=== PATIENT | female | born 1950 | race Caucasian/White ===

== ENCOUNTER 2016-12-27 08:58 | Inpatient (IN) | payer MEDICARE, BC ==
[2016-12-27] MEDS ORDERED: Tuberculin, PPD 5 Units/0.1 ML 1 ML MDV IDERM ONE (14:04)
[2016-12-27] MEDS ORDERED: Albuterol 8 GM Inhaler INH PRN (16:19)
[2016-12-27] MEDS ORDERED: Glucagon,Human Recombinant 1 MG Vial SUBCUT PRN (16:19)
[2016-12-27] MEDS ORDERED: ONDANSETRON 4 MG PO PRN (16:19)
[2016-12-27] MEDS ORDERED: Nitroglycerin 0.4 MG Tab.SL SL PRN (16:19)
[2016-12-27] MEDS ORDERED: Metoclopramide 10 MG Tab PO PRN (16:19)
[2016-12-27] MEDS ORDERED: Nystatin Crm 30 GM Tube TOP PRN (16:19)
[2016-12-27] MEDS ORDERED: Diclofenac Sodium 1% Gel 100 GM Tube TOP PRN (16:19)
[2016-12-27] MEDS ORDERED: DARBEPOETIN ALFA IN POLYSORBAT 100 MCG SUBCUT SCH (16:30)
[2016-12-27] MEDS ORDERED: Lidocaine/Prilocaine 2.5-2.5% Crm 5 GM Kit TOP SCH (16:30)
[2016-12-27] MEDS ORDERED: Ondansetron 4 MG Tab.DIS PO PRN (16:45)
[2016-12-27] MEDS ORDERED: LORazepam 0.5 MG Tab ONE (17:11)
[2016-12-27] MEDS: LORazepam 0.5 MG Tab PO SCH ×2 (17:12→20:32)
[2016-12-27] MEDS: Acetaminophen 500 MG Tab PO PRN (17:12)
[2016-12-27] MEDS: Ferrous Sulfate 325 MG Tab PO SCH (17:13)
[2016-12-27] MEDS: Insulin Aspart 100 Units/ML 3 ML Pen SUBCUT SCH (17:17)
[2016-12-27] MEDS ORDERED: HALOPERIDOL PO SCH (20:00)
[2016-12-27] MEDS ORDERED: Metoprolol Tartrate 50 MG Tab PO SCH (20:00)
[2016-12-27] MEDS: Metoprolol Tartrate 25 MG Tab PO SCH (20:31)
[2016-12-27] MEDS: atorvaSTATin 40 MG Tab PO SCH (20:32)
[2016-12-27] MEDS: cloNIDine 0.1 MG Tab PO SCH (20:33)
[2016-12-27] MEDS: Haloperidol 1 MG Tab PO SCH (20:33)
[2016-12-27] MEDS: traZODone 100 MG Tab PO SCH (20:33)
[2016-12-27] MEDS ORDERED: Haloperidol 1 MG Tab ONE (20:40)
[2016-12-27] MEDS: Insulin Glargine,Human Rec. Analog 100 Units/ML 3 ML Pen SUBCUT SCH (20:51)
[2016-12-27] MEDS: Magnesium Hydroxide 400 MG/5 ML Susp 30 ML Cup PO SCH (21:25)
[2016-12-27] MEDS: SODIUM BICARBONATE 650 MG PO SCH (21:26)
[2016-12-28] MEDS: Levothyroxine 100 MCG Tab PO SCH (07:46)
[2016-12-28] MEDS: LORazepam 0.5 MG Tab PO SCH ×3 (08:52→20:25)
[2016-12-28] MEDS: Diltiazem 240 MG Cap.CD PO SCH (08:53)
[2016-12-28] MEDS: Amiodarone 200 MG Tab PO SCH (08:54)
[2016-12-28] MEDS: cloNIDine 0.1 MG Tab PO SCH ×2 (08:54→20:26)
[2016-12-28] MEDS: SODIUM BICARBONATE 650 MG PO SCH ×2 (08:55→20:30)
[2016-12-28] MEDS: Ferrous Sulfate 325 MG Tab PO SCH ×2 (08:55→17:38)
[2016-12-28] MEDS: Metoprolol Tartrate 25 MG Tab PO SCH ×2 (08:55→20:26)
[2016-12-28] MEDS: Fish Oil/Omega-3 Fatty Acids 1 Gm Cap PO SCH (08:55)
[2016-12-28] MEDS: Aspirin 81 MG Tab.EC PO SCH (08:55)
[2016-12-28] MEDS: Insulin Glargine,Human Rec. Analog 100 Units/ML 3 ML Pen SUBCUT SCH ×2 (09:00→20:49)
[2016-12-28] MEDS ORDERED: Gabapentin 300 MG Cap ONE (09:03)
[2016-12-28] MEDS: Gabapentin 300 MG Cap PO SCH (09:05)
[2016-12-28] MEDS: Insulin Aspart 100 Units/ML 3 ML Pen SUBCUT SCH ×2 (09:15→17:32)
[2016-12-28] MEDS: Haloperidol 1 MG Tab PO SCH (20:26)
[2016-12-28] MEDS: Magnesium Hydroxide 400 MG/5 ML Susp 30 ML Cup PO SCH (20:27)
[2016-12-28] MEDS: traZODone 100 MG Tab PO SCH (20:28)
[2016-12-28] MEDS: atorvaSTATin 40 MG Tab PO SCH (20:28)
[2016-12-29] MEDS: Levothyroxine 100 MCG Tab PO SCH (07:18)
[2016-12-29] MEDS: SODIUM BICARBONATE 650 MG PO SCH ×2 (08:00→20:43)
[2016-12-29] MEDS: Gabapentin 300 MG Cap PO SCH (08:20)
[2016-12-29] MEDS: Ferrous Sulfate 325 MG Tab PO SCH ×2 (09:00→20:39)
[2016-12-29] MEDS: Aspirin 81 MG Tab.EC PO SCH (09:01)
[2016-12-29] MEDS: Fish Oil/Omega-3 Fatty Acids 1 Gm Cap PO SCH (09:02)
[2016-12-29] MEDS: cloNIDine 0.1 MG Tab PO SCH ×2 (09:02→20:37)
[2016-12-29] MEDS: Metoprolol Tartrate 25 MG Tab PO SCH ×2 (09:03→20:38)
[2016-12-29] MEDS: Amiodarone 200 MG Tab PO SCH (09:03)
[2016-12-29] MEDS: LORazepam 0.5 MG Tab PO SCH ×3 (09:04→20:39)
[2016-12-29] MEDS: Diltiazem 240 MG Cap.CD PO SCH (09:04)
[2016-12-29] MEDS: Insulin Aspart 100 Units/ML 3 ML Pen SUBCUT SCH ×2 (09:05→17:30)
[2016-12-29] MEDS: Insulin Glargine,Human Rec. Analog 100 Units/ML 3 ML Pen SUBCUT SCH ×2 (09:06→21:37)
[2016-12-29] MEDS: Acetaminophen 500 MG Tab PO PRN (18:04)
[2016-12-29] MEDS: traZODone 100 MG Tab PO SCH (20:36)
[2016-12-29] MEDS: Haloperidol 1 MG Tab PO SCH (20:36)
[2016-12-29] MEDS: atorvaSTATin 40 MG Tab PO SCH (20:37)
[2016-12-29] MEDS: Magnesium Hydroxide 400 MG/5 ML Susp 30 ML Cup PO SCH (20:41)
[2016-12-30] MEDS: cloNIDine 0.1 MG Tab PO SCH ×2 (07:29→20:23)
[2016-12-30] MEDS: Fish Oil/Omega-3 Fatty Acids 1 Gm Cap PO SCH (07:29)
[2016-12-30] MEDS: Ferrous Sulfate 325 MG Tab PO SCH ×2 (07:33→18:01)
[2016-12-30] MEDS: Amiodarone 200 MG Tab PO SCH (07:33)
[2016-12-30] MEDS: Levothyroxine 100 MCG Tab PO SCH (07:34)
[2016-12-30] MEDS: LORazepam 0.5 MG Tab PO SCH ×3 (07:34→20:22)
[2016-12-30] MEDS: Diltiazem 240 MG Cap.CD PO SCH (07:35)
[2016-12-30] MEDS: Insulin Aspart 100 Units/ML 3 ML Pen SUBCUT SCH ×2 (07:38→17:57)
[2016-12-30] MEDS: Insulin Glargine,Human Rec. Analog 100 Units/ML 3 ML Pen SUBCUT SCH ×2 (07:41→20:11)
[2016-12-30] MEDS: Metoprolol Tartrate 25 MG Tab PO SCH ×2 (08:00→20:23)
[2016-12-30] MEDS: Aspirin 81 MG Tab.EC PO SCH (08:00)
[2016-12-30] MEDS: SODIUM BICARBONATE 650 MG PO SCH ×2 (08:00→20:24)
[2016-12-30] MEDS: Gabapentin 300 MG Cap PO SCH (08:00)
[2016-12-30] MEDS: Acetaminophen 500 MG Tab PO PRN (12:42)
[2016-12-30] MEDS ORDERED: Acetaminophen/HYDROcodone 325-10 MG Tab ONE (16:42)
[2016-12-30] MEDS: Ergocalciferol (Vitamin D2) 50,000 Unit Cap PO SCH (18:01)
[2016-12-30] MEDS: CALCITRIOL 0.5 MCG PO SCH (18:01)
[2016-12-30] MEDS: Haloperidol 1 MG Tab PO SCH (20:21)
[2016-12-30] MEDS: traZODone 100 MG Tab PO SCH (20:21)
[2016-12-30] MEDS: atorvaSTATin 40 MG Tab PO SCH (20:22)
[2016-12-30] MEDS: Magnesium Hydroxide 400 MG/5 ML Susp 30 ML Cup PO SCH (20:24)
[2016-12-30] MEDS: Acetaminophen/HYDROcodone 325-10 MG Tab PO PRN (21:27)
[2016-12-31] MEDS: Acetaminophen/HYDROcodone 325-10 MG Tab PO PRN ×4 (04:09→21:55)
[2016-12-31] MEDS: Levothyroxine 100 MCG Tab PO SCH (06:13)
[2016-12-31] MEDS: Insulin Aspart 100 Units/ML 3 ML Pen SUBCUT SCH ×2 (11:33→17:29)
[2016-12-31] MEDS: Insulin Glargine,Human Rec. Analog 100 Units/ML 3 ML Pen SUBCUT SCH ×2 (11:38→20:47)
[2016-12-31] MEDS: LORazepam 0.5 MG Tab PO SCH ×3 (11:46→20:37)
[2016-12-31] MEDS: Metoprolol Tartrate 25 MG Tab PO SCH ×2 (11:47→20:39)
[2016-12-31] MEDS: Aspirin 81 MG Tab.EC PO SCH (11:50)
[2016-12-31] MEDS: cloNIDine 0.1 MG Tab PO SCH ×2 (11:50→20:38)
[2016-12-31] MEDS: Amiodarone 200 MG Tab PO SCH (11:51)
[2016-12-31] MEDS: Fish Oil/Omega-3 Fatty Acids 1 Gm Cap PO SCH (11:51)
[2016-12-31] MEDS: Gabapentin 300 MG Cap PO SCH (11:52)
[2016-12-31] MEDS: Ferrous Sulfate 325 MG Tab PO SCH ×2 (11:52→17:25)
[2016-12-31] MEDS: Diltiazem 240 MG Cap.CD PO SCH (11:52)
[2016-12-31] MEDS: SODIUM BICARBONATE 650 MG PO SCH ×2 (11:52→20:41)
[2016-12-31] MEDS ORDERED: Acetaminophen/HYDROcodone 325-10 MG Tab ONE (12:42)
[2016-12-31] MEDS: traZODone 100 MG Tab PO SCH (20:36)
[2016-12-31] MEDS: Haloperidol 1 MG Tab PO SCH (20:36)
[2016-12-31] MEDS: Magnesium Hydroxide 400 MG/5 ML Susp 30 ML Cup PO SCH (20:39)
[2016-12-31] MEDS: atorvaSTATin 40 MG Tab PO SCH (20:40)
[2017-01-01] MEDS: Acetaminophen/HYDROcodone 325-10 MG Tab PO PRN ×2 (02:35→14:42)
[2017-01-01] MEDS: Levothyroxine 100 MCG Tab PO SCH (06:49)
[2017-01-01] MEDS: Insulin Aspart 100 Units/ML 3 ML Pen SUBCUT SCH ×2 (07:50→17:33)
[2017-01-01] MEDS: Aspirin 81 MG Tab.EC PO SCH (07:53)
[2017-01-01] MEDS: LORazepam 0.5 MG Tab PO SCH ×3 (07:54→19:46)
[2017-01-01] MEDS: Ferrous Sulfate 325 MG Tab PO SCH ×2 (07:54→19:41)
[2017-01-01] MEDS: Diltiazem 240 MG Cap.CD PO SCH (07:58)
[2017-01-01] MEDS: Fish Oil/Omega-3 Fatty Acids 1 Gm Cap PO SCH (08:00)
[2017-01-01] MEDS: SODIUM BICARBONATE 650 MG PO SCH ×2 (08:00→20:00)
[2017-01-01] MEDS: Insulin Glargine,Human Rec. Analog 100 Units/ML 3 ML Pen SUBCUT SCH ×2 (08:04→20:08)
[2017-01-01] MEDS: cloNIDine 0.1 MG Tab PO SCH ×2 (10:26→19:51)
[2017-01-01] MEDS: Metoprolol Tartrate 25 MG Tab PO SCH ×2 (10:27→19:49)
[2017-01-01] MEDS: Amiodarone 200 MG Tab PO SCH (10:27)
[2017-01-01] MEDS: Gabapentin 300 MG Cap PO SCH (13:16)
[2017-01-01] MEDS: atorvaSTATin 40 MG Tab PO SCH (19:45)
[2017-01-01] MEDS: Haloperidol 1 MG Tab PO SCH (19:46)
[2017-01-01] MEDS: traZODone 100 MG Tab PO SCH (19:46)
[2017-01-01] MEDS: Magnesium Hydroxide 400 MG/5 ML Susp 30 ML Cup PO SCH (19:47)
[2017-01-02] MEDS: Acetaminophen/HYDROcodone 325-10 MG Tab PO PRN ×4 (02:17→20:02)
[2017-01-02] MEDS: Levothyroxine 100 MCG Tab PO SCH (06:15)
[2017-01-02] MEDS: Insulin Glargine,Human Rec. Analog 100 Units/ML 3 ML Pen SUBCUT SCH ×2 (08:33→20:13)
[2017-01-02] MEDS: Insulin Aspart 100 Units/ML 3 ML Pen SUBCUT SCH ×2 (08:34→17:07)
[2017-01-02] MEDS: Aspirin 81 MG Tab.EC PO SCH (08:50)
[2017-01-02] MEDS: Ferrous Sulfate 325 MG Tab PO SCH ×2 (08:50→17:07)
[2017-01-02] MEDS: Fish Oil/Omega-3 Fatty Acids 1 Gm Cap PO SCH (08:50)
[2017-01-02] MEDS: LORazepam 0.5 MG Tab PO SCH ×3 (08:50→20:02)
[2017-01-02] MEDS: Amiodarone 200 MG Tab PO SCH (08:51)
[2017-01-02] MEDS: SODIUM BICARBONATE 650 MG PO SCH ×2 (08:52→20:13)
[2017-01-02] MEDS: Diltiazem 240 MG Cap.CD PO SCH (08:53)
[2017-01-02] MEDS: cloNIDine 0.1 MG Tab PO SCH ×2 (08:54→20:03)
[2017-01-02] MEDS: Metoprolol Tartrate 25 MG Tab PO SCH ×2 (08:54→20:03)
[2017-01-02] MEDS: Gabapentin 300 MG Cap PO SCH (09:00)
--- NOTE | 2017-01-02 09:30 | PCM.HP ---
H&P History of Present Illness - General Date of Service: 12/27/16 Admit Problem/Dx: Admission Diagnosis/Problem Admission Diagnosis/Problem Pain management Source of Information: Patient, Old records, Provider, RN notes reviewed History Limitations: Reports: No limitations - History of Present Illness Initial Comments - Free Text/Narative: This is a 66yo F who was recently admitted for severe generalized weakness and UTI. She was started on CIpro IV per renal protocol and iv fluid for hydration. Pt was having her hemodialysis done daily. Dr. Zamarripa took over patient care on Monday, when Pt was almost obtunded, responsive, but unable to move in her bed. Only physical movement was wiggling in the bed. She could not move her extremities against gravity. Pt had sever clonus of all four extremities. Pt has CT head. Which did show questionable calcification or bleed in left basal ganglia. At this point Dr. Zamarripa did call [facility] adn discuss patient with Dr. Davin Joy, who had admitted this patient with similar episode in the past. 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 So he did start to taper per regime. Patient did recover from wiggling extremities, to moving the arms and raising her arm to sitting and now she is even able to stand up and walk few steps with physical therapy. Dr. Zamarripa discussed about her chronic elevation of the creatinine around [address] Gillespie, who recommends to continue daily hemodialysis. he does agree with decreasing neurontin to 300mg daily at bedtime. On 12/27/16 pt is alert awake able to stand and walk few step. doing better. labs are reassuring. At that point she needs to get stronger and be able to ambulate and do her routine ADLS. Hence she needs Occupational and physical Rehab. hence Dr. Zamarripa planned to place her on swing bed today. Dr. Zamarripa discussed this with her and her , who does agree with the plan. Onset of Symptoms: Reports: gradual Duration of Symptoms: Reports: Chronic Location: Reports: generalized Associated Symptoms: Reports: loss of appetite, weakness Bilateral Generalized Pain Score (Numeric/FACES): 7 - Related Data Allergies/Adverse Reactions: Allergies Allergy/AdvReac Type Severity Reaction Status Date / Time peanut Allergy Mild Other Verified 11/04/16 09:14 codeine Allergy Hives Verified 11/04/16 09:14 erythromycin lactobionate Allergy Hives Verified 11/04/16 09:14 [From Erythrocin] metformin AdvReac Other Verified 11/04/16 09:14 Home Medications: Home Meds Diclofenac Sodium [Voltaren 1% Gel] 1 percent TOP QID PRN 02/03/16 [History] Glucagon,Human Recombinant [Glucagen] 1 mg SUBCUT ASDIRECTED PRN 02/03/16 [ History] Metoprolol Tartrate 0.5 tab PO BID 02/03/16 [History] atorvaSTATin [Lipitor] 40 mg PO BEDTIME 02/03/16 [History] Albuterol [Proventil HFA] 2 puff INH Q6H PRN 04/25/16 [History] traZODone 100 mg PO BEDTIME 04/25/16 [History] Acetaminophen [Tylenol Extra Strength] 1,000 mg PO Q4H PRN 09/30/16 [History] Aspirin [Ecotrin] 81 mg PO DAILY 09/30/16 [History] Calcitriol [Rocaltrol] 0.5 mcg PO ASDIRECTED 09/30/16 [History] Darbepoetin Jerel in Polysorbat [Aranesp] 0 - 150 mcg SUBCUT ASDIRECTED 09/30/16 [History] Ergocalciferol (Vitamin D2) [Drisdol] 50,000 unit PO ASDIRECTED 09/30/16 [ History] Haloperidol [Haldol] 4 mg PO BEDTIME 09/30/16 [History] Lidocaine/Prilocaine [EMLA Crm] 1 applic TOP ASDIRECTED 09/30/16 [History] Metoclopramide HCl [Reglan] 10 mg PO QID PRN 09/30/16 [History] Nitroglycerin [Nitrostat] 0.4 mg SL ASDIRECTED PRN 09/30/16 [History] Nystatin [Nystatin Crm] 1 applic TOP BID PRN 09/30/16 [History] Ondansetron [Zofran] 4 mg PO Q4H PRN 09/30/16 [History] Sodium Bicarbonate 650 mg PO BID 09/30/16 [History] Allopurinol [Zyloprim] 100 mg PO DAILY tablet 12/27/16 [Rx] Amiodarone [Cordarone] 200 mg PO DAILY tablet 12/27/16 [Rx] Diltiazem [Cardizem CD] 240 mg PO DAILY cap.cd 12/27/16 [Rx] Ferrous Sulfate 325 mg PO BIDMEALS tablet 12/27/16 [Rx] Fish Oil/[place]-3 Fatty Acids [Fish Oil 1,000 MG] 1 gm PO DAILY cap 12/27/16 [Rx ] Insulin Aspart [NovoLOG] 45 unit SUBCUT BIDMEALS pen 12/27/16 [Rx] Insulin Glarg,Human.Rec.Analog [Lantus Solostar] 50 units SUBCUT BID pen [Rx] LORazepam [Ativan] 0.5 mg PO TID tablet 12/27/16 [Rx] Levothyroxine [Synthroid] 200 mcg PO ACBREAKFAST tablet 12/27/16 [Rx] Magnesium Hydroxide [Milk of Magnesia] 30 ml PO BEDTIME cup 12/27/16 [Rx] cloNIDine [Catapres] 0.1 mg PO Q12HR 12/27/16 [History] Past Medical History HEENT History: Reports: Epistaxis, Impaired vision, Other (see below) Other HEENT History: photosensitive, ringing in ears- chronic, cracking in ears currently Cardiovascular History: Reports: High cholesterol, Hypertension, [place] Respiratory History: Reports: Asthma, Sleep apnea, SOB, Other (see below) Other Respiratory History: doesn't use CPAP because of mask doesn't work - one cased scab on nose, one cased claustraphobia Gastrointestinal History: Reports: Chronic diarrhea, GERD, Hemorrhoids Genitourinary History: Reports: Dialysis, Diabetic nephropathy, Renal disease, Other (see below) Other Genitourinary History: home dialysis 2.5 hr 6 days per week [employer] History: Reports: Musculoskeletal History: Reports: Arthritis, Back pain, chronic, Gout, Neck pain , chronic, Other (see below) Other Musculoskeletal History: chronic shoulder pain, arthritis all over Neurological History: Reports: Migraines, Vertigo Psychiatric History: Reports: Anxiety, Depression, PTSD Endocrine/Metabolic History: Reports: Diabetes, type II, Hypothyroidism Hematologic History: Reports: Anemia, B12 deficiency, Idiopathic thrombocytopenia Immunologic History: Reports: Immunosuppression Oncologic (Cancer) History: Reports: None Dermatologic History: Reports: None - Infectious Disease History Infectious Disease History: Reports: Chicken pox, Measles, Mumps - Past Surgical History Head Surgeries/Procedures: Reports: Shunt HEENT Surgical History: Reports: Cataract surgery, Other (see below) Other HEENT Surgeries/Procedures: surgery to nostril for nose bleeds but they are still happening Cardiovascular Surgical History: Reports: Other (see below) Other Cardiovascular Surgeries/Procedures: cabg triple vessel bypass 2009, had stress test in 2016- negative, tried inhaler no help GI Surgical History: Reports: Appendectomy, Cholecystectomy, Other (see below) Other GI Surgeries/Procedures: Dr. Gorman removed them in 1972 Female Surgical History: Reports: Tubal ligation Social & Family History - Family History Family Medical History: Noncontributory - Tobacco Use Smoking Status *Q: Never Smoker Years of Tobacco use: 25 Packs/Tins Daily: 1 Used Tobacco, but Quit: Yes Month Tobacco Last Used: March 1990 Second Hand Smoke Exposure: No - Caffeine Use Caffeine Use: Reports: Coffee - Recreational Drug Use Recreational Drug Use: No H&P Review of Systems - Review of Systems: Review Of Systems: ROS reveals no pertinent complaints other than HPI. Exam - Exam Exam: See Below - Vital Signs Vital Signs: Last Vital Signs Temp 37.2 C 01/02/17 08:00 Pulse 72 01/02/17 08:54 Resp 20 01/02/17 08:00 BP 92/49 L 01/02/17 08:54 Pulse Ox 97 01/02/17 08:00 Weight: 121.109 kg - Exam General: alert, oriented, cooperative HEENT: PERRLA, Conjunctiva clear Neck: supple, trachea midline Lungs: Normal respiratory effort, Rhonchi Cardiovascular: regular rate, irregular rhythm, systolic murmur Abdomen: soft, hypoactive bowel sounds Back Exam: normal inspection Extremities: edema (1+) Peripheral Pulses: 2+: dorsalis pedis (L), dorsalis pedis (R) Skin: warm, dry, intact Neurological: cranial nerves intact, reflexes equal bilateral Neuro Extensive - Mental Status: alert, oriented x3, normal mood/affect Psychiatric: alert, normal affect, normal mood - Patient Data Lab Results last 24 hrs: Laboratory Results - last 24 hr 01/01/17 01/02/17 Range/Units 16:33 07:10 POC Glucose 378 H 316 H (74-110) mg/dL *Q Meaningful Use (ADM) - VTE *Q VTE Criteria *Q: - Stroke *Q Stroke Criteria *Q: - AMI *Q AMI Criteria *Q: - Problem List (1) Weakness SNOMED Code(s): 29548820 ICD Code: R53.1 - WEAKNESS Status: Chronic Priority: High Current Visit : Yes (2) Atrial fibrillation with rapid ventricular response SNOMED Code(s): 326602829051356 ICD Code: I48.91 - UNSPECIFIED ATRIAL FIBRILLATION Status: Chronic Priority: Medium Current Visit: Yes (3) CHF (congestive heart failure) SNOMED Code(s): 20065359 ICD Code: I50.9 - HEART FAILURE, UNSPECIFIED Status: Chronic Priority: High Current Visit: Yes Qualifiers: Congestive heart failure type: systolic Congestive heart failure chronicity : unspecified congestive heart failure chronicity Qualified Code(s): I50.20 - Unspecified systolic (congestive) heart failure (4) Chronic kidney disease (CKD) stage G5/A1, glomerular filtration rate (GFR) less than or equal to 15 mL/min/1.73 square meter and albuminuria creatinine ratio less than 30 mg/g SNOMED Code(s): 632802173, 505773721 ICD Code: N18.5 - CHRONIC KIDNEY DISEASE, STAGE 5 Status: Chronic Priority: High Current Visit: Yes (5) Clonus SNOMED Code(s): 39767523 ICD Code: R25.8 - OTHER ABNORMAL INVOLUNTARY MOVEMENTS Status: Resolved Current Visit: No Problem List Initiated/Reviewed/Updated: Yes Orders Last 24hrs: Medication Orders Acetaminophen (Tylenol Extra Strength) 1,000 mg PO Q4H PRN PRN Reason: Pain Last Admin: 12/30/16 12:42 Dose: 1,000 mg Admin: 12/29/16 18:04 Dose: 1,000 mg Admin: 12/27/16 17:12 Dose: 1,000 mg Acetaminophen/Hydrocodone Bitart ([place] 325-10 Mg) 1 tab PO Q4H PRN PRN Reason: Pain (moderate 4-6) Last Admin: 01/02/17 08:49 Dose: 1 tab Admin: 01/02/17 02:17 Dose: 1 tab Admin: 01/01/17 14:42 Dose: 1 tab Admin: 01/01/17 02:35 Dose: 1 tab Admin: 12/31/16 21:55 Dose: 1 tab Admin: 12/31/16 17:24 Dose: 1 tab Admin: 12/31/16 13:07 Dose: 1 tab Admin: 12/31/16 04:09 Dose: 1 tab Admin: 12/30/16 21:27 Dose: 1 tab Albuterol (Ventolin Hfa) 1 - 2 gm INH Q6H PRN PRN Reason: Shortness of Breath Allopurinol (Zyloprim) 100 mg PO DAILY [facility] Amiodarone HCl (Cordarone) 200 mg PO DAILY [facility] Last Admin: 01/02/17 08:51 Dose: 200 mg Admin: 01/01/17 10:27 Dose: Not Given Admin: 12/31/16 11:51 Dose: 200 mg Admin: 12/30/16 07:33 Dose: 200 mg Admin: 12/29/16 09:03 Dose: 200 mg Admin: 12/28/16 08:54 Dose: 200 mg Aspirin (Halfprin) 81 mg PO DAILY [facility] Last Admin: 01/02/17 08:50 Dose: 81 mg Admin: 01/01/17 07:53 Dose: 81 mg Admin: 12/31/16 11:50 Dose: 81 mg Admin: 12/30/16 08:00 Dose: 81 mg Admin: 12/29/16 09:01 Dose: 81 mg Admin: 12/28/16 08:55 Dose: 81 mg Atorvastatin Calcium (Lipitor) 40 mg PO BEDTIME [facility] Last Admin: 01/01/17 19:45 Dose: 40 mg Admin: 12/31/16 20:40 Dose: 40 mg Admin: 12/30/16 20:22 Dose: 40 mg Admin: 12/29/16 20:37 Dose: 40 mg Admin: 12/28/16 20:28 Dose: 40 mg Admin: 12/27/16 20:32 Dose: 40 mg Clonidine HCl (Catapres) 0.1 mg PO Q12HR [facility] Last Admin: 01/02/17 08:54 Dose: Not Given Admin: 01/01/17 19:51 Dose: 0.1 mg Admin: 01/01/17 10:26 Dose: Not Given Admin: 12/31/16 20:38 Dose: Admin: 12/31/16 11:50 Dose: 0.1 mg Admin: 12/30/16 20:23 Dose: 0.1 mg Admin: 12/30/16 07:29 Dose: 0.1 mg Admin: 12/29/16 20:37 Dose: 0.1 mg Admin: 12/29/16 09:02 Dose: 0.1 mg Admin: 12/28/16 20:26 Dose: 0.1 mg Admin: 12/28/16 08:54 Dose: 0.1 mg Admin: 12/27/16 20:33 Dose: 0.1 mg Diclofenac Sodium (Voltaren 1% Gel) 1 gm TOP QID PRN PRN Reason: Pain Diltiazem HCl (Cardizem Cd) 240 mg PO DAILY [facility] Last Admin: 01/02/17 08:53 Dose: Not Given Admin: 01/01/17 07:58 Dose: Not Given Admin: 12/31/16 11:52 Dose: 240 mg Admin: 12/30/16 07:35 Dose: 240 mg Admin: 12/29/16 09:04 Dose: 240 mg Admin: 12/28/16 08:53 Dose: 240 mg Ergocalciferol (Vitamin D2) 50,000 units PO Fr [facility] Last Admin: 12/30/16 18:01 Dose: 50,000 units Ferrous Sulfate (Ferrous Sulfate) 325 mg PO BIDMEALS [facility] Last Admin: 01/02/17 08:50 Dose: 325 mg Admin: 01/01/17 19:41 Dose: Not Given Admin: 01/01/17 07:54 Dose: 325 mg Admin: 12/31/16 17:25 Dose: 325 mg Admin: 12/31/16 11:52 Dose: 325 mg Admin: 12/30/16 18:01 Dose: 325 mg Admin: 12/30/16 07:33 Dose: 325 mg Admin: 12/29/16 20:39 Dose: 325 mg Admin: 12/29/16 09:00 Dose: 325 mg Admin: 12/28/16 17:38 Dose: 325 mg Admin: 12/28/16 08:55 Dose: 325 mg Admin: 12/27/16 17:13 Dose: 325 mg Fish Oil (Fish Oil) 1 gm PO DAILY [facility] Last Admin: 01/02/17 08:50 Dose: 1 gm Admin: 01/01/17 08:00 Dose: 1 gm Admin: 12/31/16 11:51 Dose: 1 gm Admin: 12/30/16 07:29 Dose: 1 gm Admin: 12/29/16 09:02 Dose: 1 gm Admin: 12/28/16 08:55 Dose: 1 gm Gabapentin (Neurontin) 300 mg PO QD [facility] Last Admin: 01/02/17 09:00 Dose: 300 mg Admin: 01/01/17 13:16 Dose: 300 mg Admin: 12/31/16 11:52 Dose: 300 mg Admin: 12/30/16 08:00 Dose: 300 mg Admin: 12/29/16 08:20 Dose: 300 mg Admin: 12/28/16 09:05 Dose: 300 mg Glucagon (Glucagen) 1 mg SUBCUT ASDIRECTED PRN PRN Reason: Hypoglycemia Haloperidol (Haldol) 4 mg PO BEDTIME [facility] Last Admin: 01/01/17 19:46 Dose: 4 mg Admin: 12/31/16 20:36 Dose: 4 mg Admin: 12/30/16 20:21 Dose: 4 mg Admin: 12/29/16 20:36 Dose: 4 mg Admin: 12/28/16 20:26 Dose: 4 mg Admin: 12/27/16 20:33 Dose: 4 mg Insulin Aspart (Novolog) 45 unit SUBCUT BIDMEALS [facility] Last Admin: 01/02/17 08:34 Dose: 45 units Admin: 01/01/17 17:33 Dose: 45 units Admin: 01/01/17 07:50 Dose: 45 units Admin: 12/31/16 17:29 Dose: 45 units Admin: 12/31/16 11:33 Dose: 45 units Admin: 12/30/16 17:57 Dose: 45 units Admin: 12/30/16 07:38 Dose: 45 units Admin: 12/29/16 17:30 Dose: 45 units Admin: 12/29/16 09:05 Dose: 45 units Admin: 12/28/16 17:32 Dose: 45 units Admin: 12/28/16 09:15 Dose: 45 units Admin: 12/27/16 17:17 Dose: 45 units Insulin Glargine (Lantus Solostar) 50 units SUBCUT BID [facility] Last Admin: 01/02/17 08:33 Dose: 50 units Admin: 01/01/17 20:08 Dose: 50 units Admin: 01/01/17 08:04 Dose: 50 units Admin: 12/31/16 20:47 Dose: 50 units Admin: 12/31/16 11:38 Dose: 50 units Admin: 12/30/16 20:11 Dose: 50 units Admin: 12/30/16 07:41 Dose: 50 units Admin: 12/29/16 21:37 Dose: 50 units Admin: 12/29/16 09:06 Dose: 50 units Admin: 12/28/16 20:49 Dose: 50 units Admin: 12/28/16 09:00 Dose: 50 units Admin: 12/27/16 20:51 Dose: 50 units Levothyroxine Sodium (Synthroid) 200 mcg PO ACBREAKFAST [facility] Last Admin: 01/02/17 06:15 Dose: 200 mcg Admin: 01/01/17 06:49 Dose: 200 mcg Admin: 12/31/16 06:13 Dose: 200 mcg Admin: 12/30/16 07:34 Dose: 200 mcg Admin: 12/29/16 07:18 Dose: 200 mcg Admin: 12/28/16 07:46 Dose: 200 mcg Lidocaine/Prilocaine (Emla Crm) 1 gm TOP ASDIRECTED [facility] Lorazepam (Ativan) 0.5 mg PO TID [facility] Last Admin: 01/02/17 08:50 Dose: 0.5 mg Admin: 01/01/17 19:46 Dose: 0.5 mg Admin: 01/01/17 14:44 Dose: Not Given Admin: 01/01/17 07:54 Dose: 0.5 mg Admin: 12/31/16 20:37 Dose: 0.5 mg Admin: 12/31/16 19:02 Dose: Admin: 12/31/16 11:46 Dose: 0.5 mg Admin: 12/30/16 20:22 Dose: 0.5 mg Admin: 12/30/16 13:22 Dose: 0.5 mg Admin: 12/30/16 07:34 Dose: 0.5 mg Admin: 12/29/16 20:39 Dose: 0.5 mg Admin: 12/29/16 09:04 Dose: 0.5 mg Admin: 12/28/16 20:25 Dose: 0.5 mg Admin: 12/28/16 14:15 Dose: Admin: 12/28/16 08:52 Dose: 0.5 mg Admin: 12/27/16 20:32 Dose: 0.5 mg Admin: 12/27/16 17:12 Dose: 0.5 mg Magnesium Hydroxide (Milk Of Magnesia) 30 ml PO BEDTIME [facility] Last Admin: 01/01/17 19:47 Dose: 30 ml Admin: 12/31/16 20:39 Dose: Not Given Admin: 12/30/16 20:24 Dose: Not Given Admin: 12/29/16 20:41 Dose: Admin: 12/28/16 20:27 Dose: Admin: 12/27/16 21:25 Dose: Not Given Metoclopramide HCl (Reglan) 10 mg PO QID PRN PRN Reason: Nausea Metoprolol Tartrate (Lopressor) 25 mg PO BID [facility] Last Admin: 01/02/17 08:54 Dose: Not Given Admin: 01/01/17 19:49 Dose: 25 mg Admin: 01/01/17 10:27 Dose: Not Given Admin: 12/31/16 20:39 Dose: Admin: 12/31/16 11:47 Dose: 25 mg Admin: 12/30/16 20:23 Dose: 25 mg Admin: 12/30/16 08:00 Dose: 25 mg Admin: 12/29/16 20:38 Dose: 25 mg Admin: 12/29/16 09:03 Dose: 25 mg Admin: 12/28/16 20:26 Dose: 25 mg Admin: 12/28/16 08:55 Dose: 25 mg Admin: 12/27/16 20:31 Dose: 25 mg Nitroglycerin (Nitrostat) 0.4 mg SL ASDIRECTED PRN PRN Reason: Chest Pain Non-Formulary Medication (Calcitriol [Rocaltrol]) 0.5 mcg PO MoFr [facility] Last Admin: 12/30/16 18:01 Dose: 0.5 mcg Non-Formulary Medication (Darbepoetin Jerel In Polysorbat [Aranesp]) 0 - 150 mcg SUBCUT ASDIRECTED [facility] Sodium Bicarbonate] (650 Mg)) 650 mg PO BID [facility] Last Admin: 01/02/17 08:52 Dose: 650 mg Admin: 01/01/17 20:00 Dose: 650 mg Admin: 01/01/17 08:00 Dose: 650 mg Admin: 12/31/16 20:41 Dose: 650 mg Admin: 12/31/16 11:52 Dose: 650 mg Admin: 12/30/16 20:24 Dose: 650 mg Admin: 12/30/16 08:00 Dose: 650 mg Admin: 12/29/16 20:43 Dose: 650 mg Admin: 12/29/16 08:00 Dose: 650 mg Admin: 12/28/16 20:30 Dose: 650 mg Admin: 12/28/16 08:55 Dose: 650 mg Admin: 12/27/16 21:26 Dose: 650 mg Nystatin (Nystatin Crm) 1 gm TOP BID PRN PRN Reason: Rash Last Admin: 01/01/17 14:41 Dose: 1 unit Ondansetron HCl (Zofran Odt) 4 mg PO Q4H PRN PRN Reason: NAUSEA Trazodone HCl (Trazodone) 100 mg PO BEDTIME [facility] Last Admin: 01/01/17 19:46 Dose: 100 mg Admin: 12/31/16 20:36 Dose: 100 mg Admin: 12/30/16 20:21 Dose: 100 mg Admin: 12/29/16 20:36 Dose: 100 mg Admin: 12/28/16 20:28 Dose: 100 mg Admin: 12/27/16 20:33 Dose: 100 mg Assessment/Plan Comment:: Patient to continue with PT/OT. Discussed plan of care with and patient and they agree with plan of care. We will continue to monitor for clonus and appetite.
--- NOTE | 2017-01-02 09:45 | PCM.PN ---
- General Info Date of Service: 01/02/17 (') Functional Status: Reports: tolerating diet, ambulating - Review of Systems General: Reports: weakness HEENT: Reports: no symptoms Pulmonary: Reports: no symptoms Cardiovascular: Reports: no symptoms Gastrointestinal: Reports: No symptoms Genitourinary: Reports: no symptoms Musculoskeletal: Reports: no symptoms Skin: Reports: no symptoms Neurological: Reports: weakness Psychiatric: Reports: no symptoms - Patient Data Vitals - most recent: Last Vital Signs Temp 37.2 C 01/02/17 08:00 Pulse 72 01/02/17 08:54 Resp 20 01/02/17 08:00 BP 92/49 L 01/02/17 08:54 Pulse Ox 97 01/02/17 08:00 Weight - most recent: 121.109 kg I&O - last 24 hours: Intake & Output 01/01/17 01/02/17 01/02/17 22:59 06:59 14:59 Intake Total 800 300 Output Total 0 0 Balance 800 300 Lab Results last 24 hrs: Laboratory Results - last 24 hr 01/01/17 01/02/17 Range/Units 16:33 07:10 POC Glucose 378 H 316 H (74-110) mg/dL Med Orders - Current: Current Medications Acetaminophen (Tylenol Extra Strength) 1,000 mg PO Q4H PRN PRN Reason: Pain Last Admin: 12/30/16 12:42 Dose: 1,000 mg Acetaminophen/Hydrocodone Bitart (Dora 325-10 Mg) 1 tab PO Q4H PRN PRN Reason: Pain (moderate 4-6) Last Admin: 01/02/17 08:49 Dose: 1 tab Albuterol (Ventolin Hfa) 1 - 2 gm INH Q6H PRN PRN Reason: Shortness of Breath Allopurinol (Zyloprim) 100 mg PO DAILY [facility] Amiodarone HCl (Cordarone) 200 mg PO DAILY [facility] Last Admin: 01/02/17 08:51 Dose: 200 mg Aspirin (Halfprin) 81 mg PO DAILY [facility] Last Admin: 01/02/17 08:50 Dose: 81 mg Atorvastatin Calcium (Lipitor) 40 mg PO BEDTIME [facility] Last Admin: 01/01/17 19:45 Dose: 40 mg Clonidine HCl (Catapres) 0.1 mg PO Q12HR [facility] Last Admin: 01/02/17 08:54 Dose: Not Given Diclofenac Sodium (Voltaren 1% Gel) 1 gm TOP QID PRN PRN Reason: Pain Diltiazem HCl (Cardizem Cd) 240 mg PO DAILY [facility] Last Admin: 01/02/17 08:53 Dose: Not Given Ergocalciferol (Vitamin D2) 50,000 units PO Fr [facility] Last Admin: 12/30/16 18:01 Dose: 50,000 units Ferrous Sulfate (Ferrous Sulfate) 325 mg PO BIDMEALS [facility] Last Admin: 01/02/17 08:50 Dose: 325 mg Fish Oil (Fish Oil) 1 gm PO DAILY [facility] Last Admin: 01/02/17 08:50 Dose: 1 gm Gabapentin (Neurontin) 300 mg PO QD [facility] Last Admin: 01/02/17 09:00 Dose: 300 mg Glucagon (Glucagen) 1 mg SUBCUT ASDIRECTED PRN PRN Reason: Hypoglycemia Haloperidol (Haldol) 4 mg PO BEDTIME [facility] Last Admin: 01/01/17 19:46 Dose: 4 mg Insulin Aspart (Novolog) 45 unit SUBCUT BIDMEALS [facility] Last Admin: 01/02/17 08:34 Dose: 45 units Insulin Glargine (Lantus Solostar) 50 units SUBCUT BID [facility] Last Admin: 01/02/17 08:33 Dose: 50 units Levothyroxine Sodium (Synthroid) 200 mcg PO ACBREAKFAST [facility] Last Admin: 01/02/17 06:15 Dose: 200 mcg Lidocaine/Prilocaine (Emla Crm) 1 gm TOP ASDIRECTED [facility] Lorazepam (Ativan) 0.5 mg PO TID [facility] Last Admin: 01/02/17 08:50 Dose: 0.5 mg Magnesium Hydroxide (Milk Of Magnesia) 30 ml PO BEDTIME [facility] Last Admin: 01/01/17 19:47 Dose: 30 ml Metoclopramide HCl (Reglan) 10 mg PO QID PRN PRN Reason: Nausea Metoprolol Tartrate (Lopressor) 25 mg PO BID [facility] Last Admin: 01/02/17 08:54 Dose: Not Given Nitroglycerin (Nitrostat) 0.4 mg SL ASDIRECTED PRN PRN Reason: Chest Pain Non-Formulary Medication (Calcitriol [Rocaltrol]) 0.5 mcg PO MoFr [facility] Last Admin: 12/30/16 18:01 Dose: 0.5 mcg Non-Formulary Medication (Darbepoetin Jerel In Polysorbat [Aranesp]) 0 - 150 mcg SUBCUT ASDIRECTED [facility] Sodium Bicarbonate] (650 Mg)) 650 mg PO BID [facility] Last Admin: 01/02/17 08:52 Dose: 650 mg Nystatin (Nystatin Crm) 1 gm TOP BID PRN PRN Reason: Rash Last Admin: 01/01/17 14:41 Dose: 1 unit Ondansetron HCl (Zofran Odt) 4 mg PO Q4H PRN PRN Reason: NAUSEA Trazodone HCl (Trazodone) 100 mg PO BEDTIME [facility] Last Admin: 01/01/17 19:46 Dose: 100 mg Discontinued Medications Acetaminophen/Hydrocodone Bitart (Dora 325-10 Mg) Confirm Administered Dose 1 tab .ROUTE .STK-MED ONE Stop: 12/30/16 16:43 Last Admin: 12/30/16 17:23 Dose: 1 tab Acetaminophen/Hydrocodone Bitart (Dora 325-10 Mg) Confirm Administered Dose 1 tab .ROUTE .STK-MED ONE Stop: 12/31/16 12:43 Last Admin: 12/31/16 17:15 Dose: Not Given Gabapentin (Neurontin) Confirm Administered Dose 300 mg .ROUTE .STK-MED ONE Stop: 12/28/16 09:04 Last Admin: 12/28/16 09:08 Dose: Not Given Haloperidol (Haldol) Confirm Administered Dose 1 mg .ROUTE .STK-MED ONE Stop: 12/27/16 20:41 Last Admin: 12/27/16 21:27 Dose: Not Given Lorazepam (Ativan) Confirm Administered Dose 0.5 mg .ROUTE .STK-MED ONE Stop: 12/27/16 17:12 Tuberculin PPD (Aplisol) 5 unit IDERM ONETIME ONE Stop: 12/27/16 14:05 Last Admin: 12/27/16 17:50 Dose: 0.1 unit - Exam General: alert, oriented, cooperative HEENT: Pupils equal, Pupils reactive, EOMI Neck: supple Lungs: Clear to auscultation, Normal respiratory effort Cardiovascular: regular rate, irregular rhythm Abdomen: bowel sounds present, soft, no tenderness Extremities: edema (1+) Peripheral Pulses: 2+: dorsalis pedis (L), dorsalis pedis (R) Skin: warm, dry, intact Psy/Mental Status: alert, normal affect, normal mood - Problem List & Annotations (1) Weakness SNOMED Code(s): 27208296 Code(s): R53.1 - WEAKNESS Status: Chronic Priority: High Current Visit : Yes (2) Atrial fibrillation with rapid ventricular response SNOMED Code(s): 135010343625458 Code(s): I48.91 - UNSPECIFIED ATRIAL FIBRILLATION Status: Chronic Priority: Medium Current Visit: Yes (3) CHF (congestive heart failure) SNOMED Code(s): 64023014 Code(s): I50.9 - HEART FAILURE, UNSPECIFIED Status: Chronic Priority: High Current Visit: Yes Qualifiers: Congestive heart failure type: systolic Congestive heart failure chronicity : unspecified congestive heart failure chronicity Qualified Code(s): I50.20 - Unspecified systolic (congestive) heart failure (4) Chronic kidney disease (CKD) stage G5/A1, glomerular filtration rate (GFR) less than or equal to 15 mL/min/1.73 square meter and albuminuria creatinine ratio less than 30 mg/g SNOMED Code(s): 462912274, 288279090 Code(s): N18.5 - CHRONIC KIDNEY DISEASE, STAGE 5 Status: Chronic Priority : High Current Visit: Yes (5) Clonus SNOMED Code(s): 00015891 Code(s): R25.8 - OTHER ABNORMAL INVOLUNTARY MOVEMENTS Status: Resolved Current Visit: No - Problem List Review Problem List Initiated/Reviewed/Updated: Yes - Plan Plan:: Patient to continue with PT/OT. Discussed plan of care with and patient and they agree with plan of care. We will continue to monitor for clonus and appetite. 01/02 - continue with PT/OT. Placement planning. to continue with Dialysis. We will monitor labs periodically. Monitoring BP - due to hypotension from dialysis. BP meds held with parameters.
[2017-01-02] MEDS: CALCITRIOL 0.5 MCG PO SCH (16:42)
[2017-01-02] MEDS: Haloperidol 1 MG Tab PO SCH (20:02)
[2017-01-02] MEDS: Magnesium Hydroxide 400 MG/5 ML Susp 30 ML Cup PO SCH (20:03)
[2017-01-02] MEDS: traZODone 100 MG Tab PO SCH (20:03)
[2017-01-02] MEDS: atorvaSTATin 40 MG Tab PO SCH (20:13)
[2017-01-03] MEDS: Acetaminophen/HYDROcodone 325-10 MG Tab PO PRN ×4 (00:56→20:21)
[2017-01-03] MEDS: Diltiazem 240 MG Cap.CD PO SCH (08:18)
[2017-01-03] MEDS: LORazepam 0.5 MG Tab PO SCH ×3 (08:19→20:24)
[2017-01-03] MEDS: Levothyroxine 100 MCG Tab PO SCH (08:19)
[2017-01-03] MEDS: Amiodarone 200 MG Tab PO SCH (08:21)
[2017-01-03] MEDS: Ferrous Sulfate 325 MG Tab PO SCH ×2 (08:21→17:31)
[2017-01-03] MEDS: cloNIDine 0.1 MG Tab PO SCH ×2 (08:21→20:22)
[2017-01-03] MEDS: Aspirin 81 MG Tab.EC PO SCH (08:22)
[2017-01-03] MEDS: Fish Oil/Omega-3 Fatty Acids 1 Gm Cap PO SCH (08:22)
[2017-01-03] MEDS: Metoprolol Tartrate 25 MG Tab PO SCH ×2 (08:22→20:24)
[2017-01-03] MEDS: Insulin Aspart 100 Units/ML 3 ML Pen SUBCUT SCH ×3 (08:37→17:32)
[2017-01-03] MEDS: Insulin Glargine,Human Rec. Analog 100 Units/ML 3 ML Pen SUBCUT SCH ×2 (08:41→20:25)
[2017-01-03] MEDS: SODIUM BICARBONATE 650 MG PO SCH (08:43)
[2017-01-03] MEDS: DARBEPOETIN ALFA IN POLYSORBAT 100 MCG SUBCUT SCH ×2 (13:08→13:51)
[2017-01-03] MEDS: Gabapentin 300 MG Cap PO SCH (17:31)
[2017-01-03] MEDS: Haloperidol 1 MG Tab PO SCH (20:21)
[2017-01-03] MEDS: atorvaSTATin 40 MG Tab PO SCH (20:21)
[2017-01-03] MEDS: traZODone 100 MG Tab PO SCH (20:24)
[2017-01-04] MEDS: Acetaminophen/HYDROcodone 325-10 MG Tab PO PRN ×4 (00:37→23:09)
[2017-01-04] MEDS: Magnesium Hydroxide 400 MG/5 ML Susp 30 ML Cup PO SCH ×2 (00:38→22:11)
[2017-01-04] MEDS: SODIUM BICARBONATE 650 MG PO SCH ×3 (00:38→23:09)
[2017-01-04] MEDS: Levothyroxine 100 MCG Tab PO SCH (08:02)
[2017-01-04] MEDS: LORazepam 0.5 MG Tab PO SCH ×3 (08:14→20:43)
[2017-01-04] MEDS: Ferrous Sulfate 325 MG Tab PO SCH ×2 (08:15→17:17)
[2017-01-04] MEDS: Metoprolol Tartrate 25 MG Tab PO SCH ×2 (08:15→20:44)
[2017-01-04] MEDS: Insulin Aspart 100 Units/ML 3 ML Pen SUBCUT SCH ×2 (08:16→17:16)
[2017-01-04] MEDS: Diltiazem 240 MG Cap.CD PO SCH (08:18)
[2017-01-04] MEDS: Fish Oil/Omega-3 Fatty Acids 1 Gm Cap PO SCH (08:20)
[2017-01-04] MEDS: Aspirin 81 MG Tab.EC PO SCH (08:21)
[2017-01-04] MEDS: cloNIDine 0.1 MG Tab PO SCH ×2 (08:21→20:43)
[2017-01-04] MEDS: Insulin Glargine,Human Rec. Analog 100 Units/ML 3 ML Pen SUBCUT SCH ×2 (08:21→20:44)
[2017-01-04] MEDS: Gabapentin 300 MG Cap PO SCH (13:37)
[2017-01-04] MEDS: Amiodarone 200 MG Tab PO SCH ×2 (13:37→14:41)
[2017-01-04] MEDS: atorvaSTATin 40 MG Tab PO SCH (20:42)
[2017-01-04] MEDS: Haloperidol 1 MG Tab PO SCH (20:42)
[2017-01-04] MEDS: traZODone 100 MG Tab PO SCH (20:43)
[2017-01-05] MEDS: Acetaminophen/HYDROcodone 325-10 MG Tab PO PRN ×4 (04:52→23:23)
[2017-01-05] MEDS: Levothyroxine 100 MCG Tab PO SCH (06:38)
[2017-01-05] MEDS: Insulin Aspart 100 Units/ML 3 ML Pen SUBCUT SCH ×2 (08:32→17:21)
[2017-01-05] MEDS: Insulin Glargine,Human Rec. Analog 100 Units/ML 3 ML Pen SUBCUT SCH ×2 (08:32→19:26)
[2017-01-05] MEDS: Ferrous Sulfate 325 MG Tab PO SCH ×2 (08:36→17:27)
[2017-01-05] MEDS: Diltiazem 240 MG Cap.CD PO SCH (08:37)
[2017-01-05] MEDS: LORazepam 0.5 MG Tab PO SCH ×3 (08:37→19:23)
[2017-01-05] MEDS: cloNIDine 0.1 MG Tab PO SCH ×2 (08:41→19:22)
[2017-01-05] MEDS: Fish Oil/Omega-3 Fatty Acids 1 Gm Cap PO SCH (08:42)
[2017-01-05] MEDS: Aspirin 81 MG Tab.EC PO SCH (08:42)
[2017-01-05] MEDS: Metoprolol Tartrate 25 MG Tab PO SCH ×2 (08:42→19:25)
[2017-01-05] MEDS: SODIUM BICARBONATE 650 MG PO SCH ×2 (08:43→19:26)
[2017-01-05] MEDS: Amiodarone 200 MG Tab PO SCH (08:44)
[2017-01-05] MEDS: Gabapentin 300 MG Cap PO SCH (08:46)
[2017-01-05] MEDS ORDERED: Levothyroxine 100 MCG Tab PO SCH (13:42)
[2017-01-05] MEDS ORDERED: Levothyroxine 50 MCG Tab ONE (13:49)
[2017-01-05] MEDS: Magnesium Hydroxide 400 MG/5 ML Susp 30 ML Cup PO SCH (19:19)
[2017-01-05] MEDS: traZODone 100 MG Tab PO SCH (19:21)
[2017-01-05] MEDS: Haloperidol 1 MG Tab PO SCH (19:22)
[2017-01-05] MEDS: atorvaSTATin 40 MG Tab PO SCH (19:24)
[2017-01-06] MEDS: Levothyroxine 100 MCG Tab PO SCH (06:47)
[2017-01-06] MEDS: Levothyroxine 25 MCG Tab PO SCH (06:48)
[2017-01-06] MEDS: LORazepam 0.5 MG Tab PO SCH ×3 (07:56→19:26)
[2017-01-06] MEDS: Ferrous Sulfate 325 MG Tab PO SCH ×2 (07:57→16:28)
[2017-01-06] MEDS: cloNIDine 0.1 MG Tab PO SCH ×2 (07:57→19:23)
[2017-01-06] MEDS: Aspirin 81 MG Tab.EC PO SCH (07:59)
[2017-01-06] MEDS: Amiodarone 200 MG Tab PO SCH (07:59)
[2017-01-06] MEDS: Diltiazem 240 MG Cap.CD PO SCH (07:59)
[2017-01-06] MEDS: Metoprolol Tartrate 25 MG Tab PO SCH ×2 (08:00→19:22)
[2017-01-06] MEDS: SODIUM BICARBONATE 650 MG PO SCH ×2 (08:01→19:27)
[2017-01-06] MEDS: Insulin Aspart 100 Units/ML 3 ML Pen SUBCUT SCH ×2 (08:01→16:59)
[2017-01-06] MEDS: Insulin Glargine,Human Rec. Analog 100 Units/ML 3 ML Pen SUBCUT SCH ×2 (08:03→20:28)
[2017-01-06] MEDS: Gabapentin 300 MG Cap PO SCH (08:24)
[2017-01-06] MEDS: Acetaminophen/HYDROcodone 325-10 MG Tab PO PRN ×3 (08:25→21:00)
[2017-01-06] MEDS: Fish Oil/Omega-3 Fatty Acids 1 Gm Cap PO SCH (08:26)
[2017-01-06] MEDS: Ergocalciferol (Vitamin D2) 50,000 Unit Cap PO SCH (16:27)
[2017-01-06] MEDS: CALCITRIOL 0.5 MCG PO SCH (16:28)
[2017-01-06] MEDS: traZODone 100 MG Tab PO SCH (19:21)
[2017-01-06] MEDS: atorvaSTATin 40 MG Tab PO SCH (19:22)
[2017-01-06] MEDS: Haloperidol 1 MG Tab PO SCH (19:25)
[2017-01-06] MEDS: Magnesium Hydroxide 400 MG/5 ML Susp 30 ML Cup PO SCH (19:39)
[2017-01-07] MEDS: Acetaminophen/HYDROcodone 325-10 MG Tab PO PRN ×3 (02:27→22:40)
[2017-01-07] MEDS: Levothyroxine 25 MCG Tab PO SCH (06:59)
[2017-01-07] MEDS: Levothyroxine 100 MCG Tab PO SCH (07:00)
[2017-01-07] MEDS: Amiodarone 200 MG Tab PO SCH (09:21)
[2017-01-07] MEDS: Ferrous Sulfate 325 MG Tab PO SCH ×2 (09:21→16:52)
[2017-01-07] MEDS: Aspirin 81 MG Tab.EC PO SCH (09:21)
[2017-01-07] MEDS: Metoprolol Tartrate 25 MG Tab PO SCH ×2 (09:22→19:26)
[2017-01-07] MEDS: cloNIDine 0.1 MG Tab PO SCH ×2 (09:22→19:25)
[2017-01-07] MEDS: LORazepam 0.5 MG Tab PO SCH ×3 (09:22→19:25)
[2017-01-07] MEDS: Diltiazem 240 MG Cap.CD PO SCH (09:23)
[2017-01-07] MEDS: Fish Oil/Omega-3 Fatty Acids 1 Gm Cap PO SCH (09:23)
[2017-01-07] MEDS: SODIUM BICARBONATE 650 MG PO SCH ×2 (09:24→19:26)
[2017-01-07] MEDS: Gabapentin 300 MG Cap PO SCH (09:26)
[2017-01-07] MEDS: Insulin Aspart 100 Units/ML 3 ML Pen SUBCUT SCH ×2 (09:31→16:52)
[2017-01-07] MEDS: Insulin Glargine,Human Rec. Analog 100 Units/ML 3 ML Pen SUBCUT SCH ×2 (09:32→19:41)
[2017-01-07] MEDS: Haloperidol 1 MG Tab PO SCH (19:24)
[2017-01-07] MEDS: atorvaSTATin 40 MG Tab PO SCH (19:25)
[2017-01-07] MEDS: traZODone 100 MG Tab PO SCH (19:25)
[2017-01-07] MEDS: Magnesium Hydroxide 400 MG/5 ML Susp 30 ML Cup PO SCH (19:41)
[2017-01-08] MEDS: Levothyroxine 100 MCG Tab PO SCH (06:15)
[2017-01-08] MEDS: Levothyroxine 25 MCG Tab PO SCH (06:16)
[2017-01-08] MEDS: Acetaminophen/HYDROcodone 325-10 MG Tab PO PRN ×3 (08:19→20:36)
[2017-01-08] MEDS: Fish Oil/Omega-3 Fatty Acids 1 Gm Cap PO SCH (08:19)
[2017-01-08] MEDS: LORazepam 0.5 MG Tab PO SCH ×3 (08:19→20:34)
[2017-01-08] MEDS: Ferrous Sulfate 325 MG Tab PO SCH ×2 (08:19→16:41)
[2017-01-08] MEDS: Amiodarone 200 MG Tab PO SCH (08:20)
[2017-01-08] MEDS: Aspirin 81 MG Tab.EC PO SCH (08:20)
[2017-01-08] MEDS: Diltiazem 240 MG Cap.CD PO SCH (08:22)
[2017-01-08] MEDS: cloNIDine 0.1 MG Tab PO SCH ×2 (08:22→20:14)
[2017-01-08] MEDS: SODIUM BICARBONATE 650 MG PO SCH ×2 (08:23→20:35)
[2017-01-08] MEDS: Insulin Aspart 100 Units/ML 3 ML Pen SUBCUT SCH ×2 (08:24→17:02)
[2017-01-08] MEDS: Insulin Glargine,Human Rec. Analog 100 Units/ML 3 ML Pen SUBCUT SCH ×2 (08:24→20:56)
[2017-01-08] MEDS: Metoprolol Tartrate 25 MG Tab PO SCH ×2 (08:26→20:31)
[2017-01-08] MEDS: Gabapentin 300 MG Cap PO SCH (11:18)
[2017-01-08] MEDS: Haloperidol 1 MG Tab PO SCH (20:14)
[2017-01-08] MEDS: traZODone 100 MG Tab PO SCH (20:15)
[2017-01-08] MEDS: atorvaSTATin 40 MG Tab PO SCH (20:15)
[2017-01-08] MEDS: Zolpidem 5 MG Tab PO PRN (20:35)
[2017-01-09] MEDS: Levothyroxine 100 MCG Tab PO SCH (06:00)
[2017-01-09] MEDS: Levothyroxine 25 MCG Tab PO SCH (06:01)
[2017-01-09] MEDS: Metoprolol Tartrate 25 MG Tab PO SCH ×2 (08:20→19:48)
[2017-01-09] MEDS: Fish Oil/Omega-3 Fatty Acids 1 Gm Cap PO SCH (08:22)
[2017-01-09] MEDS: Amiodarone 200 MG Tab PO SCH (08:22)
[2017-01-09] MEDS: Aspirin 81 MG Tab.EC PO SCH (08:22)
[2017-01-09] MEDS: LORazepam 0.5 MG Tab PO SCH ×3 (08:23→19:37)
[2017-01-09] MEDS: Diltiazem 240 MG Cap.CD PO SCH (08:24)
[2017-01-09] MEDS: cloNIDine 0.1 MG Tab PO SCH ×2 (08:24→19:42)
[2017-01-09] MEDS: Ferrous Sulfate 325 MG Tab PO SCH ×2 (08:25→17:52)
[2017-01-09] MEDS: SODIUM BICARBONATE 650 MG PO SCH ×2 (08:26→19:49)
[2017-01-09] MEDS: Insulin Aspart 100 Units/ML 3 ML Pen SUBCUT SCH ×2 (08:27→17:15)
[2017-01-09] MEDS: Insulin Glargine,Human Rec. Analog 100 Units/ML 3 ML Pen SUBCUT SCH ×2 (08:29→19:53)
[2017-01-09] MEDS: Gabapentin 300 MG Cap PO SCH (08:42)
--- NOTE | 2017-01-09 11:39 | PCM.PN ---
- General Info Date of Service: 01/09/17 Functional Status: Reports: pain controlled, tolerating diet, other (feeling weak but continuing with Pt/OT) - Review of Systems General: Reports: weakness HEENT: Reports: no symptoms Pulmonary: Reports: no symptoms Cardiovascular: Reports: no symptoms Gastrointestinal: Reports: No symptoms Genitourinary: Reports: no symptoms Musculoskeletal: Reports: back pain Skin: Reports: no symptoms Neurological: Reports: weakness Psychiatric: Reports: no symptoms - Patient Data Vitals - most recent: Last Vital Signs Temp 36.8 C 01/09/17 08:00 Pulse 56 L 01/09/17 08:24 Resp 18 01/08/17 20:00 BP 98/55 L 01/09/17 08:24 Pulse Ox 97 01/08/17 20:00 Weight - most recent: 119.068 kg I&O - last 24 hours: Intake & Output 01/08/17 01/09/17 01/09/17 22:59 06:59 14:59 Intake Total 600 560 Output Total 75 0 Balance 525 560 Lab Results last 24 hrs: Laboratory Results - last 24 hr 01/08/17 01/08/17 Range/Units 15:56 19:54 POC Glucose 343 H 332 H (74-110) mg/dL [facility] Results last 24 hrs: Microbiology 01/05/17 13:42 Urine Culture - Final Urine, Voided Streptococcus Anginosus Med Orders - Current: Current Medications Acetaminophen (Tylenol Extra Strength) 1,000 mg PO Q4H PRN PRN Reason: Pain Last Admin: 12/30/16 12:42 Dose: 1,000 mg Acetaminophen/Hydrocodone Bitart (Norcatur 325-10 Mg) 1 tab PO Q4H PRN PRN Reason: Pain (moderate 4-6) Last Admin: 01/08/17 20:36 Dose: 1 tab Albuterol (Ventolin Hfa) 1 - 2 gm INH Q6H PRN PRN Reason: Shortness of Breath Allopurinol (Zyloprim) 100 mg PO DAILY [facility] Amiodarone HCl (Cordarone) 200 mg PO DAILY [facility] Last Admin: 01/09/17 08:22 Dose: 200 mg Aspirin (Halfprin) 81 mg PO DAILY [facility] Last Admin: 01/09/17 08:22 Dose: 81 mg Atorvastatin Calcium (Lipitor) 40 mg PO BEDTIME [facility] Last Admin: 01/08/17 20:15 Dose: 40 mg Clonidine HCl (Catapres) 0.1 mg PO Q12HR [facility] Last Admin: 01/09/17 08:24 Dose: 0.1 mg Diclofenac Sodium (Voltaren 1% Gel) 1 gm TOP QID PRN PRN Reason: Pain Diltiazem HCl (Cardizem Cd) 240 mg PO DAILY [facility] Last Admin: 01/09/17 08:24 Dose: 240 mg Diphenhydramine HCl (Benadryl) 25 mg PO Q6H PRN PRN Reason: insomnia Ergocalciferol (Vitamin D2) 50,000 units PO Fr [facility] Last Admin: 01/06/17 16:27 Dose: 50,000 units Ferrous Sulfate (Ferrous Sulfate) 325 mg PO BIDMEALS [facility] Last Admin: 01/09/17 08:25 Dose: 325 mg Fish Oil (Fish Oil) 1 gm PO DAILY [facility] Last Admin: 01/09/17 08:22 Dose: 1 gm Gabapentin (Neurontin) 300 mg PO QD [facility] Last Admin: 01/09/17 08:42 Dose: 300 mg Glucagon (Glucagen) 1 mg SUBCUT ASDIRECTED PRN PRN Reason: Hypoglycemia Haloperidol (Haldol) 4 mg PO BEDTIME [facility] Last Admin: 01/08/17 20:14 Dose: 4 mg Insulin Aspart (Novolog) 45 unit SUBCUT BIDMEALS [facility] Last Admin: 01/09/17 08:27 Dose: 45 units Insulin Glargine (Lantus Solostar) 50 units SUBCUT BID [facility] Last Admin: 01/09/17 08:29 Dose: 50 units Levothyroxine Sodium (Levothyroxine) 25 mcg PO ACBREAKFAST [facility] Last Admin: 01/09/17 06:01 Dose: 25 mcg Levothyroxine Sodium (Synthroid) 200 mcg PO ACBREAKFAST [facility] Last Admin: 01/09/17 06:00 Dose: 200 mcg Lidocaine/Prilocaine (Emla Crm) 1 gm TOP ASDIRECTED [facility] Lorazepam (Ativan) 0.5 mg PO TID [facility] Last Admin: 01/09/17 08:23 Dose: 0.5 mg Magnesium Hydroxide (Milk Of Magnesia) 30 ml PO BEDTIME [facility] Last Admin: 01/07/17 19:41 Dose: Not Given Metoclopramide HCl (Reglan) 10 mg PO QID PRN PRN Reason: Nausea Metoprolol Tartrate (Lopressor) 25 mg PO BID [facility] Last Admin: 01/09/17 08:20 Dose: 25 mg Nitroglycerin (Nitrostat) 0.4 mg SL ASDIRECTED PRN PRN Reason: Chest Pain Non-Formulary Medication (Calcitriol [Rocaltrol]) 0.5 mcg PO MoFr [facility] Last Admin: 01/06/17 16:28 Dose: 0.5 mcg Sodium Bicarbonate] (650 Mg)) 650 mg PO BID [facility] Last Admin: 01/09/17 08:26 Dose: 650 mg Non-Formulary Medication (Darbepoetin Jerel In Polysorbat [Aranesp]) 100 mcg SUBCUT Tu [facility] Last Admin: 01/03/17 13:51 Dose: 100 mcg Nystatin (Nystatin Crm) 1 gm TOP BID PRN PRN Reason: Rash Last Admin: 01/01/17 14:41 Dose: 1 unit Ondansetron HCl (Zofran Odt) 4 mg PO Q4H PRN PRN Reason: NAUSEA Trazodone HCl (Trazodone) 100 mg PO BEDTIME [facility] Last Admin: 01/08/17 20:15 Dose: 100 mg Zolpidem Tartrate (Ambien) 10 mg PO ONETIME PRN PRN Reason: Insomnia Last Admin: 01/08/17 20:35 Dose: 10 mg Discontinued Medications Acetaminophen/Hydrocodone Bitart (Norcatur 325-10 Mg) Confirm Administered Dose 1 tab .ROUTE .STK-MED ONE Stop: 12/30/16 16:43 Last Admin: 12/30/16 17:23 Dose: 1 tab Acetaminophen/Hydrocodone Bitart (Norcatur 325-10 Mg) Confirm Administered Dose 1 tab .ROUTE .STK-MED ONE Stop: 12/31/16 12:43 Last Admin: 12/31/16 17:15 Dose: Not Given Gabapentin (Neurontin) Confirm Administered Dose 300 mg .ROUTE .STK-MED ONE Stop: 12/28/16 09:04 Last Admin: 12/28/16 09:08 Dose: Not Given Haloperidol (Haldol) Confirm Administered Dose 1 mg .ROUTE .STK-MED ONE Stop: 12/27/16 20:41 Last Admin: 12/27/16 21:27 Dose: Not Given Levothyroxine Sodium (Synthroid) 200 mcg PO ACBREAKFAST [facility] Last Admin: 01/05/17 06:38 Dose: 200 mcg Levothyroxine Sodium (Synthroid) 225 mcg PO ACBREAKFAST [facility] Levothyroxine Sodium (Synthroid) Confirm Administered Dose 50 mcg .ROUTE .STK- MED ONE Stop: 01/05/17 13:50 Last Admin: 01/05/17 14:20 Dose: 25 mcg Lorazepam (Ativan) Confirm Administered Dose 0.5 mg .ROUTE .STK-MED ONE Stop: 12/27/16 17:12 Non-Formulary Medication (Darbepoetin Jerel In Polysorbat [Aranesp]) 100 mcg SUBCUT ASDIRECTED [facility] Tuberculin PPD (Aplisol) 5 unit IDERM ONETIME ONE Stop: 12/27/16 14:05 Last Admin: 12/27/16 17:50 Dose: 0.1 unit - Exam General: alert, oriented, cooperative, no acute distress HEENT: Pupils equal, Pupils reactive, EOMI Neck: supple Lungs: Clear to auscultation, Normal respiratory effort Cardiovascular: regular rate, regular rhythm Abdomen: bowel sounds present, soft, no tenderness Extremities: edema (2+) Skin: warm, dry, intact Neurological: no new focal deficit Psy/Mental Status: alert, normal affect, normal mood - Problem List & Annotations (1) Weakness SNOMED Code(s): 30572488 Code(s): R53.1 - WEAKNESS Status: Chronic Priority: High Current Visit : Yes (2) Atrial fibrillation with rapid ventricular response SNOMED Code(s): 715861770429343 Code(s): I48.91 - UNSPECIFIED ATRIAL FIBRILLATION Status: Chronic Priority: Medium Current Visit: Yes (3) CHF (congestive heart failure) SNOMED Code(s): 04051073 Code(s): I50.9 - HEART FAILURE, UNSPECIFIED Status: Chronic Priority: High Current Visit: Yes Qualifiers: Congestive heart failure type: systolic Congestive heart failure chronicity : unspecified congestive heart failure chronicity Qualified Code(s): I50.20 - Unspecified systolic (congestive) heart failure (4) Chronic kidney disease (CKD) stage G5/A1, glomerular filtration rate (GFR) less than or equal to 15 mL/min/1.73 square meter and albuminuria creatinine ratio less than 30 mg/g SNOMED Code(s): 334862426, 240948475 Code(s): N18.5 - CHRONIC KIDNEY DISEASE, STAGE 5 Status: Chronic Priority : High Current Visit: Yes (5) Clonus SNOMED Code(s): 70963633 Code(s): R25.8 - OTHER ABNORMAL INVOLUNTARY MOVEMENTS Status: Resolved Current Visit: No - Problem List Review Problem List Initiated/Reviewed/Updated: Yes - My Orders Last 24 Hours: My Active Orders 01/08/17 17:43 Zolpidem [Ambien] 10 mg PO ONETIME PRN 01/08/17 17:45 diphenhydrAMINE [Benadryl] 25 mg PO Q6H PRN - Plan Plan:: Patient to continue with PT/OT. Discussed plan of care with and patient and they agree with plan of care. We will continue to monitor for clonus and appetite. 01/02 - continue with PT/OT. Placement planning. to continue with Dialysis. We will monitor labs periodically. Monitoring BP - due to hypotension from dialysis. BP meds held with parameters. 01/09/17 Continue PT/OT. Patient does not appear motivated. Urine culture was done - although greater than 100,000 it is a colonizing bacteria and patient is not having symptoms at this time - we will continue monitor and treat only if symptoms develop. Continue current management and f/u PT/OT
[2017-01-09] MEDS: CALCITRIOL 0.5 MCG PO SCH (17:52)
[2017-01-09] MEDS: Magnesium Hydroxide 400 MG/5 ML Susp 30 ML Cup PO SCH ×2 (17:52→22:39)
[2017-01-09] MEDS: Haloperidol 1 MG Tab PO SCH (19:41)
[2017-01-09] MEDS: atorvaSTATin 40 MG Tab PO SCH (19:41)
[2017-01-09] MEDS: traZODone 100 MG Tab PO SCH (19:42)
[2017-01-09] MEDS: Zolpidem 5 MG Tab PO PRN (20:07)
[2017-01-09] MEDS ORDERED: Zolpidem 5 MG Tab ONE (20:07)
[2017-01-10] MEDS: Acetaminophen/HYDROcodone 325-10 MG Tab PO PRN ×2 (05:52→18:17)
[2017-01-10] MEDS: Levothyroxine 100 MCG Tab PO SCH (07:11)
[2017-01-10] MEDS: Levothyroxine 25 MCG Tab PO SCH (07:11)
[2017-01-10] MEDS: LORazepam 0.5 MG Tab PO SCH ×3 (07:45→19:47)
[2017-01-10] MEDS: Diltiazem 240 MG Cap.CD PO SCH (07:45)
[2017-01-10] MEDS: cloNIDine 0.1 MG Tab PO SCH ×2 (07:46→19:47)
[2017-01-10] MEDS: Ferrous Sulfate 325 MG Tab PO SCH ×2 (07:47→17:31)
[2017-01-10] MEDS: Insulin Glargine,Human Rec. Analog 100 Units/ML 3 ML Pen SUBCUT SCH ×2 (07:47→19:59)
[2017-01-10] MEDS: Amiodarone 200 MG Tab PO SCH (07:47)
[2017-01-10] MEDS: Aspirin 81 MG Tab.EC PO SCH (07:47)
[2017-01-10] MEDS: Insulin Aspart 100 Units/ML 3 ML Pen SUBCUT SCH ×2 (07:47→17:31)
[2017-01-10] MEDS: Fish Oil/Omega-3 Fatty Acids 1 Gm Cap PO SCH (07:47)
[2017-01-10] MEDS: SODIUM BICARBONATE 650 MG PO SCH ×2 (07:48→19:51)
[2017-01-10] MEDS: Gabapentin 300 MG Cap PO SCH (07:50)
[2017-01-10] MEDS: Metoprolol Tartrate 25 MG Tab PO SCH (09:08)
[2017-01-10] MEDS ORDERED: Tuberculin, PPD 5 Units/0.1 ML 1 ML MDV IDERM ONE (10:00)
[2017-01-10] MEDS: Allopurinol 100 MG Tab PO SCH (13:56)
[2017-01-10] MEDS: DARBEPOETIN ALFA IN POLYSORBAT 100 MCG SUBCUT SCH (13:59)
[2017-01-10] MEDS: atorvaSTATin 40 MG Tab PO SCH (19:46)
[2017-01-10] MEDS: Haloperidol 1 MG Tab PO SCH (19:46)
[2017-01-10] MEDS: traZODone 100 MG Tab PO SCH (19:46)
[2017-01-10] MEDS: Magnesium Hydroxide 400 MG/5 ML Susp 30 ML Cup PO SCH (19:51)
[2017-01-11] MEDS: Acetaminophen/HYDROcodone 325-10 MG Tab PO PRN ×2 (00:50→19:58)
[2017-01-11] MEDS: Levothyroxine 25 MCG Tab PO SCH (08:00)
[2017-01-11] MEDS: Levothyroxine 100 MCG Tab PO SCH (08:00)
[2017-01-11] MEDS: Insulin Aspart 100 Units/ML 3 ML Pen SUBCUT SCH ×2 (08:28→17:27)
[2017-01-11] MEDS: Diltiazem 240 MG Cap.CD PO SCH (08:44)
[2017-01-11] MEDS: cloNIDine 0.1 MG Tab PO SCH ×2 (08:45→19:51)
[2017-01-11] MEDS: LORazepam 0.5 MG Tab PO SCH ×3 (08:45→19:52)
[2017-01-11] MEDS: Ferrous Sulfate 325 MG Tab PO SCH ×2 (08:45→17:29)
[2017-01-11] MEDS: Amiodarone 200 MG Tab PO SCH (08:46)
[2017-01-11] MEDS: Allopurinol 100 MG Tab PO SCH (08:47)
[2017-01-11] MEDS: Fish Oil/Omega-3 Fatty Acids 1 Gm Cap PO SCH (08:47)
[2017-01-11] MEDS: Aspirin 81 MG Tab.EC PO SCH (08:47)
[2017-01-11] MEDS: Insulin Glargine,Human Rec. Analog 100 Units/ML 3 ML Pen SUBCUT SCH ×2 (08:48→19:42)
[2017-01-11] MEDS: SODIUM BICARBONATE 650 MG PO SCH ×2 (08:48→19:52)
[2017-01-11] MEDS: Gabapentin 300 MG Cap PO SCH (08:48)
[2017-01-11] MEDS: Haloperidol 1 MG Tab PO SCH (19:50)
[2017-01-11] MEDS: atorvaSTATin 40 MG Tab PO SCH (19:52)
[2017-01-11] MEDS: traZODone 100 MG Tab PO SCH (19:52)
[2017-01-11] MEDS: Magnesium Hydroxide 400 MG/5 ML Susp 30 ML Cup PO SCH (19:53)
[2017-01-12] MEDS: Levothyroxine 25 MCG Tab PO SCH (07:09)
[2017-01-12] MEDS: Levothyroxine 100 MCG Tab PO SCH (07:09)
[2017-01-12] MEDS: Allopurinol 100 MG Tab PO SCH ×2 (08:46→08:47)
[2017-01-12] MEDS: Aspirin 81 MG Tab.EC PO SCH (08:46)
[2017-01-12] MEDS: Ferrous Sulfate 325 MG Tab PO SCH ×2 (08:46→17:07)
[2017-01-12] MEDS: Diltiazem 240 MG Cap.CD PO SCH (08:47)
[2017-01-12] MEDS: Amiodarone 200 MG Tab PO SCH (08:48)
[2017-01-12] MEDS: LORazepam 0.5 MG Tab PO SCH ×3 (08:49→20:02)
[2017-01-12] MEDS: Fish Oil/Omega-3 Fatty Acids 1 Gm Cap PO SCH (08:49)
[2017-01-12] MEDS: cloNIDine 0.1 MG Tab PO SCH ×2 (08:49→20:00)
[2017-01-12] MEDS: SODIUM BICARBONATE 650 MG PO SCH ×2 (08:55→20:01)
[2017-01-12] MEDS: Gabapentin 300 MG Cap PO SCH (08:55)
[2017-01-12] MEDS ORDERED: Gabapentin 300 MG Cap ONE (08:55)
[2017-01-12] MEDS: Insulin Aspart 100 Units/ML 3 ML Pen SUBCUT SCH ×2 (08:56→17:08)
[2017-01-12] MEDS: Insulin Glargine,Human Rec. Analog 100 Units/ML 3 ML Pen SUBCUT SCH ×2 (08:58→20:00)
[2017-01-12] MEDS ORDERED: Insulin Glargine,Human Rec. Analog 100 Units/ML 3 ML Pen ONE (09:03)
[2017-01-12] MEDS ORDERED: Ondansetron 4 MG Tab.DIS PO STA (14:06)
[2017-01-12] MEDS: atorvaSTATin 40 MG Tab PO SCH (20:00)
[2017-01-12] MEDS: traZODone 100 MG Tab PO SCH (20:00)
[2017-01-12] MEDS: Magnesium Hydroxide 400 MG/5 ML Susp 30 ML Cup PO SCH (20:00)
[2017-01-12] MEDS: Haloperidol 1 MG Tab PO SCH (20:00)
[2017-01-12] MEDS ORDERED: Acetaminophen/HYDROcodone 325-10 MG Tab ONE (20:54)
[2017-01-13] MEDS: Levothyroxine 100 MCG Tab PO SCH (07:05)
[2017-01-13] MEDS: Levothyroxine 25 MCG Tab PO SCH (07:05)
[2017-01-13] MEDS: Aspirin 81 MG Tab.EC PO SCH (07:38)
[2017-01-13] MEDS: Ferrous Sulfate 325 MG Tab PO SCH ×2 (07:38→17:45)
[2017-01-13] MEDS: cloNIDine 0.1 MG Tab PO SCH ×2 (07:39→19:20)
[2017-01-13] MEDS: LORazepam 0.5 MG Tab PO SCH ×3 (07:39→19:20)
[2017-01-13] MEDS: Amiodarone 200 MG Tab PO SCH (07:39)
[2017-01-13] MEDS: Allopurinol 100 MG Tab PO SCH (07:39)
[2017-01-13] MEDS: Fish Oil/Omega-3 Fatty Acids 1 Gm Cap PO SCH (07:39)
[2017-01-13] MEDS: Insulin Glargine,Human Rec. Analog 100 Units/ML 3 ML Pen SUBCUT SCH ×2 (07:40→19:17)
[2017-01-13] MEDS: Insulin Aspart 100 Units/ML 3 ML Pen SUBCUT SCH ×2 (07:43→17:54)
[2017-01-13] MEDS: SODIUM BICARBONATE 650 MG PO SCH ×2 (07:47→19:23)
[2017-01-13] MEDS: Gabapentin 300 MG Cap PO SCH (08:30)
[2017-01-13] MEDS: Diltiazem 240 MG Cap.CD PO SCH (08:30)
[2017-01-13] MEDS: CALCITRIOL 0.5 MCG PO SCH (16:30)
[2017-01-13] MEDS: Ergocalciferol (Vitamin D2) 50,000 Unit Cap PO SCH (17:52)
[2017-01-13] MEDS: Haloperidol 1 MG Tab PO SCH (19:19)
[2017-01-13] MEDS: atorvaSTATin 40 MG Tab PO SCH (19:20)
[2017-01-13] MEDS: traZODone 100 MG Tab PO SCH (19:22)
[2017-01-13] MEDS: Magnesium Hydroxide 400 MG/5 ML Susp 30 ML Cup PO SCH (19:23)
[2017-01-13] MEDS: Acetaminophen/HYDROcodone 325-10 MG Tab PO PRN (21:02)
[2017-01-14] MEDS: Levothyroxine 25 MCG Tab PO SCH (07:00)
[2017-01-14] MEDS: Levothyroxine 100 MCG Tab PO SCH (07:00)
[2017-01-14] MEDS: Fish Oil/Omega-3 Fatty Acids 1 Gm Cap PO SCH (08:15)
[2017-01-14] MEDS: Amiodarone 200 MG Tab PO SCH (08:16)
[2017-01-14] MEDS: Aspirin 81 MG Tab.EC PO SCH (08:16)
[2017-01-14] MEDS: cloNIDine 0.1 MG Tab PO SCH ×2 (08:17→19:35)
[2017-01-14] MEDS: Ferrous Sulfate 325 MG Tab PO SCH ×2 (08:18→19:33)
[2017-01-14] MEDS: Diltiazem 240 MG Cap.CD PO SCH (08:19)
[2017-01-14] MEDS: Allopurinol 100 MG Tab PO SCH (08:20)
[2017-01-14] MEDS: SODIUM BICARBONATE 650 MG PO SCH ×2 (08:26→19:44)
[2017-01-14] MEDS: LORazepam 0.5 MG Tab PO SCH ×3 (08:26→19:36)
[2017-01-14] MEDS: Insulin Glargine,Human Rec. Analog 100 Units/ML 3 ML Pen SUBCUT SCH ×2 (08:34→19:39)
[2017-01-14] MEDS: Insulin Aspart 100 Units/ML 3 ML Pen SUBCUT SCH ×2 (08:36→17:54)
[2017-01-14] MEDS: Gabapentin 300 MG Cap PO SCH (08:56)
[2017-01-14] MEDS: Acetaminophen/HYDROcodone 325-10 MG Tab PO PRN (17:50)
[2017-01-14] MEDS ORDERED: Haloperidol 1 MG Tab ONE ×2 (19:22→19:42)
[2017-01-14] MEDS: atorvaSTATin 40 MG Tab PO SCH (19:33)
[2017-01-14] MEDS: Haloperidol 1 MG Tab PO SCH (19:34)
[2017-01-14] MEDS: traZODone 100 MG Tab PO SCH (19:35)
[2017-01-14] MEDS: Magnesium Hydroxide 400 MG/5 ML Susp 30 ML Cup PO SCH (19:46)
[2017-01-15] MEDS: Acetaminophen/HYDROcodone 325-10 MG Tab PO PRN ×2 (04:12→19:34)
[2017-01-15] MEDS: cloNIDine 0.1 MG Tab PO SCH ×2 (09:04→19:29)
[2017-01-15] MEDS: Diltiazem 240 MG Cap.CD PO SCH (09:05)
[2017-01-15] MEDS: Allopurinol 100 MG Tab PO SCH (09:05)
[2017-01-15] MEDS: Amiodarone 200 MG Tab PO SCH (09:05)
[2017-01-15] MEDS: Aspirin 81 MG Tab.EC PO SCH (09:06)
[2017-01-15] MEDS: Ferrous Sulfate 325 MG Tab PO SCH ×2 (09:06→17:53)
[2017-01-15] MEDS: Levothyroxine 100 MCG Tab PO SCH (09:07)
[2017-01-15] MEDS: Levothyroxine 25 MCG Tab PO SCH (09:07)
[2017-01-15] MEDS: SODIUM BICARBONATE 650 MG PO SCH ×2 (09:16→19:23)
[2017-01-15] MEDS: Insulin Aspart 100 Units/ML 3 ML Pen SUBCUT SCH ×2 (09:19→17:48)
[2017-01-15] MEDS: Insulin Glargine,Human Rec. Analog 100 Units/ML 3 ML Pen SUBCUT SCH ×2 (09:20→19:30)
[2017-01-15] MEDS: LORazepam 0.5 MG Tab PO SCH ×2 (09:26→19:28)
[2017-01-15] MEDS: Fish Oil/Omega-3 Fatty Acids 1 Gm Cap PO SCH (10:12)
[2017-01-15] MEDS: Gabapentin 300 MG Cap PO SCH (10:12)
[2017-01-15] MEDS ORDERED: LORazepam 0.5 MG Tab ONE (17:54)
[2017-01-15] MEDS ORDERED: Haloperidol 0.5 MG Tab ONE (19:19)
[2017-01-15] MEDS: Haloperidol 1 MG Tab PO SCH (19:26)
[2017-01-15] MEDS: atorvaSTATin 40 MG Tab PO SCH (19:27)
[2017-01-15] MEDS: traZODone 100 MG Tab PO SCH (19:29)
[2017-01-15] MEDS: Magnesium Hydroxide 400 MG/5 ML Susp 30 ML Cup PO SCH (19:31)
[2017-01-16] MEDS: Acetaminophen/HYDROcodone 325-10 MG Tab PO PRN ×2 (00:08→19:15)
[2017-01-16] MEDS: LORazepam 0.5 MG Tab PO SCH ×4 (00:08→20:45)
[2017-01-16] MEDS: Levothyroxine 25 MCG Tab PO SCH (07:10)
[2017-01-16] MEDS: Levothyroxine 100 MCG Tab PO SCH (07:12)
[2017-01-16] MEDS: Amiodarone 200 MG Tab PO SCH (08:34)
[2017-01-16] MEDS: Diltiazem 240 MG Cap.CD PO SCH (08:35)
[2017-01-16] MEDS: cloNIDine 0.1 MG Tab PO SCH ×2 (08:35→20:45)
[2017-01-16] MEDS: Aspirin 81 MG Tab.EC PO SCH (08:36)
[2017-01-16] MEDS: Ferrous Sulfate 325 MG Tab PO SCH ×2 (08:36→17:20)
[2017-01-16] MEDS: Allopurinol 100 MG Tab PO SCH (08:37)
[2017-01-16] MEDS: SODIUM BICARBONATE 650 MG PO SCH ×2 (08:39→20:34)
[2017-01-16] MEDS: Gabapentin 300 MG Cap PO SCH (08:44)
[2017-01-16] MEDS: Fish Oil/Omega-3 Fatty Acids 1 Gm Cap PO SCH (08:45)
[2017-01-16] MEDS: Insulin Glargine,Human Rec. Analog 100 Units/ML 3 ML Pen SUBCUT SCH ×2 (08:46→21:08)
[2017-01-16] MEDS: Insulin Aspart 100 Units/ML 3 ML Pen SUBCUT SCH ×2 (08:47→17:27)
[2017-01-16] MEDS: CALCITRIOL 0.5 MCG PO SCH (17:20)
[2017-01-16] MEDS: Haloperidol 1 MG Tab PO SCH (20:34)
[2017-01-16] MEDS: atorvaSTATin 40 MG Tab PO SCH (20:47)
[2017-01-16] MEDS: traZODone 100 MG Tab PO SCH (20:47)
[2017-01-16] MEDS: Magnesium Hydroxide 400 MG/5 ML Susp 30 ML Cup PO SCH (20:48)
[2017-01-17] MEDS: Acetaminophen/HYDROcodone 325-10 MG Tab PO PRN ×2 (00:25→16:37)
[2017-01-17] MEDS: Levothyroxine 25 MCG Tab PO SCH (07:20)
[2017-01-17] MEDS: Levothyroxine 100 MCG Tab PO SCH (07:20)
--- NOTE | 2017-01-17 08:30 | PCM.PN ---
- General Info Date of Service: 01/17/17 Subjective Update: This is a 66yo F with no current changes to status. Patient continues with PT/ OT with no concerns. She has chronic pain controlled with current medications. Denies any concerns today. Functional Status: Reports: pain controlled, tolerating diet - Review of Systems General: Reports: Weakness HEENT: Reports: no symptoms Pulmonary: Reports: no symptoms Cardiovascular: Reports: No Symptoms Gastrointestinal: Reports: No symptoms Genitourinary: Reports: no symptoms Musculoskeletal: Reports: joint pain Skin: Reports: no symptoms Neurological: Reports: Difficulty Walking, Weakness - Patient Data Vitals - most recent: Last Vital Signs Temp 36.8 C 01/16/17 12:30 Pulse 84 01/16/17 12:30 Resp 16 01/16/17 12:30 BP 118/70 01/16/17 20:45 Pulse Ox 96 01/16/17 12:30 Weight - most recent: 116.176 kg I&O - last 24 hours: Intake & Output 01/16/17 01/17/17 01/17/17 22:59 06:59 14:59 Intake Total 700 180 Output Total 0 0 Balance 700 180 Lab Results last 24 hrs: Laboratory Results - last 24 hr 01/16/17 01/16/17 Range/Units 16:03 19:59 POC Glucose 219 H 231 H (74-110) mg/dL Med Orders - Current: Current Medications Acetaminophen (Tylenol Extra Strength) 1,000 mg PO Q4H PRN PRN Reason: Pain Last Admin: 12/30/16 12:42 Dose: 1,000 mg Acetaminophen/Hydrocodone Bitart (Lampe 325-10 Mg) 1 tab PO Q4H PRN PRN Reason: Pain (moderate 4-6) Last Admin: 01/17/17 00:25 Dose: 1 tab Albuterol (Ventolin Hfa) 1 - 2 gm INH Q6H PRN PRN Reason: Shortness of Breath Allopurinol (Zyloprim) 100 mg PO DAILY [facility] Last Admin: 01/16/17 08:37 Dose: 100 mg Amiodarone HCl (Cordarone) 200 mg PO DAILY [facility] Last Admin: 01/16/17 08:34 Dose: 200 mg Aspirin (Halfprin) 81 mg PO DAILY [facility] Last Admin: 01/16/17 08:36 Dose: 81 mg Atorvastatin Calcium (Lipitor) 40 mg PO BEDTIME [facility] Last Admin: 01/16/17 20:47 Dose: 40 mg Clonidine HCl (Catapres) 0.1 mg PO Q12HR [facility] Last Admin: 01/16/17 20:45 Dose: 0.1 mg Diclofenac Sodium (Voltaren 1% Gel) 1 gm TOP QID PRN PRN Reason: Pain Diltiazem HCl (Cardizem Cd) 240 mg PO DAILY [facility] Last Admin: 01/16/17 08:35 Dose: Not Given Diphenhydramine HCl (Benadryl) 25 mg PO Q6H PRN PRN Reason: insomnia Ergocalciferol (Vitamin D2) 50,000 units PO Fr [facility] Last Admin: 01/13/17 17:52 Dose: 50,000 units Ferrous Sulfate (Ferrous Sulfate) 325 mg PO BIDMEALS [facility] Last Admin: 01/16/17 17:20 Dose: 325 mg Fish Oil (Fish Oil) 1 gm PO DAILY [facility] Last Admin: 01/16/17 08:45 Dose: 1 gm Gabapentin (Neurontin) 300 mg PO QD [facility] Last Admin: 01/16/17 08:44 Dose: 300 mg Glucagon (Glucagen) 1 mg SUBCUT ASDIRECTED PRN PRN Reason: Hypoglycemia Haloperidol (Haldol) 4 mg PO BEDTIME [facility] Last Admin: 01/16/17 20:34 Dose: 4 mg Insulin Aspart (Novolog) 45 unit SUBCUT BIDMEALS [facility] Last Admin: 01/16/17 17:27 Dose: 45 units Insulin Glargine (Lantus Solostar) 70 units SUBCUT BID [facility] Last Admin: 01/16/17 21:08 Dose: 70 units Levothyroxine Sodium (Levothyroxine) 25 mcg PO ACBREAKFAST [facility] Last Admin: 01/17/17 07:20 Dose: 25 mcg Levothyroxine Sodium (Synthroid) 200 mcg PO ACBREAKFAST [facility] Last Admin: 01/17/17 07:20 Dose: 200 mcg Lidocaine/Prilocaine (Emla Crm) 1 gm TOP ASDIRECTED [facility] Lorazepam (Ativan) 0.5 mg PO TID [facility] Last Admin: 01/16/17 20:45 Dose: 0.5 mg Magnesium Hydroxide (Milk Of Magnesia) 30 ml PO BEDTIME [facility] Last Admin: 01/16/17 20:48 Dose: Not Given Metoclopramide HCl (Reglan) 10 mg PO QID PRN PRN Reason: Nausea Metoprolol Tartrate (Lopressor) 25 mg PO BID [facility] Last Admin: 01/10/17 09:08 Dose: Not Given Nitroglycerin (Nitrostat) 0.4 mg SL ASDIRECTED PRN PRN Reason: Chest Pain Non-Formulary Medication (Calcitriol [Rocaltrol]) 0.5 mcg PO MoFr [facility] Last Admin: 01/16/17 17:20 Dose: 0.5 mcg Sodium Bicarbonate] (650 Mg)) 650 mg PO BID [facility] Last Admin: 01/16/17 20:34 Dose: 650 mg Non-Formulary Medication (Darbepoetin Jerel In Polysorbat [Aranesp]) 100 mcg SUBCUT Tu [facility] Last Admin: 01/10/17 13:59 Dose: Not Given Nystatin (Nystatin Crm) 1 gm TOP BID PRN PRN Reason: Rash Last Admin: 01/01/17 14:41 Dose: 1 unit Trazodone HCl (Trazodone) 100 mg PO BEDTIME [facility] Last Admin: 01/16/17 20:47 Dose: 100 mg Discontinued Medications Acetaminophen/Hydrocodone Bitart (Lampe 325-10 Mg) Confirm Administered Dose 1 tab .ROUTE .STK-MED ONE Stop: 12/30/16 16:43 Last Admin: 12/30/16 17:23 Dose: 1 tab Acetaminophen/Hydrocodone Bitart (Lampe 325-10 Mg) Confirm Administered Dose 1 tab .ROUTE .STK-MED ONE Stop: 12/31/16 12:43 Last Admin: 12/31/16 17:15 Dose: Not Given Acetaminophen/Hydrocodone Bitart (Lampe 325-10 Mg) Confirm Administered Dose 1 tab .ROUTE .STK-MED ONE Stop: 01/12/17 20:55 Last Admin: 01/12/17 21:03 Dose: 1 tab Gabapentin (Neurontin) Confirm Administered Dose 300 mg .ROUTE .STK-MED ONE Stop: 12/28/16 09:04 Last Admin: 12/28/16 09:08 Dose: Not Given Gabapentin (Neurontin) Confirm Administered Dose 300 mg .ROUTE .STK-MED ONE Stop: 01/12/17 08:56 Last Admin: 01/12/17 09:09 Dose: Not Given Haloperidol (Haldol) Confirm Administered Dose 1 mg .ROUTE .STK-MED ONE Stop: 12/27/16 20:41 Last Admin: 12/27/16 21:27 Dose: Not Given Haloperidol (Haldol) Confirm Administered Dose 1 mg .ROUTE .STK-MED ONE Stop: 01/14/17 19:23 Last Admin: 01/14/17 19:33 Dose: Not Given Haloperidol (Haldol) Confirm Administered Dose 2 mg .ROUTE .STK-MED ONE Stop: 01/14/17 19:43 Haloperidol (Haldol) Confirm Administered Dose 4 mg .ROUTE .STK-MED ONE Stop: 01/15/17 19:20 Last Admin: 01/15/17 19:25 Dose: 4 mg Insulin Glargine (Lantus Solostar) 50 units SUBCUT BID [facility] Last Admin: 01/10/17 07:47 Dose: 50 units Insulin Glargine (Lantus Solostar) Confirm Administered Dose 300 units .ROUTE .STK-MED ONE Stop: 01/12/17 09:04 Last Admin: 01/12/17 11:45 Dose: Not Given Levothyroxine Sodium (Synthroid) 200 mcg PO ACBREAKFAST [facility] Last Admin: 01/05/17 06:38 Dose: 200 mcg Levothyroxine Sodium (Synthroid) 225 mcg PO ACBREAKFAST INGRID Levothyroxine Sodium (Synthroid) Confirm Administered Dose 50 mcg .ROUTE .STK- MED ONE Stop: 01/05/17 13:50 Last Admin: 01/05/17 14:20 Dose: 25 mcg Lorazepam (Ativan) Confirm Administered Dose 0.5 mg .ROUTE .STK-MED ONE Stop: 12/27/16 17:12 Lorazepam (Ativan) Confirm Administered Dose 0.5 mg .ROUTE .STK-MED ONE Stop: 01/15/17 17:55 Last Admin: 01/15/17 19:30 Dose: Not Given Non-Formulary Medication (Darbepoetin Jerel In Polysorbat [Aranesp]) 100 mcg SUBCUT ASDIRECTED INGRID Ondansetron HCl (Zofran Odt) 4 mg PO Q4H PRN PRN Reason: NAUSEA Last Admin: 01/12/17 12:09 Dose: 4 mg Ondansetron HCl (Zofran Odt) 4 mg PO ONETIME ST[facility] Stop: 01/12/17 14:07 Last Admin: 01/12/17 15:29 Dose: Not Given Tuberculin PPD (Aplisol) 5 unit IDERM ONETIME ONE Stop: 12/27/16 14:05 Last Admin: 12/27/16 17:50 Dose: 0.1 unit Tuberculin PPD (Aplisol) 5 unit IDERM ONETIME ONE Stop: 01/10/17 10:01 Last Admin: 01/10/17 13:57 Dose: 5 unit Zolpidem Tartrate (Ambien) 10 mg PO ONETIME PRN PRN Reason: Insomnia Last Admin: 01/09/17 20:07 Dose: 5 mg Zolpidem Tartrate (Ambien) Confirm Administered Dose 5 mg .ROUTE .STK-MED ONE Stop: 01/09/17 20:08 Last Admin: 01/09/17 22:32 Dose: Not Given - Exam General: alert, oriented, cooperative HEENT: Pupils equal, Pupils reactive, EOMI Neck: supple Lungs: Clear to auscultation, Normal respiratory effort Cardiovascular: Regular Rate, Regular Rhythm Abdomen: bowel sounds present, soft, no tenderness Extremities: edema (1+) Peripheral Pulses: 2+: dorsalis pedis (L), dorsalis pedis (R) Skin: warm, dry, intact Neurological: no new focal deficit Psy/Mental Status: alert - Problem List & Annotations (1) Weakness SNOMED Code(s): 59528639 Code(s): R53.1 - WEAKNESS Status: Chronic Priority: High Current Visit : Yes (2) Atrial fibrillation with rapid ventricular response SNOMED Code(s): 960535917056703 Code(s): I48.91 - UNSPECIFIED ATRIAL FIBRILLATION Status: Chronic Priority: Medium Current Visit: Yes (3) CHF (congestive heart failure) SNOMED Code(s): 53359733 Code(s): I50.9 - HEART FAILURE, UNSPECIFIED Status: Chronic Priority: High Current Visit: Yes Qualifiers: Congestive heart failure type: systolic Congestive heart failure chronicity : unspecified congestive heart failure chronicity Qualified Code(s): I50.20 - Unspecified systolic (congestive) heart failure (4) Chronic kidney disease (CKD) stage G5/A1, glomerular filtration rate (GFR) less than or equal to 15 mL/min/1.73 square meter and albuminuria creatinine ratio less than 30 mg/g SNOMED Code(s): 648557476, 245227788 Code(s): N18.5 - CHRONIC KIDNEY DISEASE, STAGE 5 Status: Chronic Priority : High Current Visit: Yes (5) Clonus SNOMED Code(s): 86986063 Code(s): R25.8 - OTHER ABNORMAL INVOLUNTARY MOVEMENTS Status: Resolved Current Visit: No - Problem List Review Problem List Initiated/Reviewed/Updated: Yes - Plan Plan:: Patient to continue with PT/OT. Discussed plan of care with and patient and they agree with plan of care. We will continue to monitor for clonus and appetite. 01/02 - continue with PT/OT. Placement planning. to continue with Dialysis. We will monitor labs periodically. Monitoring BP - due to hypotension from dialysis. BP meds held with parameters. 01/09/17 Continue PT/OT. Patient does not appear motivated. Urine culture was done - although greater than 100,000 it is a colonizing bacteria and patient is not having symptoms at this time - we will continue monitor and treat only if symptoms develop. Continue current management and f/u PT/OT 01/16/17 Counseled on increased activity and motivation. Patient verbalizes understanding. Discussed weakness and deconditioning and the need for active involvement with PT/OT and ambulation. Patient verbalizes understanding again. We will continue to monitor BP especially after her dialyzes. We will continue with hold parameters with BP meds.
[2017-01-17] MEDS: LORazepam 0.5 MG Tab PO SCH ×3 (08:58→20:45)
[2017-01-17] MEDS: Allopurinol 100 MG Tab PO SCH (08:59)
[2017-01-17] MEDS: Aspirin 81 MG Tab.EC PO SCH (08:59)
[2017-01-17] MEDS: Fish Oil/Omega-3 Fatty Acids 1 Gm Cap PO SCH (08:59)
[2017-01-17] MEDS: Ferrous Sulfate 325 MG Tab PO SCH ×2 (08:59→16:37)
[2017-01-17] MEDS: Amiodarone 200 MG Tab PO SCH (09:00)
[2017-01-17] MEDS: Diltiazem 240 MG Cap.CD PO SCH (09:00)
[2017-01-17] MEDS: SODIUM BICARBONATE 650 MG PO SCH ×2 (09:00→20:45)
[2017-01-17] MEDS: cloNIDine 0.1 MG Tab PO SCH ×2 (09:00→20:44)
[2017-01-17] MEDS: Insulin Aspart 100 Units/ML 3 ML Pen SUBCUT SCH ×2 (09:04→17:29)
[2017-01-17] MEDS: Insulin Glargine,Human Rec. Analog 100 Units/ML 3 ML Pen SUBCUT SCH ×2 (09:04→21:08)
[2017-01-17] MEDS: Gabapentin 300 MG Cap PO SCH (09:05)
[2017-01-17] MEDS: DARBEPOETIN ALFA IN POLYSORBAT 100 MCG SUBCUT SCH (14:43)
[2017-01-17] MEDS: Haloperidol 1 MG Tab PO SCH (20:43)
[2017-01-17] MEDS: traZODone 100 MG Tab PO SCH (20:44)
[2017-01-17] MEDS: atorvaSTATin 40 MG Tab PO SCH (20:44)
[2017-01-17] MEDS: Magnesium Hydroxide 400 MG/5 ML Susp 30 ML Cup PO SCH (20:46)
[2017-01-17] MEDS: diphenhydrAMINE 25 MG Cap PO PRN (20:47)
[2017-01-18] MEDS: cloNIDine 0.1 MG Tab PO SCH ×2 (08:53→20:01)
[2017-01-18] MEDS: Diltiazem 240 MG Cap.CD PO SCH (08:56)
[2017-01-18] MEDS: Levothyroxine 25 MCG Tab PO SCH (08:57)
[2017-01-18] MEDS: LORazepam 0.5 MG Tab PO SCH ×3 (08:57→20:01)
[2017-01-18] MEDS: Ferrous Sulfate 325 MG Tab PO SCH ×2 (08:57→17:24)
[2017-01-18] MEDS: Amiodarone 200 MG Tab PO SCH (08:58)
[2017-01-18] MEDS: Fish Oil/Omega-3 Fatty Acids 1 Gm Cap PO SCH (08:58)
[2017-01-18] MEDS: Levothyroxine 100 MCG Tab PO SCH (08:58)
[2017-01-18] MEDS: Aspirin 81 MG Tab.EC PO SCH (08:59)
[2017-01-18] MEDS: Allopurinol 100 MG Tab PO SCH (08:59)
[2017-01-18] MEDS: SODIUM BICARBONATE 650 MG PO SCH ×2 (09:00→20:02)
[2017-01-18] MEDS: Insulin Glargine,Human Rec. Analog 100 Units/ML 3 ML Pen SUBCUT SCH ×2 (09:01→20:09)
[2017-01-18] MEDS: Insulin Aspart 100 Units/ML 3 ML Pen SUBCUT SCH ×2 (09:02→17:29)
[2017-01-18] MEDS: Gabapentin 300 MG Cap PO SCH (09:05)
[2017-01-18] MEDS: Acetaminophen/HYDROcodone 325-10 MG Tab PO PRN ×2 (09:47→19:59)
[2017-01-18] MEDS: Haloperidol 1 MG Tab PO SCH (19:58)
[2017-01-18] MEDS: atorvaSTATin 40 MG Tab PO SCH (19:59)
[2017-01-18] MEDS: traZODone 100 MG Tab PO SCH (19:59)
[2017-01-18] MEDS: Magnesium Hydroxide 400 MG/5 ML Susp 30 ML Cup PO SCH (20:02)
[2017-01-19] MEDS: Levothyroxine 100 MCG Tab PO SCH (08:57)
[2017-01-19] MEDS: Levothyroxine 25 MCG Tab PO SCH (08:57)
[2017-01-19] MEDS: Fish Oil/Omega-3 Fatty Acids 1 Gm Cap PO SCH (08:58)
[2017-01-19] MEDS: Amiodarone 200 MG Tab PO SCH (08:58)
[2017-01-19] MEDS: Diltiazem 240 MG Cap.CD PO SCH (08:58)
[2017-01-19] MEDS: LORazepam 0.5 MG Tab PO SCH ×3 (09:09→19:49)
[2017-01-19] MEDS: Gabapentin 300 MG Cap PO SCH (09:11)
[2017-01-19] MEDS: Ferrous Sulfate 325 MG Tab PO SCH ×2 (09:11→18:08)
[2017-01-19] MEDS: cloNIDine 0.1 MG Tab PO SCH ×2 (09:11→19:51)
[2017-01-19] MEDS: Aspirin 81 MG Tab.EC PO SCH (09:12)
[2017-01-19] MEDS: Allopurinol 100 MG Tab PO SCH (09:13)
[2017-01-19] MEDS: SODIUM BICARBONATE 650 MG PO SCH ×2 (09:13→19:48)
[2017-01-19] MEDS: Insulin Glargine,Human Rec. Analog 100 Units/ML 3 ML Pen SUBCUT SCH ×2 (09:17→21:05)
[2017-01-19] MEDS: Insulin Aspart 100 Units/ML 3 ML Pen SUBCUT SCH ×2 (09:18→18:09)
[2017-01-19] MEDS: atorvaSTATin 40 MG Tab PO SCH (19:49)
[2017-01-19] MEDS: Haloperidol 1 MG Tab PO SCH (19:50)
[2017-01-19] MEDS: traZODone 100 MG Tab PO SCH (19:51)
[2017-01-19] MEDS: Magnesium Hydroxide 400 MG/5 ML Susp 30 ML Cup PO SCH (19:52)
[2017-01-20] MEDS: Levothyroxine 25 MCG Tab PO SCH (07:23)
[2017-01-20] MEDS: Levothyroxine 100 MCG Tab PO SCH (07:23)
[2017-01-20] MEDS: Fish Oil/Omega-3 Fatty Acids 1 Gm Cap PO SCH (08:00)
[2017-01-20] MEDS: Insulin Aspart 100 Units/ML 3 ML Pen SUBCUT SCH ×2 (08:25→17:14)
[2017-01-20] MEDS: Insulin Glargine,Human Rec. Analog 100 Units/ML 3 ML Pen SUBCUT SCH ×2 (08:27→21:26)
[2017-01-20] MEDS: LORazepam 0.5 MG Tab PO SCH ×3 (08:29→21:10)
[2017-01-20] MEDS: cloNIDine 0.1 MG Tab PO SCH ×2 (08:29→21:11)
[2017-01-20] MEDS: Amiodarone 200 MG Tab PO SCH (08:30)
[2017-01-20] MEDS: Aspirin 81 MG Tab.EC PO SCH (08:30)
[2017-01-20] MEDS: Ferrous Sulfate 325 MG Tab PO SCH ×2 (08:32→17:13)
[2017-01-20] MEDS: Diltiazem 240 MG Cap.CD PO SCH (08:32)
[2017-01-20] MEDS: SODIUM BICARBONATE 650 MG PO SCH ×2 (08:33→21:34)
[2017-01-20] MEDS: Allopurinol 100 MG Tab PO SCH (08:33)
[2017-01-20] MEDS: Gabapentin 300 MG Cap PO SCH (10:34)
[2017-01-20] MEDS: CALCITRIOL 0.5 MCG PO SCH (17:13)
[2017-01-20] MEDS: Ergocalciferol (Vitamin D2) 50,000 Unit Cap PO SCH (17:13)
[2017-01-20] MEDS: atorvaSTATin 40 MG Tab PO SCH (21:10)
[2017-01-20] MEDS: Haloperidol 1 MG Tab PO SCH (21:14)
[2017-01-20] MEDS: Magnesium Hydroxide 400 MG/5 ML Susp 30 ML Cup PO SCH (21:15)
[2017-01-20] MEDS: traZODone 100 MG Tab PO SCH (21:34)
[2017-01-21] MEDS: Levothyroxine 100 MCG Tab PO SCH (07:02)
[2017-01-21] MEDS: Levothyroxine 25 MCG Tab PO SCH (07:02)
[2017-01-21] MEDS: SODIUM BICARBONATE 650 MG PO SCH ×2 (08:00→20:33)
[2017-01-21] MEDS: Gabapentin 300 MG Cap PO SCH (08:10)
[2017-01-21] MEDS: Amiodarone 200 MG Tab PO SCH (08:16)
[2017-01-21] MEDS: Fish Oil/Omega-3 Fatty Acids 1 Gm Cap PO SCH (08:16)
[2017-01-21] MEDS: Allopurinol 100 MG Tab PO SCH (08:16)
[2017-01-21] MEDS: Ferrous Sulfate 325 MG Tab PO SCH ×2 (08:17→17:34)
[2017-01-21] MEDS: Diltiazem 240 MG Cap.CD PO SCH (08:17)
[2017-01-21] MEDS: LORazepam 0.5 MG Tab PO SCH ×3 (08:17→20:33)
[2017-01-21] MEDS: cloNIDine 0.1 MG Tab PO SCH ×2 (08:18→20:34)
[2017-01-21] MEDS: Aspirin 81 MG Tab.EC PO SCH (08:18)
[2017-01-21] MEDS: Insulin Aspart 100 Units/ML 3 ML Pen SUBCUT SCH ×2 (08:22→17:36)
[2017-01-21] MEDS: Insulin Glargine,Human Rec. Analog 100 Units/ML 3 ML Pen SUBCUT SCH ×2 (08:23→20:30)
[2017-01-21] MEDS: traZODone 100 MG Tab PO SCH (20:32)
[2017-01-21] MEDS: atorvaSTATin 40 MG Tab PO SCH (20:32)
[2017-01-21] MEDS: Haloperidol 1 MG Tab PO SCH (20:32)
[2017-01-22] MEDS: Acetaminophen/HYDROcodone 325-10 MG Tab PO PRN ×3 (01:13→20:20)
[2017-01-22] MEDS: Magnesium Hydroxide 400 MG/5 ML Susp 30 ML Cup PO SCH ×2 (05:58→20:19)
[2017-01-22] MEDS: Levothyroxine 25 MCG Tab PO SCH (06:44)
[2017-01-22] MEDS: Levothyroxine 100 MCG Tab PO SCH (06:45)
[2017-01-22] MEDS: Insulin Glargine,Human Rec. Analog 100 Units/ML 3 ML Pen SUBCUT SCH ×2 (07:49→20:29)
[2017-01-22] MEDS: Insulin Aspart 100 Units/ML 3 ML Pen SUBCUT SCH ×2 (07:50→17:50)
[2017-01-22] MEDS: Ferrous Sulfate 325 MG Tab PO SCH ×2 (07:51→17:50)
[2017-01-22] MEDS: LORazepam 0.5 MG Tab PO SCH ×3 (07:52→20:15)
[2017-01-22] MEDS: Fish Oil/Omega-3 Fatty Acids 1 Gm Cap PO SCH (07:52)
[2017-01-22] MEDS: Allopurinol 100 MG Tab PO SCH (07:52)
[2017-01-22] MEDS: Aspirin 81 MG Tab.EC PO SCH (07:52)
[2017-01-22] MEDS: Amiodarone 200 MG Tab PO SCH (07:52)
[2017-01-22] MEDS: Diltiazem 240 MG Cap.CD PO SCH (08:02)
[2017-01-22] MEDS: cloNIDine 0.1 MG Tab PO SCH ×2 (08:02→20:16)
[2017-01-22] MEDS: SODIUM BICARBONATE 650 MG PO SCH ×2 (08:03→20:20)
[2017-01-22] MEDS: Gabapentin 300 MG Cap PO SCH (08:06)
[2017-01-22] MEDS: atorvaSTATin 40 MG Tab PO SCH (20:14)
[2017-01-22] MEDS: traZODone 100 MG Tab PO SCH (20:15)
[2017-01-22] MEDS: diphenhydrAMINE 25 MG Cap PO PRN (20:15)
[2017-01-22] MEDS: Haloperidol 1 MG Tab PO SCH (20:15)
[2017-01-23] MEDS: LORazepam 0.5 MG Tab PO SCH ×3 (07:53→20:34)
[2017-01-23] MEDS: Aspirin 81 MG Tab.EC PO SCH (07:53)
[2017-01-23] MEDS: Amiodarone 200 MG Tab PO SCH (07:53)
[2017-01-23] MEDS: Allopurinol 100 MG Tab PO SCH (07:53)
[2017-01-23] MEDS: Ferrous Sulfate 325 MG Tab PO SCH ×2 (07:54→17:34)
[2017-01-23] MEDS ORDERED: Gabapentin 300 MG Cap ONE (07:56)
[2017-01-23] MEDS: SODIUM BICARBONATE 650 MG PO SCH ×2 (07:57→20:37)
[2017-01-23] MEDS: Levothyroxine 25 MCG Tab PO SCH (07:57)
[2017-01-23] MEDS: Levothyroxine 100 MCG Tab PO SCH (07:57)
[2017-01-23] MEDS: Gabapentin 300 MG Cap PO SCH (07:57)
[2017-01-23] MEDS: Insulin Glargine,Human Rec. Analog 100 Units/ML 3 ML Pen SUBCUT SCH (08:10)
[2017-01-23] MEDS: Insulin Aspart 100 Units/ML 3 ML Pen SUBCUT SCH ×2 (08:11→17:12)
[2017-01-23] MEDS: Fish Oil/Omega-3 Fatty Acids 1 Gm Cap PO SCH (09:44)
[2017-01-23] MEDS: Diltiazem 240 MG Cap.CD PO SCH (09:48)
[2017-01-23] MEDS: cloNIDine 0.1 MG Tab PO SCH ×2 (09:49→20:37)
--- NOTE | 2017-01-23 11:38 | PCM.PN ---
- General Info Date of Service: 01/23/17 Subjective Update: Patient has been improving with physical therapy. She has had improved ambulation and movement. Patient continues to have weakness and feeling tired especially after dialysis. Denies any other symptoms. Functional Status: Reports: pain controlled - Review of Systems General: Reports: Weakness, Fatigue HEENT: Reports: no symptoms Pulmonary: Reports: no symptoms Cardiovascular: Reports: No Symptoms Gastrointestinal: Reports: No symptoms Genitourinary: Reports: no symptoms Musculoskeletal: Reports: no symptoms Skin: Reports: no symptoms Neurological: Reports: Difficulty Walking, Weakness - Patient Data Vitals - most recent: Last Vital Signs Temp 35.9 C 01/23/17 08:00 Pulse 87 01/23/17 09:48 Resp 20 01/23/17 08:00 BP 94/56 L 01/23/17 09:49 Pulse Ox 93 L 01/23/17 08:00 Weight - most recent: 115.031 kg I&O - last 24 hours: Intake & Output 01/22/17 01/23/17 01/23/17 22:59 06:59 14:59 Intake Total 1320 450 Output Total 0 0 Balance 1320 450 Lab Results last 24 hrs: Laboratory Results - last 24 hr 01/22/17 01/22/17 01/23/17 Range/Units 15:43 19:26 06:36 POC Glucose 211 H 305 H 156 H (74-110) mg/dL Med Orders - Current: Current Medications Acetaminophen (Tylenol Extra Strength) 1,000 mg PO Q4H PRN PRN Reason: Pain Last Admin: 12/30/16 12:42 Dose: 1,000 mg Acetaminophen/Hydrocodone Bitart (Cochise 325-10 Mg) 1 tab PO Q4H PRN PRN Reason: Pain (moderate 4-6) Last Admin: 01/22/17 20:20 Dose: 1 tab Albuterol (Ventolin Hfa) 1 - 2 gm INH Q6H PRN PRN Reason: Shortness of Breath Allopurinol (Zyloprim) 100 mg PO DAILY [facility] [place] Last Admin: 01/23/17 07:53 Dose: 100 mg Amiodarone HCl (Cordarone) 200 mg PO DAILY [facility] [place] Last Admin: 01/23/17 07:53 Dose: 200 mg Aspirin (Halfprin) 81 mg PO DAILY [facility] [place] Last Admin: 01/23/17 07:53 Dose: 81 mg Atorvastatin Calcium (Lipitor) 40 mg PO BEDTIME [facility] [place] Last Admin: 01/22/17 20:14 Dose: 40 mg Clonidine HCl (Catapres) 0.1 mg PO Q12HR [facility] [place] Last Admin: 01/23/17 09:49 Dose: Not Given Diclofenac Sodium (Voltaren 1% Gel) 1 gm TOP QID PRN PRN Reason: Pain Diltiazem HCl (Cardizem Cd) 240 mg PO DAILY [facility] [place] Last Admin: 01/23/17 09:48 Dose: Not Given Diphenhydramine HCl (Benadryl) 25 mg PO Q6H PRN PRN Reason: insomnia Last Admin: 01/22/17 20:15 Dose: 25 mg Ergocalciferol (Vitamin D2) 50,000 units PO Fr [facility] [place] Last Admin: 01/20/17 17:13 Dose: 50,000 units Ferrous Sulfate (Ferrous Sulfate) 325 mg PO BIDMEALS [facility] [place] Last Admin: 01/23/17 07:54 Dose: 325 mg Fish Oil (Fish Oil) 1 gm PO DAILY [facility] [place] Last Admin: 01/23/17 09:44 Dose: 1 gm Gabapentin (Neurontin) 300 mg PO QD [facility] [place] Last Admin: 01/23/17 07:57 Dose: 300 mg Glucagon (Glucagen) 1 mg SUBCUT ASDIRECTED PRN PRN Reason: Hypoglycemia Haloperidol (Haldol) 4 mg PO BEDTIME [facility] [place] Last Admin: 01/22/17 20:15 Dose: 4 mg Insulin Aspart (Novolog) 45 unit SUBCUT BIDMEALS [facility] [place] Last Admin: 01/23/17 08:11 Dose: 45 units Insulin Glargine (Lantus Solostar) 70 units SUBCUT BID [facility] [place] Last Admin: 01/23/17 08:10 Dose: 70 units Levothyroxine Sodium (Levothyroxine) 25 mcg PO ACBREAKFAST [facility] [place] Last Admin: 01/23/17 07:57 Dose: 25 mcg Levothyroxine Sodium (Synthroid) 200 mcg PO ACBREAKFAST [facility] [place] Last Admin: 01/23/17 07:57 Dose: 200 mcg Lidocaine/Prilocaine (Emla Crm) 1 gm TOP ASDIRECTED [facility] Lorazepam (Ativan) 0.5 mg PO TID [facility] [place] Last Admin: 01/23/17 07:53 Dose: 0.5 mg Magnesium Hydroxide (Milk Of Magnesia) 30 ml PO BEDTIME [facility] [place] Last Admin: 01/22/17 20:19 Dose: Not Given Metoclopramide HCl (Reglan) 10 mg PO QID PRN PRN Reason: Nausea Metoprolol Tartrate (Lopressor) 25 mg PO BID [facility] [place] Last Admin: 01/10/17 09:08 Dose: Not Given Nitroglycerin (Nitrostat) 0.4 mg SL ASDIRECTED PRN PRN Reason: Chest Pain Non-Formulary Medication (Calcitriol [Rocaltrol]) 0.5 mcg PO MoFr [facility] [place] Last Admin: 01/20/17 17:13 Dose: 0.5 mcg Sodium Bicarbonate] (650 Mg)) 650 mg PO BID [facility] [place] Last Admin: 01/23/17 07:57 Dose: 650 mg Non-Formulary Medication (Darbepoetin Jerel In Polysorbat [Aranesp]) 100 mcg SUBCUT Q14D [facility] [place] Nystatin (Nystatin Crm) 1 gm TOP BID PRN PRN Reason: Rash Last Admin: 01/01/17 14:41 Dose: 1 unit Trazodone HCl (Trazodone) 100 mg PO BEDTIME [facility] [place] Last Admin: 01/22/17 20:15 Dose: 100 mg Discontinued Medications Acetaminophen/Hydrocodone Bitart (Cochise 325-10 Mg) Confirm Administered Dose 1 tab .ROUTE .STK-MED ONE Stop: 12/30/16 16:43 Last Admin: 12/30/16 17:23 Dose: 1 tab Acetaminophen/Hydrocodone Bitart (Cochise 325-10 Mg) Confirm Administered Dose 1 tab .ROUTE .STK-MED ONE Stop: 12/31/16 12:43 Last Admin: 12/31/16 17:15 Dose: Not Given Acetaminophen/Hydrocodone Bitart (Cochise 325-10 Mg) Confirm Administered Dose 1 tab .ROUTE .STK-MED ONE Stop: 01/12/17 20:55 Last Admin: 01/12/17 21:03 Dose: 1 tab Gabapentin (Neurontin) Confirm Administered Dose 300 mg .ROUTE .STK-MED ONE Stop: 12/28/16 09:04 Last Admin: 12/28/16 09:08 Dose: Not Given Gabapentin (Neurontin) Confirm Administered Dose 300 mg .ROUTE .STK-MED ONE Stop: 01/12/17 08:56 Last Admin: 01/12/17 09:09 Dose: Not Given Gabapentin (Neurontin) Confirm Administered Dose 300 mg .ROUTE .STK-MED ONE Stop: 01/23/17 07:57 Last Admin: 01/23/17 08:43 Dose: Not Given Haloperidol (Haldol) Confirm Administered Dose 1 mg .ROUTE .STK-MED ONE Stop: 12/27/16 20:41 Last Admin: 12/27/16 21:27 Dose: Not Given Haloperidol (Haldol) Confirm Administered Dose 1 mg .ROUTE .STK-MED ONE Stop: 01/14/17 19:23 Last Admin: 01/14/17 19:33 Dose: Not Given Haloperidol (Haldol) Confirm Administered Dose 2 mg .ROUTE .STK-MED ONE Stop: 01/14/17 19:43 Last Admin: 01/17/17 13:50 Dose: Not Given Haloperidol (Haldol) Confirm Administered Dose 4 mg .ROUTE .STK-MED ONE Stop: 01/15/17 19:20 Last Admin: 01/15/17 19:25 Dose: 4 mg Insulin Glargine (Lantus Solostar) 50 units SUBCUT BID INGRID Last Admin: 01/10/17 07:47 Dose: 50 units Insulin Glargine (Lantus Solostar) Confirm Administered Dose 300 units .ROUTE .STK-MED ONE Stop: 01/12/17 09:04 Last Admin: 01/12/17 11:45 Dose: Not Given Levothyroxine Sodium (Synthroid) 200 mcg PO ACBREAKFAST INGRID Last Admin: 01/05/17 06:38 Dose: 200 mcg Levothyroxine Sodium (Synthroid) 225 mcg PO ACBREAKFAST INGRID Levothyroxine Sodium (Synthroid) Confirm Administered Dose 50 mcg .ROUTE .STK- MED ONE Stop: 01/05/17 13:50 Last Admin: 01/05/17 14:20 Dose: 25 mcg Lorazepam (Ativan) Confirm Administered Dose 0.5 mg .ROUTE .STK-MED ONE Stop: 12/27/16 17:12 Lorazepam (Ativan) Confirm Administered Dose 0.5 mg .ROUTE .STK-MED ONE Stop: 01/15/17 17:55 Last Admin: 01/15/17 19:30 Dose: Not Given Non-Formulary Medication (Darbepoetin Jerel In Polysorbat [Aranesp]) 100 mcg SUBCUT ASDIRECTED INGRID Non-Formulary Medication (Darbepoetin Jerel In Polysorbat [Aranesp]) 100 mcg SUBCUT Tu [facility] [place] Last Admin: 01/17/17 14:43 Dose: 100 mcg Ondansetron HCl (Zofran Odt) 4 mg PO Q4H PRN PRN Reason: NAUSEA Last Admin: 01/12/17 12:09 Dose: 4 mg Ondansetron HCl (Zofran Odt) 4 mg PO ONETIME STA Stop: 01/12/17 14:07 Last Admin: 01/12/17 15:29 Dose: Not Given Tuberculin PPD (Aplisol) 5 unit IDERM ONETIME ONE Stop: 12/27/16 14:05 Last Admin: 12/27/16 17:50 Dose: 0.1 unit Tuberculin PPD (Aplisol) 5 unit IDERM ONETIME ONE Stop: 01/10/17 10:01 Last Admin: 01/10/17 13:57 Dose: 5 unit Zolpidem Tartrate (Ambien) 10 mg PO ONETIME PRN PRN Reason: Insomnia Last Admin: 01/09/17 20:07 Dose: 5 mg Zolpidem Tartrate (Ambien) Confirm Administered Dose 5 mg .ROUTE .STK-MED ONE Stop: 01/09/17 20:08 Last Admin: 01/09/17 22:32 Dose: Not Given - Exam General: alert, oriented, cooperative, no acute distress HEENT: Pupils equal, Pupils reactive Neck: supple Lungs: Clear to auscultation, Normal respiratory effort Cardiovascular: Regular Rate, Regular Rhythm Abdomen: bowel sounds present, no tenderness Extremities: edema (1) Skin: warm, dry, intact Neurological: other (generalized weakness) Psy/Mental Status: alert - Problem List & Annotations (1) Weakness SNOMED Code(s): 72223830 Code(s): R53.1 - WEAKNESS Status: Chronic Priority: High Current Visit : Yes (2) Atrial fibrillation with rapid ventricular response SNOMED Code(s): 577923654707237 Code(s): I48.91 - UNSPECIFIED ATRIAL FIBRILLATION Status: Chronic Priority: Medium Current Visit: Yes (3) CHF (congestive heart failure) SNOMED Code(s): 83494566 Code(s): I50.9 - HEART FAILURE, UNSPECIFIED Status: Chronic Priority: High Current Visit: Yes Qualifiers: Congestive heart failure type: systolic Congestive heart failure chronicity : unspecified congestive heart failure chronicity Qualified Code(s): I50.20 - Unspecified systolic (congestive) heart failure (4) Chronic kidney disease (CKD) stage G5/A1, glomerular filtration rate (GFR) less than or equal to 15 mL/min/1.73 square meter and albuminuria creatinine ratio less than 30 mg/g SNOMED Code(s): 624551759, 354351135 Code(s): N18.5 - CHRONIC KIDNEY DISEASE, STAGE 5 Status: Chronic Priority : High Current Visit: Yes (5) Clonus SNOMED Code(s): 22054060 Code(s): R25.8 - OTHER ABNORMAL INVOLUNTARY MOVEMENTS Status: Resolved Current Visit: No - Problem List Review Problem List Initiated/Reviewed/Updated: Yes - Plan Plan:: Patient to continue with PT/OT. Discussed plan of care with and patient and they agree with plan of care. We will continue to monitor for clonus and appetite. 01/02 - continue with PT/OT. Placement planning. to continue with Dialysis. We will monitor labs periodically. Monitoring BP - due to hypotension from dialysis. BP meds held with parameters. 01/09/17 Continue PT/OT. Patient does not appear motivated. Urine culture was done - although greater than 100,000 it is a colonizing bacteria and patient is not having symptoms at this time - we will continue monitor and treat only if symptoms develop. Continue current management and f/u PT/OT 01/16/17 Counseled on increased activity and motivation. Patient verbalizes understanding. Discussed weakness and deconditioning and the need for active involvement with PT/OT and ambulation. Patient verbalizes understanding again. We will continue to monitor BP especially after her dialyzes. We will continue with hold parameters with BP meds. 01/23/17 Patient has improved ambulation and working with PT/OT. Continue with current care and management.
[2017-01-23] MEDS: Acetaminophen/HYDROcodone 325-10 MG Tab PO PRN ×2 (12:43→22:39)
[2017-01-23] MEDS: CALCITRIOL 0.5 MCG PO SCH (16:39)
[2017-01-23] MEDS: atorvaSTATin 40 MG Tab PO SCH (20:34)
[2017-01-23] MEDS: traZODone 100 MG Tab PO SCH (20:34)
[2017-01-23] MEDS: Haloperidol 1 MG Tab PO SCH (20:35)
[2017-01-23] MEDS: Magnesium Hydroxide 400 MG/5 ML Susp 30 ML Cup PO SCH (20:37)
[2017-01-23] MEDS: Insulin Detemir 100 Units/ML 3 ML Pen SUBCUT SCH (20:45)
[2017-01-24] MEDS: Levothyroxine 100 MCG Tab PO SCH (07:05)
[2017-01-24] MEDS: Levothyroxine 25 MCG Tab PO SCH (07:06)
[2017-01-24] MEDS: Fish Oil/Omega-3 Fatty Acids 1 Gm Cap PO SCH (08:11)
[2017-01-24] MEDS: Aspirin 81 MG Tab.EC PO SCH (08:11)
[2017-01-24] MEDS: Amiodarone 200 MG Tab PO SCH (08:11)
[2017-01-24] MEDS: cloNIDine 0.1 MG Tab PO SCH ×2 (08:11→21:32)
[2017-01-24] MEDS: Diltiazem 240 MG Cap.CD PO SCH (08:11)
[2017-01-24] MEDS: LORazepam 0.5 MG Tab PO SCH ×3 (08:11→21:28)
[2017-01-24] MEDS: Ferrous Sulfate 325 MG Tab PO SCH ×2 (08:11→17:19)
[2017-01-24] MEDS: Allopurinol 100 MG Tab PO SCH (08:11)
[2017-01-24] MEDS: SODIUM BICARBONATE 650 MG PO SCH ×2 (08:12→21:25)
[2017-01-24] MEDS: Insulin Detemir 100 Units/ML 3 ML Pen SUBCUT SCH ×2 (08:15→21:30)
[2017-01-24] MEDS: Gabapentin 300 MG Cap PO SCH (08:15)
[2017-01-24] MEDS: Insulin Aspart 100 Units/ML 3 ML Pen SUBCUT SCH ×2 (08:16→17:19)
[2017-01-24] MEDS: Insulin Glargine,Human Rec. Analog 100 Units/ML 3 ML Pen SUBCUT SCH (13:01)
[2017-01-24] MEDS: Acetaminophen/HYDROcodone 325-10 MG Tab PO PRN ×2 (19:29→23:36)
[2017-01-24] MEDS: Magnesium Hydroxide 400 MG/5 ML Susp 30 ML Cup PO SCH (21:00)
[2017-01-24] MEDS: traZODone 100 MG Tab PO SCH (21:27)
[2017-01-24] MEDS: atorvaSTATin 40 MG Tab PO SCH (21:28)
[2017-01-24] MEDS: Haloperidol 1 MG Tab PO SCH (21:29)
[2017-01-25] MEDS: Levothyroxine 100 MCG Tab PO SCH (06:36)
[2017-01-25] MEDS: Levothyroxine 25 MCG Tab PO SCH (06:37)
[2017-01-25] MEDS: LORazepam 0.5 MG Tab PO SCH ×3 (09:21→21:22)
[2017-01-25] MEDS: Diltiazem 240 MG Cap.CD PO SCH (09:21)
[2017-01-25] MEDS: cloNIDine 0.1 MG Tab PO SCH ×2 (09:22→19:39)
[2017-01-25] MEDS: Ferrous Sulfate 325 MG Tab PO SCH ×2 (09:22→17:04)
[2017-01-25] MEDS: Amiodarone 200 MG Tab PO SCH (09:22)
[2017-01-25] MEDS: Fish Oil/Omega-3 Fatty Acids 1 Gm Cap PO SCH (09:22)
[2017-01-25] MEDS: Aspirin 81 MG Tab.EC PO SCH (09:23)
[2017-01-25] MEDS: Allopurinol 100 MG Tab PO SCH (09:23)
[2017-01-25] MEDS: SODIUM BICARBONATE 650 MG PO SCH ×2 (09:23→19:33)
[2017-01-25] MEDS: Gabapentin 300 MG Cap PO SCH (09:25)
[2017-01-25] MEDS: Insulin Detemir 100 Units/ML 3 ML Pen SUBCUT SCH ×2 (09:26→19:39)
[2017-01-25] MEDS: Insulin Aspart 100 Units/ML 3 ML Pen SUBCUT SCH ×2 (09:27→17:02)
[2017-01-25] MEDS: atorvaSTATin 40 MG Tab PO SCH (19:33)
[2017-01-25] MEDS: Haloperidol 1 MG Tab PO SCH (19:37)
[2017-01-25] MEDS ORDERED: Haloperidol 1 MG Tab ONE (19:37)
[2017-01-25] MEDS: traZODone 100 MG Tab PO SCH (19:38)
[2017-01-25] MEDS: Magnesium Hydroxide 400 MG/5 ML Susp 30 ML Cup PO SCH (19:39)
[2017-01-25] MEDS: Acetaminophen/HYDROcodone 325-10 MG Tab PO PRN (20:27)
[2017-01-26] MEDS: Levothyroxine 100 MCG Tab PO SCH ×2 (05:34→07:38)
[2017-01-26] MEDS: Levothyroxine 25 MCG Tab PO SCH ×2 (05:35→07:38)
[2017-01-26] MEDS: LORazepam 0.5 MG Tab PO SCH ×3 (07:39→20:18)
[2017-01-26] MEDS: cloNIDine 0.1 MG Tab PO SCH (07:40)
[2017-01-26] MEDS: Diltiazem 240 MG Cap.CD PO SCH (07:40)
[2017-01-26] MEDS: Amiodarone 200 MG Tab PO SCH (07:41)
[2017-01-26] MEDS: Fish Oil/Omega-3 Fatty Acids 1 Gm Cap PO SCH (07:41)
[2017-01-26] MEDS: Ferrous Sulfate 325 MG Tab PO SCH ×2 (07:41→17:46)
[2017-01-26] MEDS: Aspirin 81 MG Tab.EC PO SCH (07:42)
[2017-01-26] MEDS: Allopurinol 100 MG Tab PO SCH (07:43)
[2017-01-26] MEDS: SODIUM BICARBONATE 650 MG PO SCH (07:44)
[2017-01-26] MEDS: Insulin Detemir 100 Units/ML 3 ML Pen SUBCUT SCH ×2 (07:52→20:18)
[2017-01-26] MEDS: Insulin Aspart 100 Units/ML 3 ML Pen SUBCUT SCH ×2 (07:53→17:39)
[2017-01-26] MEDS: Gabapentin 300 MG Cap PO SCH (08:01)
[2017-01-26] MEDS: Magnesium Hydroxide 400 MG/5 ML Susp 30 ML Cup PO SCH (19:31)
[2017-01-26] MEDS: Acetaminophen/HYDROcodone 325-10 MG Tab PO PRN (20:16)
[2017-01-26] MEDS: traZODone 100 MG Tab PO SCH (20:16)
[2017-01-26] MEDS: Haloperidol 1 MG Tab PO SCH (20:17)
[2017-01-26] MEDS: atorvaSTATin 40 MG Tab PO SCH (20:18)
[2017-01-27] MEDS: cloNIDine 0.1 MG Tab PO SCH ×2 (01:49→08:14)
[2017-01-27] MEDS: Levothyroxine 25 MCG Tab PO SCH (06:37)
[2017-01-27] MEDS: Levothyroxine 100 MCG Tab PO SCH (06:38)
[2017-01-27] MEDS: SODIUM BICARBONATE 650 MG PO SCH ×3 (06:41→19:52)
[2017-01-27] MEDS: Fish Oil/Omega-3 Fatty Acids 1 Gm Cap PO SCH (08:12)
[2017-01-27] MEDS: LORazepam 0.5 MG Tab PO SCH ×3 (08:12→19:51)
[2017-01-27] MEDS: Aspirin 81 MG Tab.EC PO SCH (08:12)
[2017-01-27] MEDS: Amiodarone 200 MG Tab PO SCH (08:13)
[2017-01-27] MEDS: Ferrous Sulfate 325 MG Tab PO SCH ×2 (08:13→17:06)
[2017-01-27] MEDS: Gabapentin 300 MG Cap PO SCH (08:13)
[2017-01-27] MEDS: Allopurinol 100 MG Tab PO SCH (08:13)
[2017-01-27] MEDS: Diltiazem 240 MG Cap.CD PO SCH (08:14)
[2017-01-27] MEDS: Insulin Aspart 100 Units/ML 3 ML Pen SUBCUT SCH ×2 (08:18→17:07)
[2017-01-27] MEDS: Insulin Detemir 100 Units/ML 3 ML Pen SUBCUT SCH ×2 (08:19→20:49)
[2017-01-27] MEDS: DULoxetine 30 MG Cap PO SCH (12:42)
[2017-01-27] MEDS: Ergocalciferol (Vitamin D2) 50,000 Unit Cap PO SCH (17:06)
[2017-01-27] MEDS: CALCITRIOL 0.5 MCG PO SCH (17:06)
[2017-01-27] MEDS: Haloperidol 1 MG Tab PO SCH (19:48)
[2017-01-27] MEDS: diphenhydrAMINE 25 MG Cap PO PRN (19:49)
[2017-01-27] MEDS: atorvaSTATin 40 MG Tab PO SCH (19:49)
[2017-01-27] MEDS: traZODone 100 MG Tab PO SCH (19:50)
[2017-01-27] MEDS: Acetaminophen/HYDROcodone 325-10 MG Tab PO PRN (19:50)
[2017-01-27] MEDS: Magnesium Hydroxide 400 MG/5 ML Susp 30 ML Cup PO SCH (19:53)
[2017-01-28] MEDS: Levothyroxine 25 MCG Tab PO SCH (06:41)
[2017-01-28] MEDS: Levothyroxine 100 MCG Tab PO SCH (06:41)
[2017-01-28] MEDS: LORazepam 0.5 MG Tab PO SCH ×3 (08:08→19:29)
[2017-01-28] MEDS: Aspirin 81 MG Tab.EC PO SCH (08:08)
[2017-01-28] MEDS: Ferrous Sulfate 325 MG Tab PO SCH ×2 (08:08→17:19)
[2017-01-28] MEDS: Fish Oil/Omega-3 Fatty Acids 1 Gm Cap PO SCH (08:08)
[2017-01-28] MEDS: Allopurinol 100 MG Tab PO SCH (08:09)
[2017-01-28] MEDS: DULoxetine 30 MG Cap PO SCH (08:09)
[2017-01-28] MEDS: Gabapentin 300 MG Cap PO SCH (08:09)
[2017-01-28] MEDS: Diltiazem 240 MG Cap.CD PO SCH (08:09)
[2017-01-28] MEDS: Amiodarone 200 MG Tab PO SCH (08:10)
[2017-01-28] MEDS: SODIUM BICARBONATE 650 MG PO SCH ×2 (08:10→19:34)
[2017-01-28] MEDS: Insulin Aspart 100 Units/ML 3 ML Pen SUBCUT SCH ×2 (08:14→17:19)
[2017-01-28] MEDS: Insulin Detemir 100 Units/ML 3 ML Pen SUBCUT SCH ×2 (08:15→20:21)
[2017-01-28] MEDS: Acetaminophen 500 MG Tab PO PRN (12:44)
[2017-01-28] MEDS: traZODone 100 MG Tab PO SCH (19:28)
[2017-01-28] MEDS: atorvaSTATin 40 MG Tab PO SCH (19:28)
[2017-01-28] MEDS: Haloperidol 1 MG Tab PO SCH (19:28)
[2017-01-28] MEDS: diphenhydrAMINE 25 MG Cap PO PRN (19:31)
[2017-01-28] MEDS: Magnesium Hydroxide 400 MG/5 ML Susp 30 ML Cup PO SCH (20:21)
[2017-01-28] MEDS: Acetaminophen/HYDROcodone 325-10 MG Tab PO PRN (21:07)
[2017-01-29] MEDS: Levothyroxine 100 MCG Tab PO SCH (06:52)
[2017-01-29] MEDS: Levothyroxine 25 MCG Tab PO SCH (06:55)
[2017-01-29] MEDS: LORazepam 0.5 MG Tab PO SCH ×3 (08:17→19:49)
[2017-01-29] MEDS: Diltiazem 240 MG Cap.CD PO SCH (08:17)
[2017-01-29] MEDS: Aspirin 81 MG Tab.EC PO SCH (08:18)
[2017-01-29] MEDS: Amiodarone 200 MG Tab PO SCH (08:18)
[2017-01-29] MEDS: Allopurinol 100 MG Tab PO SCH (08:18)
[2017-01-29] MEDS: DULoxetine 30 MG Cap PO SCH (08:18)
[2017-01-29] MEDS: Ferrous Sulfate 325 MG Tab PO SCH ×2 (08:18→16:58)
[2017-01-29] MEDS: SODIUM BICARBONATE 650 MG PO SCH ×2 (08:19→19:49)
[2017-01-29] MEDS: Fish Oil/Omega-3 Fatty Acids 1 Gm Cap PO SCH (08:19)
[2017-01-29] MEDS: Gabapentin 300 MG Cap PO SCH (08:20)
[2017-01-29] MEDS: Insulin Aspart 100 Units/ML 3 ML Pen SUBCUT SCH ×2 (08:21→17:42)
[2017-01-29] MEDS: Insulin Detemir 100 Units/ML 3 ML Pen SUBCUT SCH ×2 (08:22→20:06)
[2017-01-29] MEDS: traZODone 100 MG Tab PO SCH (19:49)
[2017-01-29] MEDS: atorvaSTATin 40 MG Tab PO SCH (19:49)
[2017-01-29] MEDS: diphenhydrAMINE 25 MG Cap PO PRN (19:49)
[2017-01-29] MEDS: Haloperidol 1 MG Tab PO SCH (19:49)
[2017-01-29] MEDS: Acetaminophen/HYDROcodone 325-10 MG Tab PO PRN (19:50)
[2017-01-30] MEDS: Magnesium Hydroxide 400 MG/5 ML Susp 30 ML Cup PO SCH ×2 (06:07→19:44)
[2017-01-30] MEDS: Levothyroxine 100 MCG Tab PO SCH (07:01)
[2017-01-30] MEDS: Levothyroxine 25 MCG Tab PO SCH (07:02)
[2017-01-30] MEDS: Gabapentin 300 MG Cap PO SCH (08:00)
[2017-01-30] MEDS: Fish Oil/Omega-3 Fatty Acids 1 Gm Cap PO SCH (08:35)
[2017-01-30] MEDS: DULoxetine 30 MG Cap PO SCH (08:35)
[2017-01-30] MEDS: Allopurinol 100 MG Tab PO SCH (08:36)
[2017-01-30] MEDS: LORazepam 0.5 MG Tab PO SCH ×3 (08:37→19:50)
[2017-01-30] MEDS: Ferrous Sulfate 325 MG Tab PO SCH ×2 (08:37→16:41)
[2017-01-30] MEDS: Aspirin 81 MG Tab.EC PO SCH (08:37)
[2017-01-30] MEDS: Amiodarone 200 MG Tab PO SCH (08:37)
[2017-01-30] MEDS: Diltiazem 240 MG Cap.CD PO SCH (08:38)
[2017-01-30] MEDS: Insulin Detemir 100 Units/ML 3 ML Pen SUBCUT SCH ×2 (08:39→20:09)
[2017-01-30] MEDS: Insulin Aspart 100 Units/ML 3 ML Pen SUBCUT SCH ×2 (08:40→17:13)
[2017-01-30] MEDS: SODIUM BICARBONATE 650 MG PO SCH ×2 (08:47→19:44)
[2017-01-30] MEDS: Acetaminophen/HYDROcodone 325-10 MG Tab PO PRN ×2 (16:41→19:46)
[2017-01-30] MEDS: CALCITRIOL 0.5 MCG PO SCH (17:14)
[2017-01-30] MEDS: Haloperidol 1 MG Tab PO SCH (19:43)
[2017-01-30] MEDS: diphenhydrAMINE 25 MG Cap PO PRN (19:44)
[2017-01-30] MEDS: atorvaSTATin 40 MG Tab PO SCH (19:44)
[2017-01-30] MEDS: traZODone 100 MG Tab PO SCH (19:44)
[2017-01-31] MEDS: Levothyroxine 100 MCG Tab PO SCH (07:09)
[2017-01-31] MEDS: Levothyroxine 25 MCG Tab PO SCH (07:09)
[2017-01-31] MEDS ORDERED: DARBEPOETIN ALFA IN POLYSORBAT 100 MCG SUBCUT SCH (08:00)
[2017-01-31] MEDS: Ferrous Sulfate 325 MG Tab PO SCH (08:18)
[2017-01-31] MEDS: Allopurinol 100 MG Tab PO SCH (08:18)
[2017-01-31] MEDS: DULoxetine 30 MG Cap PO SCH (08:18)
[2017-01-31] MEDS: Aspirin 81 MG Tab.EC PO SCH (08:18)
[2017-01-31] MEDS: Amiodarone 200 MG Tab PO SCH (08:18)
[2017-01-31] MEDS: Fish Oil/Omega-3 Fatty Acids 1 Gm Cap PO SCH (08:18)
[2017-01-31] MEDS: LORazepam 0.5 MG Tab PO SCH (08:19)
[2017-01-31] MEDS: Diltiazem 240 MG Cap.CD PO SCH (08:22)
[2017-01-31] MEDS: Insulin Aspart 100 Units/ML 3 ML Pen SUBCUT SCH (08:23)
[2017-01-31] MEDS: Insulin Detemir 100 Units/ML 3 ML Pen SUBCUT SCH (08:30)
[2017-01-31] MEDS: SODIUM BICARBONATE 650 MG PO SCH (08:31)
[2017-01-31] MEDS: Gabapentin 300 MG Cap PO SCH (08:34)
--- NOTE | 2017-01-31 10:07 | PCM.DCSUM1 ---
Discharge Summary - Discharge Data Discharge Date: 01/31/17 Discharge Disposition: DC/Tfer to Acute Hospital 02 Condition: Undetermined - Discharge Diagnosis/Problem(s) (1) Weakness SNOMED Code(s): 15463434 ICD Code: R53.1 - WEAKNESS Status: Chronic Priority: High Current Visit : Yes (2) Atrial fibrillation with rapid ventricular response SNOMED Code(s): 047453917680216 ICD Code: I48.91 - UNSPECIFIED ATRIAL FIBRILLATION Status: Chronic Priority: Medium Current Visit: Yes (3) CHF (congestive heart failure) SNOMED Code(s): 24491109 ICD Code: I50.9 - HEART FAILURE, UNSPECIFIED Status: Chronic Priority: High Current Visit: Yes Qualifiers: Congestive heart failure type: systolic Congestive heart failure chronicity : unspecified congestive heart failure chronicity Qualified Code(s): I50.20 - Unspecified systolic (congestive) heart failure (4) Chronic kidney disease (CKD) stage G5/A1, glomerular filtration rate (GFR) less than or equal to 15 mL/min/1.73 square meter and albuminuria creatinine ratio less than 30 mg/g SNOMED Code(s): 184654051, 041668127 ICD Code: N18.5 - CHRONIC KIDNEY DISEASE, STAGE 5 Status: Chronic Priority: High Current Visit: Yes (5) Clonus SNOMED Code(s): 68248111 ICD Code: R25.8 - OTHER ABNORMAL INVOLUNTARY MOVEMENTS Status: Resolved Current Visit: No (6) Dialysis AV fistula infection SNOMED Code(s): 986873977 ICD Code: T82.7XXA - INFECT/INFLM REACT D/T OTH CARDI/VASC DEV/IMPLNT/GRFT, INIT Status: Acute Priority: High Current Visit: Yes Qualifiers: Encounter type: initial encounter Qualified Code(s): T82.7XXA - Infection and inflammatory reaction due to other cardiac and vascular devices, implants and grafts, initial encounter - Patient Summary/Data Consults: Consultations 12/27/16 14:04 Consult to [employer] [CONS] Routine Comment: Physician Instructions: OT Evaluation and Treatment [CONS] Routine Please Evaluate and Treat. OT Reason for Consult: ADL's This query below is only for informational purposes and is not editable. Admission Diagnosis/Problem: Pain management PT Evaluation and Treatment [CONS] Routine Please Evaluate and Treat. PT Reason for Consult: Strengthening This query below is only for informational purposes and is not editable. Admission Diagnosis/Problem: Pain management - Patient Instructions Diet: NPO Activity: Bedrest Driving: Do Not Drive Notify Provider of: Fever, Increased Pain, Swelling and Redness - Discharge Plan Home Medications: Home Meds Diclofenac Sodium [Voltaren 1% Gel] 1 percent TOP QID PRN 02/03/16 [History] Glucagon,Human Recombinant [Glucagen] 1 mg SUBCUT ASDIRECTED PRN 02/03/16 [ History] Metoprolol Tartrate 0.5 tab PO BID 02/03/16 [History] atorvaSTATin [Lipitor] 40 mg PO BEDTIME 02/03/16 [History] Albuterol [Proventil HFA] 2 puff INH Q6H PRN 04/25/16 [History] traZODone 100 mg PO BEDTIME 04/25/16 [History] Acetaminophen [Tylenol Extra Strength] 1,000 mg PO Q4H PRN 09/30/16 [History] Aspirin [Ecotrin] 81 mg PO DAILY 09/30/16 [History] Calcitriol [Rocaltrol] 0.5 mcg PO ASDIRECTED 09/30/16 [History] Darbepoetin Jerel in Polysorbat [Aranesp] 0 - 150 mcg SUBCUT ASDIRECTED 09/30/16 [History] Ergocalciferol (Vitamin D2) [Drisdol] 50,000 unit PO ASDIRECTED 09/30/16 [ History] Haloperidol [Haldol] 4 mg PO BEDTIME 09/30/16 [History] Lidocaine/Prilocaine [EMLA Crm] 1 applic TOP ASDIRECTED 09/30/16 [History] Metoclopramide HCl [Reglan] 10 mg PO QID PRN 09/30/16 [History] Nitroglycerin [Nitrostat] 0.4 mg SL ASDIRECTED PRN 09/30/16 [History] Nystatin [Nystatin Crm] 1 applic TOP BID PRN 09/30/16 [History] Ondansetron [Zofran] 4 mg PO Q4H PRN 09/30/16 [History] Sodium Bicarbonate 650 mg PO BID 09/30/16 [History] Allopurinol [Zyloprim] 100 mg PO DAILY tablet 12/27/16 [Rx] Amiodarone [Cordarone] 200 mg PO DAILY tablet 12/27/16 [Rx] Diltiazem [Cardizem CD] 240 mg PO DAILY cap.cd 12/27/16 [Rx] Ferrous Sulfate 325 mg PO BIDMEALS tablet 12/27/16 [Rx] Fish Oil/[place]-3 Fatty Acids [Fish Oil 1,000 MG] 1 gm PO DAILY cap 12/27/16 [Rx ] Insulin Aspart [NovoLOG] 45 unit SUBCUT BIDMEALS pen 12/27/16 [Rx] Insulin Glarg,Human.Rec.Analog [Lantus Solostar] 50 units SUBCUT BID pen [Rx] LORazepam [Ativan] 0.5 mg PO TID tablet 12/27/16 [Rx] Levothyroxine [Synthroid] 200 mcg PO ACBREAKFAST tablet 12/27/16 [Rx] Magnesium Hydroxide [Milk of Magnesia] 30 ml PO BEDTIME cup 12/27/16 [Rx] cloNIDine [Catapres] 0.1 mg PO Q12HR 12/27/16 [History] - Discharge Summary/Plan Comment DC Time >30 min.: Yes Discharge Summary/Plan Comment: Patient plan discussed with Dr. Jones -Nephrology and Dr. Hidalgo - Vascular - patient to be transferred to hospitalist Dr. Sauer. Patient counseled and agrees with plan. to be notified and transfer to be initiated via BLS. Labs and Blood culture to be drawn. - Patient Data Vitals - Most Recent: Last Vital Signs Temp 36.6 C 01/30/17 20:00 Pulse 83 01/31/17 08:22 Resp 18 01/30/17 20:00 BP 129/60 01/31/17 08:22 Pulse Ox 97 01/31/17 05:23 Weight - Most Recent: 115.212 kg I&O - Last 24 hours: Intake & Output 01/30/17 01/31/17 01/31/17 22:59 06:59 14:59 Intake Total 1000 200 Output Total 0 0 Balance 1000 200 Lab Results - Last 24 hrs: Laboratory Results - last 24 hr 01/30/17 01/30/17 01/31/17 Range/Units 15:55 19:03 06:58 POC Glucose 234 H 191 H 193 H (74-110) mg/dL Med Orders - Current: Current Medications Acetaminophen (Tylenol Extra Strength) 1,000 mg PO Q4H PRN PRN Reason: Pain Last Admin: 01/28/17 12:44 Dose: 1,000 mg Acetaminophen/Hydrocodone Bitart ([place] 325-10 Mg) 1 tab PO Q4H PRN PRN Reason: Pain (moderate 4-6) Last Admin: 01/30/17 19:46 Dose: 1 tab Albuterol (Ventolin Hfa) 1 - 2 gm INH Q6H PRN PRN Reason: Shortness of Breath Allopurinol (Zyloprim) 100 mg PO DAILY [facility] Last Admin: 01/31/17 08:18 Dose: 100 mg Amiodarone HCl (Cordarone) 200 mg PO DAILY [facility] Last Admin: 01/31/17 08:18 Dose: 200 mg Aspirin (Halfprin) 81 mg PO DAILY [facility] Last Admin: 01/31/17 08:18 Dose: 81 mg Atorvastatin Calcium (Lipitor) 40 mg PO BEDTIME [facility] Last Admin: 01/30/17 19:44 Dose: 40 mg Clonidine HCl (Catapres) 0.1 mg PO Q12HR [facility] Last Admin: 01/27/17 08:14 Dose: Not Given Diclofenac Sodium (Voltaren 1% Gel) 1 gm TOP QID PRN PRN Reason: Pain Diltiazem HCl (Cardizem Cd) 240 mg PO DAILY [facility] Last Admin: 01/31/17 08:22 Dose: 240 mg Diphenhydramine HCl (Benadryl) 25 mg PO Q6H PRN PRN Reason: insomnia Last Admin: 01/30/17 19:44 Dose: 25 mg Duloxetine HCl (Cymbalta) 30 mg PO DAILY [facility] Last Admin: 01/31/17 08:18 Dose: 30 mg Ergocalciferol (Vitamin D2) 50,000 units PO Fr [facility] Last Admin: 01/27/17 17:06 Dose: 50,000 units Ferrous Sulfate (Ferrous Sulfate) 325 mg PO BIDMEALS [facility] Last Admin: 01/31/17 08:18 Dose: 325 mg Fish Oil (Fish Oil) 1 gm PO DAILY [facility] Last Admin: 01/31/17 08:18 Dose: 1 gm Gabapentin (Neurontin) 300 mg PO QD [facility] Last Admin: 01/31/17 08:34 Dose: 300 mg Glucagon (Glucagen) 1 mg SUBCUT ASDIRECTED PRN PRN Reason: Hypoglycemia Haloperidol (Haldol) 4 mg PO BEDTIME [facility] Last Admin: 01/30/17 19:43 Dose: 4 mg Insulin Aspart (Novolog) 45 unit SUBCUT BIDMEALS [facility] Last Admin: 01/31/17 08:23 Dose: 45 units Insulin Detemir (Levemir) 70 unit SUBCUT BID [facility] Last Admin: 01/31/17 08:30 Dose: 70 units Levothyroxine Sodium (Levothyroxine) 25 mcg PO ACBREAKFAST [facility] Last Admin: 01/31/17 07:09 Dose: 25 mcg Levothyroxine Sodium (Synthroid) 200 mcg PO ACBREAKFAST [facility] Last Admin: 01/31/17 07:09 Dose: 200 mcg Lidocaine/Prilocaine ([place] Crm) 1 gm TOP ASDIRECTED [facility] Lorazepam (Ativan) 0.5 mg PO TID [facility] Last Admin: 01/31/17 08:19 Dose: 0.5 mg Magnesium Hydroxide (Milk Of Magnesia) 30 ml PO BEDTIME [facility] Last Admin: 01/30/17 19:44 Dose: Not Given Metoclopramide HCl (Reglan) 10 mg PO QID PRN PRN Reason: Nausea Metoprolol Tartrate (Lopressor) 25 mg PO BID [facility] Last Admin: 01/10/17 09:08 Dose: Not Given Nitroglycerin (Nitrostat) 0.4 mg SL ASDIRECTED PRN PRN Reason: Chest Pain Non-Formulary Medication (Calcitriol [Rocaltrol]) 0.5 mcg PO MoFr [facility] Last Admin: 01/30/17 17:14 Dose: 0.5 mcg Sodium Bicarbonate] (650 Mg)) 650 mg PO BID [facility] Last Admin: 01/31/17 08:31 Dose: 650 mg Non-Formulary Medication (Darbepoetin Jerel In Polysorbat [Aranesp]) 100 mcg SUBCUT Q14D [facility] Nystatin (Nystatin Crm) 1 gm TOP BID PRN PRN Reason: Rash Last Admin: 01/01/17 14:41 Dose: 1 unit Trazodone HCl (Trazodone) 100 mg PO BEDTIME [facility] Last Admin: 01/30/17 19:44 Dose: 100 mg Discontinued Medications Acetaminophen/Hydrocodone Bitart ([place] 325-10 Mg) Confirm Administered Dose 1 tab .ROUTE .STK-MED ONE Stop: 12/30/16 16:43 Last Admin: 12/30/16 17:23 Dose: 1 tab Acetaminophen/Hydrocodone Bitart ([place] 325-10 Mg) Confirm Administered Dose 1 tab .ROUTE .STK-MED ONE Stop: 12/31/16 12:43 Last Admin: 12/31/16 17:15 Dose: Not Given Acetaminophen/Hydrocodone Bitart ([place] 325-10 Mg) Confirm Administered Dose 1 tab .ROUTE .STK-MED ONE Stop: 01/12/17 20:55 Last Admin: 01/12/17 21:03 Dose: 1 tab Gabapentin (Neurontin) 300 mg PO QD INGRID Last Admin: 01/26/17 08:01 Dose: 300 mg Gabapentin (Neurontin) Confirm Administered Dose 300 mg .ROUTE .STK-MED ONE Stop: 12/28/16 09:04 Last Admin: 12/28/16 09:08 Dose: Not Given Gabapentin (Neurontin) Confirm Administered Dose 300 mg .ROUTE .STK-MED ONE Stop: 01/12/17 08:56 Last Admin: 01/12/17 09:09 Dose: Not Given Gabapentin (Neurontin) Confirm Administered Dose 300 mg .ROUTE .STK-MED ONE Stop: 01/23/17 07:57 Last Admin: 01/23/17 08:43 Dose: Not Given Haloperidol (Haldol) Confirm Administered Dose 1 mg .ROUTE .STK-MED ONE Stop: 12/27/16 20:41 Last Admin: 12/27/16 21:27 Dose: Not Given Haloperidol (Haldol) Confirm Administered Dose 1 mg .ROUTE .STK-MED ONE Stop: 01/14/17 19:23 Last Admin: 01/14/17 19:33 Dose: Not Given Haloperidol (Haldol) Confirm Administered Dose 2 mg .ROUTE .STK-MED ONE Stop: 01/14/17 19:43 Last Admin: 01/17/17 13:50 Dose: Not Given Haloperidol (Haldol) Confirm Administered Dose 4 mg .ROUTE .STK-MED ONE Stop: 01/15/17 19:20 Last Admin: 01/15/17 19:25 Dose: 4 mg Haloperidol (Haldol) Confirm Administered Dose 3 mg .ROUTE .STK-MED ONE Stop: 01/25/17 19:38 Last Admin: 01/25/17 19:40 Dose: Not Given Insulin Glargine (Lantus Solostar) 50 units SUBCUT BID [facility] Last Admin: 01/10/17 07:47 Dose: 50 units Insulin Glargine (Lantus Solostar) 70 units SUBCUT BID [facility] Last Admin: 01/24/17 13:01 Dose: Not Given Insulin Glargine (Lantus Solostar) Confirm Administered Dose 300 units .ROUTE .STK-MED ONE Stop: 01/12/17 09:04 Last Admin: 01/12/17 11:45 Dose: Not Given Levothyroxine Sodium (Synthroid) 200 mcg PO ACBREAKFAST [facility] Last Admin: 01/05/17 06:38 Dose: 200 mcg Levothyroxine Sodium (Synthroid) 225 mcg PO ACBREAKFAST INGRID Levothyroxine Sodium (Synthroid) Confirm Administered Dose 50 mcg .ROUTE .STK- MED ONE Stop: 01/05/17 13:50 Last Admin: 01/05/17 14:20 Dose: 25 mcg Lorazepam (Ativan) Confirm Administered Dose 0.5 mg .ROUTE .STK-MED ONE Stop: 12/27/16 17:12 Lorazepam (Ativan) Confirm Administered Dose 0.5 mg .ROUTE .STK-MED ONE Stop: 01/15/17 17:55 Last Admin: 01/15/17 19:30 Dose: Not Given Non-Formulary Medication (Darbepoetin Jerel In Polysorbat [Aranesp]) 100 mcg SUBCUT ASDIRECTED [facility] Non-Formulary Medication (Darbepoetin Jerel In Polysorbat [Aranesp]) 100 mcg SUBCUT Tu [facility] Last Admin: 01/17/17 14:43 Dose: 100 mcg Ondansetron HCl (Zofran Odt) 4 mg PO Q4H PRN PRN Reason: NAUSEA Last Admin: 01/12/17 12:09 Dose: 4 mg Ondansetron HCl (Zofran Odt) 4 mg PO ONETIME STA Stop: 01/12/17 14:07 Last Admin: 01/12/17 15:29 Dose: Not Given Tuberculin PPD (Aplisol) 5 unit IDERM ONETIME ONE Stop: 12/27/16 14:05 Last Admin: 12/27/16 17:50 Dose: 0.1 unit Tuberculin PPD (Aplisol) 5 unit IDERM ONETIME ONE Stop: 01/10/17 10:01 Last Admin: 01/10/17 13:57 Dose: 5 unit Zolpidem Tartrate (Ambien) 10 mg PO ONETIME PRN PRN Reason: Insomnia Last Admin: 01/09/17 20:07 Dose: 5 mg Zolpidem Tartrate (Ambien) Confirm Administered Dose 5 mg .ROUTE .STK-MED ONE Stop: 01/09/17 20:08 Last Admin: 01/09/17 22:32 Dose: Not Given *Q Meaningful Use (DIS) - VTE *Q VTE Criteria *Q: - Stroke *Q Stroke Criteria *Q: - AMI *Q AMI Criteria *Q:
[2017-01-31 10:38] VITALS: BP 120/67
== END 2017-01-31 10:55 | DRG 948 ==
LOC: UNDOADMIN 14:00 → LB.MS 14:00
PROVIDERS: ADMIT Family Medicine; ATTEND Family Medicine
DX: R53.1 Weakness (principal); T82.7XXA Infection and inflammatory reaction due to other cardiac and vascular devices, implants and grafts, initial encounter; I13.2 Hypertensive heart and chronic kidney disease with heart failure and with stage 5 chronic kidney disease, or end stage renal disease; N18.5 Chronic kidney disease, stage 5; I50.20 Unspecified systolic (congestive) heart failure; D69.3 Immune thrombocytopenic purpura; Y92.239 Unspecified place in hospital as the place of occurrence of the external cause; R25.8 Other abnormal involuntary movements; I48.91 Unspecified atrial fibrillation; Z99.2 Dependence on renal dialysis; E11.21 Type 2 diabetes mellitus with diabetic nephropathy; Z79.4 Long term (current) use of insulin; K21.9 Gastro-esophageal reflux disease without esophagitis; M54.9 Dorsalgia, unspecified; G89.29 Other chronic pain; M19.90 Unspecified osteoarthritis, unspecified site; M10.9 Gout, unspecified; E03.9 Hypothyroidism, unspecified; G47.30 Sleep apnea, unspecified; J45.909 Unspecified asthma, uncomplicated; I25.2 Old myocardial infarction; E78.00 Pure hypercholesterolemia, unspecified; H54.7 Unspecified visual loss; F41.9 Anxiety disorder, unspecified; F32.9 Major depressive disorder, single episode, unspecified; F43.10 Post-traumatic stress disorder, unspecified; Z95.1 Presence of aortocoronary bypass graft; Z87.891 Personal history of nicotine dependence; Z79.82 Long term (current) use of aspirin; Z88.1 Allergy status to other antibiotic agents; Z88.5 Allergy status to narcotic agent; Z91.010 Allergy to peanuts; Z88.8 Allergy status to other drugs, medicaments and biological substances; G43.909 Migraine, unspecified, not intractable, without status migrainosus
CPT/HCPCS: 36415; 80048; 80053; 80069; 82962; 84443; 84460; 84520; 85025; 86580; 87040; 87086; 87088; 87186; 97110-GO; 97110-GP; 97116-GP; 97165-GO; 97530-GO; 97530-GP; 97535-GO; A0425; A0429; A9270-GY

== ENCOUNTER 2017-02-03 08:48 | Inpatient (IN) | payer MEDICARE, BC ==
[2017-02-03] MEDS ORDERED: ONDANSETRON 4 MG PO PRN (09:55)
[2017-02-03] MEDS ORDERED: Nitroglycerin 0.4 MG Tab.SL SL PRN (09:55)
[2017-02-03] MEDS ORDERED: Glucagon,Human Recombinant 1 MG Vial SUBCUT PRN (09:55)
[2017-02-03] MEDS ORDERED: Albuterol 8 GM Inhaler INH PRN (09:55)
[2017-02-03] MEDS ORDERED: Metoclopramide 10 MG Tab PO PRN (09:55)
[2017-02-03] MEDS ORDERED: Nystatin Crm 30 GM Tube TOP PRN (09:55)
[2017-02-03] MEDS ORDERED: Diclofenac Sodium 1% Gel 100 GM Tube TOP PRN (09:55)
[2017-02-03] MEDS ORDERED: Ergocalciferol (Vitamin D2) 50,000 Unit Cap PO SCH (10:00)
[2017-02-03] MEDS ORDERED: Lidocaine/Prilocaine 2.5-2.5% Crm 5 GM Kit TOP SCH (10:00)
[2017-02-03] MEDS: LORazepam 0.5 MG Tab PO SCH ×2 (14:00→20:15)
[2017-02-03] MEDS: Ondansetron 4 MG Tab.DIS PO SCH ×3 (16:00→23:16)
[2017-02-03] MEDS ORDERED: Insulin Aspart 100 Units/ML 3 ML Pen SUBCUT SCH (17:00)
[2017-02-03] MEDS: Ferrous Sulfate 325 MG Tab PO SCH (18:13)
[2017-02-03] MEDS: Ipratropium 0.02% 0.5 MG/2.5 ML Neb Soln INH SCH ×2 (18:15→20:16)
[2017-02-03] MEDS: Insulin Aspart 100 Units/ML 3 ML Pen SUBCUT SCH ×2 (18:16→18:22)
[2017-02-03] MEDS ORDERED: HALOPERIDOL PO SCH (20:00)
[2017-02-03] MEDS ORDERED: Metoprolol Tartrate 50 MG Tab PO SCH (20:00)
[2017-02-03] MEDS ORDERED: Insulin Detemir 100 Units/ML 3 ML Pen SUBCUT SCH (20:00)
[2017-02-03] MEDS ORDERED: Insulin Glargine,Human Rec. Analog 100 Units/ML 3 ML Pen SUBCUT SCH ×2 (20:00)
[2017-02-03] MEDS: cloNIDine 0.1 MG Tab PO SCH (20:15)
[2017-02-03] MEDS: atorvaSTATin 40 MG Tab PO SCH (20:15)
[2017-02-03] MEDS: Gabapentin 600 MG Tab PO SCH (20:15)
[2017-02-03] MEDS: Magnesium Hydroxide 400 MG/5 ML Susp 30 ML Cup PO SCH (20:18)
[2017-02-03] MEDS: Acetaminophen 500 MG Tab PO PRN (20:24)
[2017-02-03] MEDS: Metoprolol Tartrate 25 MG Tab PO SCH (20:24)
[2017-02-03] MEDS: traZODone 100 MG Tab PO SCH (20:24)
[2017-02-04] MEDS: Ondansetron 4 MG Tab.DIS PO SCH ×2 (04:02→08:41)
[2017-02-04] MEDS: Levothyroxine 100 MCG Tab PO SCH (06:49)
[2017-02-04] MEDS: Levothyroxine 25 MCG Tab PO SCH (06:50)
[2017-02-04] MEDS ORDERED: Levothyroxine 100 MCG Tab PO SCH (07:00)
[2017-02-04] MEDS ORDERED: Diltiazem 240 MG Cap.CD PO SCH (08:00)
[2017-02-04] MEDS: Diltiazem 120 MG Cap.CD PO SCH (08:00)
[2017-02-04] MEDS ORDERED: Fish Oil/Omega-3 Fatty Acids 1 Gm Cap PO SCH (08:00)
[2017-02-04] MEDS: Aspirin 81 MG Tab.EC PO SCH (08:05)
[2017-02-04] MEDS: Allopurinol 100 MG Tab PO SCH (08:06)
[2017-02-04] MEDS: DULoxetine 30 MG Cap PO SCH (08:06)
[2017-02-04] MEDS: LORazepam 0.5 MG Tab PO SCH ×3 (08:07→19:54)
[2017-02-04] MEDS: Ferrous Sulfate 325 MG Tab PO SCH ×2 (08:09→17:52)
[2017-02-04] MEDS: Amiodarone 200 MG Tab PO SCH (08:09)
[2017-02-04] MEDS: Gabapentin 600 MG Tab PO SCH ×2 (08:10→16:03)
[2017-02-04] MEDS: Insulin Aspart 100 Units/ML 3 ML Pen SUBCUT SCH ×3 (08:27→17:41)
[2017-02-04] MEDS: Insulin Detemir 100 Units/ML 3 ML Pen SUBCUT SCH ×2 (08:28→19:56)
[2017-02-04] MEDS: Fluticasone Propionate Nasal Spray 16 GM Bottle NASBOTH SCH (08:40)
[2017-02-04] MEDS: Ipratropium 0.02% 0.5 MG/2.5 ML Neb Soln INH SCH ×4 (08:41→19:55)
[2017-02-04] MEDS ORDERED: Ondansetron 4 MG Tab.DIS PO PRN (09:53)
[2017-02-04] MEDS ORDERED: Glucagon,Human Recombinant 1 MG Vial IV PRN (09:56)
[2017-02-04] MEDS: [UNRECOGNIZED DRUG - OTHER] PO SCH (10:35)
[2017-02-04] MEDS: Nystatin Crm 30 GM Tube TOP SCH ×2 (12:00→23:08)
[2017-02-04] MEDS: Metoprolol Tartrate 25 MG Tab PO SCH ×2 (12:16→19:53)
[2017-02-04] MEDS: cloNIDine 0.1 MG Tab PO SCH ×2 (12:16→19:54)
[2017-02-04] MEDS: atorvaSTATin 40 MG Tab PO SCH (19:54)
[2017-02-04] MEDS: traZODone 100 MG Tab PO SCH (19:54)
[2017-02-04] MEDS: Magnesium Hydroxide 400 MG/5 ML Susp 30 ML Cup PO SCH (19:56)
[2017-02-05] MEDS: Acetaminophen 500 MG Tab PO PRN ×2 (02:04→06:06)
[2017-02-05] MEDS: Levothyroxine 100 MCG Tab PO SCH (06:06)
[2017-02-05] MEDS: Levothyroxine 25 MCG Tab PO SCH (06:07)
[2017-02-05] MEDS: Diltiazem 120 MG Cap.CD PO SCH (08:00)
[2017-02-05] MEDS: cloNIDine 0.1 MG Tab PO SCH ×2 (08:00→19:56)
[2017-02-05] MEDS: Metoprolol Tartrate 25 MG Tab PO SCH ×2 (08:00→19:56)
[2017-02-05] MEDS: Fluticasone Propionate Nasal Spray 16 GM Bottle NASBOTH SCH (08:00)
[2017-02-05] MEDS: Ipratropium 0.02% 0.5 MG/2.5 ML Neb Soln INH SCH ×4 (08:30→20:02)
[2017-02-05] MEDS: Allopurinol 100 MG Tab PO SCH (08:58)
[2017-02-05] MEDS: Gabapentin 600 MG Tab PO SCH (08:58)
[2017-02-05] MEDS: Amiodarone 200 MG Tab PO SCH (08:59)
[2017-02-05] MEDS: Aspirin 81 MG Tab.EC PO SCH (08:59)
[2017-02-05] MEDS: DULoxetine 30 MG Cap PO SCH (08:59)
[2017-02-05] MEDS: Insulin Detemir 100 Units/ML 3 ML Pen SUBCUT SCH ×2 (09:00→19:57)
[2017-02-05] MEDS: Ferrous Sulfate 325 MG Tab PO SCH ×2 (09:00→17:28)
[2017-02-05] MEDS: LORazepam 0.5 MG Tab PO SCH ×3 (09:00→19:56)
[2017-02-05] MEDS: [UNRECOGNIZED DRUG - OTHER] PO SCH (09:01)
[2017-02-05] MEDS: Insulin Aspart 100 Units/ML 3 ML Pen SUBCUT SCH ×3 (09:32→17:29)
[2017-02-05] MEDS: Nystatin Crm 30 GM Tube TOP SCH ×2 (19:00→20:01)
[2017-02-05] MEDS: traZODone 100 MG Tab PO SCH (19:55)
[2017-02-05] MEDS: atorvaSTATin 40 MG Tab PO SCH (19:55)
[2017-02-05] MEDS: Magnesium Hydroxide 400 MG/5 ML Susp 30 ML Cup PO SCH (20:01)
[2017-02-05] MEDS ORDERED: Acetaminophen/HYDROcodone 325-5 MG Tab PO ONE (23:26)
[2017-02-05] MEDS ORDERED: Acetaminophen/HYDROcodone 325-10 MG Tab ONE (23:34)
[2017-02-06] MEDS: Acetaminophen 500 MG Tab PO PRN (05:24)
[2017-02-06] MEDS: Levothyroxine 100 MCG Tab PO SCH (06:33)
[2017-02-06] MEDS: Levothyroxine 25 MCG Tab PO SCH (06:33)
[2017-02-06] MEDS: DULoxetine 30 MG Cap PO SCH (10:08)
[2017-02-06] MEDS: Amiodarone 200 MG Tab PO SCH (10:09)
[2017-02-06] MEDS: Allopurinol 100 MG Tab PO SCH (10:09)
[2017-02-06] MEDS: Aspirin 81 MG Tab.EC PO SCH (10:10)
[2017-02-06] MEDS: Ferrous Sulfate 325 MG Tab PO SCH ×2 (10:10→20:27)
[2017-02-06] MEDS: LORazepam 0.5 MG Tab PO SCH ×3 (10:10→20:19)
[2017-02-06] MEDS: Gabapentin 600 MG Tab PO SCH (10:10)
[2017-02-06] MEDS: Fluticasone Propionate Nasal Spray 16 GM Bottle NASBOTH SCH (10:11)
[2017-02-06] MEDS: Metoprolol Tartrate 25 MG Tab PO SCH ×2 (10:11→20:28)
[2017-02-06] MEDS: cloNIDine 0.1 MG Tab PO SCH ×2 (10:12→20:20)
[2017-02-06] MEDS: Diltiazem 120 MG Cap.CD PO SCH (10:12)
[2017-02-06] MEDS: Ipratropium 0.02% 0.5 MG/2.5 ML Neb Soln INH SCH ×4 (10:13→20:24)
[2017-02-06] MEDS: Insulin Detemir 100 Units/ML 3 ML Pen SUBCUT SCH ×2 (10:14→20:40)
[2017-02-06] MEDS: Insulin Aspart 100 Units/ML 3 ML Pen SUBCUT SCH ×3 (10:16→20:25)
[2017-02-06] MEDS: [UNRECOGNIZED DRUG - OTHER] PO SCH (10:20)
[2017-02-06] MEDS: Nystatin Crm 30 GM Tube TOP SCH ×2 (10:21→20:29)
[2017-02-06] MEDS: atorvaSTATin 40 MG Tab PO SCH (20:27)
[2017-02-06] MEDS: Magnesium Hydroxide 400 MG/5 ML Susp 30 ML Cup PO SCH (20:29)
[2017-02-06] MEDS: traZODone 100 MG Tab PO SCH (20:30)
[2017-02-07] MEDS: Levothyroxine 100 MCG Tab PO SCH (08:27)
[2017-02-07] MEDS: Ferrous Sulfate 325 MG Tab PO SCH ×2 (08:28→17:30)
[2017-02-07] MEDS: Levothyroxine 25 MCG Tab PO SCH (08:28)
[2017-02-07] MEDS: LORazepam 0.5 MG Tab PO SCH ×3 (08:28→20:36)
[2017-02-07] MEDS: Aspirin 81 MG Tab.EC PO SCH (08:28)
[2017-02-07] MEDS: Metoprolol Tartrate 25 MG Tab PO SCH ×2 (08:29→20:36)
[2017-02-07] MEDS: Diltiazem 120 MG Cap.CD PO SCH (08:29)
[2017-02-07] MEDS: cloNIDine 0.1 MG Tab PO SCH ×2 (08:30→20:31)
[2017-02-07] MEDS: Amiodarone 200 MG Tab PO SCH (08:30)
[2017-02-07] MEDS: Ipratropium 0.02% 0.5 MG/2.5 ML Neb Soln INH SCH ×3 (08:30→20:31)
[2017-02-07] MEDS: Fluticasone Propionate Nasal Spray 16 GM Bottle NASBOTH SCH (08:31)
[2017-02-07] MEDS: DULoxetine 30 MG Cap PO SCH (08:31)
[2017-02-07] MEDS: Gabapentin 600 MG Tab PO SCH (08:32)
[2017-02-07] MEDS: Insulin Detemir 100 Units/ML 3 ML Pen SUBCUT SCH ×2 (08:32→20:45)
[2017-02-07] MEDS: [UNRECOGNIZED DRUG - OTHER] PO SCH (08:33)
[2017-02-07] MEDS: Insulin Aspart 100 Units/ML 3 ML Pen SUBCUT SCH ×3 (08:34→17:32)
[2017-02-07] MEDS: Nystatin Crm 30 GM Tube TOP SCH ×2 (08:34→20:37)
[2017-02-07] MEDS: Allopurinol 100 MG Tab PO SCH (08:35)
--- NOTE | 2017-02-07 16:53 | PCM.HP ---
H&P History of Present Illness - General Date of Service: 02/03/17 Admit Problem/Dx: Admission Diagnosis/Problem Admission Diagnosis/Problem Weakness - History of Present Illness Initial Comments - Free Text/Narative: This is a 66yo F who was recently admitted for severe generalized weakness and UTI. She was started on CIpro IV per renal protocol and iv fluid for hydration. Pt was having her hemodialysis done daily. Dr. Zamarripa took over patient care on Monday, when Pt was almost obtunded, responsive, but unable to move in her bed. Only physical movement was wiggling in the bed. She could not move her extremities against gravity. Pt had sever clonus of all four extremities. Pt has CT head. Which did show questionable calcification or bleed in left basal ganglia. At this point Dr. [facility]amarri[facility] Davin Joy, who had admitted this patient with similar episode in the past. 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 So he did start to taper per regime. Patient did recover from wiggling extremities, to moving the arms and raising her arm to sitting and now she is even able to stand up and walk few steps with physical therapy. Dr. Zamarripa discussed about her chronic elevation of the creatinine around [address] Dr[address] Gillespie, who recommends to continue daily hemodialysis. he does agree with decreasing neurontin to 300mg daily at bedtime. On 12/27/16 pt is alert awake able to stand and walk few step. doing better. labs are reassuring. At that point she needs to get stronger and be able to ambulate and do her routine ADLS. Hence she needs Occupational and physical Rehab. hence Dr. Zamarripa planned to place her on swing bed today. Dr. Zamarripa discussed this with her and her , who does agree with the plan. Patient was transferred to [place] for concerns of a fistula infection. Patient was assessed in [place] by vascular and Nephrology and they felt that the irritation and discomfort was from her home dialysis and using a wrong type of topper. Patient was transferred back to swing bed on 02/03/17. Duration of Symptoms: Reports: Chronic Location: Reports: generalized Quality: Reports: Same as previous episode Associated Symptoms: Reports: weakness - Related Data Allergies/Adverse Reactions: Allergies Allergy/AdvReac Type Severity Reaction Status Date / Time peanut Allergy Mild Other Verified 02/06/17 18:54 codeine Allergy Hives Verified 02/06/17 18:54 erythromycin lactobionate Allergy Hives Verified 02/06/17 18:54 [From Erythrocin] metformin AdvReac Other Verified 02/06/17 18:54 Home Medications: Home Meds Diclofenac Sodium [Voltaren 1% Gel] 1 percent TOP QID PRN 02/03/16 [History] Glucagon,Human Recombinant [Glucagen] 1 mg SUBCUT ASDIRECTED PRN 02/03/16 [ History] Metoprolol Tartrate 0.5 tab PO BID 02/03/16 [History] atorvaSTATin [Lipitor] 40 mg PO BEDTIME 02/03/16 [History] Albuterol [Proventil HFA] 2 puff INH Q6H PRN 04/25/16 [History] traZODone 100 mg PO BEDTIME 04/25/16 [History] Acetaminophen [Tylenol Extra Strength] 1,000 mg PO Q4H PRN 09/30/16 [History] Aspirin [Ecotrin] 81 mg PO DAILY 09/30/16 [History] Calcitriol [Rocaltrol] 0.5 mcg PO ASDIRECTED 09/30/16 [History] Darbepoetin Jerel in Polysorbat [Aranesp] 0 - 150 mcg SUBCUT ASDIRECTED 09/30/16 [History] Ergocalciferol (Vitamin D2) [Drisdol] 50,000 unit PO ASDIRECTED 09/30/16 [ History] Lidocaine/Prilocaine [EMLA Crm] 1 applic TOP ASDIRECTED 09/30/16 [History] Metoclopramide HCl [Reglan] 10 mg PO QID PRN 09/30/16 [History] Nitroglycerin [Nitrostat] 0.4 mg SL ASDIRECTED PRN 09/30/16 [History] Ondansetron [Zofran] 4 mg PO Q4H PRN 09/30/16 [History] Sodium Bicarbonate 650 mg PO BID 09/30/16 [History] Allopurinol [Zyloprim] 100 mg PO DAILY tablet 12/27/16 [Rx] Amiodarone [Cordarone] 200 mg PO DAILY tablet 12/27/16 [Rx] Ferrous Sulfate 325 mg PO BIDMEALS tablet 12/27/16 [Rx] LORazepam [Ativan] 0.5 mg PO TID tablet 12/27/16 [Rx] DULoxetine [Cymbalta] 30 mg PO DAILY 02/03/17 [History] Diltiazem HCl [Diltiazem ER] 120 mg PO DAILY 02/03/17 [History] Diltiazem [Cardizem] 120 mg PO DAILY 02/03/17 [History] Fluticasone Propionate [Flovent Diskus] 50 mcg IH BID 02/03/17 [History] Gabapentin [Neurontin] 600 mg PO DAILY 02/03/17 [History] Insulin Aspart [Novolog Flexpen] 15 units SQ TIDAC 02/03/17 [History] Insulin Glarg,Human.Rec.Analog [Lantus Solostar] 30 units SQ BID 02/03/17 [ History] Ipratropium [Atrovent] 0.5 mg INH QID 02/03/17 [History] Levothyroxine Sodium [Levoxyl] 225 mcg PO DAILY 02/03/17 [History] Magnesium Hydroxide [Milk of Magnesia] 30 ml PO DAILY 02/03/17 [History] Milnacipran HCl [Savella] 12.5 mg PO DAILY 02/03/17 [History] Nystatin [Nystatin Crm] 30 gm TOP BID 02/03/17 [History] cloNIDine HCl [Catapres] 0.1 mg PO BID 02/03/17 [History] Past Medical History HEENT History: Reports: Epistaxis, Impaired vision, Other (see below) Other HEENT History: photosensitive, ringing in ears- chronic, cracking in ears currently Cardiovascular History: Reports: High cholesterol, Hypertension, [place] Respiratory History: Reports: Asthma, Sleep apnea, SOB, Other (see below) Other Respiratory History: doesn't use CPAP because of mask doesn't work - one cased scab on nose, one cased claustraphobia Gastrointestinal History: Reports: Chronic diarrhea, GERD, Hemorrhoids Genitourinary History: Reports: Dialysis, Diabetic nephropathy, Renal disease, Other (see below) Other Genitourinary History: home dialysis 2.5 hr 6 days per week [employer] History: Reports: Musculoskeletal History: Reports: Arthritis, Back pain, chronic, Gout, Neck pain , chronic, Other (see below) Other Musculoskeletal History: chronic shoulder pain, arthritis all over Neurological History: Reports: Migraines, Vertigo Psychiatric History: Reports: Anxiety, Depression, PTSD Endocrine/Metabolic History: Reports: Diabetes, type II, Hypothyroidism Hematologic History: Reports: Anemia, B12 deficiency, Idiopathic thrombocytopenia Immunologic History: Reports: Immunosuppression Oncologic (Cancer) History: Reports: None Dermatologic History: Reports: None - Infectious Disease History Infectious Disease History: Reports: Chicken pox, Measles, Mumps - Past Surgical History Head Surgeries/Procedures: Reports: Shunt HEENT Surgical History: Reports: Cataract surgery, Other (see below) Other HEENT Surgeries/Procedures: surgery to nostril for nose bleeds but they are still happening Cardiovascular Surgical History: Reports: Other (see below) Other Cardiovascular Surgeries/Procedures: cabg triple vessel bypass 2009, had stress test in 2016- negative, tried inhaler no help GI Surgical History: Reports: Appendectomy, Cholecystectomy, Other (see below) Other GI Surgeries/Procedures: Dr. Gorman removed them in 1972 Female Surgical History: Reports: Tubal ligation Endocrine Surgical History: Reports: None Social & Family History - Family History Family Medical History: Noncontributory - Tobacco Use Smoking Status *Q: Never Smoker Years of Tobacco use: 10 Packs/Tins Daily: 2 Used Tobacco, but Quit: Yes Month Tobacco Last Used: dece Second Hand Smoke Exposure: No - Caffeine Use Caffeine Use: Reports: Tea, Other Other Caffeine Use: chocolate - Recreational Drug Use Recreational Drug Use: No H&P Review of Systems - Review of Systems: Review Of Systems: ROS reveals no pertinent complaints other than HPI. Exam - Exam Exam: See Below - Vital Signs Vital Signs: Last Vital Signs Temp 36.2 C 02/04/17 20:00 Pulse 62 02/07/17 08:29 Resp 18 02/04/17 20:00 BP 111/55 L 02/07/17 08:30 Pulse Ox 98 02/07/17 05:17 Weight: 112.763 kg - Exam General: alert, oriented, cooperative HEENT: PERRLA, Conjunctiva clear Neck: supple, trachea midline Lungs: Normal respiratory effort, Decreased breath sounds Cardiovascular: regular rate, regular rhythm Abdomen: normal bowel sounds, soft Back Exam: normal inspection Extremities: edema (2+) Peripheral Pulses: 1+: dorsalis pedis (L), dorsalis pedis (R) Skin: warm, dry, intact Neurological: cranial nerves intact, reflexes equal bilateral Neuro Extensive - Mental Status: alert, oriented x3 Neuro Extensive - Motor, Sensory, Reflexes: motor/sensory deficits (generalized weakness) Psychiatric: other (flat affect) - Patient Data Lab Results last 24 hrs: Laboratory Results - last 24 hr 02/06/17 02/06/17 02/07/17 Range/Units 16:18 19:33 07:18 POC Glucose 180 H 283 H 193 H (74-110) mg/dL 02/07/17 02/07/17 Range/Units 11:12 15:47 POC Glucose 194 H 243 H (74-110) mg/dL *Q Meaningful Use (ADM) - VTE *Q VTE Criteria *Q: - Stroke *Q Stroke Criteria *Q: - AMI *Q AMI Criteria *Q: - Problem List (1) Kidney failure SNOMED Code(s): 72144063 ICD Code: N19 - UNSPECIFIED KIDNEY FAILURE Status: Acute Priority: Medium Current Visit: No (2) Uncontrolled diabetes mellitus SNOMED Code(s): 987901165 ICD Code: E11.65 - TYPE 2 DIABETES MELLITUS WITH HYPERGLYCEMIA Status: Acute Priority: Medium Current Visit: No (3) Anemia SNOMED Code(s): 486810115 ICD Code: D64.9 - ANEMIA, UNSPECIFIED Status: Chronic Priority: High Current Visit: No Onset Date: ~10/09/16 Qualifiers: Other causes of anemia: chronic disease, kidney (4) Atrial fibrillation with rapid ventricular response SNOMED Code(s): 787341473466732 ICD Code: I48.91 - UNSPECIFIED ATRIAL FIBRILLATION Status: Chronic Priority: Medium Current Visit: No (5) CHF (congestive heart failure) SNOMED Code(s): 83740700 ICD Code: I50.9 - HEART FAILURE, UNSPECIFIED Status: Chronic Priority: High Current Visit: No Qualifiers: Congestive heart failure type: systolic Congestive heart failure chronicity : unspecified congestive heart failure chronicity Qualified Code(s): I50.20 - Unspecified systolic (congestive) heart failure (6) Diabetes mellitus SNOMED Code(s): 91168734 ICD Code: E11.9 - TYPE 2 DIABETES MELLITUS WITHOUT COMPLICATIONS Status: Chronic Priority: Low Current Visit: No Qualifiers: Diabetes mellitus type: type 2 Diabetes mellitus complication status: with kidney complications Diabetes mellitus complication detail: with chronic kidney disease Diabetes mellitus ocean transportation intermediary insulin use: with correction use Chronic kidney disease stage: on chronic dialysis Qualified Code(s): E11.22 - Type 2 diabetes mellitus with diabetic chronic kidney disease; N18.6 - End stage renal disease; Z79.4 - group home (current) use of insulin; Z99.2 - Dependence on renal dialysis (7) Hyperlipidemia SNOMED Code(s): 96132030 ICD Code: E78.5 - HYPERLIPIDEMIA, UNSPECIFIED Status: Chronic Priority: Low Current Visit: No Qualifiers: Hyperlipidemia type: unspecified Qualified Code(s): E78.5 - Hyperlipidemia , unspecified (8) Hypertension SNOMED Code(s): 06489245 ICD Code: I10 - ESSENTIAL (PRIMARY) HYPERTENSION Status: Chronic Priority : Low Current Visit: No Qualifiers: Hypertension type: renovascular hypertension Qualified Code(s): I15.0 - Renovascular hypertension (9) Morbid obesity SNOMED Code(s): 461054745, 78693925161831 ICD Code: E66.01 - MORBID (SEVERE) OBESITY DUE TO EXCESS CALORIES Status: Chronic Priority: Medium Current Visit: No Qualifiers: Obesity type: unspecified obesity type Qualified Code(s): E66.01 - Morbid ( severe) obesity due to excess calories (10) Shortness of breath SNOMED Code(s): 046465151 ICD Code: R06.02 - SHORTNESS OF BREATH Status: Chronic Priority: High Current Visit: No (11) Weakness SNOMED Code(s): 18595172 ICD Code: R53.1 - WEAKNESS Status: Chronic Priority: High Current Visit : No Problem List Initiated/Reviewed/Updated: Yes Orders Last 24hrs: Active Orders 24 hr Category Date Time Status Darbepoetin Jerel in Polysorbat [Aranesp] Med 02/14/17 08:00 Active 0 - 150 mcg SUBCUT Q14D Medication Orders Acetaminophen (Tylenol Extra Strength) 1,000 mg PO Q4H PRN PRN Reason: Pain Last Admin: 02/06/17 05:24 Dose: 1,000 mg Admin: 02/05/17 06:06 Dose: 1,000 mg Admin: 02/05/17 02:04 Dose: 1,000 mg Admin: 02/03/17 20:24 Dose: 1,000 mg Albuterol (Ventolin Hfa) 0 - 2 gm INH Q6H PRN PRN Reason: Shortness of Breath Allopurinol (Zyloprim) 100 mg PO DAILY [facility] Last Admin: 02/07/17 08:35 Dose: 100 mg Admin: 02/06/17 10:09 Dose: 100 mg Admin: 02/05/17 08:58 Dose: 100 mg Admin: 02/04/17 08:06 Dose: 100 mg Amiodarone HCl (Cordarone) 200 mg PO DAILY [facility] Last Admin: 02/07/17 08:30 Dose: 200 mg Admin: 02/06/17 10:09 Dose: 200 mg Admin: 02/05/17 08:59 Dose: 200 mg Admin: 02/04/17 08:09 Dose: 200 mg Aspirin (Halfprin) 81 mg PO DAILY [facility] Last Admin: 02/07/17 08:28 Dose: 81 mg Admin: 02/06/17 10:10 Dose: 81 mg Admin: 02/05/17 08:59 Dose: 81 mg Admin: 02/04/17 08:05 Dose: 81 mg Atorvastatin Calcium (Lipitor) 40 mg PO BEDTIME [facility] Last Admin: 02/06/17 20:27 Dose: 40 mg Admin: 02/05/17 19:55 Dose: 40 mg Admin: 02/04/17 19:54 Dose: 40 mg Admin: 02/03/17 20:15 Dose: 40 mg Clonidine HCl (Catapres) 0.1 mg PO Q12HR [facility] Last Admin: 02/07/17 08:30 Dose: 0.1 mg Admin: 02/06/17 20:20 Dose: 0.1 mg Admin: 02/06/17 10:12 Dose: Not Given Admin: 02/05/17 19:56 Dose: 0.1 mg Admin: 02/05/17 08:00 Dose: Not Given Admin: 02/04/17 19:54 Dose: 0.1 mg Admin: 02/04/17 12:16 Dose: Not Given Admin: 02/03/17 20:15 Dose: 0.1 mg Diclofenac Sodium (Voltaren 1% Gel) 0 - 1 gm TOP QID PRN PRN Reason: Pain Diltiazem HCl (Cardizem Cd) 120 mg PO DAILY [facility] Last Admin: 02/07/17 08:29 Dose: 120 mg Admin: 02/06/17 10:12 Dose: Not Given Admin: 02/05/17 08:00 Dose: Not Given Admin: 02/04/17 08:00 Dose: Duloxetine HCl (Cymbalta) 30 mg PO DAILY [facility] Last Admin: 02/07/17 08:31 Dose: 30 mg Admin: 02/06/17 10:08 Dose: 30 mg Admin: 02/05/17 08:59 Dose: 30 mg Admin: 02/04/17 08:06 Dose: 30 mg Ergocalciferol (Vitamin D2) 50,000 units PO ASDIRECTED [facility] Ferrous Sulfate (Ferrous Sulfate) 325 mg PO BIDMEALS [facility] Last Admin: 02/07/17 08:28 Dose: 325 mg Admin: 02/06/17 20:27 Dose: Admin: 02/06/17 10:10 Dose: 325 mg Admin: 02/05/17 17:28 Dose: 325 mg Admin: 02/05/17 09:00 Dose: 325 mg Admin: 02/04/17 17:52 Dose: 325 mg Admin: 02/04/17 08:09 Dose: 325 mg Admin: 02/03/17 18:13 Dose: 325 mg Fluticasone Propionate (Flonase) 0 - 2 gm NASBOTH DAILY [facility] Last Admin: 02/07/17 08:31 Dose: Not Given Admin: 02/06/17 10:11 Dose: Not Given Admin: 02/05/17 08:00 Dose: Not Given Admin: 02/04/17 08:40 Dose: Not Given Gabapentin (Neurontin) 600 mg PO DAILY [facility] Last Admin: 02/07/17 08:32 Dose: 600 mg Admin: 02/06/17 10:10 Dose: 600 mg Admin: 02/05/17 08:58 Dose: 600 mg Glucagon (Glucagen) 1 mg IV ONETIME PRN PRN Reason: Hypoglycemia Insulin Aspart (Novolog) 15 unit SUBCUT TIDMEALS [facility] Last Admin: 02/07/17 14:43 Dose: 15 units Admin: 02/07/17 08:34 Dose: 15 units Admin: 02/06/17 20:25 Dose: Admin: 02/06/17 12:10 Dose: 15 units Admin: 02/06/17 10:16 Dose: 15 units Admin: 02/05/17 17:29 Dose: 15 units Admin: 02/05/17 12:33 Dose: 15 units Admin: 02/05/17 09:32 Dose: 15 units Admin: 02/04/17 17:41 Dose: 15 units Admin: 02/04/17 12:10 Dose: 15 units Admin: 02/04/17 08:27 Dose: 15 units Admin: 02/03/17 18:22 Dose: Admin: 02/03/17 18:16 Dose: Not Given Insulin Detemir (Levemir) 30 unit SUBCUT BID INGRID Last Admin: 02/07/17 08:32 Dose: 30 units Admin: 02/06/17 20:40 Dose: 30 units Admin: 02/06/17 10:14 Dose: 30 units Admin: 02/05/17 19:57 Dose: 30 units Admin: 02/05/17 09:00 Dose: 30 units Admin: 02/04/17 19:56 Dose: 30 units Admin: 02/04/17 08:28 Dose: 30 units Ipratropium Sabina (Atrovent) 0.5 mg INH QID [facility] Last Admin: 02/07/17 14:42 Dose: Not Given Admin: 02/07/17 08:30 Dose: Not Given Admin: 02/06/17 20:24 Dose: Not Given Admin: 02/06/17 16:00 Dose: Not Given Admin: 02/06/17 12:10 Dose: Not Given Admin: 02/06/17 10:13 Dose: Not Given Admin: 02/05/17 20:02 Dose: Not Given Admin: 02/05/17 19:01 Dose: Not Given Admin: 02/05/17 13:08 Dose: Not Given Admin: 02/05/17 08:30 Dose: Not Given Admin: 02/04/17 19:55 Dose: Not Given Admin: 02/04/17 16:41 Dose: Not Given Admin: 02/04/17 12:17 Dose: Not Given Admin: 02/04/17 08:41 Dose: Not Given Admin: 02/03/17 20:16 Dose: Not Given Admin: 02/03/17 18:15 Dose: Not Given Levothyroxine Sodium (Levothyroxine) 25 mcg PO ACBREAKFAST [facility] Last Admin: 02/07/17 08:28 Dose: 25 mcg Admin: 02/06/17 06:33 Dose: 25 mcg Admin: 02/05/17 06:07 Dose: 25 mcg Admin: 02/04/17 06:50 Dose: 25 mcg Levothyroxine Sodium (Synthroid) 200 mcg PO ACBREAKFAST [facility] Last Admin: 02/07/17 08:27 Dose: 200 mcg Admin: 02/06/17 06:33 Dose: 200 mcg Admin: 02/05/17 06:06 Dose: 200 mcg Admin: 02/04/17 06:49 Dose: 200 mcg Lidocaine/Prilocaine (Emla Crm) 1 gm TOP ASDIRECTED [facility] Lorazepam (Ativan) 0.5 mg PO TID [facility] Last Admin: 02/07/17 14:45 Dose: 0.5 mg Admin: 02/07/17 08:28 Dose: 0.5 mg Admin: 02/06/17 20:19 Dose: 0.5 mg Admin: 02/06/17 14:00 Dose: Not Given Admin: 02/06/17 10:10 Dose: 0.5 mg Admin: 02/05/17 19:56 Dose: 0.5 mg Admin: 02/05/17 19:01 Dose: Not Given Admin: 02/05/17 09:00 Dose: 0.5 mg Admin: 02/04/17 19:54 Dose: 0.5 mg Admin: 02/04/17 16:42 Dose: Not Given Admin: 02/04/17 08:07 Dose: 0.5 mg Admin: 02/03/17 20:15 Dose: 0.5 mg Admin: 02/03/17 14:00 Dose: Not Given Magnesium Hydroxide (Milk Of Magnesia) 30 ml PO BEDTIME [facility] Last Admin: 02/06/17 20:29 Dose: Not Given Admin: 02/05/17 20:01 Dose: Not Given Admin: 02/04/17 19:56 Dose: Not Given Admin: 02/03/17 20:18 Dose: Metoclopramide HCl (Reglan) 10 mg PO QID PRN PRN Reason: Nausea Metoprolol Tartrate (Lopressor) 25 mg PO Q12HR [facility] Last Admin: 02/07/17 08:29 Dose: 25 mg Admin: 02/06/17 20:28 Dose: 25 mg Admin: 02/06/17 10:11 Dose: Not Given Admin: 02/05/17 19:56 Dose: 25 mg Admin: 02/05/17 08:00 Dose: Not Given Admin: 02/04/17 19:53 Dose: 25 mg Admin: 02/04/17 12:16 Dose: Not Given Admin: 02/03/17 20:24 Dose: 25 mg Nitroglycerin (Nitrostat) 0.4 mg SL ASDIRECTED PRN PRN Reason: Chest Pain Non-Formulary Medication (Darbepoetin Jerel In Polysorbat [Aranesp]) 0 - 150 mcg SUBCUT Q14D INGRID (Sodium Bicarbonate [Sodium Bicarbonate] 650 Mg) 650 mg PO BID [facility] Last Admin: 02/07/17 08:34 Dose: 650 mg Admin: 02/06/17 20:29 Dose: 650 mg Admin: 02/06/17 10:20 Dose: 650 mg Admin: 02/05/17 19:55 Dose: 650 mg Admin: 02/05/17 09:00 Dose: 650 mg Admin: 02/04/17 19:55 Dose: 650 mg Admin: 02/04/17 08:12 Dose: 650 mg Admin: 02/03/17 20:24 Dose: 650 mg Salvella 12.5mg (Tablets) 1 each PO DAILY [facility] Last Admin: 02/07/17 08:33 Dose: 1 each Admin: 02/06/17 10:20 Dose: 1 each Admin: 02/05/17 09:01 Dose: 1 each Admin: 02/04/17 10:35 Dose: 1 each (Calcitriol [ (Rocaltrol] 0.5 Mcg)) 0.5 mcg PO MoFr [facility] Last Admin: 02/06/17 10:28 Dose: 0.5 mcg Nystatin (Nystatin Crm) 0 gm TOP BID [facility] Last Admin: 02/07/17 08:34 Dose: Not Given Admin: 02/06/17 20:29 Dose: Not Given Admin: 02/06/17 10:21 Dose: Not Given Admin: 02/05/17 20:01 Dose: 1 applic Admin: 02/05/17 19:00 Dose: Not Given Admin: 02/04/17 23:08 Dose: Not Given Admin: 02/04/17 12:00 Dose: 1 applic Ondansetron HCl (Zofran Odt) 4 mg PO Q4H PRN PRN Reason: Nausea/Vomiting Trazodone HCl (Trazodone) 100 mg PO BEDTIME [facility] Last Admin: 02/06/17 20:30 Dose: 100 mg Admin: 02/05/17 19:55 Dose: 100 mg Admin: 02/04/17 19:54 Dose: 100 mg Admin: 02/03/17 20:24 Dose: 100 mg Assessment/Plan Comment:: Patient admitted back to swing bed for PT/OT and monitoring. Continue home dialysis with her as directed by nephrology. Meds continued.
[2017-02-07] MEDS: Acetaminophen 500 MG Tab PO PRN (20:31)
[2017-02-07] MEDS: atorvaSTATin 40 MG Tab PO SCH (20:36)
[2017-02-07] MEDS: traZODone 100 MG Tab PO SCH (20:36)
[2017-02-07] MEDS: Magnesium Hydroxide 400 MG/5 ML Susp 30 ML Cup PO SCH (20:37)
[2017-02-08] MEDS ORDERED: Calcium Carbonate 500 MG Tab.Chew ONE (03:13)
[2017-02-08] MEDS: Levothyroxine 100 MCG Tab PO SCH (07:20)
[2017-02-08] MEDS: Levothyroxine 25 MCG Tab PO SCH (07:20)
[2017-02-08] MEDS: Insulin Detemir 100 Units/ML 3 ML Pen SUBCUT SCH ×2 (07:26→19:40)
[2017-02-08] MEDS: Insulin Aspart 100 Units/ML 3 ML Pen SUBCUT SCH ×3 (07:26→17:17)
[2017-02-08] MEDS: Diltiazem 120 MG Cap.CD PO SCH (07:39)
[2017-02-08] MEDS: Aspirin 81 MG Tab.EC PO SCH (07:39)
[2017-02-08] MEDS: DULoxetine 30 MG Cap PO SCH (07:40)
[2017-02-08] MEDS: Allopurinol 100 MG Tab PO SCH (07:40)
[2017-02-08] MEDS: Ferrous Sulfate 325 MG Tab PO SCH ×2 (07:40→17:01)
[2017-02-08] MEDS: Gabapentin 600 MG Tab PO SCH (07:40)
[2017-02-08] MEDS: LORazepam 0.5 MG Tab PO SCH ×3 (07:40→19:35)
[2017-02-08] MEDS: cloNIDine 0.1 MG Tab PO SCH ×2 (07:41→19:33)
[2017-02-08] MEDS: Ipratropium 0.02% 0.5 MG/2.5 ML Neb Soln INH SCH ×4 (07:41→19:32)
[2017-02-08] MEDS: Amiodarone 200 MG Tab PO SCH (07:41)
[2017-02-08] MEDS: Fluticasone Propionate Nasal Spray 16 GM Bottle NASBOTH SCH (07:42)
[2017-02-08] MEDS: Nystatin Crm 30 GM Tube TOP SCH (07:45)
[2017-02-08] MEDS: Metoprolol Tartrate 25 MG Tab PO SCH ×2 (07:46→19:31)
[2017-02-08] MEDS: [UNRECOGNIZED DRUG - OTHER] PO SCH (10:25)
[2017-02-08] MEDS: atorvaSTATin 40 MG Tab PO SCH (19:36)
[2017-02-08] MEDS: traZODone 100 MG Tab PO SCH (19:36)
[2017-02-08] MEDS: Magnesium Hydroxide 400 MG/5 ML Susp 30 ML Cup PO SCH (19:36)
[2017-02-09] MEDS: Nystatin Crm 30 GM Tube TOP SCH ×3 (02:24→20:21)
[2017-02-09] MEDS: Levothyroxine 100 MCG Tab PO SCH (06:46)
[2017-02-09] MEDS: Levothyroxine 25 MCG Tab PO SCH (06:46)
[2017-02-09] MEDS: Metoprolol Tartrate 25 MG Tab PO SCH ×2 (07:47→20:19)
[2017-02-09] MEDS: Allopurinol 100 MG Tab PO SCH (07:48)
[2017-02-09] MEDS: Diltiazem 120 MG Cap.CD PO SCH (07:49)
[2017-02-09] MEDS: Aspirin 81 MG Tab.EC PO SCH (07:49)
[2017-02-09] MEDS: LORazepam 0.5 MG Tab PO SCH ×3 (07:49→20:20)
[2017-02-09] MEDS: Ferrous Sulfate 325 MG Tab PO SCH ×2 (07:49→16:54)
[2017-02-09] MEDS: Amiodarone 200 MG Tab PO SCH (07:49)
[2017-02-09] MEDS: [UNRECOGNIZED DRUG - OTHER] PO SCH (07:50)
[2017-02-09] MEDS: DULoxetine 30 MG Cap PO SCH (07:50)
[2017-02-09] MEDS: Ipratropium 0.02% 0.5 MG/2.5 ML Neb Soln INH SCH ×4 (07:51→20:20)
[2017-02-09] MEDS: cloNIDine 0.1 MG Tab PO SCH ×2 (07:51→20:10)
[2017-02-09] MEDS: Fluticasone Propionate Nasal Spray 16 GM Bottle NASBOTH SCH (07:52)
[2017-02-09] MEDS: Insulin Detemir 100 Units/ML 3 ML Pen SUBCUT SCH ×2 (07:55→20:20)
[2017-02-09] MEDS: Insulin Aspart 100 Units/ML 3 ML Pen SUBCUT SCH ×3 (07:56→17:39)
[2017-02-09] MEDS: Gabapentin 600 MG Tab PO SCH (08:00)
[2017-02-09] MEDS: atorvaSTATin 40 MG Tab PO SCH (20:10)
[2017-02-09] MEDS: traZODone 100 MG Tab PO SCH (20:10)
[2017-02-09] MEDS: Magnesium Hydroxide 400 MG/5 ML Susp 30 ML Cup PO SCH (20:21)
[2017-02-09] MEDS: Acetaminophen 500 MG Tab PO PRN (23:52)
[2017-02-10] MEDS: Levothyroxine 25 MCG Tab PO SCH (07:31)
[2017-02-10] MEDS: Levothyroxine 100 MCG Tab PO SCH (07:31)
[2017-02-10] MEDS: LORazepam 0.5 MG Tab PO SCH ×3 (07:42→19:41)
[2017-02-10] MEDS: Amiodarone 200 MG Tab PO SCH (07:45)
[2017-02-10] MEDS: Aspirin 81 MG Tab.EC PO SCH (07:46)
[2017-02-10] MEDS: Ferrous Sulfate 325 MG Tab PO SCH ×2 (07:46→17:29)
[2017-02-10] MEDS: DULoxetine 30 MG Cap PO SCH (07:46)
[2017-02-10] MEDS: [UNRECOGNIZED DRUG - OTHER] PO SCH (07:47)
[2017-02-10] MEDS: Gabapentin 300 MG Cap PO SCH (07:47)
[2017-02-10] MEDS: Allopurinol 100 MG Tab PO SCH (07:49)
[2017-02-10] MEDS: Metoprolol Tartrate 25 MG Tab PO SCH ×2 (08:27→19:41)
[2017-02-10] MEDS: Diltiazem 120 MG Cap.CD PO SCH (08:27)
[2017-02-10] MEDS: cloNIDine 0.1 MG Tab PO SCH ×2 (08:28→19:39)
[2017-02-10] MEDS: Ipratropium 0.02% 0.5 MG/2.5 ML Neb Soln INH SCH ×4 (08:29→19:38)
[2017-02-10] MEDS: Fluticasone Propionate Nasal Spray 16 GM Bottle NASBOTH SCH (08:29)
[2017-02-10] MEDS: Insulin Detemir 100 Units/ML 3 ML Pen SUBCUT SCH ×2 (08:31→19:38)
[2017-02-10] MEDS: Insulin Aspart 100 Units/ML 3 ML Pen SUBCUT SCH ×3 (08:32→17:31)
[2017-02-10] MEDS: Nystatin Crm 30 GM Tube TOP SCH ×2 (08:38→19:43)
[2017-02-10] MEDS: traZODone 100 MG Tab PO SCH (19:41)
[2017-02-10] MEDS: atorvaSTATin 40 MG Tab PO SCH (19:42)
[2017-02-10] MEDS: Magnesium Hydroxide 400 MG/5 ML Susp 30 ML Cup PO SCH (19:42)
[2017-02-10] MEDS: Acetaminophen 500 MG Tab PO PRN (19:43)
[2017-02-11] MEDS: DULoxetine 30 MG Cap PO SCH (07:29)
[2017-02-11] MEDS: Aspirin 81 MG Tab.EC PO SCH (07:30)
[2017-02-11] MEDS: Amiodarone 200 MG Tab PO SCH (07:30)
[2017-02-11] MEDS: Allopurinol 100 MG Tab PO SCH (07:31)
[2017-02-11] MEDS: LORazepam 0.5 MG Tab PO SCH ×3 (07:32→19:35)
[2017-02-11] MEDS: Levothyroxine 100 MCG Tab PO SCH (07:32)
[2017-02-11] MEDS: Ferrous Sulfate 325 MG Tab PO SCH ×2 (07:35→17:19)
[2017-02-11] MEDS: Gabapentin 300 MG Cap PO SCH (07:35)
[2017-02-11] MEDS: Levothyroxine 25 MCG Tab PO SCH (07:35)
[2017-02-11] MEDS: Insulin Aspart 100 Units/ML 3 ML Pen SUBCUT SCH ×3 (07:48→17:18)
[2017-02-11] MEDS: Insulin Detemir 100 Units/ML 3 ML Pen SUBCUT SCH ×2 (07:49→19:33)
[2017-02-11] MEDS: Ipratropium 0.02% 0.5 MG/2.5 ML Neb Soln INH SCH ×4 (07:53→19:35)
[2017-02-11] MEDS: Diltiazem 120 MG Cap.CD PO SCH (07:53)
[2017-02-11] MEDS: Metoprolol Tartrate 25 MG Tab PO SCH ×2 (07:54→19:34)
[2017-02-11] MEDS: Fluticasone Propionate Nasal Spray 16 GM Bottle NASBOTH SCH (07:54)
[2017-02-11] MEDS: cloNIDine 0.1 MG Tab PO SCH ×2 (07:54→19:34)
[2017-02-11] MEDS: [UNRECOGNIZED DRUG - OTHER] PO SCH (07:55)
[2017-02-11] MEDS: Nystatin Crm 30 GM Tube TOP SCH ×2 (08:00→19:35)
[2017-02-11] MEDS: Acetaminophen 500 MG Tab PO PRN (19:34)
[2017-02-11] MEDS: Magnesium Hydroxide 400 MG/5 ML Susp 30 ML Cup PO SCH (19:34)
[2017-02-11] MEDS: traZODone 100 MG Tab PO SCH (19:34)
[2017-02-11] MEDS: atorvaSTATin 40 MG Tab PO SCH (19:34)
[2017-02-12] MEDS: Levothyroxine 100 MCG Tab PO SCH (06:55)
[2017-02-12] MEDS: Levothyroxine 25 MCG Tab PO SCH (06:56)
[2017-02-12] MEDS: cloNIDine 0.1 MG Tab PO SCH ×2 (08:00→19:35)
[2017-02-12] MEDS: Diltiazem 120 MG Cap.CD PO SCH (08:00)
[2017-02-12] MEDS: Aspirin 81 MG Tab.EC PO SCH (08:02)
[2017-02-12] MEDS: LORazepam 0.5 MG Tab PO SCH ×3 (08:03→19:33)
[2017-02-12] MEDS: Ferrous Sulfate 325 MG Tab PO SCH ×2 (08:03→17:27)
[2017-02-12] MEDS: Gabapentin 300 MG Cap PO SCH (08:03)
[2017-02-12] MEDS: DULoxetine 30 MG Cap PO SCH (08:04)
[2017-02-12] MEDS: Allopurinol 100 MG Tab PO SCH (08:04)
[2017-02-12] MEDS: Amiodarone 200 MG Tab PO SCH (08:05)
[2017-02-12] MEDS: Ipratropium 0.02% 0.5 MG/2.5 ML Neb Soln INH SCH ×4 (08:12→19:33)
[2017-02-12] MEDS: Fluticasone Propionate Nasal Spray 16 GM Bottle NASBOTH SCH (08:12)
[2017-02-12] MEDS: [UNRECOGNIZED DRUG - OTHER] PO SCH ×2 (08:13→09:29)
[2017-02-12] MEDS: Insulin Aspart 100 Units/ML 3 ML Pen SUBCUT SCH ×3 (08:20→17:17)
[2017-02-12] MEDS: Insulin Detemir 100 Units/ML 3 ML Pen SUBCUT SCH ×2 (08:21→19:33)
[2017-02-12] MEDS: Nystatin Crm 30 GM Tube TOP SCH ×2 (11:05→19:34)
[2017-02-12] MEDS: Metoprolol Tartrate 25 MG Tab PO SCH (11:21)
[2017-02-12] MEDS: Acetaminophen 500 MG Tab PO PRN (19:32)
[2017-02-12] MEDS: traZODone 100 MG Tab PO SCH (19:32)
[2017-02-12] MEDS: atorvaSTATin 40 MG Tab PO SCH (19:33)
[2017-02-12] MEDS: Magnesium Hydroxide 400 MG/5 ML Susp 30 ML Cup PO SCH (19:34)
[2017-02-13] MEDS: Aspirin 81 MG Tab.EC PO SCH (08:00)
[2017-02-13] MEDS: Metoprolol Tartrate 25 MG Tab PO SCH ×3 (08:01→20:00)
[2017-02-13] MEDS: Gabapentin 300 MG Cap PO SCH (08:01)
[2017-02-13] MEDS: cloNIDine 0.1 MG Tab PO SCH ×2 (08:01→19:53)
[2017-02-13] MEDS: Levothyroxine 100 MCG Tab PO SCH (08:02)
[2017-02-13] MEDS: DULoxetine 30 MG Cap PO SCH (08:03)
[2017-02-13] MEDS: Ferrous Sulfate 325 MG Tab PO SCH ×2 (08:03→17:18)
[2017-02-13] MEDS: LORazepam 0.5 MG Tab PO SCH ×2 (08:03→17:18)
[2017-02-13] MEDS: Allopurinol 100 MG Tab PO SCH (08:03)
[2017-02-13] MEDS: Levothyroxine 25 MCG Tab PO SCH (08:03)
[2017-02-13] MEDS: Diltiazem 120 MG Cap.CD PO SCH (08:04)
[2017-02-13] MEDS: Ipratropium 0.02% 0.5 MG/2.5 ML Neb Soln INH SCH ×3 (08:04→17:18)
[2017-02-13] MEDS: Amiodarone 200 MG Tab PO SCH (08:04)
[2017-02-13] MEDS: Nystatin Crm 30 GM Tube TOP SCH (08:05)
[2017-02-13] MEDS: [UNRECOGNIZED DRUG - OTHER] PO SCH (08:05)
[2017-02-13] MEDS: Insulin Detemir 100 Units/ML 3 ML Pen SUBCUT SCH ×2 (08:07→19:56)
[2017-02-13] MEDS: Insulin Aspart 100 Units/ML 3 ML Pen SUBCUT SCH ×3 (08:08→17:18)
[2017-02-13] MEDS: Fluticasone Propionate Nasal Spray 16 GM Bottle NASBOTH SCH (12:01)
--- NOTE | 2017-02-13 13:49 | PCM.PN ---
- General Info Date of Service: 02/13/17 Subjective Update: This is a 66yo F who is doing well today with no complaints. Patient has been steadily improving with her PT/OT and strength. Patient states she feels improved daily. Nursing staff continue to report slight redness of the fistula area, but denies any worsening just continued constant redness, no warmth. Functional Status: Reports: pain controlled, tolerating diet, ambulating - Review of Systems General: Reports: Weakness HEENT: Reports: no symptoms Pulmonary: Reports: shortness of breath Cardiovascular: Reports: No Symptoms Gastrointestinal: Reports: No symptoms Genitourinary: Reports: no symptoms Musculoskeletal: Reports: no symptoms Skin: Reports: no symptoms Neurological: Reports: Weakness Psychiatric: Reports: no symptoms - Patient Data Vitals - most recent: Last Vital Signs Temp 36.2 C 02/04/17 20:00 Pulse 97 02/13/17 08:04 Resp 16 02/12/17 09:30 BP 100/50 L 02/13/17 08:04 Pulse Ox 97 02/13/17 05:56 Weight - most recent: 111.674 kg Lab Results last 24 hrs: Laboratory Results - last 24 hr 02/12/17 02/13/17 02/13/17 Range/Units 15:17 06:59 09:58 POC Glucose 226 H 222 H 290 H (74-110) mg/dL Med Orders - Current: Current Medications Acetaminophen (Tylenol Extra Strength) 1,000 mg PO Q4H PRN PRN Reason: Pain Last Admin: 02/12/17 19:32 Dose: 1,000 mg Albuterol (Ventolin Hfa) 0 - 2 gm INH Q6H PRN PRN Reason: Shortness of Breath Allopurinol (Zyloprim) 100 mg PO DAILY [facility] Last Admin: 02/13/17 08:03 Dose: 100 mg Amiodarone HCl (Cordarone) 200 mg PO DAILY [facility] Last Admin: 02/13/17 08:04 Dose: 200 mg Aspirin (Halfprin) 81 mg PO DAILY [facility] Last Admin: 02/13/17 08:00 Dose: 81 mg Atorvastatin Calcium (Lipitor) 40 mg PO BEDTIME [facility] Last Admin: 02/12/17 19:33 Dose: 40 mg Clonidine HCl (Catapres) 0.1 mg PO Q12HR [facility] Last Admin: 02/13/17 08:01 Dose: 0.1 mg Diclofenac Sodium (Voltaren 1% Gel) 0 - 1 gm TOP QID PRN PRN Reason: Pain Diltiazem HCl (Cardizem Cd) 120 mg PO DAILY [facility] Last Admin: 02/13/17 08:04 Dose: 120 mg Duloxetine HCl (Cymbalta) 30 mg PO DAILY [facility] Last Admin: 02/13/17 08:03 Dose: 30 mg Ergocalciferol (Vitamin D2) 50,000 units PO ASDIRECTED [facility] Ferrous Sulfate (Ferrous Sulfate) 325 mg PO BIDMEALS [facility] Last Admin: 02/13/17 08:03 Dose: 325 mg Fluticasone Propionate (Flonase) 0 - 2 gm NASBOTH DAILY [facility] Last Admin: 02/13/17 12:01 Dose: Not Given Gabapentin (Neurontin) 300 mg PO DAILY [facility] Last Admin: 02/13/17 08:01 Dose: 300 mg Glucagon (Glucagen) 1 mg IV ONETIME PRN PRN Reason: Hypoglycemia Insulin Aspart (Novolog) 15 unit SUBCUT TIDMEALS [facility] Last Admin: 02/13/17 12:00 Dose: 15 units Insulin Detemir (Levemir) 30 unit SUBCUT BID [facility] Last Admin: 02/13/17 08:07 Dose: 30 units Ipratropium [place] (Atrovent) 0.5 mg INH QID [facility] Last Admin: 02/13/17 12:01 Dose: Not Given Levothyroxine Sodium (Levothyroxine) 25 mcg PO ACBREAKFAST [facility] Last Admin: 02/13/17 08:03 Dose: 25 mcg Levothyroxine Sodium (Synthroid) 200 mcg PO ACBREAKFAST [facility] Last Admin: 02/13/17 08:02 Dose: 200 mcg Lidocaine/Prilocaine (Emla Crm) 1 gm TOP ASDIRECTED [facility] Lorazepam (Ativan) 0.5 mg PO TID [facility] Last Admin: 02/13/17 08:03 Dose: 0.5 mg Magnesium Hydroxide (Milk Of Magnesia) 30 ml PO BEDTIME [facility] Last Admin: 02/12/17 19:34 Dose: Not Given Metoclopramide HCl (Reglan) 10 mg PO QID PRN PRN Reason: Nausea Metoprolol Tartrate (Lopressor) 25 mg PO Q12HR [facility] Last Admin: 02/13/17 08:01 Dose: 25 mg Nitroglycerin (Nitrostat) 0.4 mg SL ASDIRECTED PRN PRN Reason: Chest Pain Non-Formulary Medication (Darbepoetin Jerel In Polysorbat [Aranesp]) 0 - 150 mcg SUBCUT Q14D [facility] (Sodium Bicarbonate [Sodium Bicarbonate] 650 Mg) 650 mg PO BID [facility] Last Admin: 02/13/17 08:06 Dose: 650 mg Salvella 12.5mg (Tablets) 1 each PO DAILY [facility] Last Admin: 02/13/17 08:05 Dose: 1 each (Calcitriol [ (Rocaltrol] 0.5 Mcg)) 0.5 mcg PO MoFr [facility] Last Admin: 02/13/17 12:01 Dose: 0.5 mcg Nystatin (Nystatin Crm) 0 gm TOP BID [facility] Last Admin: 02/13/17 08:05 Dose: 1 applic Ondansetron HCl (Zofran Odt) 4 mg PO Q4H PRN PRN Reason: Nausea/Vomiting Trazodone HCl (Trazodone) 100 mg PO BEDTIME [facility] Last Admin: 02/12/17 19:32 Dose: 100 mg Discontinued Medications Hydrocodone Bitart/Acetaminophen ([place] 325-5 Mg) 1 tab PO ONETIME ONE Stop: 02/05/17 23:27 Last Admin: 02/05/17 23:36 Dose: 1 tab Hydrocodone Bitart/Acetaminophen ([place] 325-10 Mg) Confirm Administered Dose 1 tab .ROUTE .STK-MED ONE Stop: 02/05/17 23:35 Last Admin: 02/05/17 23:37 Dose: Not Given Calcium Carbonate/Glycine (Tums) Confirm Administered Dose 500 mg .ROUTE .STK- MED ONE Stop: 02/08/17 03:14 Last Admin: 02/08/17 03:15 Dose: 500 mg Diltiazem HCl (Cardizem Cd) 240 mg PO DAILY [facility] Fish Oil (Fish Oil) 1 gm PO DAILY [facility] Gabapentin (Neurontin) 600 mg PO TID [facility] Last Admin: 02/04/17 16:03 Dose: Not Given Gabapentin (Neurontin) 600 mg PO DAILY [facility] Last Admin: 02/09/17 08:00 Dose: 600 mg Insulin Aspart (Novolog) 45 unit SUBCUT BIDMEALS [facility] Insulin Detemir (Levemir) 15 unit SUBCUT BID [facility] Last Admin: 02/03/17 20:25 Dose: 15 units Insulin Glargine (Lantus Solostar) 50 units SUBCUT BID [facility] Levothyroxine Sodium (Synthroid) 200 mcg PO ACBREAKFAST [facility] Metoprolol Tartrate (Lopressor) mg PO BID [facility] (Calcitriol [ (Rocaltrol] 0.5 Mcg)) 0.5 mcg PO ASDIRECTED [facility] Non-Formulary Medication (Haloperidol [Haldol]) 4 mg PO BEDTIME [facility] Non-Formulary Medication (Ondansetron [Zofran]) 4 mg PO Q4H PRN PRN Reason: Nausea Ondansetron HCl (Zofran Odt) 4 mg PO Q4H [facility] Last Admin: 02/04/17 08:41 Dose: Not Given - Exam Quality Assessment: supplemental oxygen General: alert, oriented, cooperative HEENT: Pupils equal, Pupils reactive, EOMI Lungs: Normal respiratory effort, Decreased breath sounds Cardiovascular: Regular Rhythm, Tachycardia Abdomen: bowel sounds present, soft, no tenderness Back Exam: normal inspection Extremities: edema (1+) Peripheral Pulses: 1+: dorsalis pedis (L), dorsalis pedis (R) Skin: warm, dry, intact Neurological: no new focal deficit Psy/Mental Status: alert, normal affect, normal mood - Problem List & Annotations (1) Kidney failure SNOMED Code(s): 91212233 Code(s): N19 - UNSPECIFIED KIDNEY FAILURE Status: Acute Priority: Medium Current Visit: No (2) Uncontrolled diabetes mellitus SNOMED Code(s): 213891792 Code(s): E11.65 - TYPE 2 DIABETES MELLITUS WITH HYPERGLYCEMIA Status: Acute Priority: Medium Current Visit: No (3) Anemia SNOMED Code(s): 496824059 Code(s): D64.9 - ANEMIA, UNSPECIFIED Status: Chronic Priority: High Current Visit: No Onset Date: ~10/09/16 Qualifiers: Other causes of anemia: chronic disease, kidney (4) Atrial fibrillation with rapid ventricular response SNOMED Code(s): 969694522044984 Code(s): I48.91 - UNSPECIFIED ATRIAL FIBRILLATION Status: Chronic Priority: Medium Current Visit: No (5) CHF (congestive heart failure) SNOMED Code(s): 64219437 Code(s): I50.9 - HEART FAILURE, UNSPECIFIED Status: Chronic Priority: High Current Visit: No Qualifiers: Congestive heart failure type: systolic Congestive heart failure chronicity : unspecified congestive heart failure chronicity Qualified Code(s): I50.20 - Unspecified systolic (congestive) heart failure (6) Diabetes mellitus SNOMED Code(s): 83978606 Code(s): E11.9 - TYPE 2 DIABETES MELLITUS WITHOUT COMPLICATIONS Status: Chronic Priority: Low Current Visit: No Qualifiers: Diabetes mellitus type: type 2 Diabetes mellitus complication status: with kidney complications Diabetes mellitus complication detail: with chronic kidney disease Diabetes mellitus 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 bug exterminator insulin use: with bed bug exterminator use Chronic kidney disease stage: on chronic dialysis Qualified Code(s): E11.22 - Type 2 diabetes mellitus with diabetic chronic kidney disease; N18.6 - End stage renal disease; Z79.4 - jail (current) use of insulin; Z99.2 - Dependence on renal dialysis (7) Hyperlipidemia SNOMED Code(s): 41652427 Code(s): E78.5 - HYPERLIPIDEMIA, UNSPECIFIED Status: Chronic Priority: Low Current Visit: No Qualifiers: Hyperlipidemia type: unspecified Qualified Code(s): E78.5 - Hyperlipidemia , unspecified (8) Hypertension SNOMED Code(s): 02936530 Code(s): I10 - ESSENTIAL (PRIMARY) HYPERTENSION Status: Chronic Priority : Low Current Visit: No Qualifiers: Hypertension type: renovascular hypertension Qualified Code(s): I15.0 - Renovascular hypertension (9) Morbid obesity SNOMED Code(s): 931026206, 20399712067401 Code(s): E66.01 - MORBID (SEVERE) OBESITY DUE TO EXCESS CALORIES Status: Chronic Priority: Medium Current Visit: No Qualifiers: Obesity type: unspecified obesity type Qualified Code(s): E66.01 - Morbid ( severe) obesity due to excess calories (10) Shortness of breath SNOMED Code(s): 388027213 Code(s): R06.02 - SHORTNESS OF BREATH Status: Chronic Priority: High Current Visit: No (11) Weakness SNOMED Code(s): 77179965 Code(s): R53.1 - WEAKNESS Status: Chronic Priority: High Current Visit : No - Problem List Review Problem List Initiated/Reviewed/Updated: Yes - My Orders Last 24 Hours: My Active Orders 02/14/17 08:00 Darbepoetin Jerel in Polysorbat [Aranesp] 0 - 150 mcg SUBCUT Q14D - Plan Plan:: Patient admitted back to swing bed for PT/OT and monitoring. Continue home dialysis with her as directed by nephrology. Meds continued. 02/13/17 - Patient doing well with improved Pt/Ot and strength. Patient feels better and stronger with more ability to ambulate. Continue dialysis as directed and monitoring of fistula.
[2017-02-13] MEDS ORDERED: Magnesium Hydroxide 400 MG/5 ML Susp 30 ML Cup PO PRN (19:07)
[2017-02-13] MEDS: Acetaminophen 500 MG Tab PO PRN (19:52)
[2017-02-13] MEDS: Mupirocin Oint 22 GM Tube TOP SCH (19:52)
[2017-02-13] MEDS: traZODone 100 MG Tab PO SCH (19:53)
[2017-02-13] MEDS: atorvaSTATin 40 MG Tab PO SCH (19:53)
[2017-02-14] MEDS: Ipratropium 0.02% 0.5 MG/2.5 ML Neb Soln INH SCH ×6 (02:10→20:07)
[2017-02-14] MEDS: Nystatin Crm 30 GM Tube TOP SCH ×3 (02:11→20:10)
[2017-02-14] MEDS: Levothyroxine 100 MCG Tab PO SCH (06:42)
[2017-02-14] MEDS: Levothyroxine 25 MCG Tab PO SCH (06:43)
[2017-02-14] MEDS: Mupirocin Oint 22 GM Tube TOP SCH ×3 (07:45→20:09)
[2017-02-14] MEDS: Diltiazem 120 MG Cap.CD PO SCH (07:46)
[2017-02-14] MEDS: Ferrous Sulfate 325 MG Tab PO SCH ×2 (07:53→17:44)
[2017-02-14] MEDS: Aspirin 81 MG Tab.EC PO SCH (07:54)
[2017-02-14] MEDS: Fluticasone Propionate Nasal Spray 16 GM Bottle NASBOTH SCH (07:54)
[2017-02-14] MEDS: Metoprolol Tartrate 25 MG Tab PO SCH ×2 (07:55→20:10)
[2017-02-14] MEDS: Gabapentin 300 MG Cap PO SCH (07:56)
[2017-02-14] MEDS: [UNRECOGNIZED DRUG - OTHER] PO SCH (07:56)
[2017-02-14] MEDS: Allopurinol 100 MG Tab PO SCH (07:58)
[2017-02-14] MEDS ORDERED: DARBEPOETIN ALFA IN POLYSORBAT SUBCUT SCH (08:00)
[2017-02-14] MEDS: cloNIDine 0.1 MG Tab PO SCH ×2 (08:14→20:09)
[2017-02-14] MEDS: DULoxetine 30 MG Cap PO SCH (08:14)
[2017-02-14] MEDS: Amiodarone 200 MG Tab PO SCH (08:15)
[2017-02-14] MEDS: Insulin Detemir 100 Units/ML 3 ML Pen SUBCUT SCH ×2 (08:16→20:08)
[2017-02-14] MEDS: Insulin Aspart 100 Units/ML 3 ML Pen SUBCUT SCH ×3 (08:18→17:40)
[2017-02-14] MEDS: atorvaSTATin 40 MG Tab PO SCH (20:07)
[2017-02-14] MEDS: Melatonin 3 MG Tab PO SCH (20:08)
[2017-02-15] MEDS: Levothyroxine 25 MCG Tab PO SCH (07:22)
[2017-02-15] MEDS: Levothyroxine 100 MCG Tab PO SCH (07:26)
[2017-02-15] MEDS: Ipratropium 0.02% 0.5 MG/2.5 ML Neb Soln INH SCH ×3 (07:34→16:04)
[2017-02-15] MEDS: Mupirocin Oint 22 GM Tube TOP SCH ×3 (07:38→20:00)
[2017-02-15] MEDS: Diltiazem 120 MG Cap.CD PO SCH (07:39)
[2017-02-15] MEDS: cloNIDine 0.1 MG Tab PO SCH ×2 (07:40→20:01)
[2017-02-15] MEDS: DULoxetine 30 MG Cap PO SCH (07:41)
[2017-02-15] MEDS: Amiodarone 200 MG Tab PO SCH (07:41)
[2017-02-15] MEDS: Ferrous Sulfate 325 MG Tab PO SCH ×2 (07:41→17:13)
[2017-02-15] MEDS: Metoprolol Tartrate 25 MG Tab PO SCH ×2 (07:42→20:02)
[2017-02-15] MEDS: Nystatin Crm 30 GM Tube TOP SCH ×2 (07:43→20:02)
[2017-02-15] MEDS: Allopurinol 100 MG Tab PO SCH (07:44)
[2017-02-15] MEDS: Aspirin 81 MG Tab.EC PO SCH (07:45)
[2017-02-15] MEDS: Fluticasone Propionate Nasal Spray 16 GM Bottle NASBOTH SCH (07:50)
[2017-02-15] MEDS: Insulin Detemir 100 Units/ML 3 ML Pen SUBCUT SCH ×2 (07:51→20:01)
[2017-02-15] MEDS: Insulin Aspart 100 Units/ML 3 ML Pen SUBCUT SCH ×3 (07:53→17:18)
[2017-02-15] MEDS: [UNRECOGNIZED DRUG - OTHER] PO SCH (13:38)
[2017-02-15] MEDS: Melatonin 3 MG Tab PO SCH (20:00)
[2017-02-15] MEDS: atorvaSTATin 40 MG Tab PO SCH (20:01)
[2017-02-16] MEDS: Acetaminophen 500 MG Tab PO PRN ×2 (00:52→13:04)
[2017-02-16] MEDS: Levothyroxine 100 MCG Tab PO SCH (07:40)
[2017-02-16] MEDS: Amiodarone 200 MG Tab PO SCH (07:41)
[2017-02-16] MEDS: Levothyroxine 25 MCG Tab PO SCH (07:41)
[2017-02-16] MEDS: Aspirin 81 MG Tab.EC PO SCH (07:41)
[2017-02-16] MEDS: Diltiazem 120 MG Cap.CD PO SCH (07:41)
[2017-02-16] MEDS: Allopurinol 100 MG Tab PO SCH (07:41)
[2017-02-16] MEDS: DULoxetine 30 MG Cap PO SCH (07:41)
[2017-02-16] MEDS: Ferrous Sulfate 325 MG Tab PO SCH ×2 (07:41→17:10)
[2017-02-16] MEDS: Fluticasone Propionate Nasal Spray 16 GM Bottle NASBOTH SCH (07:42)
[2017-02-16] MEDS: cloNIDine 0.1 MG Tab PO SCH ×2 (07:42→21:11)
[2017-02-16] MEDS: Metoprolol Tartrate 25 MG Tab PO SCH ×2 (07:42→21:12)
[2017-02-16] MEDS: [UNRECOGNIZED DRUG - OTHER] PO SCH (07:50)
[2017-02-16] MEDS: Insulin Detemir 100 Units/ML 3 ML Pen SUBCUT SCH ×2 (08:19→20:59)
[2017-02-16] MEDS: Insulin Aspart 100 Units/ML 3 ML Pen SUBCUT SCH ×3 (08:19→17:11)
[2017-02-16] MEDS: Nystatin Crm 30 GM Tube TOP SCH ×2 (08:21→21:14)
[2017-02-16] MEDS: Mupirocin Oint 22 GM Tube TOP SCH ×3 (08:21→21:19)
[2017-02-16] MEDS ORDERED: Tuberculin, PPD 5 Units/0.1 ML 1 ML MDV IDERM ONE (08:31)
[2017-02-16] MEDS ORDERED: Gabapentin 300 MG Cap ONE (13:31)
[2017-02-16] MEDS: Gabapentin 300 MG Cap PO SCH (13:33)
[2017-02-16] MEDS ORDERED: Arformoterol 15 MCG/2 ML Neb Soln NEB SCH (14:00)
[2017-02-16] MEDS ORDERED: Ciprofloxacin 500 MG Tab ONE (17:08)
[2017-02-16] MEDS: Ciprofloxacin 500 MG Tab PO SCH (17:10)
[2017-02-16] MEDS: Melatonin 3 MG Tab PO SCH (21:02)
[2017-02-16] MEDS: atorvaSTATin 40 MG Tab PO SCH (21:08)
[2017-02-17] MEDS: Ferrous Sulfate 325 MG Tab PO SCH ×2 (07:31→17:10)
[2017-02-17] MEDS: DULoxetine 30 MG Cap PO SCH (07:31)
[2017-02-17] MEDS: Levothyroxine 25 MCG Tab PO SCH (07:31)
[2017-02-17] MEDS: Ciprofloxacin 500 MG Tab PO SCH ×2 (07:31→19:31)
[2017-02-17] MEDS: Levothyroxine 100 MCG Tab PO SCH (07:31)
[2017-02-17] MEDS: Aspirin 81 MG Tab.EC PO SCH (07:31)
[2017-02-17] MEDS: Amiodarone 200 MG Tab PO SCH (07:32)
[2017-02-17] MEDS: Diltiazem 120 MG Cap.CD PO SCH (07:32)
[2017-02-17] MEDS: Allopurinol 100 MG Tab PO SCH (07:32)
[2017-02-17] MEDS: cloNIDine 0.1 MG Tab PO SCH ×2 (07:32→19:31)
[2017-02-17] MEDS: Fluticasone Propionate Nasal Spray 16 GM Bottle NASBOTH SCH (07:33)
[2017-02-17] MEDS: [UNRECOGNIZED DRUG - OTHER] PO SCH (07:33)
[2017-02-17] MEDS: Gabapentin 300 MG Cap PO SCH (07:33)
[2017-02-17] MEDS: Metoprolol Tartrate 25 MG Tab PO SCH ×2 (07:33→19:32)
[2017-02-17] MEDS: Mupirocin Oint 22 GM Tube TOP SCH ×3 (07:36→19:32)
[2017-02-17] MEDS: Nystatin Crm 30 GM Tube TOP SCH ×2 (07:36→20:53)
[2017-02-17] MEDS: Insulin Detemir 100 Units/ML 3 ML Pen SUBCUT SCH ×2 (08:00→20:51)
[2017-02-17] MEDS: Insulin Aspart 100 Units/ML 3 ML Pen SUBCUT SCH ×3 (08:01→17:10)
[2017-02-17] MEDS: LORazepam 0.5 MG Tab PO PRN ×4 (12:00→22:59)
[2017-02-17] MEDS ORDERED: LORazepam 0.5 MG Tab ONE (17:34)
[2017-02-17] MEDS: atorvaSTATin 40 MG Tab PO SCH (19:32)
[2017-02-17] MEDS: Melatonin 3 MG Tab PO SCH (19:33)
[2017-02-18] MEDS: Levothyroxine 100 MCG Tab PO SCH (08:12)
[2017-02-18] MEDS: Metoprolol Tartrate 25 MG Tab PO SCH ×3 (08:13→20:29)
[2017-02-18] MEDS: Aspirin 81 MG Tab.EC PO SCH (08:13)
[2017-02-18] MEDS: Levothyroxine 25 MCG Tab PO SCH (08:13)
[2017-02-18] MEDS: Ferrous Sulfate 325 MG Tab PO SCH ×2 (08:13→17:49)
[2017-02-18] MEDS: Allopurinol 100 MG Tab PO SCH (08:14)
[2017-02-18] MEDS: Ciprofloxacin 500 MG Tab PO SCH ×2 (08:14→20:01)
[2017-02-18] MEDS: Diltiazem 120 MG Cap.CD PO SCH (08:14)
[2017-02-18] MEDS: Amiodarone 200 MG Tab PO SCH (08:15)
[2017-02-18] MEDS: LORazepam 0.5 MG Tab PO PRN ×3 (08:15→20:01)
[2017-02-18] MEDS: DULoxetine 30 MG Cap PO SCH (08:15)
[2017-02-18] MEDS: cloNIDine 0.1 MG Tab PO SCH ×3 (08:15→20:28)
[2017-02-18] MEDS: Mupirocin Oint 22 GM Tube TOP SCH ×3 (08:16→20:04)
[2017-02-18] MEDS: Fluticasone Propionate Nasal Spray 16 GM Bottle NASBOTH SCH (08:16)
[2017-02-18] MEDS: Nystatin Crm 30 GM Tube TOP SCH ×2 (08:17→20:07)
[2017-02-18] MEDS: [UNRECOGNIZED DRUG - OTHER] PO SCH (08:17)
[2017-02-18] MEDS: Gabapentin 300 MG Cap PO SCH (08:17)
[2017-02-18] MEDS: Insulin Aspart 100 Units/ML 3 ML Pen SUBCUT SCH ×3 (08:18→17:47)
[2017-02-18] MEDS: Insulin Detemir 100 Units/ML 3 ML Pen SUBCUT SCH ×2 (08:19→20:05)
--- NOTE | 2017-02-18 10:02 | PCM.PN ---
- General Info Date of Service: 02/18/17 Subjective Update: Patient feels she is improving but anxious of pending discharge discussion. Patient denies any current pain and states she is resting comfortably and that everything is going well. She is more mobile than before and more alert. Functional Status: Reports: pain controlled, tolerating diet, ambulating - Review of Systems General: Reports: Weakness HEENT: Reports: no symptoms Pulmonary: Reports: shortness of breath Cardiovascular: Reports: No Symptoms Gastrointestinal: Reports: No symptoms Genitourinary: Reports: no symptoms Musculoskeletal: Reports: back pain Skin: Reports: no symptoms Neurological: Reports: No Symptoms Psychiatric: Reports: no symptoms - Patient Data Vitals - most recent: Last Vital Signs Temp 36.4 C 02/18/17 09:48 Pulse 67 02/18/17 09:48 Resp 18 02/18/17 09:48 BP 110/64 02/18/17 09:48 Pulse Ox 97 02/18/17 09:48 Weight - most recent: 109.486 kg Lab Results last 24 hrs: Laboratory Results - last 24 hr 02/17/17 02/17/17 02/17/17 Range/Units 10:26 15:58 19:49 POC Glucose 255 H 196 H 229 H (74-110) mg/dL 02/18/17 Range/Units 07:03 POC Glucose 245 H (74-110) mg/dL Med Orders - Current: Current Medications Acetaminophen (Tylenol Extra Strength) 1,000 mg PO Q4H PRN PRN Reason: Pain Last Admin: 02/16/17 13:04 Dose: 1,000 mg Albuterol (Ventolin Hfa) 0 - 2 gm INH Q6H PRN PRN Reason: Shortness of Breath Allopurinol (Zyloprim) 100 mg PO DAILY [facility] Last Admin: 02/18/17 08:14 Dose: 100 mg Amiodarone HCl (Cordarone) 200 mg PO DAILY [facility] Last Admin: 02/18/17 08:15 Dose: 200 mg Aspirin (Halfprin) 81 mg PO DAILY [facility] Last Admin: 02/18/17 08:13 Dose: 81 mg Atorvastatin Calcium (Lipitor) 40 mg PO BEDTIME [facility] Last Admin: 02/17/17 19:32 Dose: 40 mg Ciprofloxacin (Ciprofloxacin Hcl) 500 mg PO BID [facility] Stop: 02/21/17 08:01 Last Admin: 02/18/17 08:14 Dose: 500 mg Clonidine HCl (Catapres) 0.1 mg PO Q12HR [facility] Last Admin: 02/18/17 08:15 Dose: 0.1 mg Diclofenac Sodium (Voltaren 1% Gel) 0 - 1 gm TOP QID PRN PRN Reason: Pain Diltiazem HCl (Cardizem Cd) 120 mg PO DAILY [facility] Last Admin: 02/18/17 08:14 Dose: 120 mg Duloxetine HCl (Cymbalta) 30 mg PO DAILY [facility] Last Admin: 02/18/17 08:15 Dose: 30 mg Ergocalciferol (Vitamin D2) 50,000 units PO ASDIRECTED [facility] Ferrous Sulfate (Ferrous Sulfate) 325 mg PO BIDMEALS [facility] Last Admin: 02/18/17 08:13 Dose: 325 mg Fluticasone Propionate (Flonase) 0 - 2 gm NASBOTH DAILY [facility] Last Admin: 02/18/17 08:16 Dose: 2 spr Gabapentin (Neurontin) 300 mg PO DAILY [facility] Last Admin: 02/18/17 08:17 Dose: 300 mg Glucagon (Glucagen) 1 mg IV ONETIME PRN PRN Reason: Hypoglycemia Insulin Aspart (Novolog) 15 unit SUBCUT TIDMEALS [facility] Last Admin: 02/18/17 08:18 Dose: 15 units Insulin Detemir (Levemir) 30 unit SUBCUT BID [facility] Last Admin: 02/18/17 08:19 Dose: 30 units Levothyroxine Sodium (Levothyroxine) 25 mcg PO ACBREAKFAST [facility] Last Admin: 02/18/17 08:13 Dose: 25 mcg Levothyroxine Sodium (Synthroid) 200 mcg PO ACBREAKFAST [facility] Last Admin: 02/18/17 08:12 Dose: 200 mcg Lidocaine/Prilocaine (Emla Crm) 1 gm TOP ASDIRECTED [facility] Lorazepam (Ativan) 0.5 mg PO TID PRN PRN Reason: Anxiety Last Admin: 02/18/17 08:15 Dose: 0.5 mg Magnesium Hydroxide (Milk Of Magnesia) 30 ml PO DAILY PRN PRN Reason: Constipation Melatonin (Melatonin) 3 mg PO BEDTIME [facility] Last Admin: 02/17/17 19:33 Dose: 3 mg Metoclopramide HCl (Reglan) 10 mg PO QID PRN PRN Reason: Nausea Metoprolol Tartrate (Lopressor) 25 mg PO Q12HR [facility] Last Admin: 02/18/17 08:13 Dose: 25 mg Mupirocin (Bactroban Oint) 0 gm TOP TID [facility] Last Admin: 02/18/17 08:16 Dose: 1 applic Nitroglycerin (Nitrostat) 0.4 mg SL ASDIRECTED PRN PRN Reason: Chest Pain Non-Formulary Medication (Darbepoetin Jerel In Polysorbat [Aranesp]) 0 - 150 mcg SUBCUT Q14D [facility] Last Admin: 02/14/17 12:40 Dose: Not Given (Sodium Bicarbonate [Sodium Bicarbonate] 650 Mg) 650 mg PO BID [facility] Last Admin: 02/18/17 08:17 Dose: 650 mg Salvella 12.5mg (Tablets) 1 each PO DAILY [facility] Last Admin: 02/18/17 08:17 Dose: 1 each (Calcitriol [ (Rocaltrol] 0.5 Mcg)) 0.5 mcg PO MoFr [facility] Last Admin: 02/17/17 12:03 Dose: 0.5 mcg Nystatin (Nystatin Crm) 0 gm TOP BID [facility] Last Admin: 02/18/17 08:17 Dose: 1 applic Ondansetron HCl (Zofran Odt) 4 mg PO Q4H PRN PRN Reason: Nausea/Vomiting Discontinued Medications Hydrocodone Bitart/Acetaminophen ([place] 325-5 Mg) 1 tab PO ONETIME ONE Stop: 02/05/17 23:27 Last Admin: 02/05/17 23:36 Dose: 1 tab Hydrocodone Bitart/Acetaminophen ([place] 325-10 Mg) Confirm Administered Dose 1 tab .ROUTE .STK-MED ONE Stop: 02/05/17 23:35 Last Admin: 02/05/17 23:37 Dose: Not Given Calcium Carbonate/Glycine (Tums) Confirm Administered Dose 500 mg .ROUTE .STK- MED ONE Stop: 02/08/17 03:14 Last Admin: 02/08/17 03:15 Dose: 500 mg Ciprofloxacin (Ciprofloxacin Hcl) Confirm Administered Dose 500 mg .ROUTE .STK- MED ONE Stop: 02/16/17 17:09 Last Admin: 02/16/17 17:15 Dose: Not Given Diltiazem HCl (Cardizem Cd) 240 mg PO DAILY [facility] Fish Oil (Fish Oil) 1 gm PO DAILY [facility] Gabapentin (Neurontin) 600 mg PO TID [facility] Last Admin: 02/04/17 16:03 Dose: Not Given Gabapentin (Neurontin) 600 mg PO DAILY [facility] Last Admin: 02/09/17 08:00 Dose: 600 mg Gabapentin (Neurontin) 300 mg PO DAILY [facility] Last Admin: 02/14/17 07:56 Dose: 300 mg Gabapentin (Neurontin) Confirm Administered Dose 300 mg .ROUTE .STK-MED ONE Stop: 02/16/17 13:32 Last Admin: 02/16/17 13:53 Dose: Not Given Insulin Aspart (Novolog) 45 unit SUBCUT BIDMEALS [facility] Insulin Detemir (Levemir) 15 unit SUBCUT BID [facility] Last Admin: 02/03/17 20:25 Dose: 15 units Insulin Glargine (Lantus Solostar) 50 units SUBCUT BID [facility] Ipratropium [place] (Atrovent) 0.5 mg INH QID [facility] Last Admin: 02/15/17 16:04 Dose: Not Given Levothyroxine Sodium (Synthroid) 200 mcg PO ACBREAKFAST [facility] Lorazepam (Ativan) 0.5 mg PO TID [facility] Last Admin: 02/13/17 17:18 Dose: Not Given Lorazepam (Ativan) 0.25 mg PO TID PRN PRN Reason: Agitation Last Admin: 02/17/17 16:30 Dose: 0.25 mg Lorazepam (Ativan) Confirm Administered Dose 0.5 mg .ROUTE .STK-MED ONE Stop: 02/17/17 17:35 Last Admin: 02/17/17 17:36 Dose: Not Given Magnesium Hydroxide (Milk Of Magnesia) 30 ml PO BEDTIME [facility] Last Admin: 02/12/17 19:34 Dose: Not Given Metoprolol Tartrate (Lopressor) mg PO BID [facility] (Calcitriol [ (Rocaltrol] 0.5 Mcg)) 0.5 mcg PO ASDIRECTED [facility] Non-Formulary Medication (Haloperidol [Haldol]) 4 mg PO BEDTIME [facility] Non-Formulary Medication (Ondansetron [Zofran]) 4 mg PO Q4H PRN PRN Reason: Nausea Ondansetron HCl (Zofran Odt) 4 mg PO Q4H [facility] Last Admin: 02/04/17 08:41 Dose: Not Given Trazodone HCl (Trazodone) 100 mg PO BEDTIME [facility] Last Admin: 02/13/17 19:53 Dose: 100 mg Tuberculin PPD (Aplisol) 5 unit IDERM ONETIME ONE Stop: 02/16/17 08:32 Last Admin: 02/16/17 13:49 Dose: 5 unit - Exam Quality Assessment: supplemental oxygen General: alert, oriented, cooperative HEENT: Pupils equal, Pupils reactive Neck: supple Lungs: Clear to auscultation, Normal respiratory effort Cardiovascular: Regular Rate, Regular Rhythm Abdomen: bowel sounds present, soft, no tenderness Back Exam: normal inspection Extremities: edema (1+) Peripheral Pulses: 1+: dorsalis pedis (L), dorsalis pedis (R) Skin: warm, dry, intact Wound/Incisions: no drainage, other (fistula stable not infected) Neurological: no new focal deficit Psy/Mental Status: alert, normal affect, normal mood - Problem List & Annotations (1) Kidney failure SNOMED Code(s): 77779487 Code(s): N19 - UNSPECIFIED KIDNEY FAILURE Status: Acute Priority: Medium (2) Uncontrolled diabetes mellitus SNOMED Code(s): 476730296 Code(s): E11.65 - TYPE 2 DIABETES MELLITUS WITH HYPERGLYCEMIA Status: Acute Priority: Medium (3) Anemia SNOMED Code(s): 858941570 Code(s): D64.9 - ANEMIA, UNSPECIFIED Status: Chronic Priority: High Onset Date: ~10/09/16 Qualifiers: Other causes of anemia: chronic disease, kidney (4) Atrial fibrillation with rapid ventricular response SNOMED Code(s): 641456379066935 Code(s): I48.91 - UNSPECIFIED ATRIAL FIBRILLATION Status: Chronic Priority: Medium (5) CHF (congestive heart failure) SNOMED Code(s): 91104756 Code(s): I50.9 - HEART FAILURE, UNSPECIFIED Status: Chronic Priority: High Qualifiers: Congestive heart failure type: systolic Congestive heart failure chronicity : unspecified congestive heart failure chronicity Qualified Code(s): I50.20 - Unspecified systolic (congestive) heart failure (6) Diabetes mellitus SNOMED Code(s): 05683009 Code(s): E11.9 - TYPE 2 DIABETES MELLITUS WITHOUT COMPLICATIONS Status: Chronic Priority: Low Qualifiers: Diabetes mellitus type: type 2 Diabetes mellitus complication status: with kidney complications Diabetes mellitus complication detail: with chronic kidney disease Diabetes mellitus extermination inspector insulin use: with care home use Chronic kidney disease stage: on chronic dialysis Qualified Code(s): E11.22 - Type 2 diabetes mellitus with diabetic chronic kidney disease; N18.6 - End stage renal disease; Z79.4 - termite control representative (current) use of insulin; Z99.2 - Dependence on renal dialysis (7) Hyperlipidemia SNOMED Code(s): 96205725 Code(s): E78.5 - HYPERLIPIDEMIA, UNSPECIFIED Status: Chronic Priority: Low Qualifiers: Hyperlipidemia type: unspecified Qualified Code(s): E78.5 - Hyperlipidemia , unspecified (8) Hypertension SNOMED Code(s): 61160553 Code(s): I10 - ESSENTIAL (PRIMARY) HYPERTENSION Status: Chronic Priority : Low Qualifiers: Hypertension type: renovascular hypertension Qualified Code(s): I15.0 - Renovascular hypertension (9) Morbid obesity SNOMED Code(s): 102519697, 90133807801209 Code(s): E66.01 - MORBID (SEVERE) OBESITY DUE TO EXCESS CALORIES Status: Chronic Priority: Medium Qualifiers: Obesity type: unspecified obesity type Qualified Code(s): E66.01 - Morbid ( severe) obesity due to excess calories (10) Shortness of breath SNOMED Code(s): 190026295 Code(s): R06.02 - SHORTNESS OF BREATH Status: Chronic Priority: High (11) Weakness SNOMED Code(s): 86669798 Code(s): R53.1 - WEAKNESS Status: Chronic Priority: High - Problem List Review Problem List Initiated/Reviewed/Updated: Yes - My Orders Last 24 Hours: My Active Orders 02/17/17 17:17 LORazepam [Ativan] 0.5 mg PO TID PRN - Plan Plan:: Patient admitted back to swing bed for PT/OT and monitoring. Continue home dialysis with her as directed by nephrology. Meds continued. 02/13/17 - Patient doing well with improved Pt/Ot and strength. Patient feels better and stronger with more ability to ambulate. Continue dialysis as directed and monitoring of fistula. 02/18/17 - Patient has no concerns but is anxious of discharge planning. Patient has improved strength and her fistula continues to be stable. Continued improvement with PT/OT.
[2017-02-18] MEDS: Melatonin 3 MG Tab PO SCH (20:03)
[2017-02-18] MEDS: atorvaSTATin 40 MG Tab PO SCH (20:03)
[2017-02-19] MEDS: Levothyroxine 100 MCG Tab PO SCH (07:37)
[2017-02-19] MEDS: Levothyroxine 25 MCG Tab PO SCH (07:37)
[2017-02-19] MEDS: DULoxetine 30 MG Cap PO SCH (07:38)
[2017-02-19] MEDS: Metoprolol Tartrate 25 MG Tab PO SCH ×2 (07:38→20:16)
[2017-02-19] MEDS: Gabapentin 300 MG Cap PO SCH (07:41)
[2017-02-19] MEDS: Ciprofloxacin 500 MG Tab PO SCH ×2 (07:41→20:16)
[2017-02-19] MEDS: Diltiazem 120 MG Cap.CD PO SCH (07:41)
[2017-02-19] MEDS: Amiodarone 200 MG Tab PO SCH (07:41)
[2017-02-19] MEDS: Aspirin 81 MG Tab.EC PO SCH (07:41)
[2017-02-19] MEDS: Ferrous Sulfate 325 MG Tab PO SCH ×2 (07:42→17:22)
[2017-02-19] MEDS: Allopurinol 100 MG Tab PO SCH (07:42)
[2017-02-19] MEDS: Mupirocin Oint 22 GM Tube TOP SCH ×3 (07:49→20:12)
[2017-02-19] MEDS: Fluticasone Propionate Nasal Spray 16 GM Bottle NASBOTH SCH (07:49)
[2017-02-19] MEDS: [UNRECOGNIZED DRUG - OTHER] PO SCH (07:49)
[2017-02-19] MEDS: cloNIDine 0.1 MG Tab PO SCH (07:49)
[2017-02-19] MEDS: LORazepam 0.5 MG Tab PO PRN ×3 (07:50→23:21)
[2017-02-19] MEDS: Nystatin Crm 30 GM Tube TOP SCH ×2 (07:50→20:16)
[2017-02-19] MEDS: Insulin Detemir 100 Units/ML 3 ML Pen SUBCUT SCH ×2 (07:51→20:25)
[2017-02-19] MEDS: Insulin Aspart 100 Units/ML 3 ML Pen SUBCUT SCH ×3 (07:51→17:22)
--- NOTE | 2017-02-19 11:58 | PCM.SN ---
- Free Text/Narrative Note: Patient will be discontinued from clonidine due to consistently low bp. Trial of requip and d/c gabapentin. F/u symptoms. Patient stable and will continue to manage/monitor.
[2017-02-19] MEDS: rOPINIRole 0.25 MG Tab PO SCH ×2 (14:12→20:15)
[2017-02-19] MEDS: atorvaSTATin 40 MG Tab PO SCH (20:15)
[2017-02-19] MEDS: Melatonin 3 MG Tab PO SCH (20:15)
[2017-02-20] MEDS: Ferrous Sulfate 325 MG Tab PO SCH ×2 (07:23→17:02)
[2017-02-20] MEDS: Ciprofloxacin 500 MG Tab PO SCH ×2 (07:23→21:00)
[2017-02-20] MEDS: Aspirin 81 MG Tab.EC PO SCH (07:24)
[2017-02-20] MEDS: Levothyroxine 25 MCG Tab PO SCH (07:24)
[2017-02-20] MEDS: Levothyroxine 100 MCG Tab PO SCH (07:24)
[2017-02-20] MEDS: Allopurinol 100 MG Tab PO SCH (07:24)
[2017-02-20] MEDS: Metoprolol Tartrate 25 MG Tab PO SCH ×2 (07:25→21:02)
[2017-02-20] MEDS: rOPINIRole 0.25 MG Tab PO SCH ×3 (07:25→20:59)
[2017-02-20] MEDS: DULoxetine 30 MG Cap PO SCH (07:25)
[2017-02-20] MEDS: Amiodarone 200 MG Tab PO SCH (07:26)
[2017-02-20] MEDS: Diltiazem 120 MG Cap.CD PO SCH (07:26)
[2017-02-20] MEDS: Mupirocin Oint 22 GM Tube TOP SCH ×3 (07:27→20:59)
[2017-02-20] MEDS: LORazepam 0.5 MG Tab PO PRN ×3 (07:31→22:04)
[2017-02-20] MEDS: Fluticasone Propionate Nasal Spray 16 GM Bottle NASBOTH SCH (07:32)
[2017-02-20] MEDS: Insulin Detemir 100 Units/ML 3 ML Pen SUBCUT SCH ×2 (07:33→21:11)
[2017-02-20] MEDS: [UNRECOGNIZED DRUG - OTHER] PO SCH (07:34)
[2017-02-20] MEDS: Nystatin Crm 30 GM Tube TOP SCH ×2 (07:36→21:02)
[2017-02-20] MEDS: Insulin Aspart 100 Units/ML 3 ML Pen SUBCUT SCH ×3 (07:36→17:03)
[2017-02-20] MEDS: atorvaSTATin 40 MG Tab PO SCH (20:59)
[2017-02-20] MEDS: Melatonin 3 MG Tab PO SCH (21:03)
[2017-02-21] MEDS: Levothyroxine 25 MCG Tab PO SCH (07:12)
[2017-02-21] MEDS: Levothyroxine 100 MCG Tab PO SCH (07:13)
[2017-02-21] MEDS: Insulin Aspart 100 Units/ML 3 ML Pen SUBCUT SCH ×2 (08:19→12:22)
[2017-02-21] MEDS: Ciprofloxacin 500 MG Tab PO SCH (08:19)
[2017-02-21] MEDS: Insulin Detemir 100 Units/ML 3 ML Pen SUBCUT SCH (08:20)
[2017-02-21] MEDS: Metoprolol Tartrate 25 MG Tab PO SCH (08:21)
[2017-02-21] MEDS: Ferrous Sulfate 325 MG Tab PO SCH (08:22)
[2017-02-21] MEDS: Aspirin 81 MG Tab.EC PO SCH (08:22)
[2017-02-21] MEDS: rOPINIRole 0.25 MG Tab PO SCH ×2 (08:23→14:12)
[2017-02-21] MEDS: Amiodarone 200 MG Tab PO SCH (08:24)
[2017-02-21] MEDS: DULoxetine 30 MG Cap PO SCH (08:24)
[2017-02-21] MEDS: Diltiazem 120 MG Cap.CD PO SCH (08:24)
[2017-02-21] MEDS: Allopurinol 100 MG Tab PO SCH (08:25)
[2017-02-21] MEDS: [UNRECOGNIZED DRUG - OTHER] PO SCH (08:25)
[2017-02-21] MEDS: LORazepam 0.5 MG Tab PO PRN ×2 (08:43→14:12)
[2017-02-21] MEDS: Mupirocin Oint 22 GM Tube TOP SCH (08:48)
[2017-02-21] MEDS: Nystatin Crm 30 GM Tube TOP SCH (08:55)
[2017-02-21] MEDS: Fluticasone Propionate Nasal Spray 16 GM Bottle NASBOTH SCH (09:00)
[2017-02-21] MEDS ORDERED: Potassium Chloride 20 MEQ Tab.ER PO ONE (11:38)
[2017-02-21 15:31] VITALS: BP 103/58
--- NOTE | 2017-02-27 16:41 | PCM.DCSUM1 ---
Discharge Summary - Discharge Data Discharge Date: 02/21/17 Discharge Disposition: Home, Self-Care 01 Condition: Good - Discharge Diagnosis/Problem(s) (1) Kidney failure SNOMED Code(s): 59024412 ICD Code: N19 - UNSPECIFIED KIDNEY FAILURE Status: Acute Priority: Medium (2) Uncontrolled diabetes mellitus SNOMED Code(s): 570855022 ICD Code: E11.65 - TYPE 2 DIABETES MELLITUS WITH HYPERGLYCEMIA Status: Acute Priority: Medium (3) Anemia SNOMED Code(s): 663304386 ICD Code: D64.9 - ANEMIA, UNSPECIFIED Status: Chronic Priority: High Onset Date: ~10/09/16 Qualifiers: Other causes of anemia: chronic disease, kidney (4) Atrial fibrillation with rapid ventricular response SNOMED Code(s): 246262190639805 ICD Code: I48.91 - UNSPECIFIED ATRIAL FIBRILLATION Status: Chronic Priority: Medium (5) CHF (congestive heart failure) SNOMED Code(s): 46646460 ICD Code: I50.9 - HEART FAILURE, UNSPECIFIED Status: Chronic Priority: High Qualifiers: Congestive heart failure type: systolic Congestive heart failure chronicity : unspecified congestive heart failure chronicity Qualified Code(s): I50.20 - Unspecified systolic (congestive) heart failure (6) Diabetes mellitus SNOMED Code(s): 18277530 ICD Code: E11.9 - TYPE 2 DIABETES MELLITUS WITHOUT COMPLICATIONS Status: Chronic Priority: Low Qualifiers: Diabetes mellitus type: type 2 Diabetes mellitus complication status: with kidney complications Diabetes mellitus complication detail: with chronic kidney disease Diabetes mellitus fci insulin use: with exterminator helper termite use Chronic kidney disease stage: on chronic dialysis Qualified Code(s): E11.22 - Type 2 diabetes mellitus with diabetic chronic kidney disease; N18.6 - End stage renal disease; Z79.4 - intermodal dispatcher (current) use of insulin; Z99.2 - Dependence on renal dialysis (7) Hyperlipidemia SNOMED Code(s): 52850370 ICD Code: E78.5 - HYPERLIPIDEMIA, UNSPECIFIED Status: Chronic Priority: Low Qualifiers: Hyperlipidemia type: unspecified Qualified Code(s): E78.5 - Hyperlipidemia , unspecified (8) Hypertension SNOMED Code(s): 86552463 ICD Code: I10 - ESSENTIAL (PRIMARY) HYPERTENSION Status: Chronic Priority : Low Qualifiers: Hypertension type: renovascular hypertension Qualified Code(s): I15.0 - Renovascular hypertension (9) Morbid obesity SNOMED Code(s): 223498156, 72869262341740 ICD Code: E66.01 - MORBID (SEVERE) OBESITY DUE TO EXCESS CALORIES Status: Chronic Priority: Medium Qualifiers: Obesity type: unspecified obesity type Qualified Code(s): E66.01 - Morbid ( severe) obesity due to excess calories (10) Shortness of breath SNOMED Code(s): 856680399 ICD Code: R06.02 - SHORTNESS OF BREATH Status: Chronic Priority: High (11) Weakness SNOMED Code(s): 23946644 ICD Code: R53.1 - WEAKNESS Status: Chronic Priority: High - Patient Summary/Data Consults: Consultations 02/03/17 15:59 OT Evaluation and Treatment [CONS] Routine Please Evaluate and Treat. OT Reason for Consult: ADL's Pending Discharge: No This query below is only for informational purposes and is not editable. Admission Diagnosis/Problem: Weakness PT Evaluation and Treatment [CONS] Routine Please Evaluate and Treat. PT Reason for Consult: Strengthening This query below is only for informational purposes and is not editable. Admission Diagnosis/Problem: Weakness 02/16/17 08:31 Consult to Admission Nurse [CONS] Routine Comment: Physician Instructions: Quantity: Consult to Home Health [CONS] Routine Comment: Physician Instructions: Consult to Infection Prevention [CONS] Routine Comment: Physician Instructions: Consult to Aged Or Disabled Carer [CONS] Routine Comment: Physician Instructions: Consult to Wound Care Services [CONS] Routine Comment: Physician Instructions: OT Evaluation and Treatment [CONS] Routine Please Evaluate and Treat. OT Reason for Consult: ADL's This query below is only for informational purposes and is not editable. Admission Diagnosis/Problem: Weakness PT Evaluation and Treatment [CONS] Routine Please Evaluate and Treat. PT Reason for Consult: Ambulation This query below is only for informational purposes and is not editable. Admission Diagnosis/Problem: Weakness - Patient Instructions Diet: Renal Diet Fluid Restriction: 1500 mL Activity: As Tolerated, Full Weight Bearing Driving: Do Not Drive Showering/Bathing: May Shower - Discharge Plan Prescriptions/Med Rec: Milnacipran HCl [Savella] 12.5 mg PO DAILY #60 tablet Potassium Chloride [Klor-Con M20] 20 meq PO BEDTIME #30 tab.er rOPINIRole [Requip] 0.25 mg PO TID #60 tablet Home Medications: Home Meds Glucagon,Human Recombinant [Glucagen] 1 mg SUBCUT ASDIRECTED PRN 02/03/16 [ History] Metoprolol Tartrate 0.5 tab PO BID 02/03/16 [History] traZODone 100 mg PO BEDTIME 04/25/16 [History] Allopurinol [Zyloprim] 100 mg PO DAILY tablet 12/27/16 [Rx] LORazepam [Ativan] 0.5 mg PO TID tablet 12/27/16 [Rx] DULoxetine [Cymbalta] 30 mg PO DAILY 02/03/17 [History] Diltiazem HCl [Diltiazem ER] 120 mg PO DAILY 02/03/17 [History] Fluticasone Propionate [Flovent] 50 mcg IH BID 02/03/17 [History] Insulin Aspart [Novolog Flexpen] 15 units SQ TIDAC 02/03/17 [History] Insulin Glarg,Human.Rec.Analog [Lantus Solostar] 30 units SQ BID 02/03/17 [ History] Ipratropium [Atrovent] 0.5 mg INH QID 02/03/17 [History] Levothyroxine Sodium [Levoxyl] 225 mcg PO DAILY 02/03/17 [History] Magnesium Hydroxide [Milk of Magnesia] 30 ml PO DAILY 02/03/17 [History] Nystatin [Nystatin Crm] 30 gm TOP BID 02/03/17 [History] Acetaminophen [Tylenol Extra Strength] 1,000 mg PO Q4H PRN #30 tablet 02/21/17 [ Rx] Albuterol [IJD: Albuterol HFA] 0 - 2 gm INH Q6H PRN #1 inhaler 02/21/17 [Rx] Amiodarone [Cordarone] 200 mg PO DAILY tablet 02/21/17 [Rx] Aspirin [Halfprin] 81 mg PO DAILY tab.ec 02/21/17 [Rx] Calcitriol [Rocaltrol] 0.5 mcg PO MoFr 02/21/17 [Rx] Darbepoetin Jerel in Polysorbat [Aranesp] 0 - 150 mcg SUBCUT Q14D 02/21/17 [Rx] Diclofenac Sodium [Voltaren 1% Gel] 0 - 1 gm TOP QID PRN #1 tube 04/18/17 [Rx] Ferrous Sulfate 325 mg PO BIDMEALS tablet 02/21/17 [Rx] Lidocaine/Prilocaine [EMLA Crm] 1 gm TOP ASDIRECTED kit 02/21/17 [Rx] Melatonin 3 mg PO BEDTIME tablet 02/21/17 [Rx] Milnacipran HCl [Savella] 12.5 mg PO DAILY #60 tablet 02/21/17 [Rx] Mupirocin Oint [Bactroban Oint] 0 gm TOP TID tube 02/21/17 [Rx] Nitroglycerin [IJP: Nitroglycerin] 0.4 mg SL ASDIRECTED PRN #0 tablet, sublingual 02/21/17 [Rx] Non-Formulary Medication [NF Drug] 1 each PO DAILY each 02/21/17 [Rx] Potassium Chloride [Klor-Con M20] 20 meq PO BEDTIME #30 tab.er 02/21/17 [Rx] Sodium Bicarbonate [Sodium Bicarbonate] 650 mg PO BID 02/21/17 [Rx] atorvaSTATin [Lipitor] 40 mg PO BEDTIME tablet 02/21/17 [Rx] rOPINIRole [Requip] 0.25 mg PO TID #60 tablet 02/21/17 [Rx] - Discharge Summary/Plan Comment DC Time >30 min.: Yes Discharge Summary/Plan Comment: Counseled on discharge from swing bed. Patient is very anxious with discussion of discharge. She states she feels strong enough but is anxious. Discussed PT/ OT recommendations and f/u. Patient agrees with discharge plan and f/u. Counseled on medications and f/u in clinic. - Patient Data Vitals - Most Recent: Last Vital Signs Temp 36.6 C 02/20/17 10:00 Pulse 72 02/21/17 14:15 Resp 18 02/21/17 14:15 BP 103/58 L 02/21/17 14:15 Pulse Ox 10 L 02/21/17 14:15 Weight - Most Recent: 109.486 kg Med Orders - Current: Current Medications Discontinued Medications Acetaminophen (Tylenol Extra Strength) 1,000 mg PO Q4H PRN PRN Reason: Pain Last Admin: 02/16/17 13:04 Dose: 1,000 mg Hydrocodone Bitart/Acetaminophen ([place] 325-5 Mg) 1 tab PO ONETIME ONE Stop: 02/05/17 23:27 Last Admin: 02/05/17 23:36 Dose: 1 tab Hydrocodone Bitart/Acetaminophen ([place] 325-10 Mg) Confirm Administered Dose 1 tab .ROUTE .STK-MED ONE Stop: 02/05/17 23:35 Last Admin: 02/05/17 23:37 Dose: Not Given Albuterol (Ventolin Hfa) 0 - 2 gm INH Q6H PRN PRN Reason: Shortness of Breath Allopurinol (Zyloprim) 100 mg PO DAILY [facility] Last Admin: 02/21/17 08:25 Dose: 100 mg Amiodarone HCl (Cordarone) 200 mg PO DAILY [facility] Last Admin: 02/21/17 08:24 Dose: 200 mg Aspirin (Halfprin) 81 mg PO DAILY [facility] Last Admin: 02/21/17 08:22 Dose: 81 mg Atorvastatin Calcium (Lipitor) 40 mg PO BEDTIME [facility] Last Admin: 02/20/17 20:59 Dose: 40 mg Calcium Carbonate/Glycine (Tums) Confirm Administered Dose 500 mg .ROUTE .STK- MED ONE Stop: 02/08/17 03:14 Last Admin: 02/08/17 03:15 Dose: 500 mg Ciprofloxacin (Ciprofloxacin Hcl) 500 mg PO BID [facility] Stop: 02/21/17 08:01 Last Admin: 02/21/17 08:19 Dose: 500 mg Ciprofloxacin (Ciprofloxacin Hcl) Confirm Administered Dose 500 mg .ROUTE .STK- MED ONE Stop: 02/16/17 17:09 Last Admin: 02/16/17 17:15 Dose: Not Given Clonidine HCl (Catapres) 0.1 mg PO Q12HR [facility] Last Admin: 02/19/17 07:49 Dose: Not Given Diclofenac Sodium (Voltaren 1% Gel) 0 - 1 gm TOP QID PRN PRN Reason: Pain Diltiazem HCl (Cardizem Cd) 240 mg PO DAILY [facility] Diltiazem HCl (Cardizem Cd) 120 mg PO DAILY [facility] Last Admin: 02/21/17 08:24 Dose: 120 mg Duloxetine HCl (Cymbalta) 30 mg PO DAILY [facility] Last Admin: 02/21/17 08:24 Dose: 30 mg Ergocalciferol (Vitamin D2) 50,000 units PO ASDIRECTED [facility] Ferrous Sulfate (Ferrous Sulfate) 325 mg PO BIDMEALS [facility] Last Admin: 02/21/17 08:22 Dose: 325 mg Fish Oil (Fish Oil) 1 gm PO DAILY [facility] Fluticasone Propionate (Flonase) 0 - 2 gm NASBOTH DAILY [facility] Last Admin: 02/21/17 09:00 Dose: 2 spr Gabapentin (Neurontin) 600 mg PO TID [facility] Last Admin: 02/04/17 16:03 Dose: Not Given Gabapentin (Neurontin) 600 mg PO DAILY [facility] Last Admin: 02/09/17 08:00 Dose: 600 mg Gabapentin (Neurontin) 300 mg PO DAILY [facility] Last Admin: 02/14/17 07:56 Dose: 300 mg Gabapentin (Neurontin) 300 mg PO DAILY [facility] Last Admin: 02/19/17 07:41 Dose: 300 mg Gabapentin (Neurontin) Confirm Administered Dose 300 mg .ROUTE .STK-MED ONE Stop: 02/16/17 13:32 Last Admin: 02/16/17 13:53 Dose: Not Given Glucagon (Glucagen) 1 mg IV ONETIME PRN PRN Reason: Hypoglycemia Insulin Aspart (Novolog) 45 unit SUBCUT BIDMEALS [facility] Insulin Aspart (Novolog) 15 unit SUBCUT TIDMEALS [facility] Last Admin: 02/21/17 12:22 Dose: 15 units Insulin Detemir (Levemir) 15 unit SUBCUT BID [facility] Last Admin: 02/03/17 20:25 Dose: 15 units Insulin Detemir (Levemir) 30 unit SUBCUT BID [facility] Last Admin: 02/21/17 08:20 Dose: 30 units Insulin Glargine (Lantus Solostar) 50 units SUBCUT BID [facility] Ipratropium [place] (Atrovent) 0.5 mg INH QID [facility] Last Admin: 02/15/17 16:04 Dose: Not Given Levothyroxine Sodium (Synthroid) 200 mcg PO ACBREAKFAST [facility] Levothyroxine Sodium (Levothyroxine) 25 mcg PO ACBREAKFAST [facility] Last Admin: 02/21/17 07:12 Dose: 25 mcg Levothyroxine Sodium (Synthroid) 200 mcg PO ACBREAKFAST [facility] Last Admin: 02/21/17 07:13 Dose: 200 mcg Lidocaine/Prilocaine (Emla Crm) 1 gm TOP ASDIRECTED [facility] Lorazepam (Ativan) 0.5 mg PO TID [facility] Last Admin: 02/13/17 17:18 Dose: Not Given Lorazepam (Ativan) 0.25 mg PO TID PRN PRN Reason: Agitation Last Admin: 02/17/17 16:30 Dose: 0.25 mg Lorazepam (Ativan) 0.5 mg PO TID PRN PRN Reason: Anxiety Last Admin: 02/21/17 14:12 Dose: 0.5 mg Lorazepam (Ativan) Confirm Administered Dose 0.5 mg .ROUTE .[facility]-MED ONE Stop: 02/17/17 17:35 Last Admin: 02/17/17 17:36 Dose: Not Given Magnesium Hydroxide (Milk Of Magnesia) 30 ml PO BEDTIME [facility] Last Admin: 02/12/17 19:34 Dose: Not Given Magnesium Hydroxide (Milk Of Magnesia) 30 ml PO DAILY PRN PRN Reason: Constipation Melatonin (Melatonin) 3 mg PO BEDTIME [facility] Last Admin: 02/20/17 21:03 Dose: 3 mg Metoclopramide HCl (Reglan) 10 mg PO QID PRN PRN Reason: Nausea Metoprolol Tartrate (Lopressor) mg PO BID [facility] Metoprolol Tartrate (Lopressor) 25 mg PO Q12HR [facility] Last Admin: 02/21/17 08:21 Dose: 25 mg Mupirocin (Bactroban Oint) 0 gm TOP TID [facility] Last Admin: 02/21/17 08:48 Dose: 1 applic Nitroglycerin (Nitrostat) 0.4 mg SL ASDIRECTED PRN PRN Reason: Chest Pain (Calcitriol [ (Rocaltrol] 0.5 Mcg)) 0.5 mcg PO ASDIRECTED [facility] Non-Formulary Medication (Darbepoetin Jerel In Polysorbat [Aranesp]) 0 - 150 mcg SUBCUT Q14D [facility] Last Admin: 02/14/17 12:40 Dose: Not Given Non-Formulary Medication (Haloperidol [Haldol]) 4 mg PO BEDTIME [facility] Non-Formulary Medication (Ondansetron [Zofran]) 4 mg PO Q4H PRN PRN Reason: Nausea (Sodium Bicarbonate [Sodium Bicarbonate] 650 Mg) 650 mg PO BID [facility] Last Admin: 02/21/17 08:25 Dose: 650 mg Salvella 12.5mg (Tablets) 1 each PO DAILY [facility] Last Admin: 02/21/17 08:25 Dose: 1 each (Calcitriol [ (Rocaltrol] 0.5 Mcg)) 0.5 mcg PO MoFr [facility] Last Admin: 02/20/17 12:05 Dose: 0.5 mcg Nystatin (Nystatin Crm) 0 gm TOP BID [facility] Last Admin: 02/21/17 08:55 Dose: Not Given Ondansetron HCl (Zofran Odt) 4 mg PO Q4H [facility] Last Admin: 02/04/17 08:41 Dose: Not Given Ondansetron HCl (Zofran Odt) 4 mg PO Q4H PRN PRN Reason: Nausea/Vomiting Last Admin: 02/20/17 18:18 Dose: 4 mg Potassium Chloride (Klor-Con M20) 40 meq PO ONETIME ONE Stop: 02/21/17 11:39 Last Admin: 02/21/17 12:08 Dose: 40 meq Ropinirole HCl (Requip) 0.25 mg PO TID [facility] Last Admin: 02/21/17 14:12 Dose: 0.25 mg Trazodone HCl (Trazodone) 100 mg PO BEDTIME [facility] Last Admin: 02/13/17 19:53 Dose: 100 mg Tuberculin PPD (Aplisol) 5 unit IDERM ONETIME ONE Stop: 02/16/17 08:32 Last Admin: 02/16/17 13:49 Dose: 5 unit *Q Meaningful Use (DIS) - VTE *Q VTE Criteria *Q: - Stroke *Q Stroke Criteria *Q: - AMI *Q AMI Criteria *Q:
== END 2017-02-21 14:30 | disposition home or self-care (01) | DRG 947 ==
LOC: LB.MS 15:09
PROVIDERS: ADMIT Family Medicine; ATTEND Family Medicine
DX: R53.1 Weakness (principal); N18.6 End stage renal disease; I50.20 Unspecified systolic (congestive) heart failure; I13.2 Hypertensive heart and chronic kidney disease with heart failure and with stage 5 chronic kidney disease, or end stage renal disease; D69.3 Immune thrombocytopenic purpura; E11.65 Type 2 diabetes mellitus with hyperglycemia; E11.22 Type 2 diabetes mellitus with diabetic chronic kidney disease; Z99.2 Dependence on renal dialysis; Z87.891 Personal history of nicotine dependence; Z79.4 Long term (current) use of insulin; E03.9 Hypothyroidism, unspecified; D63.1 Anemia in chronic kidney disease; M10.9 Gout, unspecified; M54.9 Dorsalgia, unspecified; M19.90 Unspecified osteoarthritis, unspecified site; G89.29 Other chronic pain; I25.2 Old myocardial infarction; F41.9 Anxiety disorder, unspecified; E78.5 Hyperlipidemia, unspecified; F32.9 Major depressive disorder, single episode, unspecified; F43.10 Post-traumatic stress disorder, unspecified; I48.91 Unspecified atrial fibrillation; E66.01 Morbid (severe) obesity due to excess calories; Z95.1 Presence of aortocoronary bypass graft; G47.30 Sleep apnea, unspecified; H54.7 Unspecified visual loss; Z79.82 Long term (current) use of aspirin; Z88.1 Allergy status to other antibiotic agents; Z88.8 Allergy status to other drugs, medicaments and biological substances; Z88.5 Allergy status to narcotic agent; Z91.010 Allergy to peanuts
CPT/HCPCS: 36415; 80053; 82962; 83880; 84443; 85025; 86580; 97110-GO; 97110-GP; 97116-GP; 97161-GP; 97165-GO; 97530-GO; 97535-GO; A9270-GY

== ENCOUNTER 2017-05-11 11:07 | Emergency (ER) | payer MEDICARE, BC ==
[2017-05-11 12:59] VITALS: BP 120/65
--- NOTE | 2017-05-11 13:17 | EDM.PDOC ---
ED HPI GENERAL MEDICAL PROBLEM - General Chief Complaint: General Stated Complaint: fall Time Seen by Provider: 05/11/17 11:50 Source of Information: Reports: Patient History Limitations: Reports: No Limitations - History of Present Illness INITIAL COMMENTS - FREE TEXT/NARRATIVE: This is a 66yo F who stated she fell last night and was unable to get up. She called EMS this am and was brought in. Patient states she did not lose consciousness but did hit her right side of her head and bumped her right leg above the knee. Patient states she has some pain of the face, no headache and no other injuries. She states she couldn't get up but when asked about her knee she is able to move and walk on the right leg after the fall. Patient denies any syncope, no sob, no chest pain, but states she has felt sob when lying down for months. Onset: Sudden Location: Reports: Head Quality: Reports: Ache Severity: Mild Improves with: Reports: None Worsens with: Reports: None Context: Reports: Other (fall) Treatments BLOCK PAVER: Reports: Acetaminophen - Related Data Allergies Allergy/AdvReac Type Severity Reaction Status Date / Time peanut Allergy Mild Other Verified 05/11/17 13:47 codeine Allergy Hives Verified 05/11/17 13:47 erythromycin lactobionate Allergy Hives Verified 05/11/17 13:47 [From Erythrocin] metformin AdvReac Other Verified 05/11/17 13:47 Home Meds: Home Meds Glucagon,Human Recombinant [Glucagen] 1 mg SUBCUT ASDIRECTED PRN 02/03/16 [ History] Metoprolol Tartrate 0.5 tab PO BID 02/03/16 [History] traZODone 100 mg PO BEDTIME 04/25/16 [History] Allopurinol [Zyloprim] 100 mg PO DAILY tablet 12/27/16 [Rx] LORazepam [Ativan] 0.5 mg PO TID tablet 12/27/16 [Rx] DULoxetine [Cymbalta] 30 mg PO DAILY 02/03/17 [History] Diltiazem HCl [Diltiazem ER] 120 mg PO DAILY 02/03/17 [History] Fluticasone Propionate [Flovent] 50 mcg IH BID 02/03/17 [History] Insulin Aspart [Novolog Flexpen] 15 units SQ TIDAC 02/03/17 [History] Insulin Glarg,Human.Rec.Analog [Lantus Solostar] 30 units SQ BID 02/03/17 [ History] Ipratropium [Atrovent] 0.5 mg INH QID 02/03/17 [History] Levothyroxine Sodium [Levoxyl] 225 mcg PO DAILY 02/03/17 [History] Magnesium Hydroxide [Milk of Magnesia] 30 ml PO DAILY 02/03/17 [History] Nystatin [Nystatin Crm] 30 gm TOP BID 02/03/17 [History] Acetaminophen [Tylenol Extra Strength] 1,000 mg PO Q4H PRN #30 tablet 02/21/17 [ Rx] Albuterol [IJD: Albuterol HFA] 0 - 2 gm INH Q6H PRN #1 inhaler 02/21/17 [Rx] Amiodarone [Cordarone] 200 mg PO DAILY tablet 02/21/17 [Rx] Aspirin [Halfprin] 81 mg PO DAILY tab.ec 02/21/17 [Rx] Calcitriol [Rocaltrol] 0.5 mcg PO MoFr 02/21/17 [Rx] Darbepoetin Jerel in Polysorbat [Aranesp] 0 - 150 mcg SUBCUT Q14D 02/21/17 [Rx] Diclofenac Sodium [Voltaren 1% Gel] 0 - 1 gm TOP QID PRN #1 tube 02/21/17 [Rx] Ferrous Sulfate 325 mg PO BIDMEALS tablet 02/21/17 [Rx] Lidocaine/Prilocaine [EMLA Crm] 1 gm TOP ASDIRECTED kit 02/21/17 [Rx] Melatonin 3 mg PO BEDTIME tablet 02/21/17 [Rx] Milnacipran HCl [Savella] 12.5 mg PO DAILY #60 tablet 02/21/17 [Rx] Mupirocin Oint [Bactroban Oint] 0 gm TOP TID tube 02/21/17 [Rx] Nitroglycerin [IJP: Nitroglycerin] 0.4 mg SL ASDIRECTED PRN #0 tablet, sublingual 02/21/17 [Rx] Non-Formulary Medication [NF Drug] 1 each PO DAILY each 02/21/17 [Rx] Potassium Chloride [Klor-Con M20] 20 meq PO BEDTIME #30 tab.er 02/21/17 [Rx] Sodium Bicarbonate [Sodium Bicarbonate] 650 mg PO BID 02/21/17 [Rx] atorvaSTATin [Lipitor] 40 mg PO BEDTIME tablet 02/21/17 [Rx] rOPINIRole [Requip] 0.25 mg PO TID #60 tablet 02/21/17 [Rx] Past Medical History HEENT History: Reports: Epistaxis, Impaired Vision, Other (See Below) Other HEENT History: photosensitive, ringing in ears- chronic, cracking in ears currently Cardiovascular History: Reports: High Cholesterol, Hypertension, [place] Respiratory History: Reports: Asthma, Sleep Apnea, SOB, Other (See Below) Other Respiratory History: doesn't use CPAP because of mask doesn't work - one cased scab on nose, one cased claustraphobia Gastrointestinal History: Reports: Chronic Diarrhea, GERD, Hemorrhoids Genitourinary History: Reports: Dialysis, Diabetic Nephropathy, Renal Disease, Other (See Below) Other Genitourinary History: home dialysis 2.5 hr 6 days per week [employer]IVER History: Reports: Musculoskeletal History: Reports: Arthritis, Back Pain, Chronic, Gout, Neck Pain , Chronic, Other (See Below) Other Musculoskeletal History: chronic shoulder pain, arthritis all over Neurological History: Reports: Migraines, Vertigo Psychiatric History: Reports: Anxiety, Depression, PTSD Endocrine/Metabolic History: Reports: Diabetes, Type II, Hypothyroidism Hematologic History: Reports: Anemia, B12 Deficiency, Idiopathic Thrombocytopenia Immunologic History: Reports: Immunosuppression Oncologic (Cancer) History: Reports: None Dermatologic History: Reports: None - Infectious Disease History Infectious Disease History: Reports: Chicken Pox, Measles, Mumps - Past Surgical History Head Surgeries/Procedures: Reports: Shunt HEENT Surgical History: Reports: Cataract Surgery, Other (See Below) Cardiovascular Surgical History: Reports: Other (See Below) GI Surgical History: Reports: Appendectomy, Cholecystectomy, Other (See Below) Female Surgical History: Reports: Tubal Ligation Social & Family History - Family History Family Medical History: Noncontributory - Tobacco Use Smoking Status *Q: Never Smoker Years of Tobacco use: 10 Packs/Tins Daily: 2 Used Tobacco, but Quit: Yes Month Tobacco Last Used: dece Second Hand Smoke Exposure: No - Caffeine Use Caffeine Use: Reports: Tea, Other Other Caffeine Use: chocolate - Recreational Drug Use Recreational Drug Use: No ED ROS GENERAL - Review of Systems Review Of Systems: ROS reveals no pertinent complaints other than HPI. ED EXAM, GENERAL - Physical Exam Exam: See Below Exam Limited By: No Limitations General Appearance: Alert, WD/WN, Mild Distress Eye Exam: Bilateral Eye: EOMI, PERRL Ears: Normal External Exam Nose: Normal Inspection Throat/Mouth: Normal Inspection Head: Normocephalic, Facial Swelling, Facial Tenderness Neck: Normal Inspection, Supple Respiratory/Chest: No Respiratory Distress, Crackles (at bases b/l) Cardiovascular: Normal Peripheral Pulses, Regular Rate, Rhythm Peripheral Pulses: 1+: Dorsalis Pedis (L), Dorsalis Pedis (R) GI/Abdominal: Normal Bowel Sounds Extremities: Pedal Edema Neurological: Alert, Oriented, CN II-XII Intact Course - Vital Signs Last Recorded V/S: Last Vital Signs Temp 36.7 C 05/11/17 12:20 Pulse 58 L 05/11/17 12:20 Resp 20 05/11/17 11:59 BP 120/65 05/11/17 12:20 Pulse Ox 99 05/11/17 12:20 - Orders/Labs/Meds Orders: Active Orders 24 hr Category Date Time Status Head wo Cont [CT] Stat Exams 05/11/17 11:57 Taken Max Facial Sinus wo Cont [CT] Stat Exams 05/11/17 11:57 Taken Labs: Laboratory Tests 05/11/17 05/11/17 05/11/17 Range/Units 11:58 12:45 12:45 WBC 5.1 (4.0-11.0) K/uL RBC 2.65 L (3.80-5.80) M/uL Hgb 8.2 L (11.5-16.5) g/dL Hct 24.9 L (37.0-47.0) % MCV 94 (76-96) fL MCH 30.9 (27.0-32.0) pg MCHC 32.9 (31.0-35.0) g/dL RDW 16.7 H (11.0-16.0) % Plt Count 57 L D (150-500) K/uL MPV 12.4 H (6.0-10.0) fL Neut % (Auto) 71.2 H (45.0-70.0) % Lymph % (Auto) 17.3 L (20.0-40.0) % [place] % (Auto) 7.6 (3.0-10.0) % Eos % (Auto) 2.9 (1.0-5.0) % Baso % (Auto) 1.0 H (0.0-0.5) % Neut # (Auto) 3.66 (2.00-7.50) K/uL Lymph # (Auto) 0.89 L (1.50-4.00) K/uL [place] # (Auto) 0.39 (0.20-0.80) K/uL Eos # (Auto) 0.15 (0.04-0.40) K/uL Baso # (Auto) 0.05 (0.02-0.10) K/uL Sodium 130 L (136-145) mmol/L Potassium 3.6 (3.5-5.1) mmol/L Chloride 92 L (98-107) mmol/L Carbon Dioxide 30.0 (21.0-32.0) mmol/L Anion Gap 11.6 (5.0-15.0) mmol/L BUN 40 H D (8-26) mg/dL Creatinine 4.02 H* (0.55-1.02) mg/dL Est Cr Clr Drug Dosing 13.23 mL/min Estimated GFR (MDRD) 11 L (>60) MLS/MIN BUN/Creatinine Ratio 10.0 (6-25) Glucose 72 L D (74-100) mg/dL Calcium 8.6 (8.5-10.1) mg/dL Total Bilirubin 0.7 (0.0-1.0) mg/dL AST 25 (15-37) U/L ALT 26 (12-78) U/L Alkaline Phosphatase 122 H (46-116) U/L B-Natriuretic Peptide 26086 H D (0-125) pg/mL Total Protein 6.7 (6.4-8.2) g/dL Albumin 3.6 (3.4-5.0) g/dL Globulin 3.1 (2.2-4.2) g/dL Albumin/Globulin Ratio 1.2 (0.8-2.0) Departure - Departure Time of Disposition: 13:45 Disposition: Home, Self-Care 01 Condition: Fair Clinical Impression: Edema extremities, Chronic kidney disease with end stage renal failure on dialysis, Hyponatremia, Pain, Elevated brain natriuretic peptide (BNP) level Anemia Qualifiers: Anemia type: other cause Other causes of anemia: chronic disease, other Qualified Code(s): D63.8 - Anemia in other chronic diseases classified elsewhere Fall as cause of accidental injury at home as place of occurrence Qualifiers: Encounter type: initial encounter Qualified Code(s): W19.XXXA - Unspecified fall, initial encounter; Y92.009 - Unspecified place in unspecified non- institutional (private) residence as the place of occurrence of the external cause Bruise of face Qualifiers: Encounter type: initial encounter Qualified Code(s): S00.83XA - Contusion of other part of head, initial encounter - Discharge Information Instructions: Cryotherapy, [id number], Heart Failure, [id number] Referrals: PCP,None [Primary Care Provider] - Forms: ED Department Discharge Additional Instructions: Return Monday to recheck lab values and be seen in the clinic. Use ice for 20 minutes a day every couple of hours. Tylenol for pain. 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 Return to the ER or clinic if you have any further questions or concerns. [facility] [phone] Clinic [phone] - Problem List Review Problem List Initiated/Reviewed/Updated: Yes - My Orders Last 24 Hours: My Active Orders 05/11/17 11:57 Head wo Cont [CT] Stat Max Facial Sinus wo Cont [CT] Stat - Assessment/Plan Last 24 Hours: My Active Orders 05/11/17 11:57 Head wo Cont [CT] Stat Max Facial Sinus wo Cont [CT] Stat Plan: Counseled on abnormal labs and close monitoring and f/u. Discussed rtc on Monday and ER as needed if any worsening symptoms or concerns. Patient agrees with plan of care and f/u. denies any concerns or questions and agrees an patient recheck on Monday and f/u as needed if any further symptoms.
--- NOTE | 2017-05-12 08:08 | CT ---
DATE OF SERVICE: 05/12/17 CLINICAL DATA: Fall. UNENHANCED BRAIN CT: Multi slice acquisition through the brain without IV contrast was performed. There is mild diffuse cerebral atrophy. There are periventricular lucencies bilaterally, consistent with small vessel ischemic change. No masses or mass effect. No intracranial hemorrhage. No evidence of acute or subacute infarct. There is a rounded, low density lesion in the left maxillary sinus, consistent with a retention cyst or polyp. No fractures. IMPRESSION: No acute intracranial abnormalities. [id number] [facility]
--- NOTE | 2017-05-12 08:12 | CT ---
DATE OF SERVICE: 05/11/17 CLINICAL DATA: Fall. FACIAL CT: Multislice axial acquisition was performed. Axial images and sagittal and coronal reformations are reviewed. I see no fractures. There is a rounded low density lesion in the left maxillary sinus, consistent with a retention cyst or polyp. No air fluid levels. The globes and orbital contents appear normal. There is a lucency involving the mandible centrally, adjacent to a tooth root, most likely representing a periapical cyst. No other significant findings. [id number] [facility]
== END 2017-05-11 13:49 | disposition home or self-care (01) ==
LOC: LB.ED 11:07
DX: S00.83XA Contusion of other part of head, initial encounter (principal); W19.XXXA Unspecified fall, initial encounter; R60.9 Edema, unspecified; I13.11 Hypertensive heart and chronic kidney disease without heart failure, with stage 5 chronic kidney disease, or end stage renal disease; E11.22 Type 2 diabetes mellitus with diabetic chronic kidney disease; N18.6 End stage renal disease; D63.1 Anemia in chronic kidney disease; Z99.2 Dependence on renal dialysis; Z79.4 Long term (current) use of insulin; E87.1 Hypo-osmolality and hyponatremia; R79.89 Other specified abnormal findings of blood chemistry; E11.21 Type 2 diabetes mellitus with diabetic nephropathy; E78.00 Pure hypercholesterolemia, unspecified; I25.2 Old myocardial infarction; J45.909 Unspecified asthma, uncomplicated; G47.30 Sleep apnea, unspecified; K21.9 Gastro-esophageal reflux disease without esophagitis; K52.9 Noninfective gastroenteritis and colitis, unspecified; M19.90 Unspecified osteoarthritis, unspecified site; M10.9 Gout, unspecified; G89.29 Other chronic pain; M54.9 Dorsalgia, unspecified; M54.2 Cervicalgia; F41.9 Anxiety disorder, unspecified; F32.9 Major depressive disorder, single episode, unspecified; F43.10 Post-traumatic stress disorder, unspecified; E03.9 Hypothyroidism, unspecified; D89.9 Disorder involving the immune mechanism, unspecified; Z87.891 Personal history of nicotine dependence; Z79.82 Long term (current) use of aspirin; Z79.899 Other long term (current) drug therapy; Z88.5 Allergy status to narcotic agent; Z88.1 Allergy status to other antibiotic agents; Z88.8 Allergy status to other drugs, medicaments and biological substances; Z91.010 Allergy to peanuts
CPT/HCPCS: 36415; 70450; 70486; 80053; 83880; 85025; 99284; A0425; A0429

== ENCOUNTER 2017-07-02 16:36 | Emergency (ER) | payer MEDICARE, BC ==
[2017-07-02 17:25] VITALS: BP 116/42
--- NOTE | 2017-07-02 19:51 | EDM.PDOC ---
ED HPI GENERAL MEDICAL PROBLEM - General Chief Complaint: General Stated Complaint: TOES PURPLE Time Seen by Provider: 07/02/17 16:45 Source of Information: Reports: Patient History Limitations: Reports: No Limitations - History of Present Illness INITIAL COMMENTS - FREE TEXT/NARRATIVE: According to patient's who is here in the emergency room, he has noticed a purplish red rash over the right foot toes, 3 days ago. Pt does not have pain or discomfort in her toes or right foot. Rash has not spread but has not resolved. No skin itching. No pain or discomfort. Wants to have it checked. No trauma to the foot. No fever or chills. Duration: Day(s): (3 days) - Related Data Allergies Allergy/AdvReac Type Severity Reaction Status Date / Time peanut Allergy Mild Other Verified 07/02/17 17:37 codeine Allergy Hives Verified 07/02/17 17:37 erythromycin lactobionate Allergy Hives Verified 07/02/17 17:37 [From Erythrocin] metformin AdvReac Other Verified 07/02/17 17:37 Home Meds: Home Meds Glucagon,Human Recombinant [Glucagen] 1 mg SUBCUT ASDIRECTED PRN 02/03/16 [ History] Metoprolol Tartrate 0.5 tab PO BID 02/03/16 [History] traZODone 100 mg PO BEDTIME 04/25/16 [History] Allopurinol [Zyloprim] 100 mg PO DAILY tablet 12/27/16 [Rx] DULoxetine [Cymbalta] 30 mg PO DAILY 02/03/17 [History] Diltiazem HCl [Diltiazem ER] 120 mg PO DAILY 02/03/17 [History] Insulin Aspart [Novolog Flexpen] 15 units SQ TIDAC 02/03/17 [History] Insulin Glarg,Human.Rec.Analog [Lantus Solostar] 30 units SQ BID 02/03/17 [ History] Levothyroxine Sodium [Levoxyl] 225 mcg PO DAILY 02/03/17 [History] Acetaminophen [Tylenol Extra Strength] 1,000 mg PO Q4H PRN #30 tablet 02/21/17 [ Rx] Albuterol [IJD: Albuterol HFA] 0 - 2 gm INH Q6H PRN #1 inhaler 02/21/17 [Rx] Amiodarone [Cordarone] 200 mg PO DAILY tablet 02/21/17 [Rx] Aspirin [Halfprin] 81 mg PO DAILY tab.ec 02/21/17 [Rx] Calcitriol [Rocaltrol] 0.5 mcg PO MoFr 02/21/17 [Rx] Darbepoetin Jerel in Polysorbat [Aranesp] 0 - 150 mcg SUBCUT Q14D 02/21/17 [Rx] Diclofenac Sodium [Voltaren 1% Gel] 0 - 1 gm TOP QID PRN #1 tube 02/21/17 [Rx] Lidocaine/Prilocaine [EMLA Crm] 1 gm TOP ASDIRECTED kit 02/21/17 [Rx] Milnacipran HCl [Savella] 12.5 mg PO DAILY #60 tablet 02/21/17 [Rx] Mupirocin Oint [Bactroban Oint] 0 gm TOP TID tube 02/21/17 [Rx] Potassium Chloride [Klor-Con M20] 20 meq PO BEDTIME #30 tab.er 02/21/17 [Rx] Sodium Bicarbonate [Sodium Bicarbonate] 650 mg PO BID 02/21/17 [Rx] atorvaSTATin [Lipitor] 40 mg PO BEDTIME tablet 02/21/17 [Rx] Calcitriol 0.25 mg PO ASDIRECTED 07/02/17 [History] Ferrous Sulfate 325 mg PO TIDMEALS 07/02/17 [History] Fish Oil/[place]-3 Fatty Acids [Fish Oil 1,000 MG] 1,000 mg PO BID 07/02/17 [ History] Furosemide [Lasix] 80 mg PO BID 07/02/17 [History] Metoclopramide [Reglan] 5 mg PO QIDACANDBED 07/02/17 [History] Multivit with Calcium,Iron,Min [Essential Daily] 1 tab PO DAILY 07/02/17 [ History] Ondansetron [IJD: Ondansetron ODT] 4 mg PO BID 07/02/17 [History] Pramipexole [Mirapex] 0.25 mg PO ASDIRECTED 07/02/17 [History] Zolpidem [Ambien] 5 mg PO BEDTIME PRN 07/02/17 [History] busPIRone [Buspar] 15 mg PO QID 07/02/17 [History] Past Medical History HEENT History: Reports: Epistaxis, Impaired Vision, Other (See Below) Other HEENT History: photosensitive, ringing in ears- chronic, cracking in ears currently Cardiovascular History: Reports: Heart Murmur, High Cholesterol, Hypertension, [place] Respiratory History: Reports: Asthma, Sleep Apnea, SOB, Other (See Below) Other Respiratory History: doesn't use CPAP because of mask doesn't work - one cased scab on nose, one cased claustraphobia uses oxygen at home Gastrointestinal History: Reports: Chronic Diarrhea, GERD, Hemorrhoids Genitourinary History: Reports: Dialysis, Diabetic Nephropathy, Renal Disease, Other (See Below) Other Genitourinary History: home dialysis 2.5 hr 6 days per week 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: Musculoskeletal History: Reports: Arthritis, Back Pain, Chronic, Gout, Neck Pain , Chronic, Other (See Below) Other Musculoskeletal History: chronic shoulder pain, arthritis all over Neurological History: Reports: Migraines, Vertigo Psychiatric History: Reports: Anxiety, Depression, PTSD Endocrine/Metabolic History: Reports: Diabetes, Type II, Hypothyroidism Hematologic History: Reports: Anemia, B12 Deficiency, Idiopathic Thrombocytopenia Immunologic History: Reports: Immunosuppression Oncologic (Cancer) History: Reports: None Dermatologic History: Reports: None - Infectious Disease History Infectious Disease History: Reports: Chicken Pox, Measles, Mumps - Past Surgical History Head Surgeries/Procedures: Reports: Shunt HEENT Surgical History: Reports: Cataract Surgery, Other (See Below) Cardiovascular Surgical History: Reports: Other (See Below) GI Surgical History: Reports: Appendectomy, Cholecystectomy, Other (See Below) Female Surgical History: Reports: Tubal Ligation Social & Family History - Family History Family Medical History: Noncontributory - Tobacco Use Smoking Status *Q: Former Smoker Years of Tobacco use: 10 Packs/Tins Daily: 2 Used Tobacco, but Quit: Yes Month Tobacco Last Used: 10 Second Hand Smoke Exposure: No - Caffeine Use Caffeine Use: Reports: Coffee Other Caffeine Use: chocolate - Recreational Drug Use Recreational Drug Use: No ED ROS GENERAL - Review of Systems Review Of Systems: See Below Constitutional: Denies: Fever, Chills HEENT: Denies: Rhinitis, Sinus Problem, Throat Pain Respiratory: Denies: Cough, Sputum Cardiovascular: Denies: Chest Pain, Lightheadedness GI/Abdominal: Denies: Nausea, Vomiting : Denies: Dysuria, Flank Pain Musculoskeletal: Denies: Joint Pain, Joint Swelling Skin: Reports: Erythema. Denies: Pruritis ED EXAM, GENERAL - Physical Exam Exam: See Below Exam Limited By: No Limitations General Appearance: Alert, WD/WN, No Apparent Distress Eye Exam: Bilateral Eye: EOMI, PERRL Ear Exam: Bilateral Ear: Auricle Normal, Canal Normal, TM normal Nose: Normal Inspection, Normal Mucosa, No Blood Throat/Mouth: Normal Inspection, Normal Lips, Normal Teeth, Normal Gums, Normal Oropharynx, Normal Voice, No Airway Compromise Head: Atraumatic, Normocephalic Neck: Normal Inspection, Supple, Non-Tender, Full Range of Motion Respiratory/Chest: No Respiratory Distress, Lungs Clear, Normal Breath Sounds, No Accessory Muscle Use, Chest Non-Tender Cardiovascular: Normal Peripheral Pulses, Regular Rate, Rhythm, No Edema, No Gallop, No JVD, No Murmur, No Rub Skin Exam: Warm, Other (right foot: there is bright pinkish red rash over the dorasal aspect of the toes of the foot. the skin is roughened and dry.The rash does not kanwal. The surrounding skin does kanwal and normal capillary refill of the skin. No tenderness or warmth felt.) Course - Vital Signs Text/Narrative:: Pt and her reassured that she has superficial bruising of the skin over the toes. She ziegler s have normal capillary refill of the skin and blood flow. The bruising could be from skin dryness and rubbing scratching the area. should resolve in few 1-2 wks. Advised to use moisturizing lotion to skin to keep skin healthy and to prevent skin drying. Last Recorded V/S: Last Vital Signs Temp 97 F 07/02/17 17:00 Pulse 63 07/02/17 17:00 Resp 20 07/02/17 17:00 BP 116/42 L 07/02/17 17:00 Pulse Ox 90 L 07/02/17 17:00 Departure - Departure Time of Disposition: 19:45 Disposition: Home, Self-Care 01 Condition: Good Clinical Impression: Superficial bruising of foot - Discharge Information Instructions: Diabetes and Foot Care Forms: ED Department Discharge Care Plan Goals: Apply lotion to top of feet as directed by Doctor Dallin. Will clear up in 2 to 3 weeks. Is a subcutaneous bleed. Keep assessing feet for circulation, warmth and color. Return to clinic if needed. - Problem List & Annotations (1) Superficial bruising of foot SNOMED Code(s): 58951966 Code(s): S90.30XA - CONTUSION OF UNSPECIFIED FOOT, INITIAL ENCOUNTER Status : Acute - Problem List Review Problem List Initiated/Reviewed/Updated: Yes - Assessment/Plan Assessment:: Superficial bruising of the right foot. Plan: Pt and her reassured that she has superficial bruising of the skin over the toes. She ziegler s have normal capillary refill of the skin and blood flow. The bruising could be from skin dryness and rubbing scratching the area. should resolve in few 1-2 wks. Advised to use moisturizing lotion to skin to keep skin healthy and to prevent skin drying.
== END 2017-07-02 17:10 | disposition home or self-care (01) ==
LOC: LB.ED 16:36
DX: S90.31XA Contusion of right foot, initial encounter (principal); E78.00 Pure hypercholesterolemia, unspecified; I25.2 Old myocardial infarction; J45.909 Unspecified asthma, uncomplicated; K21.9 Gastro-esophageal reflux disease without esophagitis; E11.21 Type 2 diabetes mellitus with diabetic nephropathy; M19.90 Unspecified osteoarthritis, unspecified site; G43.909 Migraine, unspecified, not intractable, without status migrainosus; F41.9 Anxiety disorder, unspecified; F32.9 Major depressive disorder, single episode, unspecified; E03.9 Hypothyroidism, unspecified; D69.6 Thrombocytopenia, unspecified; Z91.010 Allergy to peanuts; Z88.5 Allergy status to narcotic agent; Z88.1 Allergy status to other antibiotic agents; Z88.8 Allergy status to other drugs, medicaments and biological substances; Z79.4 Long term (current) use of insulin; Z79.82 Long term (current) use of aspirin; Z79.899 Other long term (current) drug therapy; Z98.51 Tubal ligation status; Z87.891 Personal history of nicotine dependence; X58.XXXA Exposure to other specified factors, initial encounter
CPT/HCPCS: 99283

== ENCOUNTER 2017-08-16 08:57 | Emergency (ER) | payer MEDICARE, BC ==
[2017-08-16] MEDS ORDERED: Morphine 2 MG/ML Syringe IVPUSH ONE (09:13)
[2017-08-16] MEDS ORDERED: Morphine 10 MG/ML Syringe ONE (09:16)
[2017-08-16 09:52] VITALS: BP 120/48
--- NOTE | 2017-08-16 10:16 | EDM.PDOC ---
ED HPI GENERAL MEDICAL PROBLEM - General Stated Complaint: CHEST PAIN Time Seen by Provider: 08/16/17 09:05 Source of Information: Reports: Patient, Family History Limitations: Reports: No Limitations - History of Present Illness INITIAL COMMENTS - FREE TEXT/NARRATIVE: According to patient she woke up today morning and developed sudden onset of chest pain over the precardium. Since then the pain has been persistent. Rates her pain at 9/10 now and appears very comfortable in the emergency room. She claims that the pain gets worse with deep breathing or movement. She does have cardiac history and hence did take 2 tabs of S/L nitro 0.4mg at home before coming into emergency room. No nausea or vomiting. No sweating or shortness of breath. No weakness or extreme fatigue. No incontinence of stool or urine. No fever or chills. Onset: Today Onset Date: 08/16/17 Onset Time: 06:00 Duration: Waxing/Waning Location: Reports: Chest Quality: Reports: Ache, Dull Severity: Moderate Improves with: Reports: Rest Worsens with: Reports: Breathing, Movement Associated Symptoms: Reports: Chest Pain. 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 Denies: Breathing Treatments chest Pain Score (Numeric/FACES): 8 - Related Data Allergies Allergy/AdvReac Type Severity Reaction Status Date / Time peanut Allergy Mild Other Verified 07/02/17 17:37 codeine Allergy Hives Verified 07/02/17 17:37 erythromycin lactobionate Allergy Hives Verified 07/02/17 17:37 [From Erythrocin] metformin AdvReac Other Verified 07/02/17 17:37 Home Meds: Home Meds Glucagon,Human Recombinant [Glucagen] 1 mg SUBCUT ASDIRECTED PRN 02/03/16 [ History] Metoprolol Tartrate 0.5 tab PO BID 02/03/16 [History] traZODone 100 mg PO BEDTIME 04/25/16 [History] Allopurinol [Zyloprim] 100 mg PO DAILY tablet 12/27/16 [Rx] DULoxetine [Cymbalta] 30 mg PO DAILY 02/03/17 [History] Diltiazem HCl [Diltiazem ER] 120 mg PO DAILY 02/03/17 [History] Insulin Aspart [Novolog Flexpen] 15 units SQ TIDAC 02/03/17 [History] Insulin Glarg,Human.Rec.Analog [Lantus Solostar] 30 units SQ BID 02/03/17 [ History] Levothyroxine Sodium [Levoxyl] 225 mcg PO DAILY 02/03/17 [History] Acetaminophen [Tylenol Extra Strength] 1,000 mg PO Q4H PRN #30 tablet 02/21/17 [ Rx] Albuterol [IJD: Albuterol HFA] 0 - 2 gm INH Q6H PRN #1 inhaler 02/21/17 [Rx] Amiodarone [Cordarone] 200 mg PO DAILY tablet 02/21/17 [Rx] Aspirin [Halfprin] 81 mg PO DAILY tab.ec 02/21/17 [Rx] Calcitriol [Rocaltrol] 0.5 mcg PO MoFr 02/21/17 [Rx] Darbepoetin Jerel in Polysorbat [Aranesp] 0 - 150 mcg SUBCUT Q14D 02/21/17 [Rx] Diclofenac Sodium [Voltaren 1% Gel] 0 - 1 gm TOP QID PRN #1 tube 02/21/17 [Rx] Lidocaine/Prilocaine [EMLA Crm] 1 gm TOP ASDIRECTED kit 02/21/17 [Rx] Milnacipran HCl [Savella] 12.5 mg PO DAILY #60 tablet 02/21/17 [Rx] Mupirocin Oint [Bactroban Oint] 0 gm TOP TID tube 02/21/17 [Rx] Potassium Chloride [Klor-Con M20] 20 meq PO BEDTIME #30 tab.er 02/21/17 [Rx] Sodium Bicarbonate [Sodium Bicarbonate] 650 mg PO BID 02/21/17 [Rx] atorvaSTATin [Lipitor] 40 mg PO BEDTIME tablet 02/21/17 [Rx] Calcitriol 0.25 mg PO ASDIRECTED 07/02/17 [History] Ferrous Sulfate 325 mg PO TIDMEALS 07/02/17 [History] Fish Oil/[place]-3 Fatty Acids [Fish Oil 1,000 MG] 1,000 mg PO BID 07/02/17 [ History] Furosemide [Lasix] 80 mg PO BID 07/02/17 [History] Metoclopramide [Reglan] 5 mg PO QIDACANDBED 07/02/17 [History] Multivit with Calcium,Iron,Min [Essential Daily] 1 tab PO DAILY 07/02/17 [ History] Ondansetron [IJD: Ondansetron ODT] 4 mg PO BID 07/02/17 [History] Pramipexole [Mirapex] 0.25 mg PO ASDIRECTED 07/02/17 [History] Zolpidem [Ambien] 5 mg PO BEDTIME PRN 07/02/17 [History] busPIRone [Buspar] 15 mg PO QID 07/02/17 [History] Past Medical History HEENT History: Reports: Epistaxis, Impaired Vision, Other (See Below) Other HEENT History: photosensitive, ringing in ears- chronic, cracking in ears currently Cardiovascular History: Reports: Heart Murmur, High Cholesterol, Hypertension, LA Respiratory History: Reports: Asthma, Sleep Apnea, SOB, Other (See Below) Other Respiratory History: doesn't use CPAP because of mask doesn't work - one cased scab on nose, one cased claustraphobia uses oxygen at home Gastrointestinal History: Reports: Chronic Diarrhea, GERD, Hemorrhoids Genitourinary History: Reports: Dialysis, Diabetic Nephropathy, Renal Disease, Other (See Below) Other Genitourinary History: home dialysis 2.5 hr 6 days per week [employer] History: Reports: Musculoskeletal History: Reports: Arthritis, Back Pain, Chronic, Gout, Neck Pain , Chronic, Other (See Below) Other Musculoskeletal History: chronic shoulder pain, arthritis all over Neurological History: Reports: Migraines, Vertigo Psychiatric History: Reports: Anxiety, Depression, PTSD Endocrine/Metabolic History: Reports: Diabetes, Type II, Hypothyroidism Hematologic History: Reports: Anemia, B12 Deficiency, Idiopathic Thrombocytopenia Immunologic History: Reports: Immunosuppression Oncologic (Cancer) History: Reports: None Dermatologic History: Reports: None - Infectious Disease History Infectious Disease History: Reports: Chicken Pox, Measles, Mumps - Past Surgical History Head Surgeries/Procedures: Reports: Shunt HEENT Surgical History: Reports: Cataract Surgery, Other (See Below) Cardiovascular Surgical History: Reports: Other (See Below) GI Surgical History: Reports: Appendectomy, Cholecystectomy, Other (See Below) Female Surgical History: Reports: Tubal Ligation Social & Family History - Family History Family Medical History: Noncontributory - Tobacco Use Smoking Status *Q: Former Smoker Years of Tobacco use: 10 Packs/Tins Daily: 2 Used Tobacco, but Quit: Yes Month Tobacco Last Used: 10 Second Hand Smoke Exposure: No - Caffeine Use Caffeine Use: Reports: Coffee Other Caffeine Use: chocolate - Recreational Drug Use Recreational Drug Use: No ED ROS GENERAL - Review of Systems Review Of Systems: See Below Constitutional: Denies: Fever, Chills, Fatigue, Night Sweats, Diaphoresis, Decreased Appetite HEENT: Denies: Rhinitis, Throat Pain, Throat Swelling Respiratory: Reports: Pleuritic Chest Pain. Denies: Shortness of Breath, Wheezing, Cough, Sputum Cardiovascular: Reports: Chest Pain. Denies: Lightheadedness GI/Abdominal: Denies: Abdominal Pain, Constipation, Diarrhea, Nausea, Vomiting : Denies: Flank Pain, Frequency Musculoskeletal: Denies: Neck Pain, Joint Pain, Joint Swelling Skin: Denies: Jaundice, Pruritis, Rash Neurological: Denies: Trouble Speaking, Difficulty Walking, Gait Disturbance Psychiatric: Denies: Agitation, Anxiety ED EXAM, GENERAL - Physical Exam Exam: See Below Exam Limited By: No Limitations General Appearance: Alert, WD/WN, No Apparent Distress, Obese Eye Exam: Bilateral Eye: EOMI, PERRL Ears: Normal External Exam, Normal Canal, Hearing Grossly Normal, Normal TMs Ear Exam: Bilateral Ear: Auricle Normal, Canal Normal, TM normal Nose: Normal Inspection, Normal Mucosa, No Blood Throat/Mouth: Normal Inspection, Normal Lips, Normal Teeth, Normal Gums, Normal Oropharynx, Normal Voice, No Airway Compromise Head: Atraumatic, Normocephalic Neck: Normal Inspection, Supple, Non-Tender, Full Range of Motion Respiratory/Chest: No Respiratory Distress, Lungs Clear, Normal Breath Sounds, No Accessory Muscle Use, Other (tender over the left sternocostal junction in the upper chest) Cardiovascular: Normal Peripheral Pulses, Regular Rate, Rhythm, No Edema, No Gallop, No JVD, No Murmur, No Rub GI/Abdominal: Normal Bowel Sounds, Soft, Non-Tender, No Organomegaly, No Distention, No Abnormal Bruit, No Mass Extremities: Normal Inspection, Normal Range of Motion, Non-Tender, Normal Capillary Refill, No Pedal Edema Neurological: Alert, Oriented Skin Exam: Warm, Dry EKG INTERPRETATION EKG Date: 08/16/17 [place]: Normal P-Wave: Present QRS: Wide ST-T: Normal QT: Normal EKG Interpretation Comments: unchanged from her previous EKG from Nov 2016 Course - Vital Signs Text/Narrative:: Pt has strong cardiac history. her EKG is unchanged from the previous one done this year. She has elicitable chest wall pain over the left side of chest wall. Reassured that this might be costochondritis. Considering her history cardiac work up was done. CBC is normal. CMP shows chronic stable elevation of her creat secondary to renal failure. Her troponin is negative. Pt and reassured that she does not have LA. Advised intermittent heat to the chest wall 3-4 times daily and tylenol 500mg 3-4 times daily as needed. Pain should gradually subside over a period of 1 week. Last Recorded V/S: Last Vital Signs Temp Pulse 78 08/16/17 09:51 Resp 18 08/16/17 09:51 BP 120/48 L 08/16/17 09:51 Pulse Ox 93 L 08/16/17 09:51 - Orders/Labs/Meds Orders: Active Orders 24 hr Category Date Time Status EKG Documentation Completion [RC] ASDIRECTED Care 08/16/17 09:12 Active Chest 1V Frontal [CR] Stat Exams 08/16/17 09:12 Taken Labs: Laboratory Tests 08/16/17 08/16/17 08/16/17 Range/Units 09:30 09:30 09:30 WBC 7.8 (4.0-11.0) K/uL RBC 3.29 L (3.80-5.80) M/uL Hgb 9.8 L (11.5-16.5) g/dL Hct 29.4 L (37.0-47.0) % MCV 89 (76-96) fL MCH 29.8 (27.0-32.0) pg MCHC 33.3 (31.0-35.0) g/dL RDW 16.4 H (11.0-16.0) % Plt Count 82 L D (150-500) K/uL MPV 12.0 H (6.0-10.0) fL Neut % (Auto) 81.9 H (45.0-70.0) % Lymph % (Auto) 7.7 L (20.0-40.0) % Hind[place] % (Auto) 7.2 (3.0-10.0) % Eos % (Auto) 2.6 (1.0-5.0) % Baso % (Auto) 0.6 H (0.0-0.5) % Neut # (Auto) 6.39 (2.00-7.50) K/uL Lymph # (Auto) 0.60 L (1.50-4.00) K/uL Hinds # (Auto) 0.56 (0.20-0.80) K/uL Eos # (Auto) 0.20 (0.04-0.40) K/uL Baso # (Auto) 0.05 (0.02-0.10) K/uL PT 9.9 (9.0-11.5) sec INR 1.0 (1.0-3.5) APTT (27.0-35.0) SECONDS Sodium 132 L (136-145) mmol/L Potassium 4.5 (3.5-5.1) mmol/L Chloride 92 L (98-107) mmol/L Carbon Dioxide 29.1 (21.0-32.0) mmol/L Anion Gap 15.4 H (5.0-15.0) mmol/L BUN 61 H* D (8-26) mg/dL Creatinine 6.01 H* (0.55-1.02) mg/dL Est Cr Clr Drug Dosing 8.85 mL/min Estimated GFR (MDRD) 7 L (>60) MLS/MIN BUN/Creatinine Ratio 10.1 (6-25) Glucose 367 H (74-100) mg/dL Calcium 8.8 (8.5-10.1) mg/dL Total Bilirubin 0.7 (0.0-1.0) mg/dL AST 16 (15-37) U/L ALT 28 (12-78) U/L Alkaline Phosphatase 156 H (46-116) U/L Troponin I < 0.017 D (0.000-0.060) ng/mL Total Protein 7.2 (6.4-8.2) g/dL Albumin 3.3 L (3.4-5.0) g/dL Globulin 3.9 (2.2-4.2) g/dL Albumin/Globulin Ratio 0.9 (0.8-2.0) 08/16/17 Range/Units 09:30 WBC (4.0-11.0) K/uL RBC (3.80-5.80) M/uL Hgb (11.5-16.5) g/dL Hct (37.0-47.0) % MCV (76-96) fL MCH (27.0-32.0) pg MCHC (31.0-35.0) g/dL RDW (11.0-16.0) % Plt Count (150-500) K/uL MPV (6.0-10.0) fL Neut % (Auto) (45.0-70.0) % Lymph % (Auto) (20.0-40.0) % Hind[place] % (Auto) (3.0-10.0) % Eos % (Auto) (1.0-5.0) % Baso % (Auto) (0.0-0.5) % Neut # (Auto) (2.00-7.50) K/uL Lymph # (Auto) (1.50-4.00) K/uL [place] # (Auto) (0.20-0.80) K/uL Eos # (Auto) (0.04-0.40) K/uL Baso # (Auto) (0.02-0.10) K/uL PT (9.0-11.5) sec INR (1.0-3.5) APTT 28.1 (27.0-35.0) SECONDS Sodium (136-145) mmol/L Potassium (3.5-5.1) mmol/L Chloride (98-107) mmol/L Carbon Dioxide (21.0-32.0) mmol/L Anion Gap (5.0-15.0) mmol/L BUN (8-26) mg/dL Creatinine (0.55-1.02) mg/dL Est Cr Clr Drug Dosing mL/min Estimated GFR (MDRD) (>60) MLS/MIN BUN/Creatinine Ratio (6-25) Glucose (74-100) mg/dL Calcium (8.5-10.1) mg/dL Total Bilirubin (0.0-1.0) mg/dL AST (15-37) U/L ALT (12-78) U/L Alkaline Phosphatase (46-116) U/L Troponin I (0.000-0.060) ng/mL Total Protein (6.4-8.2) g/dL Albumin (3.4-5.0) g/dL Globulin (2.2-4.2) g/dL Albumin/Globulin Ratio (0.8-2.0) Meds: Medications Discontinued Medications Generic Name Dose Route Start Last Admin Trade Name Favian PRN Reason Stop Dose Admin Morphine Sulfate 4 mg 08/16/17 09:13 08/16/17 09:34 Morphine IVPUSH 08/16/17 09:14 4 mg ONETIME ONE Administration Morphine Sulfate Confirm 08/16/17 09:16 Morphine Administered 08/16/17 09:17 Dose 10 mg .ROUTE .STK-MED ONE Departure - Departure Time of Disposition: 10:45 Disposition: Home, Self-Care 01 Condition: Good Clinical Impression: Costochondritis, acute - Discharge Information Instructions: Heat Therapy Referrals: PCP,None [Primary Care Provider] - Forms: ED Department Discharge Additional Instructions: Use heat and tylenol to help with the pain and discomfort. - Problem List & Annotations (1) Costochondritis, acute SNOMED Code(s): 98425128 Code(s): M94.0 - CHONDROCOSTAL JUNCTION SYNDROME [TIETZE] Status: Acute - Problem List Review Problem List Initiated/Reviewed/Updated: Yes - My Orders Last 24 Hours: My Active Orders 08/16/17 09:12 EKG Documentation Completion [RC] ASDIRECTED Chest 1V Frontal [CR] Stat - Assessment/Plan Last 24 Hours: My Active Orders 08/16/17 09:12 EKG Documentation Completion [RC] ASDIRECTED Chest 1V Frontal [CR] Stat Assessment:: Acute costochondritis Plan: Pt has strong cardiac history. her EKG is unchanged from the previous one done this year. She has elicitable chest wall pain over the left side of chest wall. Reassured that this might be costochondritis. Considering her history cardiac work up was done. CBC is normal. CMP shows chronic stable elevation of her creat secondary to renal failure. Her troponin is negative. Pt and reassured that she does not have LA. Advised intermittent heat to the chest wall 3-4 times daily and tylenol 500mg 3-4 times daily as needed. Pain should gradually subside over a period of 1 week.
--- NOTE | 2017-08-16 14:59 | CR ---
DATE OF SERVICE: 08/16/17 CLINICAL DATA: chest pain AP PORTABLE CHEST: Comparison is made to a prior exam dated 12/22/2016. The patient has taken a poor inspiration. The patient is status post median sternotomy. The heart is enlarged. It has increased in size from the prior exam. There is pulmonary vascular congestion and bilateral interstitial edema. These findings are consistent with congestive failure. There is eventration of the right hemidiaphragm with atelectatic changes in the right lung base. The lungs are otherwise clear. No pneumothorax. No pleural effusions. [id number] [facility]
== END 2017-08-16 10:44 | disposition home or self-care (01) ==
LOC: LB.ED 08:57
DX: M94.0 Chondrocostal junction syndrome [Tietze] (principal); E78.00 Pure hypercholesterolemia, unspecified; I10 Essential (primary) hypertension; I25.2 Old myocardial infarction; J45.909 Unspecified asthma, uncomplicated; E11.21 Type 2 diabetes mellitus with diabetic nephropathy; K21.9 Gastro-esophageal reflux disease without esophagitis; M19.90 Unspecified osteoarthritis, unspecified site; G43.909 Migraine, unspecified, not intractable, without status migrainosus; E03.9 Hypothyroidism, unspecified; D64.9 Anemia, unspecified; D69.3 Immune thrombocytopenic purpura; Z91.010 Allergy to peanuts; Z88.5 Allergy status to narcotic agent; Z88.8 Allergy status to other drugs, medicaments and biological substances; Z88.1 Allergy status to other antibiotic agents; Z79.899 Other long term (current) drug therapy; Z79.4 Long term (current) use of insulin; Z90.49 Acquired absence of other specified parts of digestive tract; Z87.891 Personal history of nicotine dependence
CPT/HCPCS: 36415; 71010; 80053; 84484; 85025; 85610; 85730; 93005; 96374; 99285; J2270; 99284

== ENCOUNTER 2017-09-09 17:10 | Emergency (ER) | payer MEDICARE, BC ==
[2017-09-09 18:50] VITALS: BP 125/57
[2017-09-09] MEDS ORDERED: Sodium Chloride 0.9% 1,000 ML IV SCH (20:00)
--- NOTE | 2017-09-09 20:03 | EDM.PDOC ---
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 She was 15 minutes from having her dialysis done today and she needed to have a bowel movement. She got light headed and collapsed to her knees when her was helping her to the bathroom and could go no further so her called for the ambulance to bring her here to the ED to be evaluated. She recently finished up an antibiotic for a UTI 6 days ago and since then she has gotten weaker and increasingly more dyspneic and sleepy all week. No new pain but she is very sedentery and can barely walk around her house any more even with a walker. Any exertion makes her tachypneic and extremely short of breath. No edema in her legs. 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: Other (see below) (Dialysis today.) - Related Data Allergies Allergy/AdvReac Type Severity Reaction Status Date / Time peanut Allergy Mild Other Verified 09/09/17 17:47 codeine Allergy Hives Verified 09/09/17 17:47 erythromycin lactobionate Allergy Hives Verified 09/09/17 17:47 [From Erythrocin] metformin AdvReac Other Verified 09/09/17 17:47 Home Meds: Home Meds Glucagon,Human Recombinant [Glucagen] 1 mg SUBCUT ASDIRECTED PRN 02/03/16 [ History] Metoprolol Tartrate 0.5 tab PO BID 02/03/16 [History] traZODone 100 mg PO BEDTIME 04/25/16 [History] Allopurinol [Zyloprim] 100 mg PO DAILY tablet 12/27/16 [Rx] DULoxetine [Cymbalta] 30 mg PO DAILY 02/03/17 [History] Diltiazem HCl [Diltiazem ER] 120 mg PO DAILY 02/03/17 [History] Insulin Aspart [Novolog Flexpen] 15 units SQ TIDAC 02/03/17 [History] Insulin Glarg,Human.Rec.Analog [Lantus Solostar] 30 units SQ BID 02/03/17 [ History] Levothyroxine Sodium [Levoxyl] 225 mcg PO DAILY 02/03/17 [History] Acetaminophen [Tylenol Extra Strength] 1,000 mg PO Q4H PRN #30 tablet 02/21/17 [ Rx] Albuterol [IJD: Albuterol HFA] 0 - 2 gm INH Q6H PRN #1 inhaler 02/21/17 [Rx] Amiodarone [Cordarone] 200 mg PO DAILY tablet 02/21/17 [Rx] Aspirin [Halfprin] 81 mg PO DAILY tab.ec 02/21/17 [Rx] Calcitriol [Rocaltrol] 0.5 mcg PO MoFr 02/21/17 [Rx] Darbepoetin Jerel in Polysorbat [Aranesp] 0 - 150 mcg SUBCUT Q14D 02/21/17 [Rx] Diclofenac Sodium [Voltaren 1% Gel] 0 - 1 gm TOP QID PRN #1 tube 02/21/17 [Rx] Lidocaine/Prilocaine [EMLA Crm] 1 gm TOP ASDIRECTED kit 02/21/17 [Rx] Milnacipran HCl [Savella] 12.5 mg PO DAILY #60 tablet 02/21/17 [Rx] Mupirocin Oint [Bactroban Oint] 0 gm TOP TID tube 02/21/17 [Rx] Potassium Chloride [Klor-Con M20] 20 meq PO BEDTIME #30 tab.er 02/21/17 [Rx] Sodium Bicarbonate [Sodium Bicarbonate] 650 mg PO BID 02/21/17 [Rx] atorvaSTATin [Lipitor] 40 mg PO BEDTIME tablet 02/21/17 [Rx] Calcitriol 0.25 mg PO ASDIRECTED 07/02/17 [History] Ferrous Sulfate 325 mg PO TIDMEALS 07/02/17 [History] Fish Oil/[place]-3 Fatty Acids [Fish Oil 1,000 MG] 1,000 mg PO BID 07/02/17 [ History] Furosemide [Lasix] 80 mg PO BID 07/02/17 [History] Metoclopramide [Reglan] 5 mg PO QIDACANDBED 07/02/17 [History] Multivit with Calcium,Iron,Min [Essential Daily] 1 tab PO DAILY 07/02/17 [ History] Ondansetron [IJD: Ondansetron ODT] 4 mg PO BID 07/02/17 [History] Pramipexole [Mirapex] 0.25 mg PO ASDIRECTED 07/02/17 [History] Zolpidem [Ambien] 5 mg PO BEDTIME PRN 07/02/17 [History] busPIRone [Buspar] 15 mg PO QID 07/02/17 [History] Past Medical History HEENT History: Reports: Epistaxis, Impaired Vision, Other (See Below) Other HEENT History: photosensitive, ringing in ears- chronic, cracking in ears currently Cardiovascular History: Reports: Afib, Heart Murmur, High Cholesterol, Hypertension, OR Respiratory History: Reports: Asthma, Sleep Apnea, SOB, Other (See Below) Other Respiratory History: doesn't use CPAP because of mask doesn't work - one cased scab on nose, one cased claustraphobia uses oxygen at home Gastrointestinal History: Reports: Chronic Diarrhea, GERD, Hemorrhoids Genitourinary History: Reports: Dialysis, Diabetic Nephropathy, Renal Disease, UTI, Recurrent, Other (See Below) Other Genitourinary History: home dialysis 2.5 hr 6 days per week [employer] History: Reports: Musculoskeletal History: Reports: Arthritis, Back Pain, Chronic, Gout, Neck Pain , Chronic, Other (See Below) Other Musculoskeletal History: chronic shoulder pain, arthritis all over Neurological History: Reports: Migraines, Vertigo Psychiatric History: Reports: Anxiety, Depression, PTSD Endocrine/Metabolic History: Reports: Diabetes, Type II, Hypothyroidism, IDDM, Obesity/BMI 30+ Hematologic History: Reports: Anemia, B12 Deficiency, Idiopathic Thrombocytopenia Immunologic History: Reports: Immunosuppression Oncologic (Cancer) History: Reports: None Dermatologic History: Reports: None - Infectious Disease History Infectious Disease History: Reports: Chicken Pox, Measles, Mumps - Past Surgical History HEENT Surgical History: Reports: Cataract Surgery, Other (See Below) Cardiovascular Surgical History: Reports: Other (See Below) GI Surgical History: Reports: Appendectomy, Cholecystectomy, Other (See Below) Female Surgical History: Reports: Tubal Ligation Social & Family History - Family History Family Medical History: Noncontributory - Tobacco Use Smoking Status *Q: Former Smoker Years of Tobacco use: 10 Packs/Tins Daily: 2 Used Tobacco, but Quit: Yes Month Tobacco Last Used: 10 Second Hand Smoke Exposure: No - Caffeine Use Caffeine Use: Reports: Coffee Other Caffeine Use: chocolate - Recreational Drug Use Recreational Drug Use: No ED ROS GENERAL - Review of Systems Review Of Systems: See Below Constitutional: Reports: Weakness, Fatigue HEENT: Reports: No Symptoms Respiratory: Reports: Shortness of Breath, Cough Cardiovascular: Reports: No Symptoms, Dyspnea on Exertion, Lightheadedness Endocrine: Reports: No Symptoms GI/Abdominal: Reports: No Symptoms : Reports: Other (Cloudy urine and recent UTI.) Musculoskeletal: Reports: No Symptoms Skin: Reports: No Symptoms Neurological: Reports: No Symptoms Psychiatric: Reports: No Symptoms Hematologic/Lymphatic: Reports: No Symptoms Immunologic: Reports: No Symptoms ED EXAM, GENERAL - Physical Exam Exam: See Below Exam Limited By: No Limitations General Appearance: Alert, WD/WN, No Apparent Distress Eye Exam: Bilateral Eye: EOMI, Normal Fundi, Normal Inspection, PERRL Ears: Normal External Exam, Normal Canal, Hearing Grossly Normal, Normal TMs Ear Exam: Bilateral Ear: Auricle Normal, Canal Normal, TM normal Nose: Normal Inspection, Normal Mucosa, No Blood Throat/Mouth: Normal Inspection, Normal Lips, Normal Teeth, Normal Gums, Normal Oropharynx, Normal Voice, No Airway Compromise Head: Atraumatic, Normocephalic Neck: Normal Inspection, Supple, Non-Tender, Full Range of Motion Respiratory/Chest: Decreased Breath Sounds (Any activity causes tachypnea and dyspnea.) Cardiovascular: Normal Peripheral Pulses, Regular Rate, Rhythm, No Edema, No Gallop, No JVD, No Murmur, No Rub Peripheral Pulses: 3+: Posterior Tibial (L), Posterior Tibial (R), Dorsalis Pedis (L), Dorsalis Pedis (R) GI/Abdominal: Normal Bowel Sounds, Soft, Non-Tender, No Organomegaly, No Distention, No Abnormal Bruit, No Mass Back Exam: Normal Inspection, Full Range of Motion, NT Extremities: Normal Inspection, Normal Range of Motion, Non-Tender, Normal Capillary Refill, No Pedal Edema Neurological: Alert, Oriented, CN II-XII Intact, Normal Cognition, Normal Gait, Normal Reflexes, No Motor/Sensory Deficits Psychiatric: Normal Affect, Normal Mood EKG INTERPRETATION EKG Date: 09/09/17 Rhythm: NSR [place]: Normal P-Wave: Present QRS: LBBB ST-T: Normal QT: Normal Comparison: No Change Course - Vital Signs Text/Narrative:: Uneventful ED course. She had elevated creatinine (but better than normal), elevated D-Dimer, elevated white blood count but an unchanged BNP,CXR and EKG. 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 She needs a PE study with dialysis after that to clear the contrast and that is why we are sending her to [facility] in [place]. The Hospitalist, Dr. Davis has graciously accepted her in transport and she will go by ground ambulance LUZ MARIA. Last Recorded V/S: Last Vital Signs Temp 36.4 C 09/09/17 19:03 Pulse 91 09/09/17 19:03 Resp 20 09/09/17 19:03 BP 125/57 L 09/09/17 19:03 Pulse Ox 97 09/09/17 19:03 - Orders/Labs/Meds Orders: Active Orders 24 hr Category Date Time Status EKG Documentation Completion [RC] ASDIRECTED Care 09/09/17 18:06 Active CXR [Chest 1V Frontal] [CR] Stat Exams 09/09/17 18:07 Taken UA W/MICROSCOPIC [URIN] Stat Lab 09/09/17 19:21 Uncollected Labs: Laboratory Tests 09/09/17 09/09/17 09/09/17 Range/Units 18:05 18:05 18:05 WBC 14.5 H D (4.0-11.0) K/uL RBC 3.51 L (3.80-5.80) M/uL Hgb 10.1 L (11.5-16.5) g/dL Hct 31.3 L (37.0-47.0) % MCV 89 (76-96) fL MCH 28.8 (27.0-32.0) pg MCHC 32.3 (31.0-35.0) g/dL RDW 16.6 H (11.0-16.0) % Plt Count 117 L D (150-500) K/uL MPV 12.8 H (6.0-10.0) fL Neut % (Auto) 89.9 H (45.0-70.0) % Lymph % (Auto) 2.5 L (20.0-40.0) % [place] % (Auto) 5.4 (3.0-10.0) % Eos % (Auto) 1.6 (1.0-5.0) % Baso % (Auto) 0.6 H (0.0-0.5) % Neut # (Auto) 13.07 H (2.00-7.50) K/uL Lymph # (Auto) 0.37 L (1.50-4.00) K/uL [place] # (Auto) 0.78 (0.20-0.80) K/uL Eos # (Auto) 0.23 (0.04-0.40) K/uL Baso # (Auto) 0.08 (0.02-0.10) K/uL D-Dimer, Quantitative 1270 H (0-400) ng/mL Sodium 134 L (136-145) mmol/L Potassium 5.1 (3.5-5.1) mmol/L Chloride 95 L (98-107) mmol/L Carbon Dioxide 28.3 (21.0-32.0) mmol/L Anion Gap 15.8 H (5.0-15.0) mmol/L BUN 36 H D (8-26) mg/dL Creatinine 3.91 H* D (0.55-1.02) mg/dL Est Cr Clr Drug Dosing TNP Estimated GFR (MDRD) 12 L (>60) MLS/MIN BUN/Creatinine Ratio 9.2 (6-25) Glucose 312 H (74-100) mg/dL Calcium 9.8 (8.5-10.1) mg/dL Total Bilirubin 0.8 (0.0-1.0) mg/dL AST 56 H (15-37) U/L ALT 42 (12-78) U/L Alkaline Phosphatase 176 H (46-116) U/L Troponin I < 0.017 (0.000-0.060) ng/mL B-Natriuretic Peptide 5985 H D (0-125) pg/mL Total Protein 7.6 (6.4-8.2) g/dL Albumin 3.4 (3.4-5.0) g/dL Globulin 4.2 (2.2-4.2) g/dL Albumin/Globulin Ratio 0.8 (0.8-2.0) Departure - Departure Time of Disposition: 20:21 Disposition: DC/Tfer to [facility] 02 Condition: Fair Clinical Impression: Acute dyspnea, CKD (chronic kidney disease) requiring chronic dialysis, UTI ( urinary tract infection), UTI (urinary tract infection) with pyuria - Discharge Information - My Orders Last 24 Hours: My Active Orders 09/09/17 18:06 EKG Documentation Completion [RC] ASDIRECTED 09/09/17 18:07 CXR [Chest 1V Frontal] [CR] Stat 09/09/17 19:21 UA W/MICROSCOPIC [URIN] Stat - Assessment/Plan Last 24 Hours: My Active Orders 09/09/17 18:06 EKG Documentation Completion [RC] ASDIRECTED 09/09/17 18:07 CXR [Chest 1V Frontal] [CR] Stat 09/09/17 19:21 UA W/MICROSCOPIC [URIN] Stat
--- NOTE | 2017-09-10 10:35 | CR ---
DATE OF SERVICE: 09/09/17 CLINICAL DATA: Near syncope AP CHEST Comparison is made to a prior exam dated 08/16/17. The patient has taken a poor inspiration. The patient is rotated to the right and is in an apical lordotic position. The heart remains enlarged, unchanged from the prior study. The pulmonary vascular congestion and bilateral pulmonary edema on the prior exam have both improved. There is persistent eventration of the right hemidiaphragm and persistent atelectatic/fibrotic changes in the right lung base. The lungs are otherwise clear. No pneumothorax. No pleural effusions. No other interval changes from the prior study. [id number] MTDD
== END 2017-09-09 20:20 ==
LOC: LB.ED 17:10
DX: I12.9 Hypertensive chronic kidney disease with stage 1 through stage 4 chronic kidney disease, or unspecified chronic kidney disease (principal); N18.9 Chronic kidney disease, unspecified; N39.0 Urinary tract infection, site not specified; R06.00 Dyspnea, unspecified; E11.22 Type 2 diabetes mellitus with diabetic chronic kidney disease; E11.42 Type 2 diabetes mellitus with diabetic polyneuropathy; J45.909 Unspecified asthma, uncomplicated; E03.9 Hypothyroidism, unspecified; F32.9 Major depressive disorder, single episode, unspecified; Z99.2 Dependence on renal dialysis; Z87.891 Personal history of nicotine dependence; Z79.82 Long term (current) use of aspirin; Z79.4 Long term (current) use of insulin; Z79.899 Other long term (current) drug therapy; Z88.1 Allergy status to other antibiotic agents; Z88.8 Allergy status to other drugs, medicaments and biological substances; Z88.5 Allergy status to narcotic agent; Z91.010 Allergy to peanuts
CPT/HCPCS: 36415; 71010; 80053; 81001; 83880; 84484; 85025; 85379; 93005; 99285; A0425; A0429; J7040

== ENCOUNTER 2017-09-15 11:19 | Inpatient (IN) | payer MEDICARE, BC ==
[2017-09-15] MEDS ORDERED: Tuberculin, PPD 5 Units/0.1 ML 1 ML MDV IDERM ONE (12:19)
[2017-09-15] MEDS ORDERED: Zolpidem 5 MG Tab PO PRN (14:42)
[2017-09-15] MEDS ORDERED: Diclofenac Sodium 1% Gel 100 GM Tube TOP PRN (14:42)
[2017-09-15] MEDS ORDERED: LORazepam 0.5 MG Tab PO SCH (14:45)
[2017-09-15] MEDS ORDERED: ONDANSETRON 4 MG PO SCH (14:45)
[2017-09-15] MEDS ORDERED: Acetaminophen/HYDROcodone 325-10 MG Tab PO SCH (14:45)
[2017-09-15] MEDS ORDERED: Acetaminophen/HYDROcodone 325-5 MG Tab PO PRN ×2 (15:09→16:14)
[2017-09-15] MEDS ORDERED: Ondansetron 4 MG Tab.DIS PO PRN (15:54)
[2017-09-15] MEDS: Acetaminophen/HYDROcodone 325-5 MG Tab PO PRN ×2 (15:55→22:52)
[2017-09-15] MEDS ORDERED: Nystatin Topical Powder 15 GM Bottle TOP SCH (16:15)
[2017-09-15] MEDS: Metoclopramide 5 MG Tab PO SCH ×2 (16:51→20:50)
[2017-09-15] MEDS: Ipratropium 0.02% 0.5 MG/2.5 ML Neb Soln INH SCH ×2 (16:51→20:50)
--- NOTE | 2017-09-15 17:13 | PCM.HP ---
H&P History of Present Illness - General Date of Service: 09/15/17 Admit Problem/Dx: Admission Diagnosis/Problem Admission Diagnosis/Problem Urinary tract infection Source of Information: Patient, Old Records, RN History Limitations: Reports: No Limitations - History of Present Illness Initial Comments - Free Text/Narative: 66 yr female admit to Swing bed for cystitis and strengthening. She is transferred from [facility]. Pt states her tailbone is sore from being in bed. States PT has been in for an assessment. Pt is here and will manage all her dialysis needs. Pt is alert, talkative and assists with moving in bed with use of trapeze. Dressing noted to tailbone, mild redness to coccyx , no open area noted. Pt presents with hx of COPD, CHF, chronic kidney disease , diabetes type 2, GERD, anxiety disorder, hypothyroid, hypertension, and hyperlipidemia. There is some ecchymosis noted to abdomen. She does take Lantus and Novolog insulin. P: strengthening and exercise before discharge to home. Sacral Pain Score (Numeric/FACES): 5 - Related Data Allergies/Adverse Reactions: Allergies Allergy/AdvReac Type Severity Reaction Status Date / Time peanut Allergy Mild Other Verified 09/15/17 11:52 codeine Allergy Hives Verified 09/15/17 11:52 erythromycin lactobionate Allergy Hives Verified 09/15/17 11:52 [From Erythrocin] metformin AdvReac Other Verified 09/15/17 11:52 Home Medications: Home Meds Metoprolol Tartrate 12.5 tab PO BID 02/03/16 [History] traZODone 50 mg PO BEDTIME 04/25/16 [History] Allopurinol [Zyloprim] 100 mg PO DAILY tablet 12/27/16 [Rx] DULoxetine [Cymbalta] 30 mg PO DAILY 02/03/17 [History] Insulin Aspart [Novolog Flexpen] 15 units SQ BIDMEALS 02/03/17 [History] Insulin Glarg,Human.Rec.Analog [Lantus Solostar] 45 units SQ BEDTIME 02/03/17 [ History] Levothyroxine Sodium [Levoxyl] 200 mcg PO DAILY 02/03/17 [History] Aspirin [Halfprin] 81 mg PO DAILY tab.ec 02/21/17 [Rx] Darbepoetin Jerel in Polysorbat [Aranesp] 0 - 150 mcg SUBCUT Q14D 02/21/17 [Rx] Diclofenac Sodium [Voltaren 1% Gel] 0 - 1 gm TOP QID PRN #1 tube 02/21/17 [Rx] Mupirocin Oint [Bactroban Oint] 0 gm TOP TID tube 02/21/17 [Rx] atorvaSTATin [Lipitor] 40 mg PO BEDTIME tablet 02/21/17 [Rx] Ferrous Sulfate 325 mg PO BID 07/02/17 [History] Fish Oil/[place]-3 Fatty Acids [Fish Oil 1,000 MG] 1,000 mg PO DAILY 07/02/17 [ History] Furosemide [Lasix] 40 mg PO DAILY 07/02/17 [History] Metoclopramide [Reglan] 10 mg PO QID 07/02/17 [History] Pramipexole [Mirapex] 0.25 mg PO TID 07/02/17 [History] Zolpidem [Ambien] 5 mg PO BEDTIME PRN 07/02/17 [History] busPIRone [Buspar] 15 mg PO QID 07/02/17 [History] Acetaminophen [Tylenol Extra Strength] 1,000 mg PO Q6H PRN 09/15/17 [History] Amiodarone [Cordarone] 100 mg PO DAILY 09/15/17 [History] Budesonide [Pulmicort] 0.5 mg IH BID 09/15/17 [History] Cefprozil [Cefzil 125 MG/5 ML Susp] 10 ml PO Q12HR 09/15/17 [History] Fluticasone Propionate [Flonase] 16 gm NS BID 09/15/17 [History] Gabapentin [Neurontin] 600 mg PO BID 09/15/17 [History] Haloperidol [Haldol] 4 mg PO BEDTIME 09/15/17 [History] Hydrocodone/Acetaminophen [[place] 10-325 Tablet] 0.5 each PO Q6H 09/15/17 [ History] Insulin Asp Prot/Insulin Asp [NovoLOG Mix 70-30] 15 unit SUBCUT TIDMEALS [History] Ipratropium [Atrovent] 2.5 ml .XX QID 09/15/17 [History] LORazepam [Ativan] 0.5 mg PO Q6H 09/15/17 [History] Nystatin [Nystatin Crm] 15 gm TOP TID 09/15/17 [History] Ondansetron [Zofran] 4 mg PO Q4H 09/15/17 [History] hydrALAZINE [Apresoline] 25 mg PO Q8H 09/15/17 [History] Past Medical History HEENT History: Reports: Epistaxis, Impaired Vision, Other (See Below) Other HEENT History: photosensitive, ringing in ears- chronic, cracking in ears currently Cardiovascular History: Reports: Afib, Heart Murmur, High Cholesterol, Hypertension, DC Respiratory History: Reports: Asthma, Sleep Apnea, SOB, Other (See Below) Other Respiratory History: doesn't use CPAP because of mask doesn't work - one cased scab on nose, one cased claustraphobia uses oxygen at home Gastrointestinal History: Reports: Chronic Diarrhea, GERD, Hemorrhoids Genitourinary History: Reports: Dialysis, Diabetic Nephropathy, Renal Disease, UTI, Recurrent, Other (See Below) Other Genitourinary History: home dialysis 2.5 hr 6 days per week [employer] History: Reports: Musculoskeletal History: Reports: Arthritis, Back Pain, Chronic, Gout, Neck Pain , Chronic, Other (See Below) Other Musculoskeletal History: chronic shoulder pain, arthritis all over Neurological History: Reports: Migraines, Vertigo Psychiatric History: Reports: Anxiety, Depression, PTSD Endocrine/Metabolic History: Reports: Diabetes, Type II, Hypothyroidism, IDDM, Obesity/BMI 30+ Hematologic History: Reports: Anemia, B12 Deficiency, Idiopathic Thrombocytopenia Immunologic History: Reports: Immunosuppression Oncologic (Cancer) History: Reports: None Dermatologic History: Reports: None - Infectious Disease History Infectious Disease History: Reports: Chicken Pox, Measles, Mumps - Past Surgical History HEENT Surgical History: Reports: Cataract Surgery, Other (See Below) Cardiovascular Surgical History: Reports: Other (See Below) GI Surgical History: Reports: Appendectomy, Cholecystectomy Female Surgical History: Reports: Tubal Ligation Social & Family History - Family History Family Medical History: Noncontributory - Tobacco Use Smoking Status *Q: Former Smoker Years of Tobacco use: 10 Packs/Tins Daily: 2 Used Tobacco, but Quit: Yes Month Tobacco Last Used: 10 Second Hand Smoke Exposure: No - Caffeine Use Caffeine Use: Reports: Coffee Other Caffeine Use: chocolate - Recreational Drug Use Recreational Drug Use: No H&P Review of Systems - Review of Systems: Review Of Systems: See Below General: Reports: No Symptoms HEENT: Reports: No Symptoms, Glasses Pulmonary: Reports: No Symptoms Cardiovascular: Reports: No Symptoms Gastrointestinal: Reports: No Symptoms Genitourinary: Reports: No Symptoms Musculoskeletal: Reports: Back Pain Skin: Reports: Bruising Psychiatric: Reports: No Symptoms Neurological: Reports: No Symptoms Exam - Exam Exam: See Below - Vital Signs Vital Signs: Last Vital Signs Temp 97.5 F 09/15/17 14:31 Pulse 94 09/15/17 14:31 Resp 20 09/15/17 14:31 BP 92/45 L 09/15/17 14:31 Pulse Ox 97 09/15/17 14:31 - Exam Quality Assessment: Supplemental Oxygen, DVT Prophylaxis General: Alert, Oriented HEENT: Mucosa Moist & [place], Pupils Equal, Pupils Reactive Neck: Supple, Trachea Midline Lungs: Clear to Auscultation, Normal Respiratory Effort Cardiovascular: Regular Rate, Regular Rhythm GI/Abdominal Exam: Normal Bowel Sounds, Soft, Non-Tender, No Distention Back Exam: Normal Inspection Extremities: Normal Inspection, Normal Range of Motion, Normal Capillary Refill. No: Pedal Edema Skin: Warm, Dry, Ecchymosis (abdomen), Other (redness to coccyx, dressing intact.) Neuro Extensive - Mental Status: Alert, Oriented x3, Normal Mood/Affect, Normal Cognition Psychiatric: Alert, Normal Affect, Normal Mood *Q Meaningful Use (ADM) - VTE *Q VTE Criteria *Q: - Stroke *Q Stroke Criteria *Q: - AMI *Q AMI Criteria *Q: - Problem List (1) Acute cystitis SNOMED Code(s): 91859755 ICD Code: N30.00 - ACUTE CYSTITIS WITHOUT HEMATURIA Status: Acute Priority: Medium Current Visit: No Qualifiers: (2) CKD (chronic kidney disease) requiring chronic dialysis SNOMED Code(s): 402718237 ICD Code: N18.6 - END STAGE RENAL DISEASE; Z99.2 - DEPENDENCE ON RENAL DIALYSIS Status: Acute Current Visit: No Problem Details: takes care of all dialysis needs for pt. (3) Pain SNOMED Code(s): 48658146 ICD Code: R52 - PAIN, UNSPECIFIED Status: Acute Current Visit: No Problem Details: Medicate for relief of pain for mild, moderate or severe pain. Reposition as needed for comfort. (4) Diabetes mellitus SNOMED Code(s): 03095221 ICD Code: E11.9 - TYPE 2 DIABETES MELLITUS WITHOUT COMPLICATIONS Status: Chronic Priority: Low Current Visit: No Qualifiers: (5) Weakness SNOMED Code(s): 08628087 ICD Code: R53.1 - WEAKNESS Status: Chronic Priority: High Current Visit : No Problem Details: PT/OT for strengthening Problem List Initiated/Reviewed/Updated: Yes Orders Last 24hrs: Active Orders 24 hr Category Date Time Status Patient Status [ADT] Routine ADT 09/15/17 14:31 Active Blood Glucose Check, Bedside [RC] QIDACANDBED Care 09/15/17 14:31 Active May Shower [RC] ASDIRECTED Care 09/15/17 14:31 Active Oxygen Therapy [RC] ,18 Care 09/15/17 14:31 Active Up With Assistance [RC] ASDIRECTED Care 09/15/17 14:31 Active VTE/DVT Education [RC] Per Unit Routine Care 09/15/17 14:31 Active Vital Signs [RC] , Care 09/15/17 14:31 Active OT Evaluation and Treatment [CONS] Routine Cons 09/15/17 14:31 Active PT Evaluation and Treatment [CONS] Routine Cons 09/15/17 14:31 Active Consistent Carbohydrate Diet [DIET] Diet 09/15/17 Dinner Ordered Heart Healthy Diet [DIET] Diet 09/15/17 Dinner Ordered CULTURE MRSA SURVEY [RM] Routine Lab 09/15/17 12:31 Ordered Acetaminophen [Tylenol Extra Strength] Med 09/15/17 14:42 Active 1,000 mg PO Q6H PRN Acetaminophen/HYDROcodone [[place] 325-5 MG] Med 09/15/17 16:17 Active 1 tab PO Q4H PRN Allopurinol [Zyloprim] Med 09/16/17 08:00 Active 100 mg PO DAILY Amiodarone [Cordarone] Med 09/16/17 08:00 Active 200 mg PO DAILY Aspirin [Halfprin] Med 09/16/17 08:00 Active 81 mg PO DAILY Budesonide [Pulmicort] Med 09/15/17 20:00 Active 0.5 mg INH BID Calcitriol [Rocaltrol] Med 09/16/17 08:00 Active 0.5 mcg PO DAILY DULoxetine [Cymbalta] Med 09/16/17 08:00 Active 30 mg PO DAILY Darbepoetin Jerel in Polysorbat [Aranesp] Med 09/15/17 14:45 Ordered 0 - 150 mcg SUBCUT Q14D Diclofenac Sodium [Voltaren 1% Gel] Med 09/15/17 14:42 Active 0 - 1 gm TOP QID PRN Ferrous Sulfate Med 09/15/17 20:00 Active 325 mg PO BID Fish Oil/[place]-3 Fatty Acids [Fish Oil] Med 09/16/17 08:00 Active 1 gm PO DAILY Fluticasone Propionate [Flonase] Med 09/15/17 20:00 Active 16 gm EDIS BID Furosemide [Lasix] Med 09/16/17 08:00 Active 40 mg PO DAILY Gabapentin [Neurontin] Med 09/15/17 20:00 Active 600 mg PO BID Haloperidol [Haldol] Med 09/15/17 20:00 Active 4 mg PO BEDTIME Insulin Aspart [NovoLOG] Med 09/15/17 17:00 Active 15 unit SUBCUT BIDMEALS Insulin Detemir [Levemir] Med 09/15/17 20:00 Active 45 unit SUBCUT BEDTIME Ipratropium [Atrovent] Med 09/15/17 16:00 Active 0.5 mg INH QID LORazepam [Ativan] Med 09/15/17 15:48 Active 1 mg PO Q6H PRN Levothyroxine [Synthroid] Med 09/16/17 07:00 Active 200 mcg PO ACBREAKFAST Metoclopramide [Reglan] Med 09/15/17 16:00 Active 10 mg PO QID Metoprolol Tartrate [Lopressor] Med 09/15/17 20:00 Active 50 mg PO BID Mupirocin Oint [Bactroban Oint] Med 09/15/17 20:00 Active See Dose Instructions TOP TID Non-Formulary Medication [NF Drug] Med 09/15/17 20:00 Active 1 each PO BID Non-Formulary Medication [NF Drug] Med 09/15/17 20:00 Active 2 each PO BID Nystatin [Nystop] Med 09/15/17 20:00 Active 15 gm TOP TID Ondansetron [Zofran ODT] Med 09/15/17 15:54 Active 4 mg PO Q4H PRN Pramipexole [Mirapex] Med 09/15/17 20:00 Active 0.25 mg PO TID Zolpidem [Ambien] Med 09/15/17 14:42 Active 5 mg PO BEDTIME PRN atorvaSTATin [Lipitor] Med 09/15/17 20:00 Active 40 mg PO BEDTIME busPIRone [Buspar] Med 09/15/17 20:00 Active 15 mg PO BID hydrALAZINE [Apresoline] Med 09/15/17 14:45 Active 25 mg PO Q8H traZODone Med 09/15/17 20:00 Active 100 mg PO BEDTIME Resuscitation Status Routine Resus Stat 09/15/17 14:31 Ordered Medication Orders Acetaminophen (Tylenol Extra Strength) 1,000 mg PO Q6H PRN PRN Reason: Pain Hydrocodone Bitart/Acetaminophen ([place] 325-5 Mg) 1 tab PO Q4H PRN PRN Reason: MODERATE PAIN Last Admin: 09/15/17 15:55 Dose: 1 tab Allopurinol (Zyloprim) 100 mg PO DAILY [facility] Amiodarone HCl (Cordarone) 200 mg PO DAILY [facility] Aspirin (Halfprin) 81 mg PO DAILY [facility] Atorvastatin Calcium (Lipitor) 40 mg PO BEDTIME [facility] Budesonide (Pulmicort) 0.5 mg INH BID [facility] Buspirone HCl (Buspar) 15 mg PO BID [facility] Calcitriol (Rocaltrol) 0.5 mcg PO DAILY [facility] Diclofenac Sodium (Voltaren 1% Gel) 0 - 1 gm TOP QID PRN PRN Reason: Pain Duloxetine HCl (Cymbalta) 30 mg PO DAILY [facility] Ferrous Sulfate (Ferrous Sulfate) 325 mg PO BID [facility] Fish Oil (Fish Oil) 1 gm PO DAILY [facility] Fluticasone Propionate (Flonase) 16 gm EDIS BID [facility] Furosemide (Lasix) 40 mg PO DAILY [facility] Gabapentin (Neurontin) 600 mg PO BID [facility] Haloperidol (Haldol) 4 mg PO BEDTIME [facility] Hydralazine HCl (Apresoline) 25 mg PO Q8H [facility] Insulin Aspart (Novolog) 15 unit SUBCUT BIDMEALS [facility] Insulin Detemir (Levemir) 45 unit SUBCUT BEDTIME [facility] Ipratropium [place] (Atrovent) 0.5 mg INH QID [facility] Last Admin: 09/15/17 16:51 Dose: 0.5 mg Levothyroxine Sodium (Synthroid) 200 mcg PO ACBREAKFAST [facility] Lorazepam (Ativan) 1 mg PO Q6H PRN PRN Reason: ANXIETY Metoclopramide HCl (Reglan) 10 mg PO QID [facility] Last Admin: 09/15/17 16:51 Dose: 10 mg Metoprolol Tartrate (Lopressor) 50 mg PO BID [facility] Mupirocin (Bactroban Oint) 0 gm TOP TID [facility] Non-Formulary Medication (Darbepoetin Jerel In Polysorbat [Aranesp]) 0 - 150 mcg SUBCUT Q14D [facility] Sodium Bicarbonate (650mg Tablets) 1 each PO BID [facility] Cefprozil 250mg (Tablets) 2 each PO BID [facility] Nystatin (Nystop) 15 gm TOP TID [facility] Ondansetron HCl (Zofran Odt) 4 mg PO Q4H PRN PRN Reason: NAUSEA Pramipexole Dihydrochloride (Mirapex) 0.25 mg PO TID [facility] Trazodone HCl (Trazodone) 100 mg PO BEDTIME INGRID Zolpidem Tartrate (Ambien) 5 mg PO BEDTIME PRN PRN Reason: Insomnia Assessment/Plan Comment:: Cystitis: Oral fluids to promote hydration Antibiotic as ordered Diabetes Type 2 Controlled: Blood sugar ac and hs. Novolog and Lantus insulins SQ as ordered. Pain: Medicate as needed for mild, moderate, severe pain. Potential skin break down: Change dressing to coccyx every 3 days and prn. Monitor skin for breakdown and encourage turning every 2 hours with skin care. Dialysis managed by : Weakness: PT/OT for strengthening and exercise COPD controlled O2 on continuous per N/C Nebulizer as ordered.
[2017-09-15] MEDS: hydrALAZINE 25 MG Tab PO SCH ×2 (17:21→22:39)
[2017-09-15] MEDS: Insulin Aspart 100 Units/ML 3 ML Pen SUBCUT SCH (17:39)
[2017-09-15] MEDS ORDERED: [UNRECOGNIZED DRUG - OTHER] SUBCUT SCH (18:00)
[2017-09-15] MEDS ORDERED: INSULIN ASPART SUBCUT SCH (18:00)
[2017-09-15] MEDS ORDERED: INSULIN ASPART PROTAMINE SUBCUT SCH (18:00)
[2017-09-15] MEDS ORDERED: Nystatin Crm 30 GM Tube TOP SCH (20:00)
[2017-09-15] MEDS ORDERED: PRAMIPEXOLE 0.25 MG PO SCH (20:00)
[2017-09-15] MEDS ORDERED: traZODone 100 MG Tab PO SCH (20:00)
[2017-09-15] MEDS ORDERED: Insulin Detemir 100 Units/ML 3 ML Pen SUBCUT SCH (20:00)
[2017-09-15] MEDS ORDERED: HALOPERIDOL PO SCH (20:00)
[2017-09-15] MEDS ORDERED: CEFPROZIL PO SCH (20:00)
[2017-09-15] MEDS ORDERED: busPIRone 15 MG Tab PO SCH (20:00)
[2017-09-15] MEDS ORDERED: Insulin Glargine,Human Rec. Analog 100 Units/ML 3 ML Pen SUBCUT SCH (20:00)
[2017-09-15] MEDS ORDERED: SODIUM BICARBONATE 650 MG PO SCH (20:00)
[2017-09-15] MEDS ORDERED: Metoprolol Tartrate 50 MG Tab PO SCH (20:00)
[2017-09-15] MEDS ORDERED: Haloperidol 1 MG Tab PO SCH (20:00)
[2017-09-15] MEDS: Budesonide 0.25 MG/2 ML Neb Susp INH SCH (20:50)
[2017-09-15] MEDS: Pramipexole 0.125 MG Tab PO SCH (20:50)
[2017-09-15] MEDS: Mupirocin Oint 22 GM Tube TOP SCH (21:38)
[2017-09-15] MEDS: Ferrous Sulfate 325 MG Tab PO SCH (21:40)
[2017-09-15] MEDS: atorvaSTATin 40 MG Tab PO SCH (21:40)
[2017-09-15] MEDS: busPIRone 10 MG Tab PO SCH (21:40)
[2017-09-15] MEDS: Nystatin Topical Powder 15 GM Bottle TOP SCH (21:41)
[2017-09-15] MEDS: CEFPROZIL 250 MG PO SCH (21:41)
[2017-09-15] MEDS: Gabapentin 600 MG Tab PO SCH (21:42)
[2017-09-15] MEDS: Insulin Detemir 100 Units/ML 3 ML Pen SUBCUT SCH (22:24)
[2017-09-15] MEDS: Fluticasone Propionate Nasal Spray 16 GM Bottle NAS SCH (22:38)
[2017-09-16] MEDS: hydrALAZINE 25 MG Tab PO SCH ×2 (01:09→14:47)
[2017-09-16] MEDS: Levothyroxine 100 MCG Tab PO SCH (06:41)
[2017-09-16] MEDS ORDERED: Metoclopramide 10 MG Tab PO PRN (07:48)
[2017-09-16] MEDS ORDERED: Calcitriol 0.25 MCG Cap PO SCH (08:00)
[2017-09-16] MEDS ORDERED: Levothyroxine 112 MCG Tab PO SCH (08:00)
[2017-09-16] MEDS ORDERED: DULoxetine 30 MG Cap PO SCH (08:00)
[2017-09-16] MEDS ORDERED: Amiodarone 200 MG Tab PO SCH (08:00)
[2017-09-16] MEDS: Ipratropium 0.02% 0.5 MG/2.5 ML Neb Soln INH SCH ×4 (08:24→20:14)
[2017-09-16] MEDS: Mupirocin Oint 22 GM Tube TOP SCH ×3 (08:29→20:19)
[2017-09-16] MEDS: Fluticasone Propionate Nasal Spray 16 GM Bottle NAS SCH ×2 (08:29→20:20)
[2017-09-16] MEDS: Gabapentin 600 MG Tab PO SCH (08:30)
[2017-09-16] MEDS: Aspirin 81 MG Tab.EC PO SCH (08:30)
[2017-09-16] MEDS: Fish Oil/Omega-3 Fatty Acids 1 Gm Cap PO SCH (08:30)
[2017-09-16] MEDS: Furosemide 40 MG Tab PO SCH (08:30)
[2017-09-16] MEDS: busPIRone 10 MG Tab PO SCH ×2 (08:30→20:16)
[2017-09-16] MEDS: Allopurinol 100 MG Tab PO SCH (08:30)
[2017-09-16] MEDS: Ferrous Sulfate 325 MG Tab PO SCH ×2 (08:30→20:17)
[2017-09-16] MEDS: CEFPROZIL 250 MG PO SCH ×2 (08:31→20:15)
[2017-09-16] MEDS: Amiodarone 200 MG Tab PO SCH (08:31)
[2017-09-16] MEDS: Nystatin Topical Powder 15 GM Bottle TOP SCH ×3 (08:31→20:21)
[2017-09-16] MEDS: Pramipexole 0.125 MG Tab PO SCH ×3 (08:31→20:20)
[2017-09-16] MEDS: Insulin Aspart 100 Units/ML 3 ML Pen SUBCUT SCH ×3 (08:40→18:15)
[2017-09-16] MEDS: Insulin Detemir 100 Units/ML 3 ML Pen SUBCUT SCH ×2 (08:41→20:22)
[2017-09-16] MEDS: Acetaminophen/HYDROcodone 325-5 MG Tab PO PRN (09:14)
[2017-09-16] MEDS: Budesonide 0.25 MG/2 ML Neb Susp INH SCH ×2 (09:17→20:14)
[2017-09-16] MEDS: Haloperidol 1 MG Tab PO SCH (20:15)
[2017-09-16] MEDS: atorvaSTATin 40 MG Tab PO SCH (20:17)
[2017-09-16] MEDS: traZODone 50 MG Tab PO SCH (20:17)
[2017-09-17] MEDS: Acetaminophen/HYDROcodone 325-5 MG Tab PO PRN ×4 (03:14→19:03)
[2017-09-17] MEDS: Levothyroxine 100 MCG Tab PO SCH (08:04)
[2017-09-17] MEDS: Furosemide 40 MG Tab PO SCH (08:05)
[2017-09-17] MEDS: Ferrous Sulfate 325 MG Tab PO SCH ×2 (08:05→19:39)
[2017-09-17] MEDS: Fish Oil/Omega-3 Fatty Acids 1 Gm Cap PO SCH (08:05)
[2017-09-17] MEDS: Pramipexole 0.125 MG Tab PO SCH ×3 (08:05→19:41)
[2017-09-17] MEDS: DULoxetine 60 MG Cap PO SCH (08:05)
[2017-09-17] MEDS: Allopurinol 100 MG Tab PO SCH (08:05)
[2017-09-17] MEDS: Aspirin 81 MG Tab.EC PO SCH (08:05)
[2017-09-17] MEDS: busPIRone 10 MG Tab PO SCH ×2 (08:06→19:36)
[2017-09-17] MEDS: Ipratropium 0.02% 0.5 MG/2.5 ML Neb Soln INH SCH ×4 (08:06→19:02)
[2017-09-17] MEDS: Fluticasone Propionate Nasal Spray 16 GM Bottle NAS SCH ×2 (08:07→19:42)
[2017-09-17] MEDS: Nystatin Topical Powder 15 GM Bottle TOP SCH ×3 (08:08→19:44)
[2017-09-17] MEDS: CEFPROZIL 250 MG PO SCH ×2 (08:08→19:43)
[2017-09-17] MEDS: Mupirocin Oint 22 GM Tube TOP SCH ×3 (08:09→19:38)
[2017-09-17] MEDS: Gabapentin 600 MG Tab PO SCH (08:10)
[2017-09-17] MEDS: Insulin Aspart 100 Units/ML 3 ML Pen SUBCUT SCH ×3 (08:10→17:04)
[2017-09-17] MEDS: Insulin Detemir 100 Units/ML 3 ML Pen SUBCUT SCH ×2 (08:10→19:54)
[2017-09-17] MEDS: Diltiazem 120 MG Cap.CD PO SCH (08:23)
[2017-09-17] MEDS: Amiodarone 200 MG Tab PO SCH (08:24)
[2017-09-17] MEDS: Budesonide 0.25 MG/2 ML Neb Susp INH SCH ×2 (09:17→19:03)
[2017-09-17] MEDS: Haloperidol 1 MG Tab PO SCH (19:38)
[2017-09-17] MEDS: traZODone 50 MG Tab PO SCH (19:40)
[2017-09-17] MEDS: atorvaSTATin 40 MG Tab PO SCH (19:40)
[2017-09-18] MEDS: Acetaminophen/HYDROcodone 325-5 MG Tab PO PRN ×3 (03:15→18:42)
[2017-09-18] MEDS: Fluticasone Propionate Nasal Spray 16 GM Bottle NAS SCH ×2 (07:37→19:29)
[2017-09-18] MEDS: Ferrous Sulfate 325 MG Tab PO SCH ×2 (07:39→19:27)
[2017-09-18] MEDS: Fish Oil/Omega-3 Fatty Acids 1 Gm Cap PO SCH (07:39)
[2017-09-18] MEDS: Diltiazem 120 MG Cap.CD PO SCH (07:40)
[2017-09-18] MEDS: Acetaminophen 500 MG Tab PO PRN (07:41)
[2017-09-18] MEDS: Aspirin 81 MG Tab.EC PO SCH (07:41)
[2017-09-18] MEDS: DULoxetine 60 MG Cap PO SCH (07:41)
[2017-09-18] MEDS: Allopurinol 100 MG Tab PO SCH (07:41)
[2017-09-18] MEDS: Furosemide 40 MG Tab PO SCH (07:41)
[2017-09-18] MEDS: Amiodarone 200 MG Tab PO SCH (07:42)
[2017-09-18] MEDS: busPIRone 10 MG Tab PO SCH ×2 (07:43→19:27)
[2017-09-18] MEDS: CEFPROZIL 250 MG PO SCH ×2 (07:55→19:29)
[2017-09-18] MEDS ORDERED: Levothyroxine 100 MCG Tab ONE (07:55)
[2017-09-18] MEDS: Levothyroxine 100 MCG Tab PO SCH (07:56)
[2017-09-18] MEDS: Pramipexole 0.125 MG Tab PO SCH ×3 (07:56→19:27)
[2017-09-18] MEDS: Insulin Detemir 100 Units/ML 3 ML Pen SUBCUT SCH ×2 (08:02→19:29)
[2017-09-18] MEDS: Insulin Aspart 100 Units/ML 3 ML Pen SUBCUT SCH ×3 (08:03→17:18)
[2017-09-18] MEDS: Ipratropium 0.02% 0.5 MG/2.5 ML Neb Soln INH SCH ×4 (08:07→20:00)
[2017-09-18] MEDS: Budesonide 0.25 MG/2 ML Neb Susp INH SCH ×2 (09:04→19:23)
[2017-09-18] MEDS: Mupirocin Oint 22 GM Tube TOP SCH ×3 (09:20→19:28)
[2017-09-18] MEDS: Nystatin Topical Powder 15 GM Bottle TOP SCH ×3 (09:29→19:52)
[2017-09-18] MEDS: LORazepam 1 MG Tab PO PRN (16:12)
[2017-09-18] MEDS: traZODone 50 MG Tab PO SCH (19:27)
[2017-09-18] MEDS: Haloperidol 1 MG Tab PO SCH (19:27)
[2017-09-18] MEDS: atorvaSTATin 40 MG Tab PO SCH (19:27)
[2017-09-19] MEDS: Acetaminophen/HYDROcodone 325-5 MG Tab PO PRN ×3 (01:10→18:23)
[2017-09-19] MEDS: LORazepam 1 MG Tab PO PRN ×3 (01:10→20:30)
[2017-09-19] MEDS: Levothyroxine 100 MCG Tab PO SCH (06:20)
[2017-09-19] MEDS: Budesonide 0.25 MG/2 ML Neb Susp INH SCH ×2 (07:28→19:16)
[2017-09-19] MEDS: Pramipexole 0.125 MG Tab PO SCH ×3 (07:28→19:18)
[2017-09-19] MEDS: Ipratropium 0.02% 0.5 MG/2.5 ML Neb Soln INH SCH ×4 (07:28→19:17)
[2017-09-19] MEDS: Allopurinol 100 MG Tab PO SCH (07:29)
[2017-09-19] MEDS: Ferrous Sulfate 325 MG Tab PO SCH ×2 (07:29→19:26)
[2017-09-19] MEDS: Fish Oil/Omega-3 Fatty Acids 1 Gm Cap PO SCH (07:29)
[2017-09-19] MEDS: DULoxetine 60 MG Cap PO SCH (07:29)
[2017-09-19] MEDS: Amiodarone 200 MG Tab PO SCH (07:30)
[2017-09-19] MEDS: Furosemide 40 MG Tab PO SCH (07:34)
[2017-09-19] MEDS: busPIRone 10 MG Tab PO SCH ×2 (07:34→19:17)
[2017-09-19] MEDS: Aspirin 81 MG Tab.EC PO SCH (07:34)
[2017-09-19] MEDS: Diltiazem 120 MG Cap.CD PO SCH (07:37)
[2017-09-19] MEDS: Mupirocin Oint 22 GM Tube TOP SCH ×3 (07:40→19:20)
[2017-09-19] MEDS: Fluticasone Propionate Nasal Spray 16 GM Bottle NAS SCH ×2 (07:41→19:15)
[2017-09-19] MEDS: Insulin Detemir 100 Units/ML 3 ML Pen SUBCUT SCH ×2 (07:42→20:10)
[2017-09-19] MEDS: Nystatin Topical Powder 15 GM Bottle TOP SCH ×3 (07:47→19:22)
[2017-09-19] MEDS: Insulin Aspart 100 Units/ML 3 ML Pen SUBCUT SCH ×3 (07:48→17:22)
[2017-09-19] MEDS: CEFPROZIL 250 MG PO SCH ×2 (07:50→19:17)
[2017-09-19] MEDS ORDERED: Insulin Detemir 100 Units/ML 3 ML Pen SUBCUT SCH (08:15)
[2017-09-19] MEDS: Acetaminophen 500 MG Tab PO PRN (16:12)
[2017-09-19] MEDS: atorvaSTATin 40 MG Tab PO SCH (19:18)
[2017-09-19] MEDS: traZODone 50 MG Tab PO SCH (19:18)
[2017-09-19] MEDS: Haloperidol 1 MG Tab PO SCH (19:19)
[2017-09-20] MEDS: Acetaminophen/HYDROcodone 325-5 MG Tab PO PRN ×3 (01:20→20:56)
[2017-09-20] MEDS: Levothyroxine 100 MCG Tab PO SCH (06:12)
[2017-09-20] MEDS: Acetaminophen 500 MG Tab PO PRN ×2 (06:46→18:29)
[2017-09-20] MEDS: Fish Oil/Omega-3 Fatty Acids 1 Gm Cap PO SCH (07:50)
[2017-09-20] MEDS: Aspirin 81 MG Tab.EC PO SCH (07:51)
[2017-09-20] MEDS: Allopurinol 100 MG Tab PO SCH (07:51)
[2017-09-20] MEDS: Ferrous Sulfate 325 MG Tab PO SCH ×2 (07:51→20:23)
[2017-09-20] MEDS: Pramipexole 0.125 MG Tab PO SCH ×3 (07:51→20:30)
[2017-09-20] MEDS: Furosemide 40 MG Tab PO SCH (07:51)
[2017-09-20] MEDS: Amiodarone 200 MG Tab PO SCH (07:52)
[2017-09-20] MEDS: DULoxetine 60 MG Cap PO SCH (07:52)
[2017-09-20] MEDS: Diltiazem 120 MG Cap.CD PO SCH (07:53)
[2017-09-20] MEDS: busPIRone 10 MG Tab PO SCH ×4 (07:53→20:22)
[2017-09-20] MEDS: Fluticasone Propionate Nasal Spray 16 GM Bottle NAS SCH ×2 (07:54→20:23)
[2017-09-20] MEDS: Nystatin Topical Powder 15 GM Bottle TOP SCH ×3 (07:56→21:03)
[2017-09-20] MEDS: Budesonide 0.25 MG/2 ML Neb Susp INH SCH ×2 (07:57→20:43)
[2017-09-20] MEDS ORDERED: DARBEPOETIN ALFA IN POLYSORBAT SUBCUT SCH (08:00)
[2017-09-20] MEDS: Insulin Detemir 100 Units/ML 3 ML Pen SUBCUT SCH ×2 (08:17→20:19)
[2017-09-20] MEDS: Insulin Aspart 100 Units/ML 3 ML Pen SUBCUT SCH ×2 (08:18→17:06)
[2017-09-20] MEDS: LORazepam 1 MG Tab PO PRN ×2 (08:31→21:21)
[2017-09-20] MEDS: Mupirocin Oint 22 GM Tube TOP SCH ×3 (09:22→21:02)
[2017-09-20] MEDS: Ipratropium 0.02% 0.5 MG/2.5 ML Neb Soln INH SCH ×4 (09:24→20:31)
[2017-09-20] MEDS ORDERED: Insulin Aspart 100 Units/ML 3 ML Pen SUBCUT ONE (11:57)
[2017-09-20] MEDS: Haloperidol 1 MG Tab PO SCH (20:22)
[2017-09-20] MEDS: atorvaSTATin 40 MG Tab PO SCH (20:23)
[2017-09-20] MEDS: traZODone 50 MG Tab PO SCH (20:23)
[2017-09-21] MEDS: Acetaminophen 500 MG Tab PO PRN (00:04)
[2017-09-21] MEDS: Acetaminophen/HYDROcodone 325-5 MG Tab PO PRN ×3 (03:19→19:21)
[2017-09-21] MEDS: Levothyroxine 100 MCG Tab PO SCH (06:53)
[2017-09-21] MEDS: Aspirin 81 MG Tab.EC PO SCH (07:43)
[2017-09-21] MEDS: Ferrous Sulfate 325 MG Tab PO SCH ×2 (07:43→20:18)
[2017-09-21] MEDS: Fish Oil/Omega-3 Fatty Acids 1 Gm Cap PO SCH (07:43)
[2017-09-21] MEDS: busPIRone 10 MG Tab PO SCH ×4 (07:43→20:47)
[2017-09-21] MEDS: Allopurinol 100 MG Tab PO SCH (07:44)
[2017-09-21] MEDS: Amiodarone 200 MG Tab PO SCH (07:44)
[2017-09-21] MEDS: Pramipexole 0.125 MG Tab PO SCH ×3 (07:44→20:21)
[2017-09-21] MEDS: Furosemide 40 MG Tab PO SCH (07:45)
[2017-09-21] MEDS: Nystatin Topical Powder 15 GM Bottle TOP SCH ×3 (07:45→20:51)
[2017-09-21] MEDS: DULoxetine 60 MG Cap PO SCH (07:45)
[2017-09-21] MEDS: Budesonide 0.25 MG/2 ML Neb Susp INH SCH ×2 (07:46→20:17)
[2017-09-21] MEDS: Fluticasone Propionate Nasal Spray 16 GM Bottle NAS SCH ×2 (07:46→20:52)
[2017-09-21] MEDS: Mupirocin Oint 22 GM Tube TOP SCH ×3 (07:48→20:48)
[2017-09-21] MEDS: Diltiazem 120 MG Cap.CD PO SCH (07:50)
[2017-09-21] MEDS: Ipratropium 0.02% 0.5 MG/2.5 ML Neb Soln INH SCH ×4 (07:58→20:17)
[2017-09-21] MEDS: Insulin Detemir 100 Units/ML 3 ML Pen SUBCUT SCH ×2 (08:20→20:33)
[2017-09-21] MEDS: Insulin Aspart 100 Units/ML 3 ML Pen SUBCUT SCH ×3 (08:21→17:00)
[2017-09-21] MEDS ORDERED: Acetaminophen 650 MG Tab.ER PO PRN (10:36)
[2017-09-21] MEDS: LORazepam 1 MG Tab PO PRN ×2 (13:01→19:22)
[2017-09-21] MEDS: traZODone 50 MG Tab PO SCH (20:18)
[2017-09-21] MEDS: atorvaSTATin 40 MG Tab PO SCH (20:18)
[2017-09-21] MEDS: Haloperidol 1 MG Tab PO SCH (20:20)
[2017-09-22] MEDS: Acetaminophen/HYDROcodone 325-5 MG Tab PO PRN ×3 (02:39→21:09)
[2017-09-22] MEDS: LORazepam 1 MG Tab PO PRN ×3 (02:43→21:58)
[2017-09-22] MEDS: Levothyroxine 100 MCG Tab PO SCH (06:28)
[2017-09-22] MEDS: Insulin Aspart 100 Units/ML 3 ML Pen SUBCUT SCH ×3 (06:29→17:10)
--- NOTE | 2017-09-22 08:26 | PCM.PN ---
- General Info Date of Service: 09/22/17 Admission Dx/Problem (Free Text): Admission Diagnosis/Problem Admission Diagnosis/Problem Urinary tract infection Functional Status: Reports: Tolerating Diet, Ambulating - Review of Systems General: Reports: No Symptoms Pulmonary: Reports: No Symptoms, Other (Oxygen continuous) Cardiovascular: Reports: No Symptoms Gastrointestinal: Reports: No Symptoms, Other (BM yesterday) Musculoskeletal: Reports: Other (Pain to right lower chest, states she thinks she overstretched area with activity) Skin: Reports: Bruising (abdomen, insulin injections, no bruising to right ribs/ chest) Neurological: Reports: No Symptoms - Patient Data Vitals - Most Recent: Last Vital Signs Temp 97.9 F 09/21/17 08:00 Pulse 78 09/21/17 08:00 Resp 18 09/21/17 08:00 BP 100/80 09/21/17 08:00 Pulse Ox 98 09/22/17 05:30 Weight - Most Recent: 259 lb Lab Results Last 24 Hours: Laboratory Results - last 24 hr 09/21/17 09/21/17 09/21/17 Range/Units 06:38 11:09 15:57 POC Glucose 266 H 337 H 239 H (74-110) mg/dL 09/21/17 09/22/17 Range/Units 19:31 04:47 POC Glucose 350 H 264 H (74-110) mg/dL Med Orders - Current: Current Medications Acetaminophen (Tylenol Arthritis Pain) 650 mg PO Q8H PRN PRN Reason: Pain Hydrocodone Bitart/Acetaminophen ([place] 325-5 Mg) 1 tab PO Q4H PRN PRN Reason: MODERATE PAIN Last Admin: 09/22/17 02:39 Dose: 1 tab Allopurinol (Zyloprim) 100 mg PO DAILY [facility] Last Admin: 09/21/17 07:44 Dose: 100 mg Amiodarone HCl (Cordarone) 100 mg PO DAILY [facility] Last Admin: 09/21/17 07:44 Dose: 100 mg Aspirin (Halfprin) 81 mg PO DAILY [facility] Last Admin: 09/21/17 07:43 Dose: 81 mg Atorvastatin Calcium (Lipitor) 40 mg PO BEDTIME [facility] Last Admin: 09/21/17 20:18 Dose: 40 mg Budesonide (Pulmicort) 0.5 mg INH BID [facility] Last Admin: 09/21/17 20:17 Dose: 0.5 mg Buspirone HCl (Buspar) 15 mg PO QID [facility] Last Admin: 09/21/17 20:47 Dose: 15 mg Darbepoetin Jerel (Aranesp) 150 mcg SUBCUT Q14D [facility] Last Admin: 09/21/17 08:09 Dose: 150 mcg Diclofenac Sodium (Voltaren 1% Gel) 0 - 1 gm TOP QID PRN PRN Reason: Pain Diltiazem HCl (Cardizem Cd) 120 mg PO DAILY [facility] Last Admin: 09/21/17 07:50 Dose: 120 mg Duloxetine HCl (Cymbalta) 60 mg PO DAILY [facility] Last Admin: 09/21/17 07:45 Dose: 60 mg Ferrous Sulfate (Ferrous Sulfate) 325 mg PO BID [facility] Last Admin: 09/21/17 20:18 Dose: 325 mg Fish Oil (Fish Oil) 1 gm PO DAILY [facility] Last Admin: 09/21/17 07:43 Dose: 1 gm Fluticasone Propionate (Flonase) 16 gm EDIS BID [facility] Last Admin: 09/21/17 20:52 Dose: 1 spray Furosemide (Lasix) 40 mg PO DAILY [facility] Last Admin: 09/21/17 07:45 Dose: 40 mg Haloperidol (Haldol) 2 mg PO BEDTIME [facility] Last Admin: 09/21/17 20:20 Dose: 2 mg Insulin Aspart (Novolog) 0 unit SUBCUT TIDAC [facility] PRN Reason: Protocol Last Admin: 09/22/17 06:29 Dose: 21 units Insulin Detemir (Levemir) 40 unit SUBCUT BID [facility] Last Admin: 09/21/17 20:33 Dose: 40 units Ipratropium [place] (Atrovent) 0.5 mg INH QID [facility] Last Admin: 09/21/17 20:17 Dose: 0.5 mg Levothyroxine Sodium (Synthroid) 200 mcg PO ACBREAKFAST [facility] Last Admin: 09/22/17 06:28 Dose: 200 mcg Lorazepam (Ativan) 1 mg PO Q6H PRN PRN Reason: ANXIETY Last Admin: 09/22/17 02:43 Dose: 1 mg Metoclopramide HCl (Reglan) 10 mg PO QID PRN PRN Reason: Nausea Mupirocin (Bactroban Oint) 0 gm TOP TID [facility] Last Admin: 09/21/17 20:48 Dose: 1 applic Nystatin (Nystop) 15 gm TOP TID [facility] Last Admin: 09/21/17 20:51 Dose: 1 applic Ondansetron HCl (Zofran Odt) 4 mg PO Q4H PRN PRN Reason: NAUSEA Pramipexole Dihydrochloride (Mirapex) 0.25 mg PO TID [facility] Last Admin: 09/21/17 20:21 Dose: 0.25 mg Senna/Docusate Sodium (Senna Plus) 1 tab PO BID [facility] Last Admin: 09/21/17 20:20 Dose: 1 tab Trazodone HCl (Trazodone) 50 mg PO BEDTIME [facility] Last Admin: 09/21/17 20:18 Dose: 50 mg Discontinued Medications Acetaminophen (Tylenol Extra Strength) 1,000 mg PO Q6H PRN PRN Reason: Pain Last Admin: 09/21/17 00:04 Dose: 1,000 mg Hydrocodone Bitart/Acetaminophen ([place] 325-5 Mg) 1 tab PO DAILY PRN PRN Reason: MODERATE PAIN Amiodarone HCl (Cordarone) 200 mg PO DAILY [facility] Buspirone HCl (Buspar) 15 mg PO BID [facility] Buspirone HCl (Buspar) 15 mg PO BID [facility] Last Admin: 09/19/17 07:34 Dose: 15 mg Calcitriol (Rocaltrol) 0.5 mcg PO DAILY [facility] Duloxetine HCl (Cymbalta) 30 mg PO DAILY [facility] Last Admin: 09/16/17 08:30 Dose: 30 mg Gabapentin (Neurontin) 600 mg PO BID [facility] Last Admin: 09/17/17 08:10 Dose: Not Given Haloperidol (Haldol) 4 mg PO BEDTIME [facility] Last Admin: 09/15/17 20:50 Dose: 4 mg Hydralazine HCl (Apresoline) 25 mg PO Q8H [facility] Last Admin: 09/16/17 14:47 Dose: Not Given Insulin Aspart (Novolog) 15 unit SUBCUT BIDMEALS [facility] Last Admin: 09/16/17 18:15 Dose: Not Given Insulin Aspart (Novolog) 15 unit SUBCUT TIDMEALS [facility] Last Admin: 09/20/17 08:18 Dose: 15 units Insulin Aspart (Novolog) 20 unit SUBCUT ONETIME ONE Stop: 09/20/17 11:58 Last Admin: 09/20/17 12:04 Dose: 20 units Insulin Detemir (Levemir) 45 unit SUBCUT BEDTIME [facility] Insulin Detemir (Levemir) 30 unit SUBCUT BID [facility] Last Admin: 09/19/17 07:42 Dose: 30 units Insulin Detemir (Levemir) 33 unit SUBCUT BID [facility] Last Admin: 09/19/17 08:58 Dose: 3 units Insulin Detemir (Levemir) 35 unit SUBCUT BID [facility] Last Admin: 09/21/17 08:20 Dose: 35 units Insulin Glargine (Lantus Solostar) 45 units SUBCUT BEDTIME [facility] Levothyroxine Sodium (Synthroid) Confirm Administered Dose 100 mcg .ROUTE .STK- MED ONE Stop: 09/18/17 07:56 Last Admin: 09/18/17 19:37 Dose: Not Given Metoclopramide HCl (Reglan) 10 mg PO QID [facility] Last Admin: 09/15/17 20:50 Dose: 10 mg Metoprolol Tartrate (Lopressor) 50 mg PO BID [facility] Sodium Bicarbonate (650mg Tablets) 1 each PO BID [facility] Cefprozil 250mg (Tablets) 2 each PO BID [facility] Stop: 09/19/17 21:00 Last Admin: 09/19/17 19:17 Dose: 2 each Nystatin (Nystop) 15 gm TOP ASDIRECTED [facility] Senna/Docusate Sodium (Senna Plus) Confirm Administered Dose 1 tab .ROUTE .STK- MED ONE Stop: 09/21/17 20:29 Last Admin: 09/21/17 20:51 Dose: Not Given Trazodone HCl (Trazodone) 100 mg PO BEDTIME [facility] Last Admin: 09/15/17 21:42 Dose: 100 mg Tuberculin PPD (Aplisol) 5 unit IDERM ONETIME ONE Stop: 09/15/17 12:20 Last Admin: 09/19/17 17:04 Dose: 5 unit Zolpidem Tartrate (Ambien) 5 mg PO BEDTIME PRN PRN Reason: Insomnia - Exam Quality Assessment: Supplemental Oxygen General: Alert, Oriented, No Acute Distress HEENT: Mucous Membr. Moist/[place] Neck: Supple, Trachea Midline Lungs: Normal Respiratory Effort, Decreased Breath Sounds Cardiovascular: Regular Rate, Regular Rhythm, Other (Pain with palpation to right, anterior, lower rib cage area.) GI/Abdominal Exam: Normal Bowel Sounds, Non-Tender Back Exam: Normal Inspection Extremities: Normal Inspection, Normal Capillary Refill Skin: Warm, Dry, Cool, Ecchymosis (abdomen) Neurological: No New Focal Deficit, Normal Speech, Strength Equal Bilateral Psy/Mental Status: Alert, Normal Affect, Normal Mood - Problem List & Annotations (1) Acute cystitis SNOMED Code(s): 00975284 Code(s): N30.00 - ACUTE CYSTITIS WITHOUT HEMATURIA Status: Acute Priority : Medium Current Visit: No Qualifiers: (2) CKD (chronic kidney disease) requiring chronic dialysis SNOMED Code(s): 790598996 Code(s): N18.6 - END STAGE RENAL DISEASE; Z99.2 - DEPENDENCE ON RENAL DIALYSIS Status: Acute Current Visit: No Annotation/Comment:: takes care of all dialysis needs for pt. (3) Pain SNOMED Code(s): 69505217 Code(s): R52 - PAIN, UNSPECIFIED Status: Acute Current Visit: No Annotation/Comment:: Medicate for relief of pain for mild, moderate or severe pain. Reposition as needed for comfort. (4) Diabetes mellitus SNOMED Code(s): 20644512 Code(s): E11.9 - TYPE 2 DIABETES MELLITUS WITHOUT COMPLICATIONS Status: Chronic Priority: Low Current Visit: No Qualifiers: (5) Weakness SNOMED Code(s): 90485436 Code(s): R53.1 - WEAKNESS Status: Chronic Priority: High Current Visit : No Annotation/Comment:: PT/OT for strengthening - Problem List Review Problem List Initiated/Reviewed/Updated: Yes - My Orders Last 24 Hours: My Active Orders 09/21/17 08:00 Darbepoetin Jerel [Aranesp] 150 mcg SUBCUT Q14D 09/21/17 08:51 Consult to Deckhand [Consult to Diabetic Nurse Specialist] [CONS] Routine 09/21/17 10:36 Acetaminophen [Tylenol Arthritis Pain] 650 mg PO Q8H PRN 09/21/17 20:00 Insulin Detemir [Levemir] 40 unit SUBCUT BID 09/22/17 07:50 COMPREHENSIVE METABOLIC PN,CMP [CHEM] Routine - Plan Plan:: Cystitis: Oral fluids to promote hydration Antibiotic as ordered Diabetes Type 2 Controlled: Blood sugar ac and hs. Novolog and Lantus insulins SQ as ordered. Pain: Medicate as needed for mild, moderate, severe pain. Potential skin break down: Change dressing to coccyx every 3 days and prn. Monitor skin for breakdown and encourage turning every 2 hours with skin care. Dialysis managed by : Weakness: PT/OT for strengthening and exercise COPD controlled O2 on continuous per N/C Nebulizer as ordered.
[2017-09-22] MEDS: Furosemide 40 MG Tab PO SCH (08:35)
[2017-09-22] MEDS: Amiodarone 200 MG Tab PO SCH (08:35)
[2017-09-22] MEDS: Ferrous Sulfate 325 MG Tab PO SCH ×2 (08:35→20:29)
[2017-09-22] MEDS: Aspirin 81 MG Tab.EC PO SCH (08:35)
[2017-09-22] MEDS: Pramipexole 0.125 MG Tab PO SCH ×3 (08:35→20:28)
[2017-09-22] MEDS: DULoxetine 60 MG Cap PO SCH (08:35)
[2017-09-22] MEDS: Fish Oil/Omega-3 Fatty Acids 1 Gm Cap PO SCH (08:36)
[2017-09-22] MEDS: Diltiazem 120 MG Cap.CD PO SCH (08:36)
[2017-09-22] MEDS: Allopurinol 100 MG Tab PO SCH (08:37)
[2017-09-22] MEDS: busPIRone 10 MG Tab PO SCH ×4 (08:37→20:27)
[2017-09-22] MEDS: Insulin Detemir 100 Units/ML 3 ML Pen SUBCUT SCH ×2 (08:43→20:51)
[2017-09-22] MEDS: Ipratropium 0.02% 0.5 MG/2.5 ML Neb Soln INH SCH ×4 (09:49→20:30)
[2017-09-22] MEDS: Mupirocin Oint 22 GM Tube TOP SCH ×3 (09:56→20:31)
[2017-09-22] MEDS: Budesonide 0.25 MG/2 ML Neb Susp INH SCH ×2 (10:06→20:30)
[2017-09-22] MEDS: Nystatin Topical Powder 15 GM Bottle TOP SCH ×3 (11:21→20:32)
[2017-09-22] MEDS: Fluticasone Propionate Nasal Spray 16 GM Bottle NAS SCH ×2 (11:22→20:51)
[2017-09-22] MEDS: atorvaSTATin 40 MG Tab PO SCH (20:28)
[2017-09-22] MEDS: traZODone 50 MG Tab PO SCH (20:28)
[2017-09-22] MEDS: Haloperidol 1 MG Tab PO SCH (20:29)
[2017-09-22] MEDS ORDERED: Insulin Aspart 100 Units/ML 3 ML Pen SUBCUT ONE (20:46)
[2017-09-23] MEDS: Levothyroxine 100 MCG Tab PO SCH (06:13)
[2017-09-23] MEDS: Insulin Aspart 100 Units/ML 3 ML Pen SUBCUT SCH ×3 (08:20→17:39)
[2017-09-23] MEDS: Furosemide 40 MG Tab PO SCH (08:20)
[2017-09-23] MEDS: Ferrous Sulfate 325 MG Tab PO SCH ×2 (08:42→19:33)
[2017-09-23] MEDS: Fish Oil/Omega-3 Fatty Acids 1 Gm Cap PO SCH (08:42)
[2017-09-23] MEDS: Aspirin 81 MG Tab.EC PO SCH (08:42)
[2017-09-23] MEDS: Allopurinol 100 MG Tab PO SCH (08:42)
[2017-09-23] MEDS: Insulin Detemir 100 Units/ML 3 ML Pen SUBCUT SCH ×2 (08:42→19:38)
[2017-09-23] MEDS: DULoxetine 60 MG Cap PO SCH (08:42)
[2017-09-23] MEDS: Diltiazem 120 MG Cap.CD PO SCH (08:42)
[2017-09-23] MEDS: Pramipexole 0.125 MG Tab PO SCH ×3 (08:43→19:32)
[2017-09-23] MEDS: Amiodarone 200 MG Tab PO SCH (08:43)
[2017-09-23] MEDS: busPIRone 10 MG Tab PO SCH ×4 (08:44→19:33)
[2017-09-23] MEDS: Ipratropium 0.02% 0.5 MG/2.5 ML Neb Soln INH SCH ×4 (08:52→19:31)
[2017-09-23] MEDS: Mupirocin Oint 22 GM Tube TOP SCH ×3 (08:54→19:34)
[2017-09-23] MEDS: Budesonide 0.25 MG/2 ML Neb Susp INH SCH ×2 (09:06→19:31)
[2017-09-23] MEDS: Fluticasone Propionate Nasal Spray 16 GM Bottle NAS SCH ×2 (09:35→19:31)
[2017-09-23] MEDS: Nystatin Topical Powder 15 GM Bottle TOP SCH ×3 (09:52→19:37)
[2017-09-23] MEDS: Acetaminophen/HYDROcodone 325-5 MG Tab PO PRN ×3 (11:20→23:55)
[2017-09-23] MEDS: LORazepam 1 MG Tab PO PRN ×2 (18:14→23:57)
[2017-09-23] MEDS: atorvaSTATin 40 MG Tab PO SCH (19:32)
[2017-09-23] MEDS: traZODone 50 MG Tab PO SCH (19:32)
[2017-09-23] MEDS: Haloperidol 1 MG Tab PO SCH (19:33)
[2017-09-24] MEDS: Levothyroxine 100 MCG Tab PO SCH (06:21)
[2017-09-24] MEDS: Acetaminophen/HYDROcodone 325-5 MG Tab PO PRN ×3 (06:26→19:24)
[2017-09-24] MEDS: LORazepam 1 MG Tab PO PRN ×2 (06:26→19:23)
[2017-09-24] MEDS: Furosemide 40 MG Tab PO SCH (08:15)
[2017-09-24] MEDS: Pramipexole 0.125 MG Tab PO SCH ×3 (08:19→19:22)
[2017-09-24] MEDS: Ferrous Sulfate 325 MG Tab PO SCH ×2 (08:20→19:23)
[2017-09-24] MEDS: busPIRone 10 MG Tab PO SCH ×4 (08:20→19:22)
[2017-09-24] MEDS: Aspirin 81 MG Tab.EC PO SCH (08:20)
[2017-09-24] MEDS: DULoxetine 60 MG Cap PO SCH (08:20)
[2017-09-24] MEDS: Fish Oil/Omega-3 Fatty Acids 1 Gm Cap PO SCH (08:20)
[2017-09-24] MEDS: Insulin Aspart 100 Units/ML 3 ML Pen SUBCUT SCH ×3 (08:21→17:09)
[2017-09-24] MEDS: Allopurinol 100 MG Tab PO SCH (08:21)
[2017-09-24] MEDS: Insulin Detemir 100 Units/ML 3 ML Pen SUBCUT SCH ×2 (08:22→19:59)
[2017-09-24] MEDS: Amiodarone 200 MG Tab PO SCH (08:25)
[2017-09-24] MEDS: Diltiazem 120 MG Cap.CD PO SCH (08:25)
[2017-09-24] MEDS: Mupirocin Oint 22 GM Tube TOP SCH ×3 (08:55→19:25)
[2017-09-24] MEDS: Fluticasone Propionate Nasal Spray 16 GM Bottle NAS SCH ×2 (08:55→21:02)
[2017-09-24] MEDS: Ipratropium 0.02% 0.5 MG/2.5 ML Neb Soln INH SCH ×4 (08:55→19:26)
[2017-09-24] MEDS: Budesonide 0.25 MG/2 ML Neb Susp INH SCH ×2 (09:11→19:27)
[2017-09-24] MEDS: Nystatin Topical Powder 15 GM Bottle TOP SCH ×3 (11:47→20:58)
[2017-09-24] MEDS: Haloperidol 1 MG Tab PO SCH (19:20)
[2017-09-24] MEDS: traZODone 50 MG Tab PO SCH (19:21)
[2017-09-24] MEDS: atorvaSTATin 40 MG Tab PO SCH (19:21)
[2017-09-25] MEDS: LORazepam 1 MG Tab PO PRN ×2 (01:03→23:58)
[2017-09-25] MEDS: Acetaminophen/HYDROcodone 325-5 MG Tab PO PRN ×4 (01:03→23:59)
[2017-09-25] MEDS: Levothyroxine 100 MCG Tab PO SCH (06:31)
[2017-09-25] MEDS: Furosemide 40 MG Tab PO SCH (07:27)
[2017-09-25] MEDS: Amiodarone 200 MG Tab PO SCH (07:27)
[2017-09-25] MEDS: Aspirin 81 MG Tab.EC PO SCH (07:27)
[2017-09-25] MEDS: Ferrous Sulfate 325 MG Tab PO SCH ×2 (07:27→20:06)
[2017-09-25] MEDS: busPIRone 10 MG Tab PO SCH ×4 (07:28→20:07)
[2017-09-25] MEDS: Allopurinol 100 MG Tab PO SCH (07:28)
[2017-09-25] MEDS: Diltiazem 120 MG Cap.CD PO SCH (07:28)
[2017-09-25] MEDS: Fish Oil/Omega-3 Fatty Acids 1 Gm Cap PO SCH (07:29)
[2017-09-25] MEDS: DULoxetine 60 MG Cap PO SCH (07:29)
[2017-09-25] MEDS: Pramipexole 0.125 MG Tab PO SCH ×3 (07:29→20:06)
[2017-09-25] MEDS: Ipratropium 0.02% 0.5 MG/2.5 ML Neb Soln INH SCH ×4 (07:29→20:04)
[2017-09-25] MEDS: Mupirocin Oint 22 GM Tube TOP SCH ×3 (07:30→20:04)
[2017-09-25] MEDS: Fluticasone Propionate Nasal Spray 16 GM Bottle NAS SCH ×2 (07:30→20:04)
[2017-09-25] MEDS: Nystatin Topical Powder 15 GM Bottle TOP SCH ×3 (07:33→20:05)
[2017-09-25] MEDS: Budesonide 0.25 MG/2 ML Neb Susp INH SCH ×2 (07:33→20:04)
[2017-09-25] MEDS: Insulin Aspart 100 Units/ML 3 ML Pen SUBCUT SCH ×3 (07:40→16:57)
[2017-09-25] MEDS: Insulin Detemir 100 Units/ML 3 ML Pen SUBCUT SCH ×2 (07:40→20:13)
--- NOTE | 2017-09-25 08:19 | PCM.PN ---
- General Info Date of Service: 09/25/17 Admission Dx/Problem (Free Text): Admission Diagnosis/Problem Admission Diagnosis/Problem Urinary tract infection Subjective Update: Pt states good night and slept well. Blood sugars coming down into 200's. Pt up in chair this am. States she is interested in an insulin pump. life educator consult done. Functional Status: Reports: Pain Controlled, Tolerating Diet, Ambulating, Incentive Spirometry - Review of Systems General: Reports: No Symptoms HEENT: Reports: No Symptoms Pulmonary: Reports: No Symptoms Cardiovascular: Reports: No Symptoms Gastrointestinal: Reports: No Symptoms Genitourinary: Reports: No Symptoms Musculoskeletal: Reports: Other (Pain improved to ribs.) Skin: Reports: Dryness, Bruising (bruising to arms, from venipuncture), Pruritis Neurological: Reports: No Symptoms Psychiatric: Reports: No Symptoms - Patient Data Vitals - Most Recent: Last Vital Signs Temp 98.6 F 09/23/17 08:00 Pulse 86 09/25/17 07:28 Resp 18 09/21/17 08:00 BP 126/62 09/25/17 07:28 Pulse Ox 96 09/24/17 08:00 Weight - Most Recent: 255 lb 9.6 oz Lab Results Last 24 Hours: Laboratory Results - last 24 hr 09/24/17 09/24/17 09/24/17 Range/Units 07:01 10:29 12:00 WBC 7.7 (4.0-11.0) K/uL RBC 3.53 L (3.80-5.80) M/uL Hgb 10.4 L (11.5-16.5) g/dL Hct 32.6 L (37.0-47.0) % MCV 92 (76-96) fL MCH 29.5 (27.0-32.0) pg MCHC 31.9 (31.0-35.0) g/dL RDW 18.6 H (11.0-16.0) % Plt Count 83 L (150-500) K/uL MPV 11.2 H (6.0-10.0) fL Neut % (Auto) 74.6 H (45.0-70.0) % Lymph % (Auto) 13.4 L (20.0-40.0) % [place] % (Auto) 9.2 (3.0-10.0) % Eos % (Auto) 2.1 (1.0-5.0) % Baso % (Auto) 0.7 H (0.0-0.5) % Neut # (Auto) 5.73 (2.00-7.50) K/uL Lymph # (Auto) 1.03 L (1.50-4.00) K/uL [place] # (Auto) 0.71 (0.20-0.80) K/uL Eos # (Auto) 0.16 (0.04-0.40) K/uL Baso # (Auto) 0.05 (0.02-0.10) K/uL POC Glucose 320 H 426 H* (74-110) mg/dL 09/24/17 Range/Units 16:04 WBC (4.0-11.0) K/uL RBC (3.80-5.80) M/uL Hgb (11.5-16.5) g/dL Hct (37.0-47.0) % MCV (76-96) fL MCH (27.0-32.0) pg MCHC (31.0-35.0) g/dL RDW (11.0-16.0) % Plt Count (150-500) K/uL MPV (6.0-10.0) fL Neut % (Auto) (45.0-70.0) % Lymph % (Auto) (20.0-40.0) % [place] % (Auto) (3.0-10.0) % Eos % (Auto) (1.0-5.0) % Baso % (Auto) (0.0-0.5) % Neut # (Auto) (2.00-7.50) K/uL Lymph # (Auto) (1.50-4.00) K/uL [place] # (Auto) (0.20-0.80) K/uL Eos # (Auto) (0.04-0.40) K/uL Baso # (Auto) (0.02-0.10) K/uL POC Glucose 258 H (74-110) mg/dL Med Orders - Current: Current Medications Acetaminophen (Tylenol Arthritis Pain) 650 mg PO Q8H PRN PRN Reason: Pain Hydrocodone Bitart/Acetaminophen ([place] 325-5 Mg) 1 tab PO Q4H PRN PRN Reason: MODERATE PAIN Last Admin: 09/25/17 07:45 Dose: 1 tab Allopurinol (Zyloprim) 100 mg PO DAILY [facility] Last Admin: 09/25/17 07:28 Dose: 100 mg Amiodarone HCl (Cordarone) 100 mg PO DAILY [facility] Last Admin: 09/25/17 07:27 Dose: 100 mg Aspirin (Halfprin) 81 mg PO DAILY [facility] Last Admin: 09/25/17 07:27 Dose: 81 mg Atorvastatin Calcium (Lipitor) 40 mg PO BEDTIME [facility] Last Admin: 09/24/17 19:21 Dose: 40 mg Budesonide (Pulmicort) 0.5 mg INH BID [facility] Last Admin: 09/25/17 07:33 Dose: 0.5 mg Buspirone HCl (Buspar) 15 mg PO QID [facility] Last Admin: 09/25/17 07:28 Dose: 15 mg Darbepoetin Jerel (Aranesp) 150 mcg SUBCUT Q14D [facility] Last Admin: 09/21/17 08:09 Dose: 150 mcg Diclofenac Sodium (Voltaren 1% Gel) 0 - 1 gm TOP QID PRN PRN Reason: Pain Diltiazem HCl (Cardizem Cd) 120 mg PO DAILY [facility] Last Admin: 09/25/17 07:28 Dose: 120 mg Duloxetine HCl (Cymbalta) 60 mg PO DAILY [facility] Last Admin: 09/25/17 07:29 Dose: 60 mg Ferrous Sulfate (Ferrous Sulfate) 325 mg PO BID [facility] Last Admin: 09/25/17 07:27 Dose: 325 mg Fish Oil (Fish Oil) 1 gm PO DAILY [facility] Last Admin: 09/25/17 07:29 Dose: 1 gm Fluticasone Propionate (Flonase) 16 gm EDIS BID [facility] Last Admin: 09/25/17 07:30 Dose: 1 spray Furosemide (Lasix) 40 mg PO DAILY [facility] Last Admin: 09/25/17 07:27 Dose: 40 mg Haloperidol (Haldol) 2 mg PO BEDTIME [facility] Last Admin: 09/24/17 19:20 Dose: 2 mg Insulin Aspart (Novolog) 0 unit SUBCUT TIDAC [facility] PRN Reason: Protocol Last Admin: 09/25/17 07:40 Dose: 21 units Insulin Detemir (Levemir) 43 unit SUBCUT BID [facility] Last Admin: 09/25/17 07:40 Dose: 43 units Ipratropium [place] (Atrovent) 0.5 mg INH QID [facility] Last Admin: 09/25/17 07:29 Dose: 0.5 mg Levothyroxine Sodium (Synthroid) 200 mcg PO ACBREAKFAST [facility] Last Admin: 09/25/17 06:31 Dose: 200 mcg Lorazepam (Ativan) 1 mg PO Q6H PRN PRN Reason: ANXIETY Last Admin: 09/25/17 01:03 Dose: 1 mg Metoclopramide HCl (Reglan) 10 mg PO QID PRN PRN Reason: Nausea Mupirocin (Bactroban Oint) 0 gm TOP TID [facility] Last Admin: 09/25/17 07:30 Dose: 1 applic Nystatin (Nystop) 15 gm TOP TID [facility] Last Admin: 09/25/17 07:33 Dose: Not Given Ondansetron HCl (Zofran Odt) 4 mg PO Q4H PRN PRN Reason: NAUSEA Pramipexole Dihydrochloride (Mirapex) 0.25 mg PO TID [facility] Last Admin: 09/25/17 07:29 Dose: 0.25 mg Senna/Docusate Sodium (Senna Plus) 1 tab PO BID [facility] Last Admin: 09/25/17 07:42 Dose: 1 tab Trazodone HCl (Trazodone) 50 mg PO BEDTIME [facility] Last Admin: 09/24/17 19:21 Dose: 50 mg Discontinued Medications Acetaminophen (Tylenol Extra Strength) 1,000 mg PO Q6H PRN PRN Reason: Pain Last Admin: 09/21/17 00:04 Dose: 1,000 mg Hydrocodone Bitart/Acetaminophen ([place] 325-5 Mg) 1 tab PO DAILY PRN PRN Reason: MODERATE PAIN Amiodarone HCl (Cordarone) 200 mg PO DAILY [facility] Buspirone HCl (Buspar) 15 mg PO BID [facility] Buspirone HCl (Buspar) 15 mg PO BID [facility] Last Admin: 09/19/17 07:34 Dose: 15 mg Calcitriol (Rocaltrol) 0.5 mcg PO DAILY [facility] Duloxetine HCl (Cymbalta) 30 mg PO DAILY [facility] Last Admin: 09/16/17 08:30 Dose: 30 mg Gabapentin (Neurontin) 600 mg PO BID [facility] Last Admin: 09/17/17 08:10 Dose: Not Given Haloperidol (Haldol) 4 mg PO BEDTIME [facility] Last Admin: 09/15/17 20:50 Dose: 4 mg Hydralazine HCl (Apresoline) 25 mg PO Q8H [facility] Last Admin: 09/16/17 14:47 Dose: Not Given Insulin Aspart (Novolog) 15 unit SUBCUT BIDMEALS [facility] Last Admin: 09/16/17 18:15 Dose: Not Given Insulin Aspart (Novolog) 15 unit SUBCUT TIDMEALS [facility] Last Admin: 09/20/17 08:18 Dose: 15 units Insulin Aspart (Novolog) 20 unit SUBCUT ONETIME ONE Stop: 09/20/17 11:58 Last Admin: 09/20/17 12:04 Dose: 20 units Insulin Aspart (Novolog) 12 unit SUBCUT ONETIME ONE Stop: 09/22/17 20:47 Last Admin: 09/22/17 20:57 Dose: 12 units Insulin Detemir (Levemir) 45 unit SUBCUT BEDTIME [facility] Insulin Detemir (Levemir) 30 unit SUBCUT BID [facility] Last Admin: 09/19/17 07:42 Dose: 30 units Insulin Detemir (Levemir) 33 unit SUBCUT BID [facility] Last Admin: 09/19/17 08:58 Dose: 3 units Insulin Detemir (Levemir) 35 unit SUBCUT BID [facility] Last Admin: 09/21/17 08:20 Dose: 35 units Insulin Detemir (Levemir) 40 unit SUBCUT BID [facility] Last Admin: 09/23/17 08:42 Dose: 40 units Insulin Glargine (Lantus Solostar) 45 units SUBCUT BEDTIME [facility] Levothyroxine Sodium (Synthroid) Confirm Administered Dose 100 mcg .ROUTE .STK- MED ONE Stop: 09/18/17 07:56 Last Admin: 09/18/17 19:37 Dose: Not Given Metoclopramide HCl (Reglan) 10 mg PO QID [facility] Last Admin: 09/15/17 20:50 Dose: 10 mg Metoprolol Tartrate (Lopressor) 50 mg PO BID [facility] Sodium Bicarbonate (650mg Tablets) 1 each PO BID [facility] Cefprozil 250mg (Tablets) 2 each PO BID [facility] Stop: 09/19/17 21:00 Last Admin: 09/19/17 19:17 Dose: 2 each Nystatin (Nystop) 15 gm TOP ASDIRECTED [facility] Senna/Docusate Sodium (Senna Plus) Confirm Administered Dose 1 tab .ROUTE .STK- MED ONE Stop: 09/21/17 20:29 Last Admin: 09/21/17 20:51 Dose: Not Given Trazodone HCl (Trazodone) 100 mg PO BEDTIME [facility] Last Admin: 09/15/17 21:42 Dose: 100 mg Tuberculin PPD (Aplisol) 5 unit IDERM ONETIME ONE Stop: 09/15/17 12:20 Last Admin: 09/19/17 17:04 Dose: 5 unit Zolpidem Tartrate (Ambien) 5 mg PO BEDTIME PRN PRN Reason: Insomnia - Exam Quality Assessment: Supplemental Oxygen General: Alert, Oriented HEENT: Pupils Equal Neck: Supple, Trachea Midline Lungs: Clear to Auscultation, Normal Respiratory Effort Cardiovascular: Regular Rate, Regular Rhythm GI/Abdominal Exam: Normal Bowel Sounds, Soft, Non-Tender Back Exam: Normal Inspection Extremities: Non-Tender, No Pedal Edema Skin: Warm, Dry Neurological: No New Focal Deficit Psy/Mental Status: Alert, Normal Affect, Normal Mood - Problem List & Annotations (1) Acute cystitis SNOMED Code(s): 49640425 Code(s): N30.00 - ACUTE CYSTITIS WITHOUT HEMATURIA Status: Acute Priority : Medium Current Visit: No Qualifiers: (2) CKD (chronic kidney disease) requiring chronic dialysis SNOMED Code(s): 940473320 Code(s): N18.6 - END STAGE RENAL DISEASE; Z99.2 - DEPENDENCE ON RENAL DIALYSIS Status: Acute Current Visit: No Annotation/Comment:: takes care of all dialysis needs for pt. (3) Pain SNOMED Code(s): 27877336 Code(s): R52 - PAIN, UNSPECIFIED Status: Acute Priority: Medium Current Visit: Yes Annotation/Comment:: Medicate for relief of pain for mild, moderate or severe pain. Reposition as needed for comfort. (4) Diabetes mellitus SNOMED Code(s): 37541402 Code(s): E11.9 - TYPE 2 DIABETES MELLITUS WITHOUT COMPLICATIONS Status: Chronic Priority: Low Current Visit: No Qualifiers: (5) Weakness SNOMED Code(s): 32235036 Code(s): R53.1 - WEAKNESS Status: Chronic Priority: High Current Visit : Yes Annotation/Comment:: PT/OT for strengthening - Problem List Review Problem List Initiated/Reviewed/Updated: Yes - Plan Plan:: 09-25-17 Cystitis: Resolved Oral fluids to promote hydration Diabetes Type 2, Controlled: Blood sugar ac and hs. Novolog and Lantus insulins SQ as ordered. Consult educator senior clinical. Pain, controlled: Medicate as needed for mild, moderate, severe pain. Potential skin break down: Change dressing to coccyx every 3 days and prn. Monitor skin for breakdown and encourage turning every 2 hours with skin care. Dialysis managed by : Weakness improved: PT/OT for strengthening and exercise COPD controlled O2 on continuous per N/C Nebulizer as ordered.
[2017-09-25] MEDS: traZODone 50 MG Tab PO SCH (20:06)
[2017-09-25] MEDS: Haloperidol 1 MG Tab PO SCH (20:06)
[2017-09-25] MEDS: atorvaSTATin 40 MG Tab PO SCH (20:06)
[2017-09-26] MEDS: LORazepam 1 MG Tab PO PRN ×4 (04:15→23:53)
[2017-09-26] MEDS: Acetaminophen/HYDROcodone 325-5 MG Tab PO PRN ×4 (04:15→23:52)
[2017-09-26] MEDS: Pramipexole 0.125 MG Tab PO SCH ×3 (07:30→20:31)
[2017-09-26] MEDS: Levothyroxine 100 MCG Tab PO SCH (07:31)
[2017-09-26] MEDS: DULoxetine 60 MG Cap PO SCH (07:31)
[2017-09-26] MEDS: Ferrous Sulfate 325 MG Tab PO SCH ×2 (07:31→20:15)
[2017-09-26] MEDS: Aspirin 81 MG Tab.EC PO SCH (07:31)
[2017-09-26] MEDS: Furosemide 40 MG Tab PO SCH (07:31)
[2017-09-26] MEDS: Fish Oil/Omega-3 Fatty Acids 1 Gm Cap PO SCH (07:31)
[2017-09-26] MEDS: Amiodarone 200 MG Tab PO SCH (07:32)
[2017-09-26] MEDS: busPIRone 10 MG Tab PO SCH ×4 (07:32→20:32)
[2017-09-26] MEDS: Allopurinol 100 MG Tab PO SCH (07:33)
[2017-09-26] MEDS: Diltiazem 120 MG Cap.CD PO SCH (07:33)
[2017-09-26] MEDS: Ipratropium 0.02% 0.5 MG/2.5 ML Neb Soln INH SCH ×4 (07:39→20:14)
[2017-09-26] MEDS: Fluticasone Propionate Nasal Spray 16 GM Bottle NAS SCH ×2 (07:40→20:16)
[2017-09-26] MEDS: Budesonide 0.25 MG/2 ML Neb Susp INH SCH ×2 (07:40→20:16)
[2017-09-26] MEDS: Mupirocin Oint 22 GM Tube TOP SCH ×3 (07:43→20:16)
[2017-09-26] MEDS: Nystatin Topical Powder 15 GM Bottle TOP SCH ×3 (07:43→20:37)
[2017-09-26] MEDS: Insulin Detemir 100 Units/ML 3 ML Pen SUBCUT SCH ×2 (07:46→20:00)
[2017-09-26] MEDS: Insulin Aspart 100 Units/ML 3 ML Pen SUBCUT SCH ×3 (07:46→17:00)
[2017-09-26] MEDS: traZODone 50 MG Tab PO SCH (20:15)
[2017-09-26] MEDS: atorvaSTATin 40 MG Tab PO SCH (20:15)
[2017-09-26] MEDS: Haloperidol 1 MG Tab PO SCH (20:15)
[2017-09-26] MEDS ORDERED: Pramipexole 0.125 MG Tab ONE (20:26)
[2017-09-27] MEDS: Ipratropium 0.02% 0.5 MG/2.5 ML Neb Soln INH SCH ×4 (07:33→19:47)
[2017-09-27] MEDS: Ferrous Sulfate 325 MG Tab PO SCH ×2 (07:35→19:51)
[2017-09-27] MEDS: Furosemide 40 MG Tab PO SCH (07:35)
[2017-09-27] MEDS: DULoxetine 60 MG Cap PO SCH (07:35)
[2017-09-27] MEDS: Aspirin 81 MG Tab.EC PO SCH (07:35)
[2017-09-27] MEDS: Fish Oil/Omega-3 Fatty Acids 1 Gm Cap PO SCH (07:35)
[2017-09-27] MEDS: Allopurinol 100 MG Tab PO SCH (07:35)
[2017-09-27] MEDS: Fluticasone Propionate Nasal Spray 16 GM Bottle NAS SCH ×2 (07:36→19:56)
[2017-09-27] MEDS: Diltiazem 120 MG Cap.CD PO SCH (07:36)
[2017-09-27] MEDS: Levothyroxine 100 MCG Tab PO SCH (07:36)
[2017-09-27] MEDS: Pramipexole 0.125 MG Tab PO SCH ×3 (07:36→19:53)
[2017-09-27] MEDS: Amiodarone 200 MG Tab PO SCH (07:37)
[2017-09-27] MEDS: Nystatin Topical Powder 15 GM Bottle TOP SCH ×3 (07:38→19:47)
[2017-09-27] MEDS: Mupirocin Oint 22 GM Tube TOP SCH ×3 (07:38→19:56)
[2017-09-27] MEDS: busPIRone 10 MG Tab PO SCH ×4 (07:43→19:47)
[2017-09-27] MEDS: Insulin Aspart 100 Units/ML 3 ML Pen SUBCUT SCH ×3 (07:45→17:28)
[2017-09-27] MEDS: Insulin Detemir 100 Units/ML 3 ML Pen SUBCUT SCH ×2 (07:45→20:02)
[2017-09-27] MEDS: Budesonide 0.25 MG/2 ML Neb Susp INH SCH ×2 (08:08→19:47)
[2017-09-27] MEDS: LORazepam 1 MG Tab PO PRN ×2 (13:06→19:53)
[2017-09-27] MEDS: Acetaminophen/HYDROcodone 325-5 MG Tab PO PRN ×2 (13:06→19:52)
[2017-09-27] MEDS: atorvaSTATin 40 MG Tab PO SCH (19:47)
[2017-09-27] MEDS: traZODone 50 MG Tab PO SCH (19:51)
[2017-09-27] MEDS: Haloperidol 1 MG Tab PO SCH (19:54)
[2017-09-28] MEDS: Acetaminophen/HYDROcodone 325-5 MG Tab PO PRN ×5 (01:42→17:31)
[2017-09-28] MEDS: LORazepam 1 MG Tab PO PRN ×3 (01:42→17:31)
[2017-09-28] MEDS: Levothyroxine 100 MCG Tab PO SCH (07:29)
[2017-09-28] MEDS: Mupirocin Oint 22 GM Tube TOP SCH ×3 (07:44→19:20)
[2017-09-28] MEDS: Ipratropium 0.02% 0.5 MG/2.5 ML Neb Soln INH SCH ×4 (07:51→19:21)
[2017-09-28] MEDS: Budesonide 0.25 MG/2 ML Neb Susp INH SCH ×2 (08:00→19:25)
[2017-09-28] MEDS: Insulin Detemir 100 Units/ML 3 ML Pen SUBCUT SCH ×2 (08:11→20:15)
[2017-09-28] MEDS: busPIRone 10 MG Tab PO SCH ×4 (08:15→19:16)
[2017-09-28] MEDS: Pramipexole 0.125 MG Tab PO SCH ×3 (08:15→19:16)
[2017-09-28] MEDS: Diltiazem 120 MG Cap.CD PO SCH (08:16)
[2017-09-28] MEDS: Fish Oil/Omega-3 Fatty Acids 1 Gm Cap PO SCH (08:17)
[2017-09-28] MEDS: Ferrous Sulfate 325 MG Tab PO SCH ×2 (08:17→19:21)
[2017-09-28] MEDS: Amiodarone 200 MG Tab PO SCH (08:17)
[2017-09-28] MEDS: Allopurinol 100 MG Tab PO SCH (08:17)
[2017-09-28] MEDS: Nystatin Topical Powder 15 GM Bottle TOP SCH ×3 (08:18→19:23)
[2017-09-28] MEDS: DULoxetine 60 MG Cap PO SCH (08:18)
[2017-09-28] MEDS: Furosemide 40 MG Tab PO SCH (08:18)
[2017-09-28] MEDS: Aspirin 81 MG Tab.EC PO SCH (08:18)
[2017-09-28] MEDS: Insulin Aspart 100 Units/ML 3 ML Pen SUBCUT SCH ×3 (08:25→17:28)
[2017-09-28] MEDS: Fluticasone Propionate Nasal Spray 16 GM Bottle NAS SCH ×2 (08:27→19:22)
[2017-09-28] MEDS: traZODone 50 MG Tab PO SCH (19:20)
[2017-09-28] MEDS: atorvaSTATin 40 MG Tab PO SCH (19:21)
[2017-09-28] MEDS: Haloperidol 1 MG Tab PO SCH (19:23)
[2017-09-29] MEDS: LORazepam 1 MG Tab PO PRN (06:03)
[2017-09-29] MEDS: Levothyroxine 100 MCG Tab PO SCH (06:03)
[2017-09-29] MEDS: Acetaminophen/HYDROcodone 325-5 MG Tab PO PRN (06:04)
[2017-09-29] MEDS: Ipratropium 0.02% 0.5 MG/2.5 ML Neb Soln INH SCH (07:27)
[2017-09-29] MEDS: Furosemide 40 MG Tab PO SCH (07:28)
[2017-09-29] MEDS: Diltiazem 120 MG Cap.CD PO SCH (07:28)
[2017-09-29] MEDS: busPIRone 10 MG Tab PO SCH (07:28)
[2017-09-29] MEDS: Aspirin 81 MG Tab.EC PO SCH (07:28)
[2017-09-29] MEDS: Fish Oil/Omega-3 Fatty Acids 1 Gm Cap PO SCH (07:30)
[2017-09-29] MEDS: DULoxetine 60 MG Cap PO SCH (07:31)
[2017-09-29] MEDS: Allopurinol 100 MG Tab PO SCH (07:31)
[2017-09-29] MEDS: Amiodarone 200 MG Tab PO SCH (07:31)
[2017-09-29] MEDS: Pramipexole 0.125 MG Tab PO SCH (07:31)
[2017-09-29] MEDS: Mupirocin Oint 22 GM Tube TOP SCH (07:32)
[2017-09-29] MEDS: Fluticasone Propionate Nasal Spray 16 GM Bottle NAS SCH (07:32)
[2017-09-29] MEDS: Ferrous Sulfate 325 MG Tab PO SCH (07:32)
[2017-09-29 07:33] VITALS: BP 99/50
[2017-09-29] MEDS: Insulin Aspart 100 Units/ML 3 ML Pen SUBCUT SCH (07:39)
[2017-09-29] MEDS: Insulin Detemir 100 Units/ML 3 ML Pen SUBCUT SCH (07:40)
[2017-09-29] MEDS: Budesonide 0.25 MG/2 ML Neb Susp INH SCH (07:41)
[2017-09-29] MEDS: Nystatin Topical Powder 15 GM Bottle TOP SCH (07:41)
--- NOTE | 2017-09-29 10:06 | PCM.DCSUM1 ---
Discharge Summary - Hospital Course Free Text/Narrative:: 66 yr female presented for Swing Bed admission with UTI and weakness. Pt states she initially presented to ER with weakness and was transferred to [facility] and returned to [place] for Swing Bed admission to improve her weakness. Medications adjusted/started were Amiodarone and Diltiazem, Lantus dose, and novolog dose. Apresoline and metoprolol d/cd. Tylenol dose adjusted so pt doesn't take more than 3,000mg PO daily of Tylenol. Docusate sodium may be used. Pt dislikes the miralax she was on, so this was d'cd. Pt has received strengthening and exercise with PT and OT and is stronger and up in chair. She continues with Oxygen continuous. continues to perform her dialysis daily 6days per week and has regular monthly visits to dialysis in [place]. Pt is interested in an insulin pump and states she did have one in the past and worked well for her. Insulin dosage adjusted during this stay, Lantus 45 units sq bid and novolog 20 units ac tid. Blood sugars remain greater than 200. - Discharge Data Discharge Date: 09/29/17 Discharge Disposition: Home, Self-Care 01 Condition: Good - Discharge Diagnosis/Problem(s) (1) Acute cystitis SNOMED Code(s): 16382971 ICD Code: N30.00 - ACUTE CYSTITIS WITHOUT HEMATURIA Status: Acute Priority: Medium Current Visit: No Qualifiers: (2) CKD (chronic kidney disease) requiring chronic dialysis SNOMED Code(s): 755741069 ICD Code: N18.6 - END STAGE RENAL DISEASE; Z99.2 - DEPENDENCE ON RENAL DIALYSIS Status: Acute Current Visit: No Problem Details: takes care of all dialysis needs for pt. (3) Pain SNOMED Code(s): 65775894 ICD Code: R52 - PAIN, UNSPECIFIED Status: Acute Priority: Medium Current Visit: Yes Problem Details: Medicate for relief of pain for mild, moderate or severe pain. Reposition as needed for comfort. (4) Diabetes mellitus SNOMED Code(s): 37972615 ICD Code: E11.9 - TYPE 2 DIABETES MELLITUS WITHOUT COMPLICATIONS Status: Chronic Priority: Low Current Visit: No Qualifiers: (5) Weakness SNOMED Code(s): 53363720 ICD Code: R53.1 - WEAKNESS Status: Chronic Priority: High Current Visit : Yes Problem Details: PT/OT for strengthening - Patient Summary/Data Consults: Consultations 09/15/17 14:31 OT Evaluation and Treatment [CONS] Routine Please Evaluate and Treat. OT Reason for Consult: Stregthening This query below is only for informational purposes and is not editable. PT Evaluation and Treatment [CONS] Routine Please Evaluate and Treat. PT Reason for Consult: Strengthening This query below is only for informational purposes and is not editable. 09/21/17 08:51 Consult to Floorwalker [Consult to Diabetic Nurse Specialist] [CONS] Routine Comment: Physician Instructions: Reason for Consult: diabetic diet and possible insulin pump - Patient Instructions Diet: Diabetic Diet Activity: As Tolerated Showering/Bathing: May Shower Wound/Incision, Other: Keep vistula site clean and dry and prevent scratching. Notify Provider of: Fever - Discharge Plan Prescriptions/Med Rec: Acetaminophen [Tylenol Arthritis Pain] 650 mg PO Q8H PRN #30 tab.er PRN Reason: Pain Amiodarone [Cordarone] 100 mg PO DAILY #30 tablet Diltiazem HCl [Diltiazem 24Hr Cd] 120 mg PO DAILY #30 cap.er.24h Docusate Sodium/Sennosides [Senna Plus] 1 tab PO BID #30 tablet DULoxetine [Cymbalta] 60 mg PO DAILY #30 cap Insulin Aspart [NovoLOG] 20 unit SUBCUT TIDAC 30 Days pen Insulin Glarg,Human.Rec.Analog [Lantus Solostar] 45 units SQ ASDIRECTED 30 Days pen Home Medications: Home Meds traZODone 50 mg PO BEDTIME 04/25/16 [History] Allopurinol [Zyloprim] 100 mg PO DAILY tablet 12/27/16 [Rx] Levothyroxine Sodium [Levoxyl] 200 mcg PO DAILY 02/03/17 [History] Aspirin [Halfprin] 81 mg PO DAILY tab.ec 02/21/17 [Rx] Darbepoetin Jerel in [place] [Aranesp] 0 - 150 mcg SUBCUT Q14D 02/21/17 [Rx] Diclofenac Sodium [Voltaren 1% Gel] 0 - 1 gm TOP QID PRN #1 tube 02/21/17 [Rx] Mupirocin Oint [Bactroban Oint] 0 gm TOP TID tube 02/21/17 [Rx] atorvaSTATin [Lipitor] 40 mg PO BEDTIME tablet 02/21/17 [Rx] Ferrous Sulfate 325 mg PO BID 07/02/17 [History] Fish Oil/[place]-3 Fatty Acids [Fish Oil 1,000 MG] 1,000 mg PO DAILY 07/02/17 [ History] Furosemide [Lasix] 40 mg PO DAILY 07/02/17 [History] Metoclopramide [Reglan] 10 mg PO QID 07/02/17 [History] Pramipexole [Mirapex] 0.25 mg PO TID 07/02/17 [History] Zolpidem [Ambien] 5 mg PO BEDTIME PRN 07/02/17 [History] busPIRone [Buspar] 15 mg PO QID 07/02/17 [History] Budesonide [Pulmicort] 0.5 mg IH BID 09/15/17 [History] Fluticasone Propionate [Flonase] 16 gm NS BID 09/15/17 [History] Gabapentin [Neurontin] 600 mg PO BID 09/15/17 [History] Haloperidol [Haldol] 4 mg PO BEDTIME 09/15/17 [History] Hydrocodone/Acetaminophen [[place] 10-325 Tablet] 0.5 each PO Q6H 09/15/17 [ History] Ipratropium [Atrovent] 2.5 ml .XX QID 09/15/17 [History] LORazepam [Ativan] 0.5 mg PO Q6H 09/15/17 [History] Nystatin [Nystatin Crm] 15 gm TOP TID 09/15/17 [History] Ondansetron [Zofran] 4 mg PO Q4H 09/15/17 [History] Acetaminophen [Tylenol Arthritis Pain] 650 mg PO Q8H PRN #30 tab.er 09/29/17 [Rx ] Amiodarone [Cordarone] 100 mg PO DAILY #30 tablet 09/29/17 [Rx] DULoxetine [Cymbalta] 60 mg PO DAILY #30 cap 09/29/17 [Rx] Diltiazem HCl [Diltiazem 24Hr Cd] 120 mg PO DAILY #30 cap.er.24h 09/29/17 [Rx] Docusate Sodium/Sennosides [Senna Plus] 1 tab PO BID #30 tablet 09/29/17 [Rx] Insulin Aspart [NovoLOG] 20 unit SUBCUT TIDAC 30 Days pen 09/29/17 [Rx] Insulin Glarg,Human.Rec.Analog [Lantus Solostar] 45 units SQ ASDIRECTED 30 Days pen 09/29/17 [Rx] - General Info Admission Dx/Problem (Free Text: Admission Diagnosis/Problem Admission Diagnosis/Problem Urinary tract infection Subjective Update: States feels stronger and is satisfied with her recovery. She is somewhat anxious with return home. Recommend follow-up visit in clinic w PCP next week. Functional Status: Reports: Pain Controlled, Tolerating Diet - Review of Systems General: Reports: No Symptoms HEENT: Reports: No Symptoms Pulmonary: Reports: Other (uses of oxygen) Cardiovascular: Reports: No Symptoms Gastrointestinal: Reports: No Symptoms, Other (regular BM) Genitourinary: Reports: No Symptoms Musculoskeletal: Reports: No Symptoms Skin: Reports: Pruritis Neurological: Reports: No Symptoms Psychiatric: Reports: No Symptoms - Patient Data Vitals - Most Recent: Last Vital Signs Temp 98.3 F 09/28/17 07:56 Pulse 85 09/29/17 08:00 Resp 18 09/29/17 08:00 BP 99/50 L 09/29/17 08:00 Pulse Ox 96 09/29/17 08:00 Weight - Most Recent: 257 lb 12.8 oz Lab Results - Last 24 hrs: Laboratory Results - last 24 hr 09/28/17 09/28/17 09/28/17 Range/Units 10:38 16:27 19:11 POC Glucose 314 H 298 H 395 H (74-110) mg/dL 09/29/17 Range/Units 06:23 POC Glucose 354 H (74-110) mg/dL Med Orders - Current: Current Medications Acetaminophen (Tylenol Arthritis Pain) 650 mg PO Q8H PRN PRN Reason: Pain Hydrocodone Bitart/Acetaminophen ([place] 325-5 Mg) 1 tab PO Q4H PRN PRN Reason: MODERATE PAIN Last Admin: 09/29/17 06:04 Dose: 1 tab Allopurinol (Zyloprim) 100 mg PO DAILY [facility] Last Admin: 09/29/17 07:31 Dose: 100 mg Amiodarone HCl (Cordarone) 100 mg PO DAILY [facility] Last Admin: 09/29/17 07:31 Dose: 100 mg Aspirin (Halfprin) 81 mg PO DAILY [facility] Last Admin: 09/29/17 07:28 Dose: 81 mg Atorvastatin Calcium (Lipitor) 40 mg PO BEDTIME [facility] Last Admin: 09/28/17 19:21 Dose: 40 mg Budesonide (Pulmicort) 0.5 mg INH BID [facility] Last Admin: 09/29/17 07:41 Dose: 0.5 mg Buspirone HCl (Buspar) 15 mg PO QID [facility] Last Admin: 09/29/17 07:28 Dose: 15 mg Darbepoetin Jerel (Aranesp) 150 mcg SUBCUT Q14D [facility] Last Admin: 09/21/17 08:09 Dose: 150 mcg Diclofenac Sodium (Voltaren 1% Gel) 0 - 1 gm TOP QID PRN PRN Reason: Pain Diltiazem HCl (Cardizem Cd) 120 mg PO DAILY [facility] Last Admin: 09/29/17 07:28 Dose: 120 mg Duloxetine HCl (Cymbalta) 60 mg PO DAILY [facility] Last Admin: 09/29/17 07:31 Dose: 60 mg Ferrous Sulfate (Ferrous Sulfate) 325 mg PO BID [facility] Last Admin: 09/29/17 07:32 Dose: 325 mg Fish Oil (Fish Oil) 1 gm PO DAILY [facility] Last Admin: 09/29/17 07:30 Dose: 1 gm Fluticasone Propionate (Flonase) 16 gm EDIS BID [facility] Last Admin: 09/29/17 07:32 Dose: 1 spray Furosemide (Lasix) 40 mg PO DAILY [facility] Last Admin: 09/29/17 07:28 Dose: 40 mg Haloperidol (Haldol) 2 mg PO BEDTIME [facility] Last Admin: 09/28/17 19:23 Dose: 2 mg Insulin Aspart (Novolog) 0 unit SUBCUT TIDAC [facility] PRN Reason: Protocol Last Admin: 09/29/17 07:39 Dose: 27 units Insulin Detemir (Levemir) 43 unit SUBCUT BID [facility] Last Admin: 09/29/17 07:40 Dose: 43 units Ipratropium [place] (Atrovent) 0.5 mg INH QID [facility] Last Admin: 09/29/17 07:27 Dose: 0.5 mg Levothyroxine Sodium (Synthroid) 200 mcg PO ACBREAKFAST [facility] Last Admin: 09/29/17 06:03 Dose: 200 mcg Lorazepam (Ativan) 1 mg PO Q6H PRN PRN Reason: ANXIETY Last Admin: 09/29/17 06:03 Dose: 1 mg Metoclopramide HCl (Reglan) 10 mg PO QID PRN PRN Reason: Nausea Mupirocin (Bactroban Oint) 0 gm TOP TID [facility] Last Admin: 09/29/17 07:32 Dose: 1 applic Nystatin (Nystop) 15 gm TOP TID [facility] Last Admin: 09/29/17 07:41 Dose: 1 applic Ondansetron HCl (Zofran Odt) 4 mg PO Q4H PRN PRN Reason: NAUSEA Last Admin: 09/27/17 22:15 Dose: 4 mg Pramipexole Dihydrochloride (Mirapex) 0.25 mg PO TID [facility] Last Admin: 09/29/17 07:31 Dose: 0.25 mg Senna/Docusate Sodium (Senna Plus) 1 tab PO BID [facility] Last Admin: 09/29/17 07:31 Dose: 1 tab Trazodone HCl (Trazodone) 50 mg PO BEDTIME [facility] Last Admin: 09/28/17 19:20 Dose: 50 mg Discontinued Medications Acetaminophen (Tylenol Extra Strength) 1,000 mg PO Q6H PRN PRN Reason: Pain Last Admin: 09/21/17 00:04 Dose: 1,000 mg Hydrocodone Bitart/Acetaminophen ([place] 325-5 Mg) 1 tab PO DAILY PRN PRN Reason: MODERATE PAIN Amiodarone HCl (Cordarone) 200 mg PO DAILY [facility] Buspirone HCl (Buspar) 15 mg PO BID [facility] Buspirone HCl (Buspar) 15 mg PO BID [facility] Last Admin: 09/19/17 07:34 Dose: 15 mg Calcitriol (Rocaltrol) 0.5 mcg PO DAILY [facility] Duloxetine HCl (Cymbalta) 30 mg PO DAILY [facility] Last Admin: 09/16/17 08:30 Dose: 30 mg Gabapentin (Neurontin) 600 mg PO BID [facility] Last Admin: 09/17/17 08:10 Dose: Not Given Haloperidol (Haldol) 4 mg PO BEDTIME [facility] Last Admin: 09/15/17 20:50 Dose: 4 mg Hydralazine HCl (Apresoline) 25 mg PO Q8H [facility] Last Admin: 09/16/17 14:47 Dose: Not Given Insulin Aspart (Novolog) 15 unit SUBCUT BIDMEALS [facility] Last Admin: 09/16/17 18:15 Dose: Not Given Insulin Aspart (Novolog) 15 unit SUBCUT TIDMEALS [facility] Last Admin: 09/20/17 08:18 Dose: 15 units Insulin Aspart (Novolog) 20 unit SUBCUT ONETIME ONE Stop: 09/20/17 11:58 Last Admin: 09/20/17 12:04 Dose: 20 units Insulin Aspart (Novolog) 12 unit SUBCUT ONETIME ONE Stop: 09/22/17 20:47 Last Admin: 09/22/17 20:57 Dose: 12 units Insulin Detemir (Levemir) 45 unit SUBCUT BEDTIME [facility] Insulin Detemir (Levemir) 30 unit SUBCUT BID [facility] Last Admin: 09/19/17 07:42 Dose: 30 units Insulin Detemir (Levemir) 33 unit SUBCUT BID [facility] Last Admin: 09/19/17 08:58 Dose: 3 units Insulin Detemir (Levemir) 35 unit SUBCUT BID [facility] Last Admin: 09/21/17 08:20 Dose: 35 units Insulin Detemir (Levemir) 40 unit SUBCUT BID [facility] Last Admin: 09/23/17 08:42 Dose: 40 units Insulin Glargine (Lantus Solostar) 45 units SUBCUT BEDTIME [facility] Levothyroxine Sodium (Synthroid) Confirm Administered Dose 100 mcg .ROUTE .STK- MED ONE Stop: 09/18/17 07:56 Last Admin: 09/18/17 19:37 Dose: Not Given Metoclopramide HCl (Reglan) 10 mg PO QID [facility] Last Admin: 09/15/17 20:50 Dose: 10 mg Metoprolol Tartrate (Lopressor) 50 mg PO BID [facility] Sodium Bicarbonate (650mg Tablets) 1 each PO BID [facility] Cefprozil 250mg (Tablets) 2 each PO BID [facility] Stop: 09/19/17 21:00 Last Admin: 09/19/17 19:17 Dose: 2 each Nystatin (Nystop) 15 gm TOP ASDIRECTED [facility] Pramipexole Dihydrochloride (Mirapex) Confirm Administered Dose 0.25 mg .ROUTE .STK-MED ONE Stop: 09/26/17 20:27 Last Admin: 09/27/17 10:50 Dose: Not Given Senna/Docusate Sodium (Senna Plus) Confirm Administered Dose 1 tab .ROUTE .STK- MED ONE Stop: 09/21/17 20:29 Last Admin: 09/21/17 20:51 Dose: Not Given Trazodone HCl (Trazodone) 100 mg PO BEDTIME INGRID Last Admin: 09/15/17 21:42 Dose: 100 mg Tuberculin PPD (Aplisol) 5 unit IDERM ONETIME ONE Stop: 09/15/17 12:20 Last Admin: 09/19/17 17:04 Dose: 5 unit Zolpidem Tartrate (Ambien) 5 mg PO BEDTIME PRN PRN Reason: Insomnia - Exam Quality Assessment: Reports: Supplemental Oxygen General: Reports: Alert, Oriented HEENT: Reports: Mucous Membr. Moist/[place] Neck: Reports: Supple, Trachea Midline Lungs: Reports: Normal Respiratory Effort, Decreased Breath Sounds Cardiovascular: Reports: Regular Rate, Regular Rhythm GI/Abdominal Exam: Normal Bowel Sounds, Soft, Non-Tender, No Distention (Female) Exam: Deferred Rectal (Female) Exam: Deferred Back Exam: Reports: Normal Inspection Extremities: Normal Inspection, Non-Tender, No Pedal Edema, Normal Capillary Refill Skin: Reports: Warm, Dry, Other (scattered bruise to arms and abdomen, various stages of healing, probable related to venipuncture and sq insulin) Neurological: Reports: No New Focal Deficit Psy/Mental Status: Reports: Alert, Normal Affect, Normal Mood *Q Meaningful Use (DIS) - VTE *Q VTE Criteria *Q: - Stroke *Q Stroke Criteria *Q: - AMI *Q AMI Criteria *Q:
== END 2017-09-29 10:40 | disposition home or self-care (01) | DRG 947 ==
LOC: LB.MS 11:19 → UNDOADMIN 11:19 → LB.MS 15:30
PROVIDERS: ADMIT Nurse Practitioner Family; ATTEND Nurse Practitioner Family
DX: R53.1 Weakness (principal); N18.6 End stage renal disease; N30.00 Acute cystitis without hematuria; I13.2 Hypertensive heart and chronic kidney disease with heart failure and with stage 5 chronic kidney disease, or end stage renal disease; J44.9 Chronic obstructive pulmonary disease, unspecified; I50.9 Heart failure, unspecified; E11.22 Type 2 diabetes mellitus with diabetic chronic kidney disease; Z99.2 Dependence on renal dialysis; Z79.4 Long term (current) use of insulin; Z87.891 Personal history of nicotine dependence; K21.9 Gastro-esophageal reflux disease without esophagitis; F41.9 Anxiety disorder, unspecified; E03.9 Hypothyroidism, unspecified; E78.5 Hyperlipidemia, unspecified; G47.30 Sleep apnea, unspecified; F32.9 Major depressive disorder, single episode, unspecified; R52 Pain, unspecified; Z87.440 Personal history of urinary (tract) infections; Z99.81 Dependence on supplemental oxygen; I25.2 Old myocardial infarction; H54.7 Unspecified visual loss; Z11.1 Encounter for screening for respiratory tuberculosis; Z79.82 Long term (current) use of aspirin; Z88.1 Allergy status to other antibiotic agents; Z88.5 Allergy status to narcotic agent; Z91.010 Allergy to peanuts; Z88.8 Allergy status to other drugs, medicaments and biological substances
CPT/HCPCS: 36415; 80048; 80053; 82962; 85025; 86580; 97110-GO; 97110-GP; 97161-GP; 97165-GO; 97530-GO; 97530-GP; 97535-GO; A9270-GY; J0881; J7634

== ENCOUNTER 2017-12-15 12:20 | Emergency (ER) | payer MEDICARE, BC ==
[2017-12-15] MEDS ORDERED: Morphine 2 MG/ML Syringe ONE ×2 (12:59→15:41)
[2017-12-15] MEDS: Morphine 2 MG/ML Syringe IVPUSH ONE ×2 (13:00→15:39)
[2017-12-15] MEDS ORDERED: Insulin Lispro 100 Unit/ML 3 ML KwikPen SUBCUT ONE (15:00)
--- NOTE | 2017-12-15 15:00 | ER ---
HISTORY OF PRESENT ILLNESS: A 67-year-old lady, here with complaints of chest pain that she has had for two days. She has been taking nitroglycerin today at least 3 times and tells me that it was helping her until this morning. Chest pain got worse to the point where she rated at 8/10. The ambulance crew gave her 3rd nitroglycerin en route to the hospital and 4 baby aspirin. The patient states that her chest pain when I first saw her is now at 3 or 4/10. She is pointing to the central area over the sternum when describing the area of chest pain. She states that it does hurt a little bit to breathe. She has not been feeling sick lately and has not felt like she is running a fever. No problems with shortness of breath or wheezing other than when the chest pain gets bad. She does feel a little short of breath. PAST MEDICAL HISTORY: Extensive. The patient has kidney failure and is on home dialysis. She also has history of coronary artery disease. She has had 3 MIs. The first HI was in 2009, at which point, she had CABG surgery. She has had 2 HI since the most recent being about a year ago. History of morbid obesity, diabetes. Insulin controlled. History of atrial fibrillation, history of CHF, history of diabetes, and is poorly controlled. History of UTI. OBJECTIVE: GENERAL APPEARANCE: The patient is awake and alert. She is in mild respiratory distress at this time. VITAL SIGNS: Reviewed initially with blood pressure 124/54. She is afebrile. Pulse is 100, O2 sats are 92% on 2 L. LUNGS: Reveals minimal rales noted, scattered throughout the lung corrigan. Otherwise, there are no wheezes. CARDIAC: Heart sounds distinct. S1, S2 present. Regular rate at this time. ABDOMEN: Protuberant, soft, and nontender with palpation. At this point, an EKG was obtained, showing a right bundle branch with mildly tachycardic rhythm. This appears unchanged from a previous EKG. LAB AND X-RAY: Chest x-ray shows some mild vascular prominence. Lab work includes a CBC which is unremarkable except for a platelet count of 69, which is chronic for her. Comprehensive metabolic panel shows a BUN of 58, which is up from 27, the last time it was checked a few weeks ago, creatinine is 6.5, which has remained largely unchanged. GFR is currently at 6. Blood glucose is 888. Troponin is at 0.419. DIAGNOSES: 1. Unstable angina. 2. Renal failure, chronic. 3. Diabetes with very poor control. By this time, we given the patient 2 mg of morphine and she has been pain-free since then. I did consult with the [facility], speaking with Dr. Rivera who is the patient's primary care provider. He accepted her for further evaluation. She will be transferred by [facility]. I will dictate a brief addendum after the patient has left our facility. YEFRI/TRAMAINE /[id number]
[2017-12-15] MEDS ORDERED: Sodium Chloride 0.9% 500 ML IV ONE (15:23)
[2017-12-15] MEDS ORDERED: Morphine 2 MG/ML Syringe IVPUSH ONE (15:35)
[2017-12-15 17:09] VITALS: BP 152/89
--- NOTE | 2017-12-18 02:14 | CR ---
PORTABLE CHEST, 12/15/17 The patient has taken a very poor inspiration. The exam was also under penetrated. Comparison is made to a prior exam dated 11/09/16. The patient is status post median sternotomy. The heart appears mildly enlarged. It may be accentuated by the very poor inspiration. The aorta is ectatic. The pulmonary vasculature is prominent suggesting pulmonary venous congestion. This may also be accentuated by the poor inspiration. There are densities in both lung bases consistent with basilar atelectasis or infiltrate. Pneumonia should be considered. No other significant findings. [id number] [facility]
== END 2017-12-15 16:04 ==
LOC: LB.ED 12:20
DX: I25.110 Atherosclerotic heart disease of native coronary artery with unstable angina pectoris (principal); E11.22 Type 2 diabetes mellitus with diabetic chronic kidney disease; E11.65 Type 2 diabetes mellitus with hyperglycemia; I25.2 Old myocardial infarction; I48.91 Unspecified atrial fibrillation; I50.9 Heart failure, unspecified; Z99.2 Dependence on renal dialysis
CPT/HCPCS: 36415; 71045; 80053; 82947; 84484; 85025; 93005; 96361; 96372; 96374; 96376; 99285; A0425; A0429; J2270; J7040; 99284

== ENCOUNTER 2018-02-12 10:48 | Emergency (ER) | payer MEDICARE, BC ==
[2018-02-12] MEDS ORDERED: Sodium Chloride 0.9% 10 ML Syringe FLUSH PRN (11:20)
--- NOTE | 2018-02-12 11:20 | EDM.PDOC ---
ED HPI GENERAL MEDICAL PROBLEM - General Chief Complaint: Chest Pain Stated Complaint: CHEST PAIN Time Seen by Provider: 02/12/18 11:19 Source of Information: Reports: Patient, RN History Limitations: Reports: No Limitations - History of Present Illness INITIAL COMMENTS - FREE TEXT/NARRATIVE: 67 yr female presents with chest pain and some shortness of breath. States she took nitro X 3 at home and called ambulance. ASA 325 mg PO given for chest pain prophylaxis in ambulance and on admit. History of diabetes Type 2 and kidney dialysis, cardiac stent 2 in December and 1 in January. Hgb 4.9 noted. Will transfer pt to acute facility for blood transfusion. Pt has positive Anti- aminta for blood. MS 2 mg IV given. IV Nacl at 75cc/hr going. Chest Pain Pain Score (Numeric/FACES): 7 - Related Data Allergies Allergy/AdvReac Type Severity Reaction Status Date / Time peanut Allergy Mild Other Verified 02/12/18 12:27 codeine Allergy Hives Verified 02/12/18 12:27 erythromycin lactobionate Allergy Hives Verified 02/12/18 12:27 [From Erythrocin] metformin AdvReac Other Verified 02/12/18 12:27 Home Meds: Home Meds traZODone 100 mg PO BEDTIME 04/25/16 [History] Allopurinol [Zyloprim] 100 mg PO DAILY tablet 12/27/16 [Rx] Levothyroxine Sodium [Levoxyl] 200 mcg PO ACBREAKFAST 02/03/17 [History] Aspirin [Halfprin] 81 mg PO DAILY tab.ec 02/21/17 [Rx] Darbepoetin Jerel in Polysorbat [Aranesp] 0 - 150 mcg SUBCUT Q14D 02/21/17 [Rx] Diclofenac Sodium [Voltaren 1% Gel] 0 - 1 gm TOP QID PRN #1 tube 02/21/17 [Rx] atorvaSTATin [Lipitor] 40 mg PO BEDTIME tablet 02/21/17 [Rx] Ferrous Sulfate 325 mg PO TIDMEALS 07/02/17 [History] Fish Oil/[place]-3 Fatty Acids [Fish Oil 1,000 MG] 1,000 mg PO DAILY 07/02/17 [ History] Metoclopramide [Reglan] 10 mg PO QID PRN 07/02/17 [History] Pramipexole [Mirapex] 0.75 mg PO QPM 07/02/17 [History] Zolpidem [Ambien] 5 mg PO BEDTIME 07/02/17 [History] busPIRone [Buspar] 15 mg PO QID 07/02/17 [History] Fluticasone Propionate [Flonase] 1 spray NS BID 09/15/17 [History] Ipratropium [Atrovent] 2.5 ml INH Q4H PRN 09/15/17 [History] LORazepam [Ativan] 0.5 mg PO TID 09/15/17 [History] Nystatin [Nystatin Crm] 15 gm TOP BID PRN 09/15/17 [History] Ondansetron [Zofran] 4 mg PO Q6H 09/15/17 [History] Acetaminophen [Tylenol Arthritis Pain] 650 mg PO Q8H PRN #30 tab.er 09/29/17 [Rx ] DULoxetine [Cymbalta] 60 mg PO DAILY #30 cap 09/29/17 [Rx] Insulin Aspart [NovoLOG] 20 unit SUBCUT TIDAC 30 Days pen 09/29/17 [Rx] Cetirizine [ZyrTEC] 10 mg PO DAILY 12/15/17 [History] Furosemide [Lasix] 40 mg PO BID 12/15/17 [History] Ipratropium/Albuterol Sulfate [Iprat-Albut 0.5-3(2.5) mg/3 ml] 3 mg PO QID PRN 12/15/17 [History] Multivit with Calcium,Iron,Min [Essential Daily] 1 tab PO DAILY 12/15/17 [ History] Mupirocin Oint [Bactroban Oint] 0 gm TOP TID PRN 12/15/17 [History] Albuterol Sulfate [Proair Hfa] 2 puff IH QID PRN 02/12/18 [History] Budesonide/Formoterol Fumarate [Symbicort 160-4.5 Mcg Inhaler] 2 puff IH BID 07/24 [History] Calcitriol [Rocaltrol] 0.25 mcg PO ASDIRECTED 02/12/18 [History] Clopidogrel [Plavix] 75 mg PO DAILY 02/12/18 [History] Insulin Degludec [Tresiba Flextouch U-100] 45 units SUBCUT BID 02/12/18 [History ] Midodrine 5 mg PO ASDIRECTED 02/12/18 [History] Nitroglycerin [Nitrostat] 0.4 mg SL ASDIRECTED PRN 02/12/18 [History] Polyethylene Glycol 3350 [MiraLAX] 17 gm PO BID PRN 02/12/18 [History] Past Medical History HEENT History: Reports: Epistaxis, Impaired Vision, Other (See Below) Other HEENT History: photosensitive, ringing in ears- chronic, cracking in ears currently Cardiovascular History: Reports: Afib, Heart Murmur, High Cholesterol, Hypertension, [place] Respiratory History: Reports: Asthma, Sleep Apnea, SOB, Other (See Below) Other Respiratory History: doesn't use CPAP because of mask doesn't work - one cased scab on nose, one cased claustraphobia uses oxygen at home Gastrointestinal History: Reports: Chronic Diarrhea, GERD, Hemorrhoids Genitourinary History: Reports: Dialysis, Diabetic Nephropathy, Renal Disease, UTI, Recurrent, Other (See Below) Other Genitourinary History: home dialysis 2.5 hr 6 days per week [employer]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: Reports: Musculoskeletal History: Reports: Arthritis, Back Pain, Chronic, Gout, Neck Pain , Chronic, Other (See Below) Other Musculoskeletal History: chronic shoulder pain, arthritis all over Neurological History: Reports: Migraines, Vertigo Psychiatric History: Reports: Anxiety, Depression, PTSD Endocrine/Metabolic History: Reports: Diabetes, Type II, Hypothyroidism, IDDM, Obesity/BMI 30+ Hematologic History: Reports: Anemia, B12 Deficiency, Idiopathic Thrombocytopenia Immunologic History: Reports: Immunosuppression Oncologic (Cancer) History: Reports: None Dermatologic History: Reports: None - Infectious Disease History Infectious Disease History: Reports: Chicken Pox, Measles, Mumps, Rubella - Past Surgical History HEENT Surgical History: Reports: Cataract Surgery, Other (See Below) Cardiovascular Surgical History: Reports: Coronary Artery Bypass, Other (See Below) GI Surgical History: Reports: Appendectomy, Cholecystectomy Female Surgical History: Reports: Tubal Ligation Social & Family History - Family History Family Medical History: Noncontributory - Tobacco Use Smoking Status *Q: Former Smoker Years of Tobacco use: 10 Packs/Tins Daily: 2 Used Tobacco, but Quit: Yes Month/Year Tobacco Last Used: 1 Second Hand Smoke Exposure: No - Caffeine Use Caffeine Use: Reports: Tea Other Caffeine Use: chocolate - Recreational Drug Use Recreational Drug Use: No ED ROS GENERAL - Review of Systems Review Of Systems: See Below Constitutional: Reports: Weakness, Decreased Appetite HEENT: Reports: Other (nasal congestion and nasal bleed Monday and Monday. About 24 hour duration.) Respiratory: Reports: Shortness of Breath Cardiovascular: Reports: Chest Pain. Denies: Edema Endocrine: Reports: Other (diabetes Type 2`) GI/Abdominal: Reports: Decreased Appetite Skin: Reports: Pallor Hematologic/Lymphatic: Reports: Anemia, Easy Bleeding ED EXAM, GENERAL - Physical Exam Exam: See Below Exam Limited By: No Limitations General Appearance: Alert, Mild Distress Ears: Hearing Grossly Normal Nose: No Blood Throat/Mouth: Normal Voice, No Airway Compromise Head: Atraumatic, Normocephalic Neck: Normal Inspection, Supple, Non-Tender Respiratory/Chest: No Respiratory Distress, Lungs Clear, Normal Breath Sounds Cardiovascular: Regular Rate, Rhythm, No Edema GI/Abdominal: Soft, Non-Tender, No Distention (Female) Exam: Deferred Rectal (Female) Exam: Deferred Back Exam: Normal Inspection Extremities: Normal Capillary Refill Neurological: Alert, Oriented, Normal Cognition Psychiatric: Normal Affect, Normal Mood Skin Exam: Dry, Cool, Other (pale) Course - Vital Signs Last Recorded V/S: Last Vital Signs Temp 97.2 F 02/12/18 11:15 Pulse 84 02/12/18 12:31 Resp 22 H 02/12/18 12:21 BP 93/32 L 02/12/18 12:53 Pulse Ox 97 02/12/18 12:53 - Orders/Labs/Meds Orders: Active Orders 24 hr Category Date Time Status Cardiac Monitoring [RC] .As Directed Care 02/12/18 11:20 Active EKG Documentation Completion [RC] ASDIRECTED Care 02/12/18 11:23 Active Chest 1V Frontal [CR] Stat Exams 02/12/18 11:21 Taken Saline Lock Insert [OM.PC] Stat Oth 02/12/18 11:20 Ordered Labs: Laboratory Tests 02/12/18 02/12/18 Range/Units 11:15 11:15 WBC 8.7 (4.0-11.0) K/uL RBC 1.67 L (3.80-5.80) M/uL Hgb 4.9 L* D (11.5-16.5) g/dL Hct 14.6 L* D (37.0-47.0) % MCV 87 (76-96) fL MCH 29.3 (27.0-32.0) pg MCHC 33.6 (31.0-35.0) g/dL RDW 14.7 (11.0-16.0) % Plt Count 137 L D (150-500) K/uL MPV 9.8 (6.0-10.0) fL Neut % (Auto) 77.9 H (45.0-70.0) % Lymph % (Auto) 14.7 L (20.0-40.0) % [place] % (Auto) 5.4 (3.0-10.0) % Eos % (Auto) 1.5 (1.0-5.0) % Baso % (Auto) 0.5 (0.0-0.5) % Neut # (Auto) 6.74 (2.00-7.50) K/uL Lymph # (Auto) 1.27 L (1.50-4.00) K/uL [place] # (Auto) 0.47 (0.20-0.80) K/uL Eos # (Auto) 0.13 (0.04-0.40) K/uL Baso # (Auto) 0.04 (0.02-0.10) K/uL Sodium 132 L (136-145) mmol/L Potassium 4.3 D (3.5-5.1) mmol/L Chloride 93 L (98-107) mmol/L Carbon Dioxide 19.7 L (21.0-32.0) mmol/L Anion Gap 23.6 H (5.0-15.0) mmol/L BUN 141 H* D (8-26) mg/dL Creatinine 8.43 H* D (0.55-1.02) mg/dL Est Cr Clr Drug Dosing TNP Estimated GFR (MDRD) 5 L (>60) MLS/MIN BUN/Creatinine Ratio 16.7 (6-25) Glucose 164 H D (74-100) mg/dL Calcium 7.9 L (8.5-10.1) mg/dL Magnesium 2.1 (1.8-2.4) mg/dL Total Bilirubin 0.3 D (0.0-1.0) mg/dL AST 14 L (15-37) U/L ALT 16 (12-78) U/L Alkaline Phosphatase 135 H (46-116) U/L Troponin I 0.041 D (0.000-0.060) ng/mL B-Natriuretic Peptide 5793 H (0-125) pg/mL Total Protein 6.1 L (6.4-8.2) g/dL Albumin 3.1 L (3.4-5.0) g/dL Globulin 3.0 (2.2-4.2) g/dL Albumin/Globulin Ratio 1.0 (0.8-2.0) Meds: Medications Discontinued Medications Generic Name Dose Route Start Last Admin Trade Name Freq PRN Reason Stop Dose Admin Sodium Chloride 1,000 mls @ 75 mls/hr 02/12/18 12:15 02/12/18 12:09 Normal Saline IV 75 mls/hr ASDIRECTED INGRID Administration Morphine Sulfate 2 mg 02/12/18 11:24 02/12/18 11:47 Morphine IVPUSH 2 mg Q1H PRN Administration Chest Pain Sodium Chloride 10 ml 02/12/18 11:20 Saline Flush FLUSH ASDIRECTED PRN Keep Vein Open - Re-Assessments/Exams Free Text/Narrative Re-Assessment/Exam: 02/12/18 12:36 Pt sitting with HOB elevated about 60-90* for comfort. Some shortness of breath and BP decreased after MS 2 mg IV. Fluid Bolus 500 cc given and BP return to 97 systolic. 2nd IV placed. Tailbone some sore with sitting upright. Transfer discussion with Maximiliano Burgess, unable to accept as no ability to transfuse with antibody aminta. TC to [facility] and will transfer to ER Dr Cheatham. TC to [facility] and will transport HC. Expect ETA [address] to [place]. (Rogelio Ruanot). cell phone [phone]. 02/12/18 14:28 LE 13:15 Pt alert and no change in chest pain. Some shortness of breath, improves with head of bed elevated. Pt taking ice chips. Feet elevated to assist with blood pressure. Feet remain pink, warm and pedal pulses equal bilaterally with capillary refill < 3 sec. Lungs clear and no peripheral edema. BNP elevated and troponins negative. states no other bleeding noted at home, other than her nose over the weekend. States the dialysis didn' t complete yesterday r/t pt restless and nose bleed. Flight crew is here and pt transported per [facility] to [place]. Pt in stable condition with mild chest pain, mild shortness of breath and minimal nausea. Appropriate forms signed for transport. Departure - Departure Time of Disposition: 13:28 Disposition: DC/Tfer to Acute Hospital 02 Reason for Transfer *Q: Other Condition: Fair Clinical Impression: Acute dyspnea, Chronic renal insufficiency, stage IV (severe), Diabetes mellitus Anemia Qualifiers: Anemia type: other cause Other causes of anemia: chronic disease, other Qualified Code(s): D63.8 - Anemia in other chronic diseases classified elsewhere Chest pain Qualifiers: Chest pain type: unspecified Qualified Code(s): R07.9 - Chest pain, unspecified Referrals: Uday Garibay MD [Primary Care Provider] - Forms: ED Department Discharge - My Orders Last 24 Hours: My Active Orders 02/12/18 11:20 Cardiac Monitoring [RC] .As Directed Saline Lock Insert [OM.PC] Stat 02/12/18 11:21 Chest 1V Frontal [CR] Stat 02/12/18 11:23 EKG Documentation Completion [RC] ASDIRECTED - Assessment/Plan Last 24 Hours: My Active Orders 02/12/18 11:20 Cardiac Monitoring [RC] .As Directed Saline Lock Insert [OM.PC] Stat 02/12/18 11:21 Chest 1V Frontal [CR] Stat 02/12/18 11:23 EKG Documentation Completion [RC] ASDIRECTED
[2018-02-12] MEDS: Morphine 2 MG/ML Syringe IVPUSH PRN ×2 (11:32→11:47)
[2018-02-12] MEDS ORDERED: Sodium Chloride 0.9% 1,000 ML IV SCH (12:15)
[2018-02-12 13:01] VITALS: BP 93/32
--- NOTE | 2018-02-12 17:20 | CR ---
DATE OF SERVICE: 02/12/18 CLINICAL DATA: Chest Pain AP PORTABLE CHEST: The patient has taken a poor inspiration. The patient is status post median sternotomy. The heart is enlarged. The aorta is ectatic. There is pulmonary vascular congestion and mild interstitial edema throughout both lungs consistent with congestive failure. There are mild atelectatic changes in the right lung base. The lungs are otherwise clear. No pleural effusions. No pneumothorax. [id number] [facility]
== END 2018-02-12 13:27 ==
LOC: LB.ED 10:48
DX: R07.9 Chest pain, unspecified (principal); D63.8 Anemia in other chronic diseases classified elsewhere; E11.22 Type 2 diabetes mellitus with diabetic chronic kidney disease; E11.21 Type 2 diabetes mellitus with diabetic nephropathy; N18.4 Chronic kidney disease, stage 4 (severe); I10 Essential (primary) hypertension; I25.2 Old myocardial infarction; E03.9 Hypothyroidism, unspecified; E78.00 Pure hypercholesterolemia, unspecified; Z91.010 Allergy to peanuts; Z88.5 Allergy status to narcotic agent; Z88.8 Allergy status to other drugs, medicaments and biological substances; Z88.1 Allergy status to other antibiotic agents; Z79.82 Long term (current) use of aspirin; Z79.899 Other long term (current) drug therapy; Z79.4 Long term (current) use of insulin; Z87.891 Personal history of nicotine dependence; Z99.2 Dependence on renal dialysis; Z95.5 Presence of coronary angioplasty implant and graft
CPT/HCPCS: 36415; 71045; 80053; 83735; 83880; 84484; 85025; 93005; 96374; 99285; 99285-25; A0425; A0429; J2270; J7040

== ENCOUNTER 2018-05-23 16:32 | Emergency (ER) | payer MEDICARE, BC ==
[2018-05-23] MEDS ORDERED: Sodium Chloride 0.9% 300 ML IV ONE (16:51)
[2018-05-23] MEDS ORDERED: Aspirin 81 MG Tab.Chew PO ONE (16:51)
--- NOTE | 2018-05-23 17:05 | EDM.PDOC ---
ED HPI GENERAL MEDICAL PROBLEM - General Chief Complaint: Cardiovascular Problem Stated Complaint: CHEST PAIN Time Seen by Provider: 05/23/18 16:40 Source of Information: Reports: Patient, EMS Notes Reviewed, RN History Limitations: Reports: No Limitations - History of Present Illness INITIAL COMMENTS - FREE TEXT/NARRATIVE: 67 yr female presents with chest pain and has tried nitro at home and ASA 324 mg PO. Hypotension noted. EKG completed. Fluid bolus 300 cc Nacl started. BP 101/47 now 17:00 States she is feeling better now. Waiting for lab results. EKG results reviewed with provider at [facility]. No immediate changes from previous EKG. Chest X-ray completed. 17:00 Report given to Damion Kiser, provider, who will resume care. - Related Data Allergies Allergy/AdvReac Type Severity Reaction Status Date / Time peanut Allergy Mild Other Verified 02/12/18 12:27 codeine Allergy Hives Verified 02/12/18 12:27 erythromycin lactobionate Allergy Hives Verified 02/12/18 12:27 [From Erythrocin] metformin AdvReac Other Verified 02/12/18 12:27 Home Meds: Home Meds traZODone 100 mg PO BEDTIME 04/25/16 [History] Allopurinol [Zyloprim] 100 mg PO DAILY tablet 12/27/16 [Rx] Levothyroxine Sodium [Levoxyl] 200 mcg PO ACBREAKFAST 02/03/17 [History] Aspirin [Halfprin] 81 mg PO DAILY tab.ec 02/21/17 [Rx] Darbepoetin Jerel in Polysorbat [Aranesp] 0 - 150 mcg SUBCUT Q14D 02/21/17 [Rx] Diclofenac Sodium [Voltaren 1% Gel] 0 - 1 gm TOP QID PRN #1 tube 02/21/17 [Rx] atorvaSTATin [Lipitor] 40 mg PO BEDTIME tablet 02/21/17 [Rx] Ferrous Sulfate 325 mg PO TIDMEALS 07/02/17 [History] Fish Oil/[place]-3 Fatty Acids [Fish Oil 1,000 MG] 1,000 mg PO DAILY 07/02/17 [ History] Metoclopramide [Reglan] 10 mg PO QID PRN 07/02/17 [History] Pramipexole [Mirapex] 0.75 mg PO QPM 07/02/17 [History] Zolpidem [Ambien] 5 mg PO BEDTIME 07/02/17 [History] busPIRone [Buspar] 15 mg PO QID 07/02/17 [History] Fluticasone Propionate [Flonase] 1 spray NS BID 09/15/17 [History] Ipratropium [Atrovent] 2.5 ml INH Q4H PRN 09/15/17 [History] LORazepam [Ativan] 0.5 mg PO TID 09/15/17 [History] Nystatin [Nystatin Crm] 15 gm TOP BID PRN 09/15/17 [History] Ondansetron [Zofran] 4 mg PO Q6H 09/15/17 [History] Acetaminophen [Tylenol Arthritis Pain] 650 mg PO Q8H PRN #30 tab.er 09/29/17 [Rx ] DULoxetine [Cymbalta] 60 mg PO DAILY #30 cap 09/29/17 [Rx] Insulin Aspart [NovoLOG] 20 unit SUBCUT TIDAC 30 Days pen 09/29/17 [Rx] Cetirizine [ZyrTEC] 10 mg PO DAILY 12/15/17 [History] Furosemide [Lasix] 40 mg PO BID 12/15/17 [History] Ipratropium/Albuterol Sulfate [Iprat-Albut 0.5-3(2.5) mg/3 ml] 3 mg PO QID PRN 12/15/17 [History] Multivit with Calcium,Iron,Min [Essential Daily] 1 tab PO DAILY 12/15/17 [ History] Mupirocin Oint [Bactroban Oint] 0 gm TOP TID PRN 12/15/17 [History] Albuterol Sulfate [Proair Hfa] 2 puff IH QID PRN 02/12/18 [History] Budesonide/Formoterol Fumarate [Symbicort 160-4.5 Mcg Inhaler] 2 puff IH BID 07/24 [History] Calcitriol [Rocaltrol] 0.25 mcg PO ASDIRECTED 02/12/18 [History] Clopidogrel [Plavix] 75 mg PO DAILY 02/12/18 [History] Insulin Degludec [Tresiba Flextouch U-100] 45 units SUBCUT BID 02/12/18 [History ] Midodrine 5 mg PO ASDIRECTED 02/12/18 [History] Nitroglycerin [Nitrostat] 0.4 mg SL ASDIRECTED PRN 02/12/18 [History] Polyethylene Glycol 3350 [MiraLAX] 17 gm PO BID PRN 02/12/18 [History] Past Medical History HEENT History: Reports: Epistaxis, Impaired Vision, Other (See Below) Other HEENT History: photosensitive, ringing in ears- chronic, cracking in ears currently Cardiovascular History: Reports: Afib, Heart Murmur, High Cholesterol, Hypertension, [place] Respiratory History: Reports: Asthma, Sleep Apnea, SOB, Other (See Below) Other Respiratory History: doesn't use CPAP because of mask doesn't work - one cased scab on nose, one cased claustraphobia uses oxygen at home Gastrointestinal History: Reports: Chronic Diarrhea, GERD, Hemorrhoids Genitourinary History: Reports: Dialysis, Diabetic Nephropathy, Renal Disease, UTI, Recurrent, Other (See Below) Other Genitourinary History: home dialysis 2.5 hr 6 days per week [employer]OM[employer] HE[employer] 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: Reports: Musculoskeletal History: Reports: Arthritis, Back Pain, Chronic, Gout, Neck Pain , Chronic, Other (See Below) Other Musculoskeletal History: chronic shoulder pain, arthritis all over Neurological History: Reports: Migraines, Vertigo Psychiatric History: Reports: Anxiety, Depression, PTSD Endocrine/Metabolic History: Reports: Diabetes, Type II, Hypothyroidism, IDDM, Obesity/BMI 30+ Hematologic History: Reports: Anemia, B12 Deficiency, Idiopathic Thrombocytopenia Immunologic History: Reports: Immunosuppression Oncologic (Cancer) History: Reports: None Dermatologic History: Reports: None - Infectious Disease History Infectious Disease History: Reports: Chicken Pox, Measles, Mumps, Rubella - Past Surgical History HEENT Surgical History: Reports: Cataract Surgery, Other (See Below) Cardiovascular Surgical History: Reports: Coronary Artery Bypass, Other (See Below) GI Surgical History: Reports: Appendectomy, Cholecystectomy Female Surgical History: Reports: Tubal Ligation Social & Family History - Family History Family Medical History: Noncontributory - Caffeine Use Caffeine Use: Reports: Tea Other Caffeine Use: chocolate ED ROS GENERAL - Review of Systems Review Of Systems: See Below Constitutional: Reports: No Symptoms HEENT: Reports: No Symptoms, Other (States fell at home yesterday and hit a fan , now bruising to left cheek. ) Respiratory: Reports: No Symptoms Cardiovascular: Reports: Chest Pain Endocrine: Reports: No Symptoms GI/Abdominal: Reports: No Symptoms : Reports: No Symptoms Musculoskeletal: Reports: Other (left arm pain, started about 1 week ago. Bruising from infiltration of fistula.) Skin: Reports: Bruising (left upper arm, tried ice to area at home when this happened and did improve symptoms.) Neurological: Reports: No Symptoms Psychiatric: Reports: No Symptoms ED EXAM, GENERAL - Physical Exam Exam: See Below Exam Limited By: No Limitations General Appearance: Alert, WD/WN, Anxious Ears: Hearing Grossly Normal Throat/Mouth: Normal Voice, No Airway Compromise Head: Atraumatic, Normocephalic Neck: Normal Inspection, Supple, Non-Tender Respiratory/Chest: No Respiratory Distress, Lungs Clear, Normal Breath Sounds Cardiovascular: Normal Peripheral Pulses, Regular Rate, Rhythm, No Murmur Peripheral Pulses: 2+: Dorsalis Pedis (L), Dorsalis Pedis (R) GI/Abdominal: Soft, Non-Tender (Female) Exam: Deferred Extremities: Normal Inspection, No Pedal Edema, Normal Capillary Refill Neurological: Alert, Oriented, Normal Cognition Psychiatric: Normal Affect, Normal Mood Skin Exam: Warm, Dry, Normal Color, Ecchymosis (right cheek, left upper arm and left forearm, and 4th finger on left hand. ) EKG INTERPRETATION EKG Date: 05/23/18 Time: 16:42 Rhythm: NSR QRS: RBBB ST-T: Normal Course - Orders/Labs/Meds Orders: Active Orders 24 hr Category Date Time Status Cardiac Monitoring [RC] .As Directed Care 05/23/18 16:51 Active EKG Documentation Completion [RC] ASDIRECTED Care 05/23/18 16:53 Active Saline Lock Insert [OM.PC] Routine Oth 05/23/18 17:17 Ordered Resuscitation Status Routine Resus Stat 05/23/18 16:51 Ordered Labs: Laboratory Tests 05/23/18 05/23/18 05/23/18 Range/Units 15:53 16:45 16:45 WBC 5.6 (4.0-11.0) K/uL RBC 2.27 L (3.80-5.80) M/uL Hgb 6.9 L* D (11.5-16.5) g/dL Hct 21.5 L D (37.0-47.0) % MCV 95 (76-96) fL MCH 30.4 (27.0-32.0) pg MCHC 32.1 (31.0-35.0) g/dL RDW 17.3 H (11.0-16.0) % Plt Count 129 L (150-500) K/uL MPV 10.4 H (6.0-10.0) fL Neut % (Auto) 67.8 (45.0-70.0) % Lymph % (Auto) 20.4 (20.0-40.0) % [place] % (Auto) 7.6 (3.0-10.0) % Eos % (Auto) 3.7 (1.0-5.0) % Baso % (Auto) 0.5 (0.0-0.5) % Neut # (Auto) 3.82 (2.00-7.50) K/uL Lymph # (Auto) 1.15 L (1.50-4.00) K/uL [place] # (Auto) 0.43 (0.20-0.80) K/uL Eos # (Auto) 0.21 (0.04-0.40) K/uL Baso # (Auto) 0.03 (0.02-0.10) K/uL Sodium 134 L (136-145) mmol/L Potassium 3.8 (3.5-5.1) mmol/L Chloride 96 L (98-107) mmol/L Carbon Dioxide 27.8 D (21.0-32.0) mmol/L Anion Gap 14.0 (5.0-15.0) mmol/L BUN 28 H D (8-26) mg/dL Creatinine 4.36 H* D (0.55-1.02) mg/dL Est Cr Clr Drug Dosing TNP Estimated GFR (MDRD) 10 L (>60) MLS/MIN BUN/Creatinine Ratio 6.4 (6-25) Glucose 346 H D (74-100) mg/dL POC Glucose 365 H (74-110) mg/dL Lactic Acid (0.90-1.70) mmol/L Calcium 9.0 (8.5-10.1) mg/dL Total Bilirubin 0.6 D (0.0-1.0) mg/dL AST 22 (15-37) U/L ALT 27 (12-78) U/L Alkaline Phosphatase 234 H (46-116) U/L Troponin I 0.012 D (0.000-0.060) ng/mL Total Protein 7.1 (6.4-8.2) g/dL Albumin 3.3 L (3.4-5.0) g/dL Globulin 3.8 (2.2-4.2) g/dL Albumin/Globulin Ratio 0.9 (0.8-2.0) 05/23/ Range/Units 17:45 WBC (4.0-11.0) K/uL RBC (3.80-5.80) M/uL Hgb (11.5-16.5) g/dL Hct (37.0-47.0) % MCV (76-96) fL MCH (27.0-32.0) pg MCHC (31.0-35.0) g/dL RDW (11.0-16.0) % Plt Count (150-500) K/uL MPV (6.0-10.0) fL Neut % (Auto) (45.0-70.0) % Lymph % (Auto) (20.0-40.0) % [place] % (Auto) (3.0-10.0) % Eos % (Auto) (1.0-5.0) % Baso % (Auto) (0.0-0.5) % Neut # (Auto) (2.00-7.50) K/uL Lymph # (Auto) (1.50-4.00) K/uL [place] # (Auto) (0.20-0.80) K/uL Eos # (Auto) (0.04-0.40) K/uL Baso # (Auto) (0.02-0.10) K/uL Sodium (136-145) mmol/L Potassium (3.5-5.1) mmol/L Chloride (98-107) mmol/L Carbon Dioxide (21.0-32.0) mmol/L Anion Gap (5.0-15.0) mmol/L BUN (8-26) mg/dL Creatinine (0.55-1.02) mg/dL Est Cr Clr Drug Dosing Estimated GFR (MDRD) (>60) MLS/MIN BUN/Creatinine Ratio (6-25) Glucose (74-100) mg/dL POC Glucose (74-110) mg/dL Lactic Acid 2.09 H (0.90-1.70) mmol/L Calcium (8.5-10.1) mg/dL Total Bilirubin (0.0-1.0) mg/dL AST (15-37) U/L ALT (12-78) U/L Alkaline Phosphatase (46-116) U/L Troponin I (0.000-0.060) ng/mL Total Protein (6.4-8.2) g/dL Albumin (3.4-5.0) g/dL Globulin (2.2-4.2) g/dL Albumin/Globulin Ratio (0.8-2.0) Meds: Medications Discontinued Medications Generic Name Dose Route Start Last Admin Trade Name Freq PRN Reason Stop Dose Admin Aspirin 324 mg 05/23/18 16:51 Aspirin PO 05/23/18 16:52 ONETIME ONE Sodium Chloride 300 mls @ 1,000 mls/hr 05/23/18 16:51 Normal Saline IV 05/23/18 17:08 .BOLUS ONE Morphine Sulfate Confirm 05/23/18 18:12 Morphine Administered 05/23/18 18:13 Dose 10 mg .ROUTE .STK-MED ONE Ondansetron HCl Confirm 05/23/18 17:28 Zofran Administered 05/23/18 17:29 Dose 4 mg .ROUTE .STK-MED ONE Sodium Chloride 10 ml 05/23/18 17:17 Saline Flush FLUSH ASDIRECTED PRN Keep Vein Open - Re-Assessments/Exams Free Text/Narrative Re-Assessment/Exam: 05/24/18 08:10 LE 05-23-2018 Report given to oncoming provider, alannah France at 1700. Departure - Departure Time of Disposition: 19:15 Disposition: DC/Tfer to Acute Hospital 02 Reason for Transfer *Q: Other (anemia) Condition: Fair Clinical Impression: Diabetes mellitus Anemia Qualifiers: Anemia type: other cause Other causes of anemia: chronic disease, other Qualified Code(s): D63.8 - Anemia in other chronic diseases classified elsewhere Chest pain Qualifiers: Chest pain type: unspecified Qualified Code(s): R07.9 - Chest pain, unspecified Referrals: PCP,None [Primary Care Provider] - Forms: ED Department Discharge - My Orders Last 24 Hours: My Active Orders 05/23/18 16:51 Cardiac Monitoring [RC] .As Directed Resuscitation Status Routine 05/23/18 16:53 EKG Documentation Completion [RC] ASDIRECTED 05/23/18 17:17 Saline Lock Insert [OM.PC] Routine - Assessment/Plan Last 24 Hours: My Active Orders 05/23/18 16:51 Cardiac Monitoring [RC] .As Directed Resuscitation Status Routine 05/23/18 16:53 EKG Documentation Completion [RC] ASDIRECTED 05/23/18 17:17 Saline Lock Insert [OM.PC] Routine
[2018-05-23] MEDS ORDERED: Sodium Chloride 0.9% 10 ML Syringe FLUSH PRN (17:17)
[2018-05-23] MEDS ORDERED: Ondansetron 4 MG/2 ML SDV ONE ×2 (17:28→19:30)
[2018-05-23] MEDS ORDERED: Morphine 10 MG/ML SDV ONE (18:12)
[2018-05-23] MEDS ORDERED: Morphine 2 MG/ML Syringe ONE ×2 (19:30)
[2018-05-23] MEDS ORDERED: Aspirin 81 MG Tab.Chew ONE (19:30)
--- NOTE | 2018-05-24 08:18 | CR ---
DATE OF SERVICE: 05/23/18 CLINICAL DATA: Chest Pain PORTABLE CHEST: Comparison is made to a prior exam dated 02/12/2018. The patient has taken a poor inspiration. The patient is status post median sternotomy. The heart remains mildly enlarged. The aorta is ectatic. The pulmonary vasculature remains prominent with cephalization of flow, consistent with pulmonary venous congestion. size is normal. There is chronic eventration of the right hemidiaphragm with atelectatic/fibrotic changes in the right lung base. The lungs are otherwise clear. No pneumothorax. No pleural effusions. [id number] [facility], [place]
--- NOTE | 2018-05-24 08:25 | ER ---
HPI: A 67-year-old lady who comes in by ambulance with complaints of chest pain, weakness, and dizziness. The patient tells me that she has been having nosebleeds for about 3 days quite persistently. The nosebleed stopped last night. She is nauseated, but has not vomited. The patient tells me that her chest pain seems to come and go over the course of the day. She currently rates it at four or five over ten. PAST MEDICAL HISTORY: Extensive with this lady. She has kidney failure and is on home dialysis. She has a history of coronary artery disease and is status post open heart surgery, history of CHF, and uncontrolled diabetes. OBJECTIVE: GENERAL APPEARANCE: The patient is awake and alert. She is pale in appearance. VITAL SIGNS: Show an initial blood pressure of 89/39, temp is 99.5, pulse 94. She had taken nitro 3 times over the course of the day, but it did not help with her chest pain. INITIAL TREATMENT PLAN: Zofran 4 mg was given IV and morphine 2 mg was given IV. This brought the patient's chest pain to 0 and her nausea was significantly improved. LAB WORK: CBC shows a hemoglobin of 6.9, hematocrit 21.5, WBC 5.6. Comprehensive metabolic panel shows a sodium level of 134, potassium is normal at 3.8, BUN is 28, creatinine is 4.3, and GFR is 10. Blood glucose nonfasting 346. Lactic acid 2.09. DIAGNOSES: 1. Anemia. 2. Hypotension. 3. Chest pain with a negative workup. The patient's EKG showed no acute changes and her troponin is normal. INITIAL TREATMENT PLAN: The patient was given 1 L of normal saline in a bolus form followed by 1 L of lactated Ringer's in bolus form. This did not improve her blood pressure. At this point, I consulted with a hospitalist at [facility] in [place], Dr. Severino, who accepted the patient. She was transferred by helicopter to [facility] in [place]. The patient did have a mild recurrence of chest pain shortly before leaving our facility. She was given morphine 1 mg IV which did seem to help with her chest pain once again. Condition upon leaving our facility guarded. CRS/MODL /[id number]
== END 2018-05-23 19:15 ==
LOC: LB.ED 16:32
DX: R07.9 Chest pain, unspecified (principal); D64.9 Anemia, unspecified; I95.9 Hypotension, unspecified
CPT/HCPCS: 36415; 71045; 80053; 82962; 83605; 84484; 85025; 93005; 99285-25; A0425; A0429; A9270-GY; J2270; J2405; J7120

== ENCOUNTER 2018-06-07 14:59 | Emergency (ER) | payer MEDICARE, BC ==
[2018-06-07 15:35] VITALS: BP 129/53
--- NOTE | 2018-06-08 10:14 | CR ---
DATE OF SERVICE: 06/07/18 CLINICAL DATA: sob PORTABLE CHEST: Comparison is made to a prior exam dated 05/23/18. The heart size is stable. There is persistent eventration of the right hemidiaphragm with atelectatic/fibrotic changes in the right lung base. The lungs are otherwise clear. No changes from the prior exam. [id number] MTDD
--- NOTE | 2018-06-20 08:16 | ER ---
Date of Service: 06/07/2018 HISTORY OF PRESENT ILLNESS: This is a 67-year-old lady who comes in with her with complaints of shortness of breath and weakness. The patient has not felt well for a few days. She tells me that she has had a couple of bloody noses, but otherwise, there has not been any external bleeding. The patient has not been running a fever to her knowledge. She has history of anemia and was in fact just seen here a few days ago by myself, at which time she was transferred to [place]. The patient tells me that she left after a couple of days because they would not give her her evening medications. PAST MEDICAL HISTORY: The patient has significant past medical history. She has CHF. She is a diabetic, insulin dependent. She has kidney failure and is on home dialysis, which her helps her with. The patient's hemoglobin when I saw her previously was 6.9. CRS/MODL /[id number] CONTINUATION: PHYSICAL EXAMINATION: OBJECTIVE: GENERAL APPEARANCE: The patient is awake and alert. She is mildly short of breath. VITAL SIGNS: Reviewed. The patient is normotensive. O2 sats are in the low 90s. She is on oxygen per nasal cannula, but she is mostly mouth breathing. LUNGS: Scattered rhonchi throughout the lung corrigan. SKIN: Warm and dry. CARDIAC: Heart sounds distinct without murmurs. MOUTH: Oral mucous membranes are dry. ABDOMEN: Protuberant, soft, nontender to palpation. LABORATORY DATA: Include a CBC showing a hemoglobin of 6.3, hematocrit 18.5. Sodium level is also quite low at 120. D-dimer is at 854. BNP is at 4,393. PLAN: At this point, arrangements were made to transfer the patient to [place]. I did consult with Dr. Arellano, who accepted the patient. Anushka was also consulted involving all of the patient's other underlying conditions with her abnormal lab results, including sodium, D-dimer, and BNP all being abnormal, and their advice was to get the patient transferred to a higher level of care, and they could handle those conditions at that place as well. We did start the patient on a BiPAP machine, which did help her breathing, and her sats climbed into the upper 90s on the BiPAP machine. The patient was transferred by [facility] to [place]. Condition upon transfer guarded. Addendum: Final diagnosis, 1) Anemia. 2) Hyponatremia. 3) CHF. 4) Kidney failure - chronic. 5) Diabetes - Insulin dependant. CRS/MODL /[id number] MTDAdelaida
== END 2018-06-07 17:54 ==
LOC: LB.ED 14:59
DX: I50.9 Heart failure, unspecified (principal); E87.1 Hypo-osmolality and hyponatremia; D64.9 Anemia, unspecified; N18.9 Chronic kidney disease, unspecified; E11.9 Type 2 diabetes mellitus without complications; Z79.4 Long term (current) use of insulin
CPT/HCPCS: 36415; 71045; 80053; 83880; 84484; 85025; 85379; 93005; 99285; A0425; A0429

== ENCOUNTER 2019-01-15 11:51 | Emergency (ER) | payer MEDICARE, BC ==
--- NOTE | 2019-01-15 12:18 | EDM.PDOC ---
ED HPI GENERAL MEDICAL PROBLEM - General Chief Complaint: Genitourinary Problem Stated Complaint: hypotension Time Seen by Provider: 01/15/19 12:05 Source of Information: Reports: Patient, Family, RN History Limitations: Reports: No Limitations - History of Present Illness INITIAL COMMENTS - FREE TEXT/NARRATIVE: 68 yr female presents with fatigue, low blood pressure and some shortness of breath. States some bleeding with dialysis last night. States may have taken off too much fluid with dialysis. Pt states the insulin was decreased in the clinic, as she was having some low's of 60 and increased diaphoresis during night. States today blood sugar was in the 300's. States BP this am was in the 70's then then 80's, systolic. States she doesn't know what the diastolic number was. - Related Data Allergies Allergy/AdvReac Type Severity Reaction Status Date / Time peanut Allergy Mild Other Verified 01/15/19 12:16 codeine Allergy Hives Verified 01/15/19 12:16 erythromycin lactobionate Allergy Hives Verified 01/15/19 12:16 [From Erythrocin] metformin AdvReac Other Verified 01/15/19 12:16 Home Meds: Home Meds traZODone 100 mg PO BEDTIME 04/25/16 [History] Allopurinol [Zyloprim] 100 mg PO DAILY tablet 12/27/16 [Rx] Levothyroxine Sodium [Levoxyl] 200 mcg PO ACBREAKFAST 02/03/17 [History] Aspirin [Halfprin] 81 mg PO DAILY tab.ec 02/21/17 [Rx] Darbepoetin Jerel in [place]ysorbat [Aranesp] 0 - 150 mcg SUBCUT Q14D 02/21/17 [Rx] Diclofenac Sodium [Voltaren 1% Gel] 0 - 1 gm TOP QID PRN #1 tube 02/21/17 [Rx] atorvaSTATin [Lipitor] 40 mg PO BEDTIME tablet 02/21/17 [Rx] Ferrous Sulfate 325 mg PO TIDMEALS 07/02/17 [History] Fish Oil/[place]-3 Fatty Acids [Fish Oil 1,000 MG] 1,000 mg PO DAILY 07/02/17 [ History] Pramipexole [Mirapex] 0.75 mg PO QPM 07/02/17 [History] Zolpidem [Ambien] 5 mg PO BEDTIME 07/02/17 [History] busPIRone [Buspar] 15 mg PO QID 07/02/17 [History] Fluticasone Propionate [Flonase] 1 spray NS BID 09/15/17 [History] LORazepam [Ativan] 0.5 mg PO TID 09/15/17 [History] Nystatin [Nystatin Crm] 15 gm TOP BID PRN 09/15/17 [History] Ondansetron [Zofran] 4 mg PO Q6H 09/15/17 [History] Acetaminophen [Tylenol Arthritis Pain] 650 mg PO Q8H PRN #30 tab.er 09/29/17 [Rx ] DULoxetine [Cymbalta] 60 mg PO DAILY #30 cap 09/29/17 [Rx] Insulin Aspart [NovoLOG] 20 unit SUBCUT TIDAC 30 Days pen 09/29/17 [Rx] Furosemide [Lasix] 40 mg PO DAILY 12/15/17 [History] Multivit with Calcium,Iron,Min [Essential Daily] 1 tab PO DAILY 12/15/17 [ History] Mupirocin Oint [Bactroban Oint] 0 gm TOP TID PRN 12/15/17 [History] Albuterol Sulfate [Proair Hfa] 2 puff IH QID PRN 02/12/18 [History] Budesonide/Formoterol Fumarate [Symbicort 160-4.5 Mcg Inhaler] 2 puff IH BID 07/24 [History] Calcitriol [Rocaltrol] 0.25 mcg PO ASDIRECTED 02/12/18 [History] Clopidogrel [Plavix] 75 mg PO DAILY 02/12/18 [History] Insulin Degludec [Tresiba Flextouch U-100] 45 units SUBCUT BID 02/12/18 [History ] Midodrine 5 mg PO ASDIRECTED 02/12/18 [History] Nitroglycerin [Nitrostat] 0.4 mg SL ASDIRECTED PRN 02/12/18 [History] Polyethylene Glycol 3350 [MiraLAX] 17 gm PO BID PRN 02/12/18 [History] Amiodarone [Cordarone] 200 mg PO DAILY 06/07/18 [History] Isosorbide Mononitrate [Imdur] 30 mg PO DAILY 06/07/18 [History] Loratadine [Claritin] 10 mg PO DAILY 06/07/18 [History] NIFEdipine [Nifedical XL] 60 mg PO DAILY 06/07/18 [History] Past Medical History HEENT History: Reports: Epistaxis, Impaired Vision, Other (See Below) Other HEENT History: photosensitive, ringing in ears- chronic, cracking in ears currently Cardiovascular History: Reports: Afib, Heart Murmur, High Cholesterol, Hypertension, [place] Respiratory History: Reports: Asthma, Sleep Apnea, SOB, Other (See Below) Other Respiratory History: doesn't use CPAP because of mask doesn't work - one cased scab on nose, one cased claustraphobia uses oxygen at home Gastrointestinal History: Reports: Chronic Diarrhea, GERD, Hemorrhoids Genitourinary History: Reports: Dialysis, Diabetic Nephropathy, Renal Disease, UTI, Recurrent, Other (See Below) Other Genitourinary History: home dialysis 2.5 hr 6 days per week 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: Musculoskeletal History: Reports: Arthritis, Back Pain, Chronic, Gout, Neck Pain , Chronic, Other (See Below) Other Musculoskeletal History: chronic shoulder pain, arthritis all over Neurological History: Reports: Migraines, Vertigo Psychiatric History: Reports: Anxiety, Depression, PTSD Endocrine/Metabolic History: Reports: Diabetes, Type II, Hypothyroidism, IDDM, Obesity/BMI 30+ Hematologic History: Reports: Anemia, B12 Deficiency, Idiopathic Thrombocytopenia, Other (See Below) Other Hematologic History: antibody in blood Immunologic History: Reports: Immunosuppression Oncologic (Cancer) History: Reports: None Dermatologic History: Reports: None - Infectious Disease History Infectious Disease History: Reports: Chicken Pox, Measles, Mumps, Rubella - Past Surgical History HEENT Surgical History: Reports: Cataract Surgery, Other (See Below) Cardiovascular Surgical History: Reports: Coronary Artery Bypass, Other (See Below) GI Surgical History: Reports: Appendectomy, Cholecystectomy Female Surgical History: Reports: Tubal Ligation Social & Family History - Family History Family Medical History: Noncontributory - Caffeine Use Caffeine Use: Reports: Tea Other Caffeine Use: chocolate ED ROS GENERAL - Review of Systems Review Of Systems: See Below Constitutional: Reports: Weakness. Denies: Decreased Appetite HEENT: Reports: Glasses Respiratory: Reports: Shortness of Breath. Denies: Cough, Sputum Cardiovascular: Denies: Chest Pain, Edema GI/Abdominal: Reports: Other (some loose stools, she has been munching through the night.). Denies: Abdominal Pain, Constipation, Nausea, Vomiting : Reports: Other (very little urine output with the dialysis, kidneys have been shut down) Skin: Reports: Other (skin is pink, warm, and dry) Neurological: Reports: Other (sitting in wheelchair.) ED EXAM, GENERAL - Physical Exam Exam: See Below Exam Limited By: No Limitations General Appearance: Alert, No Apparent Distress Ears: Hearing Grossly Normal Nose: Normal Inspection, Normal Mucosa Throat/Mouth: Normal Voice, No Airway Compromise Head: Atraumatic, Normocephalic Neck: Normal Inspection, Supple, Non-Tender Respiratory/Chest: No Respiratory Distress, Lungs Clear, Normal Breath Sounds Cardiovascular: Normal Peripheral Pulses, Regular Rate, Rhythm, No Edema GI/Abdominal: Soft, Non-Tender Back Exam: Normal Inspection Extremities: Non-Tender, No Pedal Edema, Normal Capillary Refill Neurological: Alert, Oriented, Normal Cognition Psychiatric: Normal Affect, Normal Mood Skin Exam: Warm, Dry, Normal Color Course - Vital Signs Last Recorded V/S: Last Vital Signs Temp 98.2 F 01/15/19 12:04 Pulse 101 H 01/15/19 13:15 Resp 22 H 01/15/19 12:04 BP 102/58 L 01/15/19 13:15 Pulse Ox 98 01/15/19 13:15 - Orders/Labs/Meds Labs: Laboratory Tests 01/15/19 01/15/19 Range/Units 10:15 12:37 WBC 8.5 (4.0-11.0) K/uL RBC 2.71 L (3.80-5.80) M/uL Hgb 8.3 L (11.5-16.5) g/dL Hct 26.0 L (37.0-47.0) % MCV 96 (76-96) fL MCH 30.6 (27.0-32.0) pg MCHC 31.9 (31.0-35.0) g/dL RDW 18.2 H (11.0-16.0) % Plt Count 164 D (150-500) K/uL MPV 11.6 H (6.0-10.0) fL Neut % (Auto) 76.6 H (45.0-70.0) % Lymph % (Auto) 13.4 L (20.0-40.0) % [place] % (Auto) 5.4 (3.0-10.0) % Eos % (Auto) 3.5 (1.0-5.0) % Baso % (Auto) 1.1 H (0.0-0.5) % Neut # (Auto) 6.54 (2.00-7.50) K/uL Lymph # (Auto) 1.14 L (1.50-4.00) K/uL [place] # (Auto) 0.46 (0.20-0.80) K/uL Eos # (Auto) 0.30 (0.04-0.40) K/uL Baso # (Auto) 0.09 (0.02-0.10) K/uL Sodium 134 L (136-145) mmol/L Potassium 5.1 (3.5-5.1) mmol/L Chloride 96 L (98-107) mmol/L Carbon Dioxide 25.4 (21.0-32.0) mmol/L Anion Gap 17.7 H (5.0-15.0) mmol/L BUN 25 D (8-26) mg/dL Creatinine 6.08 H* D (0.55-1.02) mg/dL Est Cr Clr Drug Dosing 8.52 mL/min Estimated GFR (MDRD) 7 L (>60) MLS/MIN BUN/Creatinine Ratio 4.1 L (6-25) Glucose 425 H* D (74-100) mg/dL Calcium 9.2 (8.5-10.1) mg/dL Total Bilirubin 0.5 D (0.0-1.0) mg/dL AST 23 (15-37) U/L ALT 35 (12-78) U/L Alkaline Phosphatase 236 H (46-116) U/L Total Protein 7.2 (6.4-8.2) g/dL Albumin 3.4 (3.4-5.0) g/dL Globulin 3.8 (2.2-4.2) g/dL Albumin/Globulin Ratio 0.9 (0.8-2.0) - Re-Assessments/Exams Free Text/Narrative Re-Assessment/Exam: 01/15/19 13:21 LE 12:30 Notified pt and of hgb today and stable of 8.3. 13:10 CMP is completed, Reviewed results with pt and . Creatinine and blood sugar are elevated. Pt had been munching during night. Recommend use of sliding scale with blood sugars. Will recheck Hgb tomorrow. will bring a blood sample to hospital lab tomorrow. Departure - Departure Time of Disposition: 13:20 Disposition: Home, Self-Care 01 Condition: Good Clinical Impression: Chronic kidney disease with end stage renal failure on dialysis Anemia Qualifiers: Anemia type: other cause Other causes of anemia: chronic disease, other Qualified Code(s): D63.8 - Anemia in other chronic diseases classified elsewhere - Discharge Information *PRESCRIPTION DRUG MONITORING PROGRAM REVIEWED*: Not Applicable *COPY OF PRESCRIPTION DRUG MONITORING REPORT IN PATIENT WENDY: Not Applicable Referrals: PCP,None [Primary Care Provider] - Forms: ED Department Discharge Additional Instructions: Followup with another blood sample again tomorrow. If you get feeling worse return to the clinic or the ER. - Assessment/Plan Plan: Recommend F/U tomorrow with blood sample for Hgb. will bring sample in. He does home dialysis for her. She will F/U with dialysis in [place] next month as scheduled. Monitor blood sugar at home. She did have some low BS in evenings and long acting insulin has been adjusted by PCP. Return to PCP in 1- 2 weeks as needed. Return to ER or clinic if symptoms increase.
[2019-01-15 13:16] VITALS: BP 102/58
== END 2019-01-15 13:22 | disposition home or self-care (01) ==
LOC: LB.ED 11:51
DX: I12.0 Hypertensive chronic kidney disease with stage 5 chronic kidney disease or end stage renal disease (principal); N18.6 End stage renal disease; D63.1 Anemia in chronic kidney disease; I48.92 Unspecified atrial flutter; E11.22 Type 2 diabetes mellitus with diabetic chronic kidney disease; F41.9 Anxiety disorder, unspecified; F32.9 Major depressive disorder, single episode, unspecified; I48.91 Unspecified atrial fibrillation; E78.00 Pure hypercholesterolemia, unspecified; J45.909 Unspecified asthma, uncomplicated; Z88.8 Allergy status to other drugs, medicaments and biological substances; Z79.899 Other long term (current) drug therapy; Z79.82 Long term (current) use of aspirin; Z99.2 Dependence on renal dialysis; Z79.4 Long term (current) use of insulin
CPT/HCPCS: 36415; 80053; 85025; 99284

== ENCOUNTER 2019-01-31 19:00 | Emergency (ER) | payer MEDICARE, BC ==
[2019-01-31] MEDS ORDERED: Sodium Chloride 0.9% 1,000 ML IV SCH (19:30)
--- NOTE | 2019-01-31 19:36 | EDM.PDOC ---
ED HPI GENERAL MEDICAL PROBLEM - General Chief Complaint: General Stated Complaint: COLLAPSED Time Seen by Provider: 01/31/19 19:18 Source of Information: Reports: Patient, Family, RN - History of Present Illness INITIAL COMMENTS - FREE TEXT/NARRATIVE: 68 yr female presents with fall at home. States her legs gave out and she fell down, straight down and then back. States pain to left ankle and back. States she has been feeling short of breath and would like to have her Hgb checked. She is feeling dry in the mouth and requesting ice chips. Her is here and states he was able to get 2.9 Liters off with the dialysis tonight and was going to need 3L off. Pt was getting to bathroom and fell and twisted ankle and thinks it is broken. She is brought in by EMS. - Related Data Allergies Allergy/AdvReac Type Severity Reaction Status Date / Time peanut Allergy Mild Other Verified 01/31/19 20:09 codeine Allergy Hives Verified 01/31/19 20:09 erythromycin lactobionate Allergy Hives Verified 01/31/19 20:09 [From Erythrocin] metformin AdvReac Other Verified 01/31/19 20:09 Home Meds: Home Meds traZODone 100 mg PO BEDTIME 04/25/16 [History] Allopurinol [Zyloprim] 100 mg PO DAILY tablet 12/27/16 [Rx] Levothyroxine Sodium [Levoxyl] 200 mcg PO ACBREAKFAST 02/03/17 [History] Aspirin [Halfprin] 81 mg PO DAILY tab.ec 02/21/17 [Rx] Darbepoetin Jerel in Polysorbat [Aranesp] 0 - 150 mcg SUBCUT Q14D 02/21/17 [Rx] Diclofenac Sodium [Voltaren 1% Gel] 0 - 1 gm TOP QID PRN #1 tube 02/21/17 [Rx] atorvaSTATin [Lipitor] 40 mg PO BEDTIME tablet 02/21/17 [Rx] Ferrous Sulfate 325 mg PO TIDMEALS 07/02/17 [History] Fish Oil/[place]-3 Fatty Acids [Fish Oil 1,000 MG] 1,000 mg PO DAILY 07/02/17 [ History] Pramipexole [Mirapex] 0.75 mg PO QPM 07/02/17 [History] Zolpidem [Ambien] 5 mg PO BEDTIME 07/02/17 [History] busPIRone [Buspar] 15 mg PO QID 07/02/17 [History] Fluticasone Propionate [Flonase] 1 spray NS BID 09/15/17 [History] LORazepam [Ativan] 0.5 mg PO TID 09/15/17 [History] Nystatin [Nystatin Crm] 15 gm TOP BID PRN 09/15/17 [History] Ondansetron [Zofran] 4 mg PO Q6H 09/15/17 [History] Acetaminophen [Tylenol Arthritis Pain] 650 mg PO Q8H PRN #30 tab.er 09/29/17 [Rx ] DULoxetine [Cymbalta] 60 mg PO DAILY #30 cap 09/29/17 [Rx] Insulin Aspart [NovoLOG] 20 unit SUBCUT TIDAC 30 Days pen 09/29/17 [Rx] Furosemide [Lasix] 40 mg PO DAILY 12/15/17 [History] Multivit with Calcium,Iron,Min [Essential Daily] 1 tab PO DAILY 12/15/17 [ History] Mupirocin Oint [Bactroban Oint] 0 gm TOP TID PRN 12/15/17 [History] Albuterol Sulfate [Proair Hfa] 2 puff IH QID PRN 02/12/18 [History] Budesonide/Formoterol Fumarate [Symbicort 160-4.5 Mcg Inhaler] 2 puff IH BID 07/24 [History] Calcitriol [Rocaltrol] 0.25 mcg PO ASDIRECTED 02/12/18 [History] Clopidogrel [Plavix] 75 mg PO DAILY 02/12/18 [History] Insulin Degludec [Tresiba Flextouch U-100] 45 units SUBCUT BID 02/12/18 [History ] Midodrine 5 mg PO ASDIRECTED 02/12/18 [History] Nitroglycerin [Nitrostat] 0.4 mg SL ASDIRECTED PRN 02/12/18 [History] Polyethylene Glycol 3350 [MiraLAX] 17 gm PO BID PRN 02/12/18 [History] Amiodarone [Cordarone] 200 mg PO DAILY 06/07/18 [History] Isosorbide Mononitrate [Imdur] 30 mg PO DAILY 06/07/18 [History] Loratadine [Claritin] 10 mg PO DAILY 06/07/18 [History] NIFEdipine [Nifedical XL] 60 mg PO DAILY 06/07/18 [History] Past Medical History HEENT History: Reports: Epistaxis, Impaired Vision, Other (See Below) Other HEENT History: photosensitive, ringing in ears- chronic, cracking in ears currently Cardiovascular History: Reports: Afib, Heart Murmur, High Cholesterol, Hypertension, [place] Respiratory History: Reports: Asthma, Sleep Apnea, SOB, Other (See Below) Other Respiratory History: doesn't use CPAP because of mask doesn't work - one cased scab on nose, one cased claustraphobia uses oxygen at home Gastrointestinal History: Reports: Chronic Diarrhea, GERD, Hemorrhoids Genitourinary History: Reports: Dialysis, Diabetic Nephropathy, Renal Disease, UTI, Recurrent, Other (See Below) Other Genitourinary History: home dialysis 2.5 hr 6 days per week [employer] History: Reports: Musculoskeletal History: Reports: Arthritis, Back Pain, Chronic, Gout, Neck Pain , Chronic, Other (See Below) Other Musculoskeletal History: chronic shoulder pain, arthritis all over Neurological History: Reports: Migraines, Vertigo Psychiatric History: Reports: Anxiety, Depression, PTSD Endocrine/Metabolic History: Reports: Diabetes, Type II, Hypothyroidism, IDDM, Obesity/BMI 30+ Hematologic History: Reports: Anemia, B12 Deficiency, Idiopathic Thrombocytopenia, Other (See Below) Other Hematologic History: antibody in blood Immunologic History: Reports: Immunosuppression Oncologic (Cancer) History: Reports: None Dermatologic History: Reports: None - Infectious Disease History Infectious Disease History: Reports: Chicken Pox, Measles, Mumps, Rubella - Past Surgical History HEENT Surgical History: Reports: Cataract Surgery, Other (See Below) Cardiovascular Surgical History: Reports: Coronary Artery Bypass, Other (See Below) GI Surgical History: Reports: Appendectomy, Cholecystectomy Female Surgical History: Reports: Tubal Ligation Social & Family History - Family History Family Medical History: Noncontributory - Caffeine Use Caffeine Use: Reports: Tea Other Caffeine Use: chocolate ED ROS GENERAL - Review of Systems Review Of Systems: See Below Constitutional: Reports: Weakness. Denies: Fever, Chills, Decreased Appetite HEENT: Reports: Glasses. Denies: Ear Pain, Eye Pain, Nose Pain Respiratory: Reports: Shortness of Breath. Denies: Wheezing, Cough Cardiovascular: Denies: Chest Pain, Edema GI/Abdominal: Reports: Other (taking ice chips, BM today). Denies: Abdominal Pain, Difficulty Swallowing : Reports: Other (Minimal urine with dialysis) Musculoskeletal: Reports: Back Pain, Other (left ankle pain and back pain.). Denies: Neck Pain, Shoulder Pain Skin: Reports: Dryness, Other (swelling and mild bruising to left ankle) Neurological: Reports: Dizziness, Weakness, Other (light headed). Denies: Confusion Psychiatric: Reports: No Symptoms Hematologic/Lymphatic: Reports: Anemia, Easy Bleeding ED EXAM, GENERAL - Physical Exam Exam: See Below Exam Limited By: No Limitations General Appearance: Alert, No Apparent Distress Eye Exam: Bilateral Eye: PERRL (glasses) Ears: Normal External Exam, Hearing Grossly Normal Nose: Normal Inspection Throat/Mouth: Normal Inspection, Normal Voice, No Airway Compromise, Other (dry mouth, poor dentition) Head: Atraumatic, Normocephalic Neck: Normal Inspection, Supple, Non-Tender Respiratory/Chest: No Respiratory Distress, Chest Non-Tender, Decreased Breath Sounds. No: Crackles, Rhonchi, Wheezing Cardiovascular: Regular Rate, Rhythm, No Edema Peripheral Pulses: 2+: Dorsalis Pedis (L), Dorsalis Pedis (R) GI/Abdominal: Normal Bowel Sounds, Soft, Non-Tender Back Exam: Normal Inspection Extremities: Normal Inspection, Other (Good ROM to left ankle, swelling and mild bruising noted to left ankle). No: Pedal Edema Neurological: Alert, Oriented, Normal Cognition Psychiatric: Normal Affect, Normal Mood Skin Exam: Warm, Dry, Other (slight pale) Course - Orders/Labs/Meds Orders: Active Orders 24 hr Category Date Time Status Ankle Min 3V Lt [CR] Stat Exams 01/31/19 19:19 Taken Chest 1V Frontal [CR] Stat Exams 01/31/19 19:20 Taken Sodium Chloride 0.9% [Normal Saline] 1,000 ml Med 01/31/19 19:30 Active IV ASDIRECTED Medication Orders Sodium Chloride (Normal Saline) 1,000 mls @ 100 mls/hr IV ASDIRECTED INGRID Labs: Laboratory Tests 01/31/19 01/31/19 Range/Units 19:30 19:30 WBC 8.0 (4.0-11.0) K/uL RBC 3.66 L (3.80-5.80) M/uL Hgb 11.4 L D (11.5-16.5) g/dL Hct 35.9 L D (37.0-47.0) % MCV 98 H (76-96) fL MCH 31.1 (27.0-32.0) pg MCHC 31.8 (31.0-35.0) g/dL RDW 18.9 H (11.0-16.0) % Plt Count 129 L D (150-500) K/uL MPV 11.4 H (6.0-10.0) fL Neut % (Auto) 68.5 (45.0-70.0) % Lymph % (Auto) 19.4 L (20.0-40.0) % [place] % (Auto) 7.1 (3.0-10.0) % Eos % (Auto) 3.9 (1.0-5.0) % Baso % (Auto) 1.1 H (0.0-0.5) % Neut # (Auto) 5.46 (2.00-7.50) K/uL Lymph # (Auto) 1.55 (1.50-4.00) K/uL [place] # (Auto) 0.57 (0.20-0.80) K/uL Eos # (Auto) 0.31 (0.04-0.40) K/uL Baso # (Auto) 0.09 (0.02-0.10) K/uL Sodium 139 (136-145) mmol/L Potassium 3.8 D (3.5-5.1) mmol/L Chloride 98 (98-107) mmol/L Carbon Dioxide 20.7 L (21.0-32.0) mmol/L Anion Gap 24.1 H (5.0-15.0) mmol/L BUN 19 D (8-26) mg/dL Creatinine 5.12 H* (0.55-1.02) mg/dL Est Cr Clr Drug Dosing TNP Estimated GFR (MDRD) 8 L (>60) MLS/MIN BUN/Creatinine Ratio 3.7 L (6-25) Glucose 398 H (74-100) mg/dL Calcium 9.1 (8.5-10.1) mg/dL Total Bilirubin 0.7 D (0.0-1.0) mg/dL AST 21 (15-37) U/L ALT 26 (12-78) U/L Alkaline Phosphatase 254 H (46-116) U/L Total Protein 7.0 (6.4-8.2) g/dL Albumin 3.6 (3.4-5.0) g/dL Globulin 3.4 (2.2-4.2) g/dL Albumin/Globulin Ratio 1.1 (0.8-2.0) Meds: Medications Generic Name Dose Route Start Last Admin Trade Name Freq PRN Reason Stop Dose Admin Sodium Chloride 1,000 mls @ 100 mls/hr 01/31/19 19:30 Normal Saline IV ASDIRECTED INGRID Departure - Departure Time of Disposition: 20:50 Disposition: Home, Self-Care 01 Condition: Good Clinical Impression: Ankle sprain, Weakness, CKD (chronic kidney disease) requiring chronic dialysis Anemia Qualifiers: Anemia type: other cause Other causes of anemia: chronic disease, other Qualified Code(s): D63.8 - Anemia in other chronic diseases classified elsewhere - Discharge Information *PRESCRIPTION DRUG MONITORING PROGRAM REVIEWED*: Not Applicable *COPY OF PRESCRIPTION DRUG MONITORING REPORT IN PATIENT WENDY: Not Applicable Forms: ED Department Discharge Additional Instructions: Keep applied FRANCISCO wrap in place to affected left ankle for next 3-4 days. Activity as tolerated. May also apply ice pack to affected area for pain management, and keep left ankle elevated whenever possible to decrease swelling. Keep scheduled appointment in [place] tomorrow. Call with any questions. - My Orders Last 24 Hours: My Active Orders 01/31/19 19:19 Ankle Min 3V Lt [CR] Stat 01/31/19 19:20 Chest 1V Frontal [CR] Stat 01/31/19 19:30 Sodium Chloride 0.9% [Normal Saline] 1,000 ml IV ASDIRECTED - Assessment/Plan Last 24 Hours: My Active Orders 01/31/19 19:19 Ankle Min 3V Lt [CR] Stat 01/31/19 19:20 Chest 1V Frontal [CR] Stat 01/31/19 19:30 Sodium Chloride 0.9% [Normal Saline] 1,000 ml IV ASDIRECTED Plan: Sprain to left ankle: X-ray completed and no fracture per quick read. [place] wrap applied, recommend elevate and ice to area and rest area, prevent reinjury. Back pain: Chest x-ray completed and no changes noted per quick read. Hgb improved from previous visits and Creatinine improved from previous visits. Discussed BP as low, but did improve at end of visit. Recommend decrease of dialysis to support blood pressure and prevent dizziness. Continue with diet and iron tablets for anemia. Pt has cardiology appointment tomorrow and does have visits with PCP every other month. Recommend monitor blood sugars and insulin upon return to home. Discharge tonight to care of . EMS contacted and will assist with transfer pt into home.
[2019-01-31 22:29] VITALS: BP 80/47
--- NOTE | 2019-02-01 07:55 | CR ---
DATE OF SERVICE: 01/31/19 CLINICAL DATA: pain and fell in home LEFT ANKLE: There is diffuse osteopenia. There are mild osteoarthritic changes involving multiple joints. There are plantar and posterior calcaneal spurs. No acute fracture or dislocation. No focal lytic or blastic bone lesions. There are vascular calcifications in the soft tissues. [id number] [facility]
--- NOTE | 2019-02-01 07:58 | CR ---
DATE OF SERVICE: 01/31/19 CLINICAL DATA: fell at home, pain AP CHEST: Comparison is made to a prior exam dated 06/07/18. The heart size is stable. There is chronic eventration of the right hemidiaphragm with chronic atelectatic /fibrotic changes in the right lung base. The lungs are otherwise clear. No pneumothorax. No pleural effusions. No significant changes from the prior study. [id number] [facility]
== END 2019-01-31 20:50 | disposition home or self-care (01) ==
LOC: LB.ED 19:00
DX: S93.402A Sprain of unspecified ligament of left ankle, initial encounter (principal); I12.9 Hypertensive chronic kidney disease with stage 1 through stage 4 chronic kidney disease, or unspecified chronic kidney disease; E11.22 Type 2 diabetes mellitus with diabetic chronic kidney disease; N18.9 Chronic kidney disease, unspecified; D63.1 Anemia in chronic kidney disease; I48.91 Unspecified atrial fibrillation; K21.9 Gastro-esophageal reflux disease without esophagitis; E78.00 Pure hypercholesterolemia, unspecified; I25.2 Old myocardial infarction; F41.9 Anxiety disorder, unspecified; F32.9 Major depressive disorder, single episode, unspecified; E03.9 Hypothyroidism, unspecified; Z99.2 Dependence on renal dialysis; Z79.899 Other long term (current) drug therapy; Z79.82 Long term (current) use of aspirin; Z91.010 Allergy to peanuts; Z88.5 Allergy status to narcotic agent; Z88.1 Allergy status to other antibiotic agents; W19.XXXA Unspecified fall, initial encounter
CPT/HCPCS: 36415; 71045; 73610-LT; 80053; 85025; 99283; 99284-25; A0425; A0429

== ENCOUNTER 2019-08-22 14:29 | Observation (INO) | payer MEDICARE, BC ==
[2019-08-22] MEDS ORDERED: Acetaminophen 500 MG Tab PO ONE (15:56)
[2019-08-22] MEDS ORDERED: diphenhydrAMINE 50 MG Cap PO ONE (15:56)
[2019-08-22] MEDS: Furosemide 40 MG/4 ML VIAL IVPUSH PRN ×2 (18:55→20:20)
[2019-08-22] MEDS ORDERED: diphenhydrAMINE 50 MG/ML SDV IVPUSH ONE (20:09)
[2019-08-23] MEDS ORDERED: diphenhydrAMINE 50 MG/ML SDV IVPUSH ONE (07:38)
[2019-08-23] MEDS ORDERED: Furosemide 40 MG/4 ML VIAL IVPUSH ONE (07:39)
[2019-08-23] MEDS ORDERED: Albuterol 8 GM Inhaler INH PRN (08:30)
[2019-08-23] MEDS ORDERED: DICLOFENAC SODIUM TOP PRN (08:30)
[2019-08-23] MEDS ORDERED: ONDANSETRON 4 MG PO SCH (08:30)
[2019-08-23] MEDS ORDERED: Acetaminophen 650 MG Tab.ER PO PRN (08:30)
[2019-08-23] MEDS ORDERED: DARBEPOETIN ALFA IN POLYSORBAT SUBCUT SCH (08:30)
[2019-08-23] MEDS ORDERED: Calcitriol 0.25 MCG Cap PO SCH (08:30)
[2019-08-23] MEDS ORDERED: Nystatin Crm 30 GM Tube TOP PRN (08:30)
[2019-08-23] MEDS ORDERED: Mupirocin Oint 22 GM Tube TOP PRN (08:30)
[2019-08-23] MEDS ORDERED: Polyethylene Glycol 3350 Powder 17 GM Packet PO PRN (08:30)
[2019-08-23] MEDS ORDERED: Nitroglycerin 0.4 MG Tab.SL SL PRN (08:30)
[2019-08-23] MEDS ORDERED: MIDODRINE 5 MG PO SCH ×2 (08:30→17:15)
--- NOTE | 2019-08-23 09:30 | PCM.HP.2 ---
H&P History of Present Illness - General Date of Service: 08/23/19 Admit Problem/Dx: Admission Diagnosis/Problem Admission Diagnosis/Problem Anemia due to chronic kidney disease Source of Information: Patient, Old Records, RN, RN Notes Reviewed History Limitations: Reports: No Limitations - History of Present Illness Initial Comments - Free Text/Narative: This is a 68yo F who has been severely anemic with complaints of weakness and fatigue. She required a type and cross match and ordering of special screened blood which arrived yesterday. She was counseled on a rare antibody and discussed side effects and risks vs benefits. Patient agreed to the transfusion. Per she has been coughing with some chest congestion. She is afebrile and has been the past few days. She noted increased jitteriness and chest congestion after the first unit of blood last night. The blood was halted near the start of the second unit due to the patient feeling very ill. Patient states she feels worse today with increasing chest congestion and cough. Onset of Symptoms: Reports: Gradual Duration of Symptoms: Reports: Day(s): Location: Reports: Chest Severity: Moderate Improves with: Reports: None Worsens with: Reports: None Associated Symptoms: Reports: Cough, Weakness - Related Data Allergies/Adverse Reactions: Allergies Allergy/AdvReac Type Severity Reaction Status Date / Time peanut Allergy Mild Other Verified 08/22/19 17:30 codeine Allergy Hives Verified 08/22/19 17:30 erythromycin lactobionate Allergy Hives Verified 08/22/19 17:30 [From Erythrocin] metformin AdvReac Other Verified 08/22/19 17:30 Home Medications: Home Meds traZODone 100 mg PO BEDTIME 04/25/16 [History] Allopurinol [Zyloprim] 100 mg PO DAILY tablet 12/27/16 [Rx] Levothyroxine Sodium [Levoxyl] 200 mcg PO ACBREAKFAST 02/03/17 [History] Aspirin [Halfprin] 81 mg PO DAILY tab.ec 02/21/17 [Rx] Darbepoetin Jerel in Polysorbat [Aranesp] 0 - 150 mcg SUBCUT Q14D 02/21/17 [Rx] Diclofenac Sodium [Voltaren 1% Gel] 0 - 1 gm TOP QID PRN #1 tube 02/21/17 [Rx] atorvaSTATin [Lipitor] 40 mg PO BEDTIME tablet 02/21/17 [Rx] Ferrous Sulfate 325 mg PO TIDMEALS 07/02/17 [History] Fish Oil/[place]-3 Fatty Acids [Fish Oil 1,000 MG] 1,000 mg PO DAILY 07/02/17 [ History] Pramipexole [Mirapex] 0.75 mg PO QPM 07/02/17 [History] Zolpidem [Ambien] 5 mg PO BEDTIME 07/02/17 [History] busPIRone [Buspar] 15 mg PO QID 07/02/17 [History] Fluticasone Propionate [Flonase] 1 spray NS BID 09/15/17 [History] LORazepam [Ativan] 0.5 mg PO TID 09/15/17 [History] Nystatin [Nystatin Crm] 15 gm TOP BID PRN 09/15/17 [History] Ondansetron [Zofran] 4 mg PO Q6H 09/15/17 [History] Acetaminophen [Tylenol Arthritis Pain] 650 mg PO Q8H PRN #30 tab.er 09/29/17 [Rx ] Insulin Aspart [NovoLOG] 20 unit SUBCUT TIDAC 30 Days pen 09/29/17 [Rx] Furosemide [Lasix] 40 mg PO DAILY 12/15/17 [History] Multivit with Calcium,Iron,Min [Essential Daily] 1 tab PO DAILY 12/15/17 [ History] Mupirocin Oint [Bactroban Oint] 0 gm TOP TID PRN 12/15/17 [History] Albuterol Sulfate [Proair Hfa] 2 puff IH QID PRN 02/12/18 [History] Budesonide/Formoterol Fumarate [Symbicort 160-4.5 Mcg Inhaler] 2 puff IH BID 07/24 [History] Calcitriol [Rocaltrol] 0.25 mcg PO ASDIRECTED 02/12/18 [History] Clopidogrel [Plavix] 75 mg PO DAILY 02/12/18 [History] Insulin Degludec [Tresiba Flextouch U-100] 45 units SUBCUT BID 02/12/18 [History ] Midodrine 5 mg PO ASDIRECTED 02/12/18 [History] Nitroglycerin [Nitrostat] 0.4 mg SL ASDIRECTED PRN 02/12/18 [History] Polyethylene Glycol 3350 [MiraLAX] 17 gm PO BID PRN 02/12/18 [History] Amiodarone [Cordarone] 200 mg PO DAILY 06/07/18 [History] Isosorbide Mononitrate [Imdur] 30 mg PO DAILY 06/07/18 [History] Loratadine [Claritin] 10 mg PO DAILY 06/07/18 [History] NIFEdipine [Nifedical XL] 60 mg PO DAILY 06/07/18 [History] Citalopram Hydrobromide [Celexa] 20 mg PO DAILY 08/23/19 [History] Past Medical History HEENT History: Reports: Epistaxis, Impaired Vision, Other (See Below) Other HEENT History: photosensitive, ringing in ears- chronic, cracking in ears currently Cardiovascular History: Reports: Afib, Heart Murmur, High Cholesterol, Hypertension, [place] Respiratory History: Reports: Asthma, Sleep Apnea, SOB, Other (See Below) Other Respiratory History: doesn't use CPAP because of mask doesn't work - one cased scab on nose, one cased claustraphobia uses oxygen at home Gastrointestinal History: Reports: Chronic Diarrhea, GERD, Hemorrhoids Genitourinary History: Reports: Dialysis, Diabetic Nephropathy, Renal Disease, UTI, Recurrent, Other (See Below) Other Genitourinary History: home dialysis 2.5 hr 6 days per week [employer] History: Reports: Musculoskeletal History: Reports: Arthritis, Back Pain, Chronic, Gout, Neck Pain , Chronic, Other (See Below) Other Musculoskeletal History: chronic shoulder pain, arthritis all over Neurological History: Reports: Migraines, Vertigo Psychiatric History: Reports: Anxiety, Depression, PTSD Endocrine/Metabolic History: Reports: Diabetes, Type II, Hypothyroidism, IDDM, Obesity/BMI 30+ Hematologic History: Reports: Anemia, B12 Deficiency, Idiopathic Thrombocytopenia, Other (See Below) Other Hematologic History: antibody in blood Immunologic History: Reports: Immunosuppression Oncologic (Cancer) History: Reports: None Dermatologic History: Reports: None - Infectious Disease History Infectious Disease History: Reports: Chicken Pox, Measles, Mumps, Rubella - Past Surgical History HEENT Surgical History: Reports: Cataract Surgery, Other (See Below) Cardiovascular Surgical History: Reports: Coronary Artery Bypass, Other (See Below) GI Surgical History: Reports: Appendectomy, Cholecystectomy Female Surgical History: Reports: Tubal Ligation Social & Family History - Family History Family Medical History: Noncontributory - Tobacco Use Smoking Status *Q: Former Smoker Used Tobacco, but Quit: Yes Month/Year Tobacco Last Used: 1988 - Caffeine Use Caffeine Use: Reports: Tea Other Caffeine Use: chocolate - Recreational Drug Use Recreational Drug Use: No H&P Review of Systems - Review of Systems: Review Of Systems: ROS reveals no pertinent complaints other than HPI. Exam - Exam Exam: See Below - Vital Signs Vital Signs: Last Vital Signs Temp 36.6 C 08/23/19 03:21 Pulse 75 08/23/19 03:21 Resp 20 08/23/19 03:21 BP 125/64 08/23/19 03:21 Pulse Ox 98 08/23/19 03:21 - Exam General: Alert, Oriented, Cooperative HEENT: PERRLA, Conjunctiva Clear, EACs Clear, EOMI Neck: Supple, Trachea Midline Lungs: Normal Respiratory Effort, Decreased Breath Sounds, Rhonchi, Wheezing Cardiovascular: Regular Rate, Regular Rhythm GI/Abdominal Exam: Normal Bowel Sounds, Soft, Non-Tender Extremities: Pedal Edema Peripheral Pulses: 2+: Dorsalis Pedis (L), Dorsalis Pedis (R) Skin: Warm, Dry, Intact Neuro Extensive - Mental Status: Alert, Oriented x3, Normal Cognition, Slow Response to Commands - Patient Data Lab Results Last 24 hrs: Laboratory Results - last 24 hr 08/20/19 Range/Units 13:30 Blood Type A NEGATIVE Gel Antibody Screen Positive Antibody Identification Anti-K Crossmatch See Detail Result Diagrams: 08/23/19 10:25 08/23/19 10:25 - Problem List (1) Cough SNOMED Code(s): 26133829 ICD Code: R05 - COUGH Status: Acute Current Visit: Yes (2) Chest congestion SNOMED Code(s): 51749634 ICD Code: R09.89 - OTH SYMPTOMS AND SIGNS INVOLVING THE CIRC AND RESP SYSTEMS Status: Acute Current Visit: Yes (3) CKD (chronic kidney disease) requiring chronic dialysis SNOMED Code(s): 611191155 ICD Code: N18.6 - END STAGE RENAL DISEASE; Z99.2 - DEPENDENCE ON RENAL DIALYSIS Status: Acute Current Visit: No Problem Details: takes care of all dialysis needs for pt. (4) Dialysis patient SNOMED Code(s): 498110958 ICD Code: Z99.2 - DEPENDENCE ON RENAL DIALYSIS Status: Acute Current Visit: No (5) Edema extremities SNOMED Code(s): 340221193 ICD Code: R60.0 - LOCALIZED EDEMA Status: Acute Current Visit: No (6) Weakness SNOMED Code(s): 22071039 ICD Code: R53.1 - WEAKNESS Status: Acute Priority: High Current Visit: No Problem Details: PT/OT for strengthening (7) Anemia SNOMED Code(s): 611028892 ICD Code: D64.9 - ANEMIA, UNSPECIFIED Status: Chronic Priority: High Current Visit: No Problem Details: 05/23/18 - 1. Anemia. 2 Hypotension. 3. Chest pain with a negative workup. The patient's EKG showed no acute charnges and her troponin is normal. Qualifiers: Anemia type: other cause Other causes of anemia: chronic disease, other Qualified Code(s): D63.8 - Anemia in other chronic diseases classified elsewhere (8) Chronic kidney disease with end stage renal failure on dialysis SNOMED Code(s): 136014108 ICD Code: N18.6 - END STAGE RENAL DISEASE; Z99.2 - DEPENDENCE ON RENAL DIALYSIS Status: Chronic Priority: High Current Visit: No (9) Diabetes mellitus SNOMED Code(s): 49868929 ICD Code: E11.9 - TYPE 2 DIABETES MELLITUS WITHOUT COMPLICATIONS Status: Chronic Priority: Low Current Visit: No Qualifiers: (10) Morbid obesity SNOMED Code(s): 812885719 ICD Code: E66.01 - MORBID (SEVERE) OBESITY DUE TO EXCESS CALORIES Status: Chronic Priority: Medium Current Visit: No Problem List Initiated/Reviewed/Updated: Yes Orders Last 24hrs: Active Orders 24 hr Category Date Time Status Admission Status [Patient Status] [ADT] Routine ADT 08/23/19 08:08 Active Patient Status [ADT] Routine ADT 08/22/19 15:34 Active CXR [Chest 2V] [CR] Routine Exams 08/23/19 09:02 Ordered CBC WITH AUTO DIFF [HEME] Stat Lab 08/23/19 09:01 Ordered COMPREHENSIVE METABOLIC PN,CMP [CHEM] Stat Lab 08/23/19 09:01 Ordered Acetaminophen [Tylenol Arthritis Pain] Med 08/23/19 08:30 Ordered 650 mg PO Q8H PRN Albuterol [Ventolin HFA] Med 08/23/19 08:30 Ordered DOSE gm INH QID PRN Allopurinol [Zyloprim] Med 08/24/19 08:00 Ordered 100 mg PO DAILY Amiodarone [Cordarone] Med 08/24/19 08:00 Ordered 200 mg PO DAILY Aspirin [Halfprin] Med 08/24/19 08:00 Ordered 81 mg PO DAILY Budesonide/Formoterol Fumarate [Symbicort 160-4.5 Mcg Med 08/23/19 20:00 Ordered Inhaler] 2 puff IH BID Calcitriol [Rocaltrol] Med 08/23/19 08:30 Ordered 0.25 mcg PO ASDIRECTED Clopidogrel [Plavix] Med 08/24/19 08:00 Ordered 75 mg PO DAILY DULoxetine [Cymbalta] Med 08/24/19 08:00 Ordered 60 mg PO DAILY Darbepoetin Jerel in Polysorbat [Aranesp] Med 08/23/19 08:30 Ordered 0 - 150 mcg SUBCUT Q14D Diclofenac Sodium [Voltaren 1% Gel] Med 08/23/19 08:30 Ordered 0 - 1 gm TOP QID PRN Ferrous Sulfate Med 08/23/19 12:00 Ordered 325 mg PO TIDMEALS Fish Oil/[place]-3 Fatty Acids [Fish Oil] Med 08/24/19 08:00 Ordered 1 gm PO DAILY Fluticasone Propionate [Flonase] Med 08/23/19 20:00 Ordered DOSE gm NASBOTH BID Furosemide [Lasix] Med 08/23/19 07:39 Once 40 mg IVPUSH NOW ONE Furosemide [Lasix] Med 08/24/19 08:00 Ordered 40 mg PO DAILY Insulin Aspart [NovoLOG] Med 08/23/19 11:00 Ordered 20 unit SUBCUT TIDAC Insulin Degludec [Tresiba Flextouch U-100] Med 08/23/19 20:00 Ordered 45 units SUBCUT BID Isosorbide Mononitrate [Imdur] Med 08/24/19 08:00 Ordered 30 mg PO DAILY LORazepam [Ativan] Med 08/23/19 14:00 Ordered 0.5 mg PO TID Levothyroxine Med 08/24/19 07:00 Ordered 200 mcg PO ACBREAKFAST Loratadine [Claritin] Med 08/24/19 08:00 Ordered 10 mg PO DAILY Midodrine [Midodrine] Med 08/23/19 08:30 Ordered 5 mg PO ASDIRECTED Multivit with Calcium,Iron,Min [Essential Daily] Med 08/24/19 08:00 Ordered 1 tab PO DAILY Mupirocin Oint [Bactroban Oint] Med 08/23/19 08:30 Ordered 1 gm TOP TID PRN NIFEdipine [Procardia XL] Med 08/24/19 08:00 Ordered 60 mg PO DAILY Nitroglycerin [Nitrostat] Med 08/23/19 08:30 Ordered 0.4 mg SL ASDIRECTED PRN Nystatin [Nystatin Crm] Med 08/23/19 08:30 Ordered 15 gm TOP BID PRN Ondansetron [Zofran] Med 08/23/19 08:30 Ordered 4 mg PO Q6H Polyethylene Glycol 3350 [MiraLAX] Med 08/23/19 08:30 Ordered 17 gm PO BID PRN Pramipexole [Mirapex] Med 08/23/19 20:00 Ordered 0.75 mg PO QPM Zolpidem [Ambien] Med 08/23/19 20:00 Ordered 5 mg PO BEDTIME atorvaSTATin [Lipitor] Med 08/23/19 20:00 Ordered 40 mg PO BEDTIME busPIRone [Buspar] Med 08/23/19 12:00 Ordered 15 mg PO QID diphenhydrAMINE [Benadryl] Med 08/23/19 07:38 Once 50 mg IVPUSH ONETIME ONE traZODone Med 08/23/19 20:00 Ordered 100 mg PO BEDTIME Transfuse PRBC [Transfuse Red Blood Cells] [COMM] Oth 08/22/19 15:16 Ordered Routine Code Status [Resuscitation Status] Routine Resus Stat 08/22/19 22:29 Ordered Medication Orders Acetaminophen (Tylenol Arthritis Pain) 650 mg PO Q8H PRN PRN Reason: Pain Albuterol (Ventolin Hfa) gm INH QID PRN PRN Reason: Shortness of Breath Allopurinol (Zyloprim) 100 mg PO DAILY INGRID Amiodarone HCl (Cordarone) 200 mg PO DAILY INGRID Aspirin (Halfprin) 81 mg PO DAILY INGRID Atorvastatin Calcium (Lipitor) 40 mg PO BEDTIME NIGRID Buspirone HCl (Buspar) 15 mg PO QID INGRID Calcitriol (Rocaltrol) 0.25 mcg PO ASDIRECTED [facility] Clopidogrel Bisulfate (Plavix) 75 mg PO DAILY [facility] Diphenhydramine HCl (Benadryl) 50 mg IVPUSH ONETIME ONE Stop: 08/23/19 07:39 Duloxetine HCl (Cymbalta) 60 mg PO DAILY [facility] Ferrous Sulfate (Ferrous Sulfate) 325 mg PO TIDMEALS [facility] Fish Oil (Fish Oil) 1 gm PO DAILY [facility] Fluticasone Propionate (Flonase) gm NASBOTH BID INGRID Furosemide (Lasix) 40 mg IVPUSH NOW ONE Stop: 08/23/19 07:40 Furosemide (Lasix) 40 mg PO DAILY [facility] Insulin Aspart (Novolog) 20 unit SUBCUT TIDAC [facility] Isosorbide Mononitrate (Imdur) 30 mg PO DAILY [facility] Levothyroxine Sodium (Levothyroxine) 200 mcg PO ACBREAKFAST [facility] Loratadine (Claritin) 10 mg PO DAILY [facility] Lorazepam (Ativan) 0.5 mg PO TID [facility] Mupirocin (Bactroban Oint) 1 gm TOP TID PRN PRN Reason: Other Nitroglycerin (Nitrostat) 0.4 mg SL ASDIRECTED PRN PRN Reason: Chest Pain Non-Formulary Medication (Budesonide/Formoterol Fumarate [Symbicort 160-4.5 Mcg Inhaler]) 2 puff IH BID [facility] Non-Formulary Medication (Darbepoetin Jerel In Polysorbat [Aranesp]) 0 - 150 mcg SUBCUT Q14D [facility] Non-Formulary Medication (Diclofenac Sodium [Voltaren 1% Gel]) 0 - 1 gm TOP QID PRN PRN Reason: Pain Non-Formulary Medication (Insulin Degludec [Tresiba Flextouch U-100]) 45 units SUBCUT BID [facility] Non-Formulary Medication (Midodrine [Midodrine]) 5 mg PO ASDIRECTED [facility] Non-Formulary Medication (Multivit With Calcium,Iron,Min [Essential Daily]) 1 tab PO DAILY [facility] Non-Formulary Medication (Nifedipine [Procardia Xl]) 60 mg PO DAILY [facility] Non-Formulary Medication (Ondansetron [Zofran]) 4 mg PO Q6H [facility] Non-Formulary Medication (Pramipexole [Mirapex]) 0.75 mg PO QPM [facility]GR[facility] Nystatin (Nystatin Crm) 15 gm TOP BID PRN PRN Reason: Other Polyethylene Glycol (Miralax) 17 gm PO BID PRN PRN Reason: Constipation Trazodone HCl (Trazodone) 100 mg PO BEDTIME INGRID Zolpidem Tartrate (Ambien) 5 mg PO BEDTIME INGRID Assessment/Plan Comment:: Patient to be placed in observation for monitoring of transfusion, severe anemia with fatigue, chest congestion and cough and Chronic renal failure on dialysis. Discussed labs and medications and continued monitoring. We will try to finish last unit of blood. brought dialysis unit from home. Patient to f/u in AM for repeat labs and likely discharge. F/u in clinic as directed.
[2019-08-23] MEDS ORDERED: Insulin Aspart 100 Units/ML 3 ML Pen SUBCUT SCH (11:00)
[2019-08-23] MEDS ORDERED: diphenhydrAMINE 50 MG Cap ONE (11:59)
[2019-08-23] MEDS ORDERED: Ferrous Sulfate 325 MG Tab PO SCH (12:00)
[2019-08-23] MEDS ORDERED: busPIRone 15 MG Tab PO SCH (12:00)
[2019-08-23] MEDS ORDERED: LORazepam 0.5 MG Tab PO SCH (14:00)
[2019-08-23] MEDS: ONDANSETRON 4 MG PO SCH ×2 (14:30→22:30)
[2019-08-23] MEDS ORDERED: ALBUTEROL INH PRN (16:43)
[2019-08-23] MEDS: BUSPIRONE 15 MG PO SCH ×2 (17:00→20:59)
[2019-08-23] MEDS ORDERED: INSULIN ASPART 100 UNIT/ML SUBCUT SCH (17:00)
[2019-08-23] MEDS: ISOSORBIDE MONONITRATE 30 MG PO SCH (17:00)
[2019-08-23] MEDS: FERROUS SULFATE 325 MG PO SCH (17:00)
[2019-08-23] MEDS ORDERED: Dextrose 5%-0.9% NaCl 1,000 ML IV ONE (17:59)
[2019-08-23] MEDS: ALLOPURINOL 100 MG PO SCH (18:45)
[2019-08-23] MEDS ORDERED: INSULIN ASPART 100 UNIT/ML SUBCUT PRN (19:53)
[2019-08-23] MEDS ORDERED: PRAMIPEXOLE 0.75 MG PO SCH (20:00)
[2019-08-23] MEDS ORDERED: traZODone 100 MG Tab PO SCH (20:00)
[2019-08-23] MEDS ORDERED: Non-Formulary Medication 1 Each (Budesonide/Formoterol Fumarate [Symbicort 160-4.5 Mcg Inh IH SCH (20:00)
[2019-08-23] MEDS ORDERED: Fluticasone Propionate Nasal Spray 16 GM Bottle NASBOTH SCH (20:00)
[2019-08-23] MEDS ORDERED: Zolpidem 5 MG Tab PO SCH (20:00)
[2019-08-23] MEDS ORDERED: ZOLPIDEM 5 MG PO SCH (20:00)
[2019-08-23] MEDS ORDERED: INSULIN DEGLUDEC 45 UNIT SUBCUT SCH (20:00)
[2019-08-23] MEDS ORDERED: TRAZODONE 50 MG PO SCH (20:00)
[2019-08-23] MEDS ORDERED: atorvaSTATin 40 MG Tab PO SCH (20:00)
[2019-08-23] MEDS ORDERED: INSULIN DEGLUDEC SUBCUT SCH ×2 (20:00)
[2019-08-23] MEDS ORDERED: ATORVASTATIN 40 MG PO SCH (20:00)
[2019-08-23] MEDS ORDERED: FLUTICASONE PROPIONATE NASBOTH SCH (20:00)
[2019-08-23] MEDS: LORAZEPAM 0.5 MG PO SCH (20:59)
[2019-08-23] MEDS: FLUTICASONE PROPIONATE NASBOTH SCH (20:59)
[2019-08-24] MEDS ORDERED: LORazepam 0.5 MG Tab ONE (04:13)
[2019-08-24] MEDS ORDERED: INSULIN ASPART 100 UNIT/ML SUBCUT SCH ×4 (07:00→18:00)
[2019-08-24] MEDS ORDERED: LEVOTHYROXINE 200 MCG PO SCH ×2 (07:00)
[2019-08-24] MEDS ORDERED: Levothyroxine 112 MCG Tab PO SCH (07:00)
[2019-08-24] MEDS: ISOSORBIDE MONONITRATE 30 MG PO SCH (07:43)
[2019-08-24] MEDS: FERROUS SULFATE 325 MG PO SCH (07:45)
[2019-08-24] MEDS: FLUTICASONE PROPIONATE NASBOTH SCH (07:47)
[2019-08-24] MEDS: LORAZEPAM 0.5 MG PO SCH (07:48)
[2019-08-24] MEDS: ALLOPURINOL 100 MG PO SCH (07:48)
[2019-08-24] MEDS: BUSPIRONE 15 MG PO SCH (07:49)
[2019-08-24] MEDS ORDERED: FATTY ACIDS PO SCH (08:00)
[2019-08-24] MEDS ORDERED: Loratadine 10 MG Tab PO SCH (08:00)
[2019-08-24] MEDS ORDERED: OMEGA PO SCH (08:00)
[2019-08-24] MEDS ORDERED: Aspirin 81 MG Tab.EC PO SCH (08:00)
[2019-08-24] MEDS ORDERED: NIFEDIPINE 60 MG PO SCH (08:00)
[2019-08-24] MEDS ORDERED: Amiodarone 200 MG Tab PO SCH (08:00)
[2019-08-24] MEDS ORDERED: Allopurinol 100 MG Tab PO SCH (08:00)
[2019-08-24] MEDS ORDERED: Furosemide 40 MG Tab *PT OWN MED PO SCH (08:00)
[2019-08-24] MEDS ORDERED: MULTIVIT WITH CALCIUM IRON MIN PO SCH (08:00)
[2019-08-24] MEDS ORDERED: Clopidogrel 75 MG Tab PO SCH (08:00)
[2019-08-24] MEDS ORDERED: FISH OIL PO SCH (08:00)
[2019-08-24] MEDS ORDERED: [UNRECOGNIZED DRUG - OTHER] PO SCH (08:00)
[2019-08-24] MEDS ORDERED: Isosorbide Mononitrate 30 MG Tab.ER PO SCH (08:00)
[2019-08-24] MEDS ORDERED: Fish Oil/Omega-3 Fatty Acids 1 Gm Cap PO SCH (08:00)
[2019-08-24] MEDS ORDERED: DULoxetine 60 MG Cap PO SCH (08:00)
[2019-08-24] MEDS ORDERED: Furosemide 40 MG Tab PO SCH (08:00)
[2019-08-24] MEDS ORDERED: ASPIRIN 81 MG PO SCH (08:00)
[2019-08-24] MEDS ORDERED: Clopidogrel 75 MG Tab *PT OWN MED PO SCH (08:00)
[2019-08-24 09:27] VITALS: BP 129/59; PULSE 78
--- NOTE | 2019-08-24 11:26 | PCM.DCSUM1 ---
Discharge Summary - Hospital Course Free Text/Narrative:: Pt is a 68 year old female who was admitted for blood transfusion by Dr. Garibay. Apparently she has ESRD and on peritoneal dialysis. She has had low hemoglobin and had blood transfusion, she developed shortness of breath o\when she was on her 2nd unit of transfusion, which was stopped. third units was given and after 50% of transfusion she had similar reaction. Pt was admitted for observation. Patient has had uneventful night. She claims she feels fine. No shortness of breath. No breathing difficulty . vitals stable.Her Hemoglobin today is 8.6gm and no complaints. Plan is to discharge patient home today. Continue home meds.Followup with next week. Pt claims they have appointment in 1 month Brief History: Had shortness of breath with blood transfusion. Kindly see [facility] for details Diagnosis: Stroke: No - Discharge Data Discharge Date: 08/24/19 Discharge Disposition: Home, Self-Care 01 Condition: Good - Referral to Home Health Primary Care Physician: Uday Garibay MD - Patient Instructions Diet: Renal Diet Fluid Restriction: 1500 mL Activity: As Tolerated - Discharge Plan *PRESCRIPTION DRUG MONITORING PROGRAM REVIEWED*: Not Applicable *COPY OF PRESCRIPTION DRUG MONITORING REPORT IN PATIENT WENDY: Not Applicable Home Medications: Home Meds traZODone 100 mg PO BEDTIME 04/25/16 [History] Allopurinol [Zyloprim] 100 mg PO DAILY tablet 12/27/16 [Rx] Levothyroxine Sodium [Levoxyl] 200 mcg PO ACBREAKFAST 02/03/17 [History] Aspirin [Halfprin] 81 mg PO DAILY tab.ec 02/21/17 [Rx] Darbepoetin Jerel in Polysorbat [Aranesp] 0 - 150 mcg SUBCUT Q14D 02/21/17 [Rx] Diclofenac Sodium [Voltaren 1% Gel] 0 - 1 gm TOP QID PRN #1 tube 02/21/17 [Rx] atorvaSTATin [Lipitor] 40 mg PO BEDTIME tablet 02/21/17 [Rx] Ferrous Sulfate 325 mg PO TIDMEALS 07/02/17 [History] Fish Oil/[place]-3 Fatty Acids [Fish Oil 1,000 MG] 1,000 mg PO DAILY 07/02/17 [ History] Pramipexole [Mirapex] 0.75 mg PO QPM 07/02/17 [History] Zolpidem [Ambien] 5 mg PO BEDTIME 07/02/17 [History] busPIRone [Buspar] 15 mg PO QID 07/02/17 [History] Fluticasone Propionate [Flonase] 1 spray NS BID 09/15/17 [History] LORazepam [Ativan] 0.5 mg PO TID 09/15/17 [History] Nystatin [Nystatin Crm] 15 gm TOP BID PRN 09/15/17 [History] Ondansetron [Zofran] 4 mg PO Q6H 09/15/17 [History] Acetaminophen [Tylenol Arthritis Pain] 650 mg PO Q8H PRN #30 tab.er 09/29/17 [Rx ] Insulin Aspart [NovoLOG] 20 unit SUBCUT TIDAC 30 Days pen 09/29/17 [Rx] Furosemide [Lasix] 40 mg PO DAILY 12/15/17 [History] Multivit with Calcium,Iron,Min [Essential Daily] 1 tab PO DAILY 12/15/17 [ History] Mupirocin Oint [Bactroban Oint] 0 gm TOP TID PRN 12/15/17 [History] Albuterol Sulfate [Proair Hfa] 2 puff IH QID PRN 02/12/18 [History] Budesonide/Formoterol Fumarate [Symbicort 160-4.5 Mcg Inhaler] 2 puff IH BID 07/24 [History] Calcitriol [Rocaltrol] 0.25 mcg PO ASDIRECTED 02/12/18 [History] Clopidogrel [Plavix] 75 mg PO DAILY 02/12/18 [History] Insulin Degludec [Tresiba Flextouch U-100] 45 units SUBCUT BID 02/12/18 [History ] Midodrine 5 mg PO ASDIRECTED 02/12/18 [History] Nitroglycerin [Nitrostat] 0.4 mg SL ASDIRECTED PRN 02/12/18 [History] Polyethylene Glycol 3350 [MiraLAX] 17 gm PO BID PRN 02/12/18 [History] Isosorbide Mononitrate [Imdur] 30 mg PO DAILY 06/07/18 [History] Loratadine [Claritin] 10 mg PO DAILY 06/07/18 [History] Citalopram Hydrobromide [Celexa] 20 mg PO DAILY 08/23/19 [History] Patient Handouts: Anemia, Chronic Kidney Disease, Adult, [id number], Cough, Adult - Discharge Summary/Plan Comment DC Time >30 min.: Yes - General Info Date of Service: 08/24/19 Functional Status: Reports: Pain Controlled, Tolerating Diet, Ambulating, Urinating - Review of Systems General: Denies: Fever, Weakness HEENT: Denies: Sinus Congestion, Rhinitis Pulmonary: Denies: Shortness of Breath, Cough, Sputum, Hemoptysis Cardiovascular: Denies: Chest Pain, Lightheadedness Gastrointestinal: Denies: Nausea, Vomiting Genitourinary: Denies: Dysuria, Frequency Skin: Denies: Bruising, Pruritis, Rash Neurological: Denies: Confusion, Dizziness, Headache, Numbness, Tingling - Patient Data Vitals - Most Recent: Last Vital Signs Temp 98.8 F 08/24/19 07:40 Pulse 78 08/24/19 07:40 Resp 18 08/24/19 07:40 BP 124/59 L 08/24/19 07:43 Pulse Ox 97 08/24/19 07:40 Weight - Most Recent: 268.6 kg I&O - Last 24 hours: Intake & Output 08/23/19 08/24/19 08/24/19 22:59 06:59 14:59 Intake Total 1077 Output Total 3000 Balance -1923 Lab Results - Last 24 hrs: Laboratory Results - last 24 hr 08/20/19 08/23/19 08/24/19 Range/Units 13:30 10:34 09:00 WBC 3.5 L D (4.0-11.0) K/uL RBC 2.90 L (3.80-5.80) M/uL Hgb 8.6 L (11.5-16.5) g/dL Hct 25.5 L (37.0-47.0) % MCV 88 (76-96) fL MCH 29.7 (27.0-32.0) pg MCHC 33.7 (31.0-35.0) g/dL RDW 15.7 (11.0-16.0) % Plt Count 103 L (150-500) K/uL MPV 10.9 H (6.0-10.0) fL Neut % (Auto) 73.5 H (45.0-70.0) % Lymph % (Auto) 16.2 L (20.0-40.0) % [place] % (Auto) 8.3 (3.0-10.0) % Eos % (Auto) 1.7 (1.0-5.0) % Baso % (Auto) 0.3 (0.0-0.5) % Neut # (Auto) 2.58 (2.00-7.50) K/uL Lymph # (Auto) 0.57 L (1.50-4.00) K/uL [place] # (Auto) 0.29 (0.20-0.80) K/uL Eos # (Auto) 0.06 (0.04-0.40) K/uL Baso # (Auto) 0.01 L (0.02-0.10) K/uL Sodium (136-145) mmol/L Potassium (3.5-5.1) mmol/L Chloride (98-107) mmol/L Carbon Dioxide (21.0-32.0) mmol/L Anion Gap (5.0-15.0) mmol/L BUN (8-26) mg/dL Creatinine (0.55-1.02) mg/dL Est Cr Clr Drug Dosing Estimated GFR (MDRD) (>60) MLS/MIN BUN/Creatinine Ratio (6-25) Glucose (74-100) mg/dL Calcium (8.5-10.1) mg/dL Blood Type A NEGATIVE Gel Antibody Screen Positive Antibody Identification Anti-K Crossmatch See Detail Tx Rx Implicated Unit 1 [id number] Unit 1 Component Prbc Reaction Clerical Check Acceptable Pre-Trans Blood Type A negative Pre-Trans Vis Hemolysis Negative Pre-Trans Icterus Negative Pre-Trans ROCKY IgG Negative Post-Trans Blood Type A negative Post-Tx Visible Hemolys Negative Post-Trans Icterus Negative Post-Trans ROCKY IgG Negative Reaction Interpretation Allergic reaction 08/24/19 Range/Units 09:00 WBC (4.0-11.0) K/uL RBC (3.80-5.80) M/uL Hgb (11.5-16.5) g/dL Hct (37.0-47.0) % MCV (76-96) fL MCH (27.0-32.0) pg MCHC (31.0-35.0) g/dL RDW (11.0-16.0) % Plt Count (150-500) K/uL MPV (6.0-10.0) fL Neut % (Auto) (45.0-70.0) % Lymph % (Auto) (20.0-40.0) % [place] % (Auto) (3.0-10.0) % Eos % (Auto) (1.0-5.0) % Baso % (Auto) (0.0-0.5) % Neut # (Auto) (2.00-7.50) K/uL Lymph # (Auto) (1.50-4.00) K/uL [place] # (Auto) (0.20-0.80) K/uL Eos # (Auto) (0.04-0.40) K/uL Baso # (Auto) (0.02-0.10) K/uL Sodium 130 L (136-145) mmol/L Potassium 3.5 D (3.5-5.1) mmol/L Chloride 94 L (98-107) mmol/L Carbon Dioxide 23.5 (21.0-32.0) mmol/L Anion Gap 16.0 H (5.0-15.0) mmol/L BUN 88 H* D (8-26) mg/dL Creatinine 10.33 H* D (0.55-1.02) mg/dL Est Cr Clr Drug Dosing TNP Estimated GFR (MDRD) 4 L (>60) MLS/MIN BUN/Creatinine Ratio 8.5 (6-25) Glucose 184 H D (74-100) mg/dL Calcium 7.6 L (8.5-10.1) mg/dL Blood Type Gel Antibody Screen Antibody Identification Crossmatch Tx Rx Implicated Unit 1 Unit 1 Component Reaction Clerical Check Pre-Trans Blood Type Pre-Trans Vis Hemolysis Pre-Trans Icterus Pre-Trans ROCKY IgG Post-Trans Blood Type Post-Tx Visible Hemolys Post-Trans Icterus Post-Trans ROCKY IgG Reaction Interpretation Med Orders - Current: Current Medications Albuterol (Ventolin Hfa) 0 gm INH QID PRN PRN Reason: Shortness of Breath Allopurinol (Zyloprim) 100 mg PO DAILY INGRID Last Admin: 08/24/19 07:48 Dose: 100 mg Aspirin (Halfprin) 81 mg PO DAILY [facility] Last Admin: 08/24/19 07:46 Dose: 81 mg Atorvastatin Calcium (Lipitor) 40 mg PO BEDTIME [facility] Last Admin: 08/23/19 21:00 Dose: 40 mg Buspirone HCl (Buspar) 15 mg PO QID [facility] Last Admin: 08/24/19 07:49 Dose: 15 mg Clopidogrel Bisulfate (Plavix) 75 mg PO DAILY [facility] Last Admin: 08/24/19 07:46 Dose: 75 mg Ferrous Sulfate (Ferrous Sulfate) 325 mg PO TIDMEALS [facility] Last Admin: 08/24/19 07:45 Dose: 325 mg Fish Oil (Fish Oil) 2 gm PO DAILY [facility] Last Admin: 08/24/19 07:43 Dose: 2 gm Fluticasone Propionate (Flonase) 0 gm NASBOTH BID [facility] Last Admin: 08/24/19 07:47 Dose: 1 spray Furosemide (Lasix) 40 mg PO DAILY [facility] Last Admin: 08/24/19 07:46 Dose: 40 mg Guaifenesin (Mucinex) 1,200 mg PO BID [facility] Insulin Aspart (Novolog) 15 unit SUBCUT DAILY@0700 [facility] Last Admin: 08/24/19 08:02 Dose: 15 units Insulin Aspart (Novolog) 0 unit SUBCUT TIDMEALS PRN; Protocol PRN Reason: BLOOD SUGAR PROTOCOL Insulin Aspart (Novolog) 16 unit SUBCUT DAILY@1200 [facility] Insulin Aspart (Novolog) 17 unit SUBCUT DAILY@1800 [facility] Isosorbide Mononitrate (Imdur) 30 mg PO DAILY [facility] Last Admin: 08/24/19 07:43 Dose: 30 mg Lorazepam (Ativan) 0.5 mg PO TID [facility] Last Admin: 08/24/19 07:48 Dose: 0.5 mg Nf Medication 1 Each (Midodrine [ Midodrine] 5 Mg)*Pt Own Med 10 mg PO ASDIRECTED [facility] Last Admin: 08/23/19 16:45 Dose: 10 mg Nf Medication 1 Each (Ondansetron [ Zofran] 4 Mg)*Pt Own Med 4 mg PO Q6H [facility] Last Admin: 08/23/19 22:30 Dose: Not Given Nf Levothyroxine (200mcg *Pt Own Med) 1 each PO ACBREAKFAST [facility] Last Admin: 08/24/19 07:47 Dose: 1 each Nf Med (Insulin Degludec [Tresiba Flextouch U-100] 45 Units)*Pt Own Med 36 units SUBCUT BEDTIME [facility] Last Admin: 08/23/19 21:00 Dose: Not Given Trazodone HCl (Trazodone) 100 mg PO BEDTIME [facility] Last Admin: 08/23/19 21:00 Dose: 100 mg Zolpidem Tartrate (Ambien) 5 mg PO BEDTIME [facility] Last Admin: 08/23/19 20:58 Dose: 5 mg Discontinued Medications Acetaminophen (Tylenol Extra Strength) 500 mg PO ONETIME ONE Stop: 08/22/19 15:57 Last Admin: 08/22/19 14:54 Dose: 500 mg Diphenhydramine HCl (Benadryl) 50 mg PO ONETIME ONE Stop: 08/22/19 15:57 Last Admin: 08/22/19 14:54 Dose: 50 mg Diphenhydramine HCl (Benadryl) 50 mg IVPUSH ONETIME ONE Stop: 08/22/19 20:10 Last Admin: 08/22/19 20:15 Dose: 50 mg Diphenhydramine HCl (Benadryl) 50 mg IVPUSH ONETIME ONE Stop: 08/23/19 07:39 Last Admin: 08/23/19 07:44 Dose: 50 mg Diphenhydramine HCl (Benadryl) Confirm Administered Dose 50 mg .ROUTE .STK-MED ONE Stop: 08/23/19 12:00 Last Admin: 08/23/19 12:15 Dose: 50 mg Fluticasone Propionate (Flonase) 0 gm NASBOTH BID [facility] Last Admin: 08/23/19 16:45 Dose: 1 spray Furosemide (Lasix) 40 mg IVPUSH DAILY PRN PRN Reason: Other Stop: 08/23/19 03:00 Last Admin: 08/22/19 20:20 Dose: 40 mg Furosemide (Lasix) 40 mg IVPUSH NOW ONE Stop: 08/23/19 07:40 Last Admin: 08/23/19 07:46 Dose: 40 mg Dextrose/Sodium Chloride (Dextrose 5%-Normal Saline) 1,000 mls @ 100 mls/hr IV ONETIME ONE Stop: 08/24/19 03:58 Last Admin: 08/23/19 18:15 Dose: 100 mls/hr Insulin Aspart (Novolog) 20 unit SUBCUT TIDAC [facility] Last Admin: 08/23/19 19:22 Dose: Not Given Insulin Aspart (Novolog) 0 unit SUBCUT TIDAC INGRID; Protocol Lorazepam (Ativan) Confirm Administered Dose 0.5 mg .ROUTE .STK-MED ONE Stop: 08/24/19 04:14 Nf Levothyroxine (200mcg *Pt Own Med) 1 each PO ACBREAKFAST INGRID Nf Med (Insulin Degludec [Tresiba Flextouch U-100] 45 Units)*Pt Own Med 45 units SUBCUT BID INGRID - Exam General: Reports: Alert, Oriented, Cooperative, Other (obese) HEENT: Reports: Pupils Equal, Pupils Reactive, EOMI, Mucous Membr. Moist/[place] Neck: Reports: Supple Lungs: Reports: Clear to Auscultation, Normal Respiratory Effort Cardiovascular: Reports: Regular Rate, Regular Rhythm GI/Abdominal Exam: Normal Bowel Sounds, Soft, Non-Tender, No Organomegaly, No Distention, No Abnormal Bruit, No Mass, Pelvis Stable Extremities: Normal Inspection, Normal Range of Motion, Non-Tender, No Pedal Edema, Normal Capillary Refill Skin: Reports: Warm, Intact
[2019-08-24] MEDS ORDERED: guaiFENesin 600 MG Tab.ER PO SCH (18:00)
--- NOTE | 2019-08-24 20:58 | CR ---
CLINICAL DATA: Chest congestion, cough. AP AND LATERAL CHEST, 23 AUGUST 2019: Comparison made to a prior exam dated 31 January 2019. The patient has taken a very poor inspiration. There is chronic eventration of the right hemidiaphragm. The heart size is stable. There is prominence of the proximal pulmonary artery suggesting pulmonary hypertension. There is pulmonary vascular congestion suggesting fluid overload or congestive failure. There are densities in both lung bases consistent with basilar atelectasis or infiltrate. Pneumonia should be considered. No pneumothorax. No pleural effusions. Job: [id number] MTDD
== END 2019-08-24 11:25 | disposition home or self-care (01) ==
LOC: LB.CLINIC 14:29 → LB.MS 08-23 08:08
PROVIDERS: ADMIT Family Medicine; ATTEND Family Medicine
DX: D63.8 Anemia in other chronic diseases classified elsewhere (principal); I12.0 Hypertensive chronic kidney disease with stage 5 chronic kidney disease or end stage renal disease; E11.22 Type 2 diabetes mellitus with diabetic chronic kidney disease; E78.00 Pure hypercholesterolemia, unspecified; J45.909 Unspecified asthma, uncomplicated; K21.9 Gastro-esophageal reflux disease without esophagitis; M19.90 Unspecified osteoarthritis, unspecified site; M10.9 Gout, unspecified; F41.9 Anxiety disorder, unspecified; F32.9 Major depressive disorder, single episode, unspecified; E03.9 Hypothyroidism, unspecified; R05 Cough; R09.89 Other specified symptoms and signs involving the circulatory and respiratory systems; N18.6 End stage renal disease; R60.0 Localized edema; R53.1 Weakness; E66.01 Morbid (severe) obesity due to excess calories; Z91.010 Allergy to peanuts; Z88.5 Allergy status to narcotic agent; Z88.1 Allergy status to other antibiotic agents; Z79.899 Other long term (current) drug therapy; Z79.82 Long term (current) use of aspirin; Z79.4 Long term (current) use of insulin; Z87.891 Personal history of nicotine dependence; Z99.2 Dependence on renal dialysis
CPT/HCPCS: 36415; 36430; 71046; 80048; 80053; 85025; 86850; 86900; 86901; 86920; 86922; 87070; 96361; 96374; 96375; 96376; 99217; 99218; A9270-GY; G0378; J1200; J1940; P9016

== ENCOUNTER 2019-10-16 22:34 | Emergency (ER) | payer MEDICARE, BC ==
[2019-10-16] MEDS ORDERED: Sodium Chloride 0.9% 10 ML Syringe FLUSH PRN (22:58)
[2019-10-16] MEDS ORDERED: Nitroglycerin 0.4 MG Tab.SL SL PRN (22:58)
--- NOTE | 2019-10-16 23:17 | EDM.PDOC ---
ED HPI GENERAL MEDICAL PROBLEM - General Chief Complaint: Chest Pain Stated Complaint: CHEST DISCOMFORT Time Seen by Provider: 10/16/19 22:55 Source of Information: Reports: Patient, Family, RN History Limitations: Reports: No Limitations - History of Present Illness INITIAL COMMENTS - FREE TEXT/NARRATIVE: 68 yo female presents with chest pain and has taken nitro X 2 at home with relief of pain. She has noticed some increase in cough and some increase of shortness of breath and little less energy. Pt has home dialysis and did complete this today and reports everything went well and about 2-3 hour afterward pt started with chest pain. HR 88 on child monitor. SL started and labs drawn. Oxygen is on per N/C. EKG with NSR. - Related Data Allergies Allergy/AdvReac Type Severity Reaction Status Date / Time peanut Allergy Mild Other Verified 10/16/19 23:24 codeine Allergy Hives Verified 10/16/19 23:24 erythromycin lactobionate Allergy Hives Verified 10/16/19 23:24 [From Erythrocin] metformin AdvReac Other Verified 10/16/19 23:24 Home Meds: Home Meds traZODone 100 mg PO BEDTIME 04/25/16 [History] Allopurinol [Zyloprim] 100 mg PO DAILY tablet 12/27/16 [Rx] Levothyroxine Sodium [Levoxyl] 200 mcg PO ACBREAKFAST 02/03/17 [History] Aspirin [Halfprin] 81 mg PO DAILY tab.ec 02/21/17 [Rx] Darbepoetin Jerel in Polysorbat [Aranesp] 0 - 150 mcg SUBCUT Q14D 02/21/17 [Rx] Diclofenac Sodium [Voltaren 1% Gel] 0 - 1 gm TOP QID PRN #1 tube 02/21/17 [Rx] atorvaSTATin [Lipitor] 40 mg PO BEDTIME tablet 02/21/17 [Rx] Ferrous Sulfate 325 mg PO TIDMEALS 07/02/17 [History] Fish Oil/[place]-3 Fatty Acids [Fish Oil 1,000 MG] 1,000 mg PO DAILY 07/02/17 [ History] Pramipexole [Mirapex] 0.75 mg PO QPM 07/02/17 [History] Zolpidem [Ambien] 5 mg PO BEDTIME 07/02/17 [History] busPIRone [Buspar] 15 mg PO QID 07/02/17 [History] Fluticasone Propionate [Flonase] 1 spray NS BID 09/15/17 [History] LORazepam [Ativan] 0.5 mg PO TID 09/15/17 [History] Nystatin [Nystatin Crm] 15 gm TOP BID PRN 09/15/17 [History] Ondansetron [Zofran] 4 mg PO Q6H 09/15/17 [History] Acetaminophen [Tylenol Arthritis Pain] 650 mg PO Q8H PRN #30 tab.er 09/29/17 [Rx ] Insulin Aspart [NovoLOG] 20 unit SUBCUT TIDAC 30 Days pen 09/29/17 [Rx] Furosemide [Lasix] 40 mg PO DAILY 12/15/17 [History] Multivit with Calcium,Iron,Min [Essential Daily] 1 tab PO DAILY 12/15/17 [ History] Mupirocin Oint [Bactroban Oint] 0 gm TOP TID PRN 12/15/17 [History] Albuterol Sulfate [Proair Hfa] 2 puff IH QID PRN 02/12/18 [History] Budesonide/Formoterol Fumarate [Symbicort 160-4.5 Mcg Inhaler] 2 puff IH BID 07/24 [History] Calcitriol [Rocaltrol] 0.25 mcg PO ASDIRECTED 02/12/18 [History] Clopidogrel [Plavix] 75 mg PO DAILY 02/12/18 [History] Insulin Degludec [Tresiba Flextouch U-100] 36 units SUBCUT BEDTIME 02/12/18 [ History] Midodrine 5 mg PO ASDIRECTED 02/12/18 [History] Nitroglycerin [Nitrostat] 0.4 mg SL ASDIRECTED PRN 02/12/18 [History] Polyethylene Glycol 3350 [MiraLAX] 17 gm PO BID PRN 02/12/18 [History] Isosorbide Mononitrate [Imdur] 30 mg PO DAILY 06/07/18 [History] Loratadine [Claritin] 10 mg PO DAILY 06/07/18 [History] Citalopram Hydrobromide [Celexa] 20 mg PO DAILY 08/23/19 [History] Benzonatate [Tessalon Perle] 100 mg PO TID PRN #21 capsule 12/12/19 [Rx] Past Medical History HEENT History: Reports: Epistaxis, Impaired Vision, Other (See Below) Other HEENT History: photosensitive, ringing in ears- chronic, cracking in ears currently Cardiovascular History: Reports: Afib, Heart Murmur, High Cholesterol, Hypertension, [place] Respiratory History: Reports: Asthma, Sleep Apnea, SOB, Other (See Below) Other Respiratory History: doesn't use CPAP because of mask doesn't work - one cased scab on nose, one cased claustraphobia uses oxygen at home Gastrointestinal History: Reports: Chronic Diarrhea, GERD, Hemorrhoids Genitourinary History: Reports: Dialysis, Diabetic Nephropathy, Renal Disease, UTI, Recurrent, Other (See Below) Other Genitourinary History: home dialysis 2.5 hr 6 days per week 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: Musculoskeletal History: Reports: Arthritis, Back Pain, Chronic, Gout, Neck Pain , Chronic, Other (See Below) Other Musculoskeletal History: chronic shoulder pain, arthritis all over Neurological History: Reports: Migraines, Vertigo Psychiatric History: Reports: Anxiety, Depression, PTSD Endocrine/Metabolic History: Reports: Diabetes, Type II, Hypothyroidism, IDDM, Obesity/BMI 30+ Hematologic History: Reports: Anemia, B12 Deficiency, Idiopathic Thrombocytopenia, Other (See Below) Other Hematologic History: antibody in blood Immunologic History: Reports: Immunosuppression Oncologic (Cancer) History: Reports: None Dermatologic History: Reports: None - Infectious Disease History Infectious Disease History: Reports: Chicken Pox, Measles, Mumps, Rubella - Past Surgical History HEENT Surgical History: Reports: Cataract Surgery, Other (See Below) Cardiovascular Surgical History: Reports: Coronary Artery Bypass, Other (See Below) GI Surgical History: Reports: Appendectomy, Cholecystectomy Female Surgical History: Reports: Tubal Ligation Social & Family History - Family History Family Medical History: Noncontributory - Caffeine Use Caffeine Use: Reports: Tea Other Caffeine Use: chocolate ED ROS GENERAL - Review of Systems Review Of Systems: See Below Constitutional: Reports: No Symptoms HEENT: Reports: Glasses Respiratory: Reports: Shortness of Breath, Cough Cardiovascular: Reports: Chest Pain, Lightheadedness GI/Abdominal: Reports: No Symptoms, Constipation, Diarrhea, Decreased Appetite Skin: Reports: Other (dialysis site to left arm) Neurological: Reports: Dizziness Psychiatric: Reports: No Symptoms ED EXAM, GENERAL - Physical Exam Exam: See Below Exam Limited By: No Limitations General Appearance: Alert, No Apparent Distress Ears: Normal External Exam, Hearing Grossly Normal Throat/Mouth: Normal Lips, Normal Voice, No Airway Compromise Head: Atraumatic, Normocephalic Respiratory/Chest: Lungs Clear, Normal Breath Sounds Cardiovascular: Normal Peripheral Pulses, Regular Rate, Rhythm, No Edema Peripheral Pulses: 2+: Dorsalis Pedis (L), Dorsalis Pedis (R) GI/Abdominal: Normal Bowel Sounds, Soft, Non-Tender Neurological: Alert, Oriented, Normal Cognition Psychiatric: Normal Affect, Normal Mood Skin Exam: Warm, Dry, Normal Color EKG INTERPRETATION EKG Date: 10/16/19 Time: 23:11 Rhythm: NSR [place]: LAD-Left [place] Deviation P-Wave: Present QRS: Normal ST-T: Normal Comparison: No Change Course - Vital Signs Last Recorded V/S: Last Vital Signs Temp 98.3 F 10/16/19 23:20 Pulse 91 10/16/19 23:45 Resp 18 10/16/19 23:20 BP 128/50 L 10/16/19 23:45 Pulse Ox 93 L 10/16/19 23:45 - Orders/Labs/Meds Orders: Active Orders 24 hr Category Date Time Status Cardiac Monitoring [RC] .As Directed Care 10/16/19 22:58 Active EKG Documentation Completion [RC] ASDIRECTED Care 10/16/19 23:00 Active Chest 1V Frontal [CR] Stat Exams 10/16/19 23:10 Taken Saline Lock Insert [OM.PC] Stat Oth 10/16/19 22:58 Ordered Labs: Laboratory Tests 10/16/19 10/16/19 Range/Units 23:00 23:00 WBC 5.8 D (4.0-11.0) K/uL RBC 2.99 L (3.80-5.80) M/uL Hgb 8.6 L (11.5-16.5) g/dL Hct 27.1 L (37.0-47.0) % MCV 91 (76-96) fL MCH 28.8 (27.0-32.0) pg MCHC 31.7 (31.0-35.0) g/dL RDW 17.9 H (11.0-16.0) % Plt Count 89 L (150-500) K/uL MPV 11.4 H (6.0-10.0) fL Neut % (Auto) 77.3 H (45.0-70.0) % Lymph % (Auto) 11.2 L (20.0-40.0) % [place] % (Auto) 7.4 (3.0-10.0) % Eos % (Auto) 3.6 (1.0-5.0) % Baso % (Auto) 0.5 (0.0-0.5) % Neut # (Auto) 4.50 (2.00-7.50) K/uL Lymph # (Auto) 0.65 L (1.50-4.00) K/uL [place] # (Auto) 0.43 (0.20-0.80) K/uL Eos # (Auto) 0.21 (0.04-0.40) K/uL Baso # (Auto) 0.03 (0.02-0.10) K/uL Sodium 135 L (136-145) mmol/L Potassium 3.3 L (3.5-5.1) mmol/L Chloride 97 L (98-107) mmol/L Carbon Dioxide 26.8 (21.0-32.0) mmol/L Anion Gap 14.5 (5.0-15.0) mmol/L BUN 31 H D (8-26) mg/dL Creatinine 5.15 H* D (0.55-1.02) mg/dL Est Cr Clr Drug Dosing TNP Estimated GFR (MDRD) 8 L (>60) MLS/MIN BUN/Creatinine Ratio 6.0 (6-25) Glucose 430 H* D (74-100) mg/dL Calcium 9.3 D (8.5-10.1) mg/dL Troponin I < 0.017 (0.000-0.060) ng/mL Meds: Medications Discontinued Medications Generic Name Dose Route Start Last Admin Trade Name Freq PRN Reason Stop Dose Admin Insulin Aspart 17 unit 10/16/19 23:50 10/16/19 23:51 Novolog SUBCUT 10/16/19 23:51 17 unit ONETIME ONE Administration Nitroglycerin 0.4 mg 10/16/19 22:58 Nitrostat SL 10/17/19 23:00 Q5M PRN Chest Pain Sodium Chloride 10 ml 10/16/19 22:58 10/16/19 23:03 Saline Flush FLUSH 10 ml ASDIRECTED PRN Administration Keep Vein Open - Re-Assessments/Exams Free Text/Narrative Re-Assessment/Exam: 10/16/19 23:18 EKG with NSR and no changes from previous EKG, Left axis deviation, HR 88, RBBB, LVH. Pt states no return of chest pain after the nitro at home. 10/16/19 23:51 Blood sugar 430, Novolog 17 unit sq given. Chest x-ray completed. Troponin are negative. WBC=5.8 hgb= 8.6, Creat= 5.15. oxygen has been on per N/C with SpO2 92%. NSR 92. Departure - Departure Time of Disposition: 00:55 Disposition: Home, Self-Care 01 Condition: Fair Clinical Impression: Angina at rest, Acute bronchitis, Type 2 diabetes mellitus Prescriptions: Benzonatate [Tessalon Perle] 100 mg PO TID PRN #21 capsule PRN Reason: Cough Instructions: Benzonatate capsules Referrals: PCP,None [Primary Care Provider] - Forms: ED Department Discharge Additional Instructions: - Continue with home medications. - Follow up with provider anytime next week. Please call the clinic for the appointment. - Take Tessalon Perle 100 mg 3 times daily as needed for cough. Sepsis Event Note - Focused Exam Date Exam was Performed: 10/17/19 Time Exam was Performed: 12:11 - My Orders Last 24 Hours: My Active Orders 10/16/19 22:58 Cardiac Monitoring [RC] .As Directed Saline Lock Insert [OM.PC] Stat 10/16/19 23:00 EKG Documentation Completion [RC] ASDIRECTED 10/16/19 23:10 Chest 1V Frontal [CR] Stat - Assessment/Plan Last 24 Hours: My Active Orders 10/16/19 22:58 Cardiac Monitoring [RC] .As Directed Saline Lock Insert [OM.PC] Stat 10/16/19 23:00 EKG Documentation Completion [RC] ASDIRECTED 10/16/19 23:10 Chest 1V Frontal [CR] Stat Plan: Angina tonight, relieved with nitro tab at home. Elevated blood sugar and Novolog 17 units sq given. Troponin are negative. No EKG changes, no ST elevation and no ST depression. Hgb reviewed and no leukocytosis. Chest x-ray with no pneumonia, basilar atelectasis. Acute bronchitis. 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 Recommend to take insulin at home as prescribed and continue with inhalers and nebulizers as needed. RTC w PCP next week. Return to ER if return of chest pain and no relief with nitro.
[2019-10-16] MEDS ORDERED: Insulin Aspart 100 Units/ML 3 ML Pen SUBCUT ONE (23:50)
[2019-10-17 04:40] VITALS: BP 128/50; PULSE 91
--- NOTE | 2019-10-18 08:26 | CR ---
Date of Service: 10/16/19 Clinical Data: shortness of breath PORTABLE CHEST: Comparison is made to a prior exam dated 08/23/19. The patient has taken a very poor inspiration. The patient is status post median sternotomy. The heart is mildly enlarged. The pulmonary vasculature appears prominent. This is probably related to the poor inspiration. There is eventration of the right hemidiaphragm and atelectatic changes in the right lung base. There is a linear density in the left lower mid lung consistent with linear atelectasis or fibrosis. No pneumothorax. No pleural effusions. [id number] [facility]
== END 2019-10-17 01:00 | disposition home or self-care (01) ==
LOC: LB.ED 22:34
DX: J20.9 Acute bronchitis, unspecified (principal); E78.00 Pure hypercholesterolemia, unspecified; I10 Essential (primary) hypertension; I25.2 Old myocardial infarction; I48.91 Unspecified atrial fibrillation; E11.40 Type 2 diabetes mellitus with diabetic neuropathy, unspecified; F41.9 Anxiety disorder, unspecified; J45.909 Unspecified asthma, uncomplicated; E03.9 Hypothyroidism, unspecified; E66.9 Obesity, unspecified; I20.9 Angina pectoris, unspecified; Z88.5 Allergy status to narcotic agent; Z88.1 Allergy status to other antibiotic agents; Z88.8 Allergy status to other drugs, medicaments and biological substances; Z91.010 Allergy to peanuts; Z79.899 Other long term (current) drug therapy; Z79.82 Long term (current) use of aspirin; Z79.02 Long term (current) use of antithrombotics/antiplatelets; Z79.4 Long term (current) use of insulin; Z79.51 Long term (current) use of inhaled steroids; Z79.890 Hormone replacement therapy; Z68.41 Body mass index [BMI] 40.0-44.9, adult
CPT/HCPCS: 36415; 71045; 80048; 84484; 85025; 93005; 99284; A0425; A0429

== ENCOUNTER 2020-04-14 09:51 | Emergency (ER) | payer MEDICARE, BC ==
[2020-04-14] MEDS: Morphine 2 MG/ML Syringe IVPUSH PRN ×2 (11:23→13:20)
--- NOTE | 2020-04-14 11:49 | EDM.PDOC ---
ED HPI GENERAL MEDICAL PROBLEM - General Chief Complaint: General Stated Complaint: FELL, PAIN, BRUSING ON CHEST Time Seen by Provider: 04/14/20 09:55 Source of Information: Reports: Patient, EMS, EMS Notes Reviewed, RN Notes Reviewed History Limitations: Reports: No Limitations - History of Present Illness INITIAL COMMENTS - FREE TEXT/NARRATIVE: This patient presents to the ED via EMS for evaluation after a fall. Patient states she was walking from her chair to the bathroom when she fell onto her knees. She is complaining of knee pain and back pain. She has a history of falls and in fact, falls fairly regularly at home. She has bruises on her chest and abdomen at different stages of healing from recent falls. She denies hitting her head or any LOC. She is complaining of some nausea but has not had any vomiting episodes. She denies any recent illnesses including fever, cough, shortness of breath, or sore throat. Onset: Today, Sudden Duration: Constant Location: Reports: Back Quality: Reports: Burning, Throbbing Severity: Moderate Improves with: Reports: None Worsens with: Reports: Movement Context: Reports: Activity Associated Symptoms: Reports: Nausea/Vomiting, Shortness of Breath, Weakness. Denies: Chest Pain, Diaphoresis, Fever/Chills, Headaches, Loss of Appetite Right Upper Arm Pain Score (Numeric/FACES): 8 Left Knee Pain Score (Numeric/FACES): 8 - Related Data Allergies Allergy/AdvReac Type Severity Reaction Status Date / Time peanut Allergy Mild Other Verified 04/14/20 10:23 codeine Allergy Hives Verified 04/14/20 10:23 erythromycin lactobionate Allergy Hives Verified 04/14/20 10:23 [From Erythrocin] metformin AdvReac Other Verified 04/14/20 10:23 Home Meds: Home Meds traZODone 100 mg PO BEDTIME 04/25/16 [History] Allopurinol [Zyloprim] 100 mg PO DAILY tablet 12/27/16 [Rx] Levothyroxine Sodium [Levoxyl] 200 mcg PO ACBREAKFAST 02/03/17 [History] Aspirin [Halfprin] 81 mg PO DAILY tab.ec 02/21/17 [Rx] Darbepoetin Jerel in Polysorbat [Aranesp] 0 - 150 mcg SUBCUT Q14D 02/21/17 [Rx] Diclofenac Sodium [Voltaren 1% Gel] 0 - 1 gm TOP QID PRN #1 tube 02/21/17 [Rx] atorvaSTATin [Lipitor] 40 mg PO BEDTIME tablet 02/21/17 [Rx] Ferrous Sulfate 325 mg PO TIDMEALS 07/02/17 [History] Fish Oil/Bandon-3 Fatty Acids [Fish Oil 1,000 MG] 1,000 mg PO DAILY 07/02/17 [ History] Pramipexole [Mirapex] 0.75 mg PO QPM 07/02/17 [History] Zolpidem [Ambien] 5 mg PO BEDTIME 07/02/17 [History] busPIRone [Buspar] 15 mg PO QID 07/02/17 [History] Fluticasone Propionate [Flonase] 1 spray NS BID 09/15/17 [History] LORazepam [Ativan] 0.5 mg PO TID 09/15/17 [History] Nystatin [Nystatin Crm] 15 gm TOP BID PRN 09/15/17 [History] Ondansetron [Zofran] 4 mg PO Q6H 09/15/17 [History] Acetaminophen [Tylenol Arthritis Pain] 650 mg PO Q8H PRN #30 tab.er 09/29/17 [Rx ] Insulin Aspart [NovoLOG] 20 unit SUBCUT TIDAC 30 Days pen 09/29/17 [Rx] Furosemide [Lasix] 40 mg PO DAILY 12/15/17 [History] Multivit with Calcium,Iron,Min [Essential Daily] 1 tab PO DAILY 12/15/17 [ History] Mupirocin Oint [Bactroban Oint] 0 gm TOP TID PRN 12/15/17 [History] Albuterol Sulfate [Proair Hfa] 2 puff IH QID PRN 02/12/18 [History] Budesonide/Formoterol Fumarate [Symbicort 160-4.5 Mcg Inhaler] 2 puff IH BID 07/24 [History] Clopidogrel [Plavix] 75 mg PO DAILY 02/12/18 [History] Insulin Degludec [Tresiba Flextouch U-100] 36 units SUBCUT BEDTIME 02/12/18 [ History] Midodrine 5 mg PO ASDIRECTED 02/12/18 [History] Nitroglycerin [Nitrostat] 0.4 mg SL ASDIRECTED PRN 02/12/18 [History] polyethylene glycoL 3350 [MiraLAX] 17 gm PO BID PRN 02/12/18 [History] Isosorbide Mononitrate [Imdur] 30 mg PO DAILY 06/07/18 [History] Loratadine [Claritin] 10 mg PO DAILY 06/07/18 [History] Citalopram Hydrobromide [Celexa] 20 mg PO DAILY 08/23/19 [History] Benzonatate [Tessalon Perle] 100 mg PO TID PRN #21 capsule 10/17/19 [Rx] Darbepoetin Jerel in Polysorbat [Aranesp] 150 mcg IJ WEEKLY 04/14/20 [History] Past Medical History HEENT History: Reports: Epistaxis, Impaired Vision, Other (See Below) Other HEENT History: photosensitive, ringing in ears- chronic, cracking in ears currently Cardiovascular History: Reports: Afib, Heart Murmur, High Cholesterol, Hypertension, [place] Respiratory History: Reports: Asthma, Sleep Apnea, SOB, Other (See Below) Other Respiratory History: doesn't use CPAP because of mask doesn't work - one cased scab on nose, one cased claustraphobia uses oxygen at home Gastrointestinal History: Reports: Chronic Diarrhea, GERD, Hemorrhoids Genitourinary History: Reports: Dialysis, Diabetic Nephropathy, Renal Disease, UTI, Recurrent, Other (See Below) Other Genitourinary History: home dialysis 2.5 hr 6 days per week [employer] History: Reports: Musculoskeletal History: Reports: Arthritis, Back Pain, Chronic, Gout, Neck Pain , Chronic, Other (See Below) Other Musculoskeletal History: chronic shoulder pain, arthritis all over Neurological History: Reports: Migraines, Vertigo Psychiatric History: Reports: Anxiety, Depression, PTSD Endocrine/Metabolic History: Reports: Diabetes, Type II, Hypothyroidism, IDDM, Obesity/BMI 30+ Hematologic History: Reports: Anemia, B12 Deficiency, Idiopathic Thrombocytopenia, Other (See Below) Other Hematologic History: antibody in blood Immunologic History: Reports: Immunosuppression Oncologic (Cancer) History: Reports: None Dermatologic History: Reports: None - Infectious Disease History Infectious Disease History: Reports: Chicken Pox, Measles, Mumps, Rubella - Past Surgical History HEENT Surgical History: Reports: Cataract Surgery, Other (See Below) Cardiovascular Surgical History: Reports: Coronary Artery Bypass, Other (See Below) GI Surgical History: Reports: Appendectomy, Cholecystectomy Female Surgical History: Reports: Tubal Ligation Social & Family History - Family History Family Medical History: Noncontributory - Tobacco Use Smoking Status *Q: Former Smoker Used Tobacco, but Quit: Yes Month/Year Tobacco Last Used: 1989 - Caffeine Use Caffeine Use: Reports: None Other Caffeine Use: chocolate - Recreational Drug Use Recreational Drug Use: No ED ROS GENERAL - Review of Systems Review Of Systems: Comprehensive ROS is negative, except as noted in HPI. ED EXAM, GENERAL - Physical Exam Exam: See Below Exam Limited By: No Limitations General Appearance: Alert, No Apparent Distress Eye Exam: Bilateral Eye: PERRL Ears: Normal External Exam, Normal TMs Nose: Normal Inspection Throat/Mouth: Normal Inspection, Normal Oropharynx Head: Atraumatic, Normocephalic Neck: Normal Inspection, Supple, Full Range of Motion Respiratory/Chest: No Respiratory Distress, Lungs Clear, Normal Breath Sounds, No Accessory Muscle Use, Other (purple bruise to right chest) Cardiovascular: Normal Peripheral Pulses, Regular Rate, Rhythm, Other (AV fistula left forearm with thrill) GI/Abdominal: Normal Bowel Sounds, Soft, Non-Tender, No Distention Back Exam: Normal Inspection, Decreased Range of Motion (related to pain), Paraspinal Tenderness (bilaterally lumbar spines), Vertebral Tenderness (lower thoracic and lumbar). No: CVA Tenderness (R), CVA Tenderness (L), Muscle Spasm Extremities: Normal Capillary Refill Neurological: Alert, Oriented, Normal Cognition Psychiatric: Normal Affect Skin Exam: Warm, Dry Course - Vital Signs Last Recorded V/S: Last Vital Signs Temp 36.4 C 04/14/20 10:42 Pulse 86 04/14/20 12:30 Resp 18 04/14/20 12:30 BP 148/66 H 04/14/20 12:30 Pulse Ox 98 04/14/20 12:30 - Orders/Labs/Meds Orders: Active Orders 24 hr Category Date Time Status EKG Documentation Completion [RC] ASDIRECTED Care 04/14/20 10:23 Ordered Lumbar Spine wo Cont [CT] Stat Exams 04/14/20 10:21 Ordered Thoracic Spine wo Cont [CT] Stat Exams 04/14/20 10:21 Ordered CORONAVIRUS COVID-19, ISMA Stat Lab 04/14/20 12:45 Ordered Morphine Med 04/14/20 11:20 Active 2 mg IVPUSH Q1H PRN Medication Orders Morphine Sulfate (Morphine) 2 mg IVPUSH Q1H PRN PRN Reason: Pain Last Admin: 04/14/20 11:23 Dose: 2 mg Labs: Laboratory Tests 04/14/20 04/14/20 Range/Units 10:22 10:22 WBC 4.7 D (4.0-11.0) K/uL RBC 2.37 L (3.80-5.80) M/uL Hgb 7.0 L D (11.5-16.5) g/dL Hct 22.2 L D (37.0-47.0) % MCV 94 (76-96) fL MCH 29.5 (27.0-32.0) pg MCHC 31.5 (31.0-35.0) g/dL RDW 18.1 H (11.0-16.0) % Plt Count 88 L (150-500) K/uL MPV 11.8 H (6.0-10.0) fL Neut % (Auto) 79.7 H (45.0-70.0) % Lymph % (Auto) 9.9 L (20.0-40.0) % [place] % (Auto) 7.7 (3.0-10.0) % Eos % (Auto) 2.1 (1.0-5.0) % Baso % (Auto) 0.6 H (0.0-0.5) % Neut # (Auto) 3.71 (2.00-7.50) K/uL Lymph # (Auto) 0.46 L (1.50-4.00) K/uL [place] # (Auto) 0.36 (0.20-0.80) K/uL Eos # (Auto) 0.10 (0.04-0.40) K/uL Baso # (Auto) 0.03 (0.02-0.10) K/uL Sodium 133 L (136-145) mmol/L Potassium 4.1 D (3.5-5.1) mmol/L Chloride 96 L (98-107) mmol/L Carbon Dioxide 24.6 (21.0-32.0) mmol/L Anion Gap 16.5 H (5.0-15.0) mmol/L BUN 36 H (8-26) mg/dL Creatinine 6.29 H* D (0.55-1.02) mg/dL Est Cr Clr Drug Dosing TNP Estimated GFR (MDRD) 7 L (>60) MLS/MIN BUN/Creatinine Ratio 5.7 L (6-25) Glucose 236 H D (74-100) mg/dL Calcium 8.6 (8.5-10.1) mg/dL Meds: Medications Generic Name Dose Route Start Last Admin Trade Name Freq PRN Reason Stop Dose Admin Morphine Sulfate 2 mg 04/14/20 11:20 04/14/20 11:23 Morphine IVPUSH 2 mg Q1H PRN Administration Pain Discontinued Medications Generic Name Dose Route Start Last Admin Trade Name Freq PRN Reason Stop Dose Admin Morphine Sulfate Confirm 04/14/20 11:28 04/14/20 11:40 Morphine Administered 04/14/20 11:29 Not Given Dose 4 mg .ROUTE .STK-MED ONE Ondansetron HCl 4 mg 04/14/20 12:42 Zofran IVPUSH 04/14/20 12:43 ONETIME ONE - Re-Assessments/Exams Free Text/Narrative Re-Assessment/Exam: 04/14/20 12:46 This patient presents to the ED after a fall. She does not appear to have any acute findings from today's fall; however, is noted to have a hemoglobin of 7. 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 Because of this I contacted [facility] and spoke with Dr. Marin who did agree to accept this patient in transfer. Arrangements were made to transfer her via BLS ground. She was given 4 mg of morphine and 4 mg of zofran for comfort prior to transfer. Departure - Departure Time of Disposition: 13:10 Disposition: DC/Tfer to Acute Hospital 02 Preliminary Cause of *Q: Cardiac Arrest Condition: Fair Clinical Impression: Fall Anemia Qualifiers: Anemia type: other cause Other causes of anemia: chronic disease, other Qualified Code(s): D63.8 - Anemia in other chronic diseases classified elsewhere - Discharge Information *PRESCRIPTION DRUG MONITORING PROGRAM REVIEWED*: Not Applicable Referrals: PCP,None [Primary Care Provider] - Forms: ED Department Discharge Sepsis Event Note (ED) - Evaluation Sepsis Screening Result: No Definite Risk - Focused Exam Vital Signs: Vital Signs Temp Pulse Resp BP Pulse Ox 04/14/20 12:30 86 18 148/66 H 98 04/14/20 12:00 85 13 137/55 L 99 04/14/20 11:30 84 14 128/57 L 99 04/14/20 11:00 83 19 100 04/14/20 10:42 36.4 C 80 20 111/36 L 100 04/14/20 10:30 79 19 110/32 L 99 04/14/20 09:55 36.4 C 80 12 111/36 L 100 - My Orders Last 24 Hours: My Active Orders 04/14/20 10:21 Lumbar Spine wo Cont [CT] Stat Thoracic Spine wo Cont [CT] Stat 04/14/20 10:23 EKG Documentation Completion [RC] ASDIRECTED 04/14/20 11:20 Morphine 2 mg IVPUSH Q1H PRN 04/14/20 12:45 CORONAVIRUS COVID-19, ISMA Stat - Assessment/Plan Last 24 Hours: My Active Orders 04/14/20 10:21 Lumbar Spine wo Cont [CT] Stat Thoracic Spine wo Cont [CT] Stat 04/14/20 10:23 EKG Documentation Completion [RC] ASDIRECTED 04/14/20 11:20 Morphine 2 mg IVPUSH Q1H PRN 04/14/20 12:45 CORONAVIRUS COVID-19, ISMA Stat
[2020-04-14] MEDS ORDERED: Ondansetron 4 MG/2 ML SDV IVPUSH ONE (12:42)
[2020-04-14] MEDS ORDERED: Morphine 2 MG/ML Syringe ONE (12:56)
[2020-04-14] MEDS ORDERED: Ondansetron 4 MG/2 ML SDV ONE (12:56)
[2020-04-14 14:18] VITALS: BP 145/63; PULSE 80
--- NOTE | 2020-04-15 07:20 | CT ---
DATE OF SERVICE: 04/14/20 CLINICAL DATA: trauma LUMBAR SPINE CT: Multislice axial acquisition without contrast was performed. Axial and sagittal and coronal reformations are reviewed. No priors. There is diffuse osteopenia. The patient is status post T10 vertebroplasty. There is a partial compression fracture of T10 with approximately 60% loss of height anteriorly. There is mild compression deformity of the superior endplate of T11 with approximately 20 to 30% loss of height anteriorly. No other fractures. There is mild degenerative disc disease at multiple levels. There is facet joint hypertrophy throughout the lumbar spine. There is mild central spinal stenosis at the L4-5 level. There is mild neural foraminal stenosis at multiple levels. There is mild atrophy of both kidneys. There are calcifications in both kidneys that are most likely vascular. No focal lytic or blastic bone lesions. [id number] [facility]
--- NOTE | 2020-04-15 07:26 | CT ---
DATE OF SERVICE: 04/14/20 CLINICAL DATA: trauma THORACIC SPINE CT: Multislice axial acquisition was performed. Axial images and sagittal and coronal reformations are reviewed. No priors. The patient is status post T10 vertebroplasty. There is a partial compression fracture of the T10 vertebra with approximately 50 to 60% loss of height anteriorly. There is also mild compression deformity of the superior endplate of T11 with approximately 20 to 30% loss of height anteriorly, age indeterminate. No other fractures. There is degenerative disc disease throughout the thoracic spine. There is facet joint hypertrophy at multiple levels. There is mild central spinal stenosis at the T10-T11 level. No other significant central or foraminal stenosis. No focal lytic or blastic bone lesions. There are atelectatic changes in both lung bases with areas of consolidation bilaterally. Pneumonia should be considered. The heart is grossly enlarged. There are coronary artery calcifications. No other significant findings. [id number] [facility]
== END 2020-04-14 13:24 ==
LOC: LB.ED 09:51
DX: S20.211A Contusion of right front wall of thorax, initial encounter (principal); D63.8 Anemia in other chronic diseases classified elsewhere; I48.91 Unspecified atrial fibrillation; E78.00 Pure hypercholesterolemia, unspecified; I10 Essential (primary) hypertension; I25.2 Old myocardial infarction; J45.909 Unspecified asthma, uncomplicated; K21.9 Gastro-esophageal reflux disease without esophagitis; E11.21 Type 2 diabetes mellitus with diabetic nephropathy; M10.9 Gout, unspecified; F41.9 Anxiety disorder, unspecified; F32.9 Major depressive disorder, single episode, unspecified; E03.9 Hypothyroidism, unspecified; E66.9 Obesity, unspecified; Z68.41 Body mass index [BMI] 40.0-44.9, adult; Z79.82 Long term (current) use of aspirin; Z79.899 Other long term (current) drug therapy; Z79.02 Long term (current) use of antithrombotics/antiplatelets; Z91.040 Latex allergy status; Z88.5 Allergy status to narcotic agent; Z88.1 Allergy status to other antibiotic agents; Z88.8 Allergy status to other drugs, medicaments and biological substances; Z87.891 Personal history of nicotine dependence; W18.30XA Fall on same level, unspecified, initial encounter; Z99.81 Dependence on supplemental oxygen; Y92.009 Unspecified place in unspecified non-institutional (private) residence as the place of occurrence of the external cause
CPT/HCPCS: 36415; 72128; 72131; 80048; 85025; 93005; 96374; 96375; 99285; J2270; J2405; U0002